=== PATIENT | male | born 1950 | race Caucasian/White ===

== ENCOUNTER 2017-11-25 10:25 | Outpatient (RCR) | payer MEDICARE, SELFPAY ==
[2017-11-17 11:14] LABS: International Normalized Ratio 1.5; Prothrombin Time (Protime)PT. 17.8 SECONDS (11.7-14.9)
[2017-11-25 11:25] LABS: International Normalized Ratio 2.2; Prothrombin Time (Protime)PT. 23.2 SECONDS (11.7-14.9)
== END 2017-12-16 23:59 ==
LOC: INT LAB 10:25
PROVIDERS: Family Provider Internal Medicine; PCP Internal Medicine; Visit Provider Internal Medicine Cardiovascular Disease
DX: I48.0 Paroxysmal atrial fibrillation (principal); Z79.01 Long term (current) use of anticoagulants
CPT/HCPCS: 36415; 85610

== ENCOUNTER 2018-02-01 07:57 | Outpatient (RCR) | payer MEDICARE, SELFPAY ==
[2017-10-21 09:03] VITALS: BP 127/87; BMI 26.9
[2018-01-14 12:54] LABS: International Normalized Ratio 3.1; Prothrombin Time (Protime)PT. 31.9 SECONDS (11.7-14.9)
[2018-02-01 09:21] LABS: International Normalized Ratio 2.8; Prothrombin Time (Protime)PT. 29.6 SECONDS (11.7-14.9)
== END 2018-02-13 23:59 ==
LOC: INT LAB 07:57
PROVIDERS: Family Provider Internal Medicine; PCP Internal Medicine; Visit Provider Internal Medicine Cardiovascular Disease
DX: I48.0 Paroxysmal atrial fibrillation (principal); Z79.01 Long term (current) use of anticoagulants
CPT/HCPCS: 36415; 85610

== ENCOUNTER 2018-03-11 09:26 | Outpatient (RCR) | payer MEDICARE, SELFPAY ==
[2018-03-11 10:05] LABS: International Normalized Ratio 2.7; Prothrombin Time (Protime)PT. 28.7 SECONDS (11.7-14.9)
== END 2018-03-15 23:59 ==
LOC: INT LAB 09:26
PROVIDERS: Family Provider Internal Medicine; PCP Internal Medicine; Visit Provider Internal Medicine Cardiovascular Disease
DX: I48.0 Paroxysmal atrial fibrillation (principal); Z79.01 Long term (current) use of anticoagulants
CPT/HCPCS: 36415; 85610

== ENCOUNTER 2018-04-13 07:17 | Outpatient (RCR) | payer MEDICARE, SELFPAY ==
[2018-04-13 08:50] LABS: International Normalized Ratio 2.9; Prothrombin Time (Protime)PT. 30.1 SECONDS (11.7-14.9)
== END 2018-04-15 23:59 ==
LOC: INT LAB 07:17
PROVIDERS: Family Provider Internal Medicine; PCP Internal Medicine; Visit Provider Internal Medicine Cardiovascular Disease
DX: I48.0 Paroxysmal atrial fibrillation (principal); Z79.01 Long term (current) use of anticoagulants
CPT/HCPCS: 36415; 85610

== ENCOUNTER 2018-06-22 06:54 | Outpatient (RCR) | payer MEDICARE, SELFPAY ==
[2018-06-22 07:50] LABS: International Normalized Ratio 3.4; Prothrombin Time (Protime)PT. 34.4 SECONDS (11.7-14.9)
== END 2018-07-16 23:59 ==
LOC: INT LAB 06:54
PROVIDERS: Family Provider Internal Medicine; PCP Internal Medicine; Visit Provider Internal Medicine Cardiovascular Disease
DX: I48.0 Paroxysmal atrial fibrillation (principal); Z79.01 Long term (current) use of anticoagulants; I48.91 Unspecified atrial fibrillation; I48.92 Unspecified atrial flutter
CPT/HCPCS: 36415; 85610

== ENCOUNTER → 2018-06-30 08:46 | Outpatient (CLI) | payer MEDICARE, SELFPAY ==
[2018-06-30 09:35] LABS: International Normalized Ratio 3.4; Prothrombin Time (Protime)PT. 34.5 SECONDS (11.7-14.9)
== END ==
PROVIDERS: Family Provider Internal Medicine; PCP Internal Medicine; Visit Provider Internal Medicine Cardiovascular Disease
DX: I48.92 Unspecified atrial flutter (principal); Z79.01 Long term (current) use of anticoagulants
CPT/HCPCS: 36415; 85610

== ENCOUNTER 2018-08-31 12:47 | Outpatient (RCR) | payer MEDICARE, SELFPAY ==
[2018-08-31 13:20] LABS: Prothrombin Time (Protime)PT. 22.8 SECONDS (11.7-14.9)
== END 2018-08-31 14:00 | disposition home or self-care (01) ==
LOC: LAB 12:47
PROVIDERS: Family Provider Internal Medicine; PCP Internal Medicine; Visit Provider Internal Medicine Cardiovascular Disease
DX: I48.92 Unspecified atrial flutter (principal); Z79.01 Long term (current) use of anticoagulants
CPT/HCPCS: 36415; 85610

== ENCOUNTER → 2018-10-18 08:58 | Outpatient (CLI) | payer MEDICARE, SELFPAY ==
[2018-10-18 09:05] VITALS: PULSE 101; PULSE 103; PULSE 109; PULSE 62; PULSE 84; PULSE 86; PULSE 94; PULSE 98; O2SAT 96; O2SAT 97
--- NOTE | 2018-10-18 13:41 | WT_ITS ---
PSN 6 Minute Walk Test - 6 Minute Walk Test 6 Minute Walk Test: 6 Minute Walk Test PSN:6-Minute Walk Test Start: 10/18/18 09:29 Freq: Status: Active Protocol: [id number] Document 10/18/18 09:05 [facility] (Rec: 10/18/18 09:32 [facility] [id number]) 6 Minute Walk Test Date Performed 10/18/18 Time Performed 09:05 Height 6 ft Weight: 205 lb Weight in Pounds 205.[address]: Janelle Sellers Assistive device used: None Pre-test Oxygen Delivery Method Room Air Pulse Ox (%) 97 Pulse Rate (60-100 beats/min) 84 Dyspnea Alejandro Scale (0-10) 0 Exertion Alejandro Scale (6-20) 6 1st minute Oxygen Delivery Method Room Air Pulse Ox (%) 97 Pulse Rate (60-100 beats/min) 98 Number of Rests Taken 0 2nd minute Oxygen Delivery Method Room Air Pulse Ox (%) 96 Pulse Rate (60-100 beats/min) 86 Number of Rests Taken 0 3rd minute Oxygen Delivery Method Room Air Pulse Ox (%) 96 Pulse Rate (60-100 beats/min) 109 H Number of Rests Taken 0 4th minute Oxygen Delivery Method Room Air Pulse Ox (%) 96 Pulse Rate (60-100 beats/min) 101 H Number of Rests Taken 0 5th minute Oxygen Delivery Method Room Air Pulse Ox (%) 96 Pulse Rate (60-100 beats/min) 103 H Number of Rests Taken 0 6th minute Oxygen Delivery Method Room Air Pulse Ox (%) 97 Pulse Rate (60-100 beats/min) 94 Number of Rests Taken 0 Post-test Oxygen Delivery Method Room Air Pulse Ox (%) 97 Pulse Rate (60-100 beats/min) 62 Dyspnea Alejandro Scale (0-10) 2 Exertion Alejandro Scale (6-20) 12 Number of Rests Taken 0 Full Laps Walked 18 Partial Lap, Number of Tiles Walked 37 Total Distance Walked (ft) 1099 - Interpretation Interpretation: The patient ambulated 1099 feet over the course of 6 minutes beginning on room air without assistive devices or breaks. Pretesting oxygen saturation was noted to be 97% on room air. With ambulation, the tianna oxygen saturation was 96%. There was no significant exertional oxygen desaturation. - Recommendations Recommendations: There is no indication for the use of supplemental oxygen at this time.
--- OUTSIDE RECORDS SUMMARY | 2018-12-11 11:13 | XMS RPT_ITS ---
:1950 Author Organization OHIP Support Name Relationship Address Phone LEANNA CARDONA Unavailable [address] + [address] [place] [address] R Unavailable Unavailable Unavailable BRENDAN LEANNA Unavailable Unavailable Unavailable BRENDAN LEANNA Unavailable [address] + [address] [place] [address] R Unavailable Unavailable Unavailable BRENDAN LEANNA Unavailable [address] + [address] [place] [address] R Unavailable Unavailable Unavailable BRENDAN LEANNA Unavailable [address] + [address] [place] [address] R Unavailable Unavailable Unavailable BRENDAN LEANNA Unavailable [address] + [address] [place] [address] R Unavailable Unavailable Unavailable BRENDANJANICEIE Unavailable [address] + [address] [place] [address] R Unavailable Unavailable Unavailable JANICE CARDONAIE Unavailable [address] + [address] [place] [address] R Unavailable Unavailable Unavailable BRENDAN LEANNA Unavailable [address] + [address] [place] [address] R Unavailable Unavailable Unavailable BRENDAN LEANNA Unavailable [address] + [address] [place] [address] R Unavailable Unavailable Unavailable BRENDAN LEANNA Unavailable Unavailable Unavailable BRENDAN LEANNA Unavailable [address] + [address] [place] [address] R Unavailable Unavailable Unavailable BRENDAN LEANNA Unavailable [address] + [address] [place] [address] R Unavailable Unavailable Unavailable BRENDAN LEANNA Unavailable [address] + [address] [place] [address] R Unavailable Unavailable Unavailable BRENDAN, LEANNA Unavailable Unavailable Unavailable BRENDAN, LEANNA Unavailable [address] + [address] [place] [address] R Unavailable Unavailable Unavailable BRENDAN, LEANNA Unavailable . + [place] [address] R Unavailable Unavailable Unavailable BRENDAN, LEANNA Unavailable . + [place] [address] R Unavailable Unavailable Unavailable BRENDAN, LEANNA Unavailable . + [place] [address] R Unavailable Unavailable Unavailable BRENDAN, LEANNA Unavailable . + [place] [address] R Unavailable Unavailable Unavailable BRENDAN, LEANNA Unavailable Unavailable Unavailable BRENDAN, LEANNA Unavailable . + [place] [address] R Unavailable Unavailable Unavailable BRENDAN, LEANNA Unavailable Unavailable + [place] [address] R Unavailable Unavailable Unavailable BRENDAN, LEANNA Unavailable Unavailable + [place] [address] R Unavailable Unavailable Unavailable BRENDAN, LEANNA Unavailable Unavailable + [place] [address] R Unavailable Unavailable Unavailable Care Team Providers Name Role Phone DEMETRIA BERGMAN ([facility]) Attending Unavailable SR BETTY Attending Unavailable SR, BETTY Referring Unavailable SR, BETTY Referring Unavailable SR, BETTY Referring Unavailable PAT PASCAL ([facility]) Attending Unavailable SR, BETTY Referring Unavailable CARLTON CAREDNAS ([facility]) Attending Unavailable OLDER, DEMETRIA ([facility]) Attending Unavailable OLDER, DEMETRIA ([facility]) Referring Unavailable TESTRAKE, ANNMARIE Attending Unavailable OLDER, DEMETRIA ([facility]) Referring Unavailable TESTRAKE, ANNMARIE Referring Unavailable TESTRAKE, ANNMARIE Referring Unavailable TESTRAKE, ANNMARIE Attending Unavailable TESTRAKE, ANNMARIE Referring Unavailable SR, BETTY Attending Unavailable SR, BETTY Referring Unavailable PROVIDER, UNKNOWN Admitting Unavailable PROVIDER, UNKNOWN Attending Unavailable PATIENT, SELF Referring Unavailable PROVIDER, UNKNOWN Admitting Unavailable PROVIDER, UNKNOWN Attending Unavailable PATIENT, SELF Referring Unavailable PROVIDER, UNKNOWN Admitting Unavailable PROVIDER, UNKNOWN Attending Unavailable PATIENT, SELF Referring Unavailable PROVIDER, UNKNOWN Admitting Unavailable PROVIDER, UNKNOWN Attending Unavailable PATIENT, SELF Referring Unavailable Janelle Sellers Attending Unavailable Sellers, Janelle Referring Unavailable Sr, Juan Primary Care Unavailable Javan Fraga D.O. Attending Unavailable Sellers, Janelle Referring Unavailable Jayesh, Moris Attending Unavailable Sr, Juan Primary Care Unavailable Armando, Vahid Attending Unavailable Sr, Juan Primary Care Unavailable Armando, Vahid Attending Unavailable Sr, Juan Primary Care Unavailable Javan Fraga D.O. Attending Unavailable Sellers, Janelle Referring Unavailable Javan Fraga D.O. Attending Unavailable Jayesh, Moris Referring Unavailable Jayesh, Moris Attending Unavailable Sr, Juan Referring Unavailable Armando, [place]in[place] Attending Unavailable Sr, Juan Primary Care Unavailable Armando, [place] Referring Unavailable DeFinis, Oral Attending Unavailable Armando, Vahid Attending Unavailable Sr, Juan Referring Unavailable Sr, Juan Primary Care Unavailable Armando, [place] Attending Unavailable Armando, [place] Referring Unavailable Sr, Juan Primary Care Unavailable Armando, Vahid Attending Unavailable Armando, [place] Referring Unavailable Sr, Juan Primary Care Unavailable Armando, Vahid Attending Unavailable Armando, Vahid Referring Unavailable Sr, Juan Primary Care Unavailable Armando, Vahid Attending Unavailable Armando, [place] Referring Unavailable Sr, Juan Primary Care Unavailable Sellers, Janelle Attending Unavailable Sr, Juan Referring Unavailable Sr, Juan Primary Care Unavailable Wei Chung Attending Unavailable Sr, Juan Referring Unavailable Armando, Vahid Attending Unavailable Armando, Vahid Referring Unavailable Sr, Juan Primary Care Unavailable Sellers, Janelle Attending Unavailable Sellers, Janelle Referring Unavailable Sr, Juan Primary Care Unavailable Sellers, Janelle Attending Unavailable Sellers, Janelle Referring Unavailable Sr, Juan Primary Care Unavailable Sellers, Janelle Attending Unavailable Sr, Juan Referring Unavailable PROBLEMS PROBLEMS DATE TYPE CONDITION / CODE ATTENDING STATUS SOURCE 10/25/2018 Unknown J44.9 - Chronic Sellers, Active Patricia obstructive [facility] pulmonary disease, Hospital unspecified / Repository J44.9(ICD-10) 10/25/2018 Unknown F17.200 - Nicotine Sellers, Active [place] dependence, [facility] unspecified, Hospital uncomplicated / Repository F17.200(ICD-10) 10/25/2018 Unknown G47.33 - Obstructive Sellers, Active [place] sleep apnea (adult) [facility] (pediatric) / Hospital G47.33(ICD-10) Repository 09/16/2018 Unknown I48.92 - Unspecified ArmandoEleazar mayril Active [place] atrial flutter / Community I48.92(ICD-10) Hospital Repository 09/16/2018 Unknown Z79.01 - snf ArmandoEleazarSeminole Active [place] (current) use of Community anticoagulants / Hospital Z79.01(ICD-10) Repository 07/07/2018 Active Localized swelling, NA Active [place] mass and lump, right Clinic Main lower limb / [place] R22.41(ICD-10) Repository 07/07/2018 Active Ganglion, right NA Active [facility] ankle and foot / Clinic Main M67.471(ICD-10) [place] Repository 06/30/2018 Active Pain in right foot / NA Active [facility] [place] M79.671(ICD-10) Clinic Main [place] Repository 07/17/2018 Unknown I48.0 - Paroxysmal ArmandoEleazar mayril Active [place] atrial fibrillation Community / I48.0(ICD-10) Hospital Repository 03/11/2018 Unknown I48.91 - Unspecified Armando, [place] Active [facility] atrial fibrillation Community / I48.91(ICD-10) Hospital Repository 03/11/2018 Unknown I10 - Essential ArmandoEleazarVahid Active [place] (primary) Community hypertension / Hospital I10(ICD-10) Repository 03/11/2018 Unknown I43 - Cardiomyopathy ArmandoEleazar mayril Active [place] in diseases Community classified elsewhere Hospital / I43(ICD-10) Repository 01/26/2018 Active Chronic viral NA Active [facility] [place] hepatitis C / Clinic Main B18.2(ICD-10) [place] Repository 07/30/2010 Active Impaired fasting NA Active [place] glucose / Clinic Main R73.01(ICD-10) [place] Repository 09/05/2009 Active Other specified NA Active [facility] abnormal [facility] Main immunological [place] findings in serum / Repository R76.8(ICD-10) 02/01/2018 Active Other parts counterman NA Active [place] (current) drug [facility] Main therapy / [place] Z79.899(ICD-10) Repository 02/01/2018 Active Unspecified atrial NA Active [place] fibrillation / Clinic Main I48.91(ICD-10) [place] Repository 11/17/2017 Unknown Z72.0 - Tobacco use Moris Mcconnell Active [place] / Z72.0(ICD-10) [facility] PROCEDURES PROCEDURES DATE CODE DESCRIPTION STATUS SOURCE 11/01/2018 38908(C4) LARYNGOSCOPY, Completed [facility] FLEXIBLE FIBEROPTIC; System Repository DX 08/02/2018 30911(C4) LARYNGOSCOPY, Completed [facility] FLEXIBLE [facility]; System Repository DX 05/03/2018 80720(C4) LARYNGOSCOPY, Completed [facility] FLEXIBLE FIBEROPTIC; System Repository DX 01/25/2018 95647(C4) LARYNGOSCOPY, Completed [facility] FLEXIBLE FIBEROPTIC; System Repository DX RESULTS RESULTS LOW DOSE CT LUNG Observed: 11/02/2018 Status: F Source: ISOM SCREENING 7:55 AM [facility] Imaging Services [address] [place] [address] Lung Screening MR#: [id number] Acct: [id number] Name: LUCI CARDONA Rep #: [id number] : 1950 M 68 From: Sami Perez DO PCP: Juan Sr MD Status: REG CLI Study: Low Dose CT Lung Screening Date of Exam: 11/02/18 Exam# [id number] Ordering Dr: Janelle Sellers SHOP HELPER-Julio STUDY: LOW DOSE CT LUNG CANCER SCREENING REASON FOR EXAM: Male, 68 years old. 50 pack-year history. History of throat cancer and COPD. RADIATION DOSAGE (If Supplied By Facility): CTDIvol = ( 3.02 ) mGy, DLP = ( 105.71 ) mGycm TECHNIQUE: No contrast was administered. Low dose technique was utilized (average mAS-38 and kVp 120). 1.25 mm axial source images with a slice interval of 1.25- mm were reconstructed in lung windows. 2.5 mm axial source images with a slice interval of 2.5-mm were reconstructed in lung windows. 5.0 mm axial source images with a slice interval of 5.0-mm were reconstructed in soft tissue windows. Nodule measured using lung windows on PACS and/or independent workstation with automated measurement of minimum and maximum diameter. Nodule measurement reported as average diameter rounded to the nearest whole number. Growth is defined as an increase ins size of greater than 1.5 mm. COMPARISON: Chest, October 16, 2014. NODULES: Nodule #: 1 Density: Solid Lung location: Right upper lobe: 2.5 cm from pleura Location in series: Series Number: 2 Image: 135 Size - D1 x D2 mm: 6 x 6 mm: 6 mm average diameter Margin: Smooth Shape: Triangular Calcification: No Fat: No Temporal comparison: None Nodule #: 2 Density: Solid Lung location: Right middle lobe: 2.2 cm from pleura Location in series: Series Number: 2 Image: 151 Size - D1 x D2 mm: 3 x 3 mm: 3 mm average diameter Margin: Smooth Shape: Round Calcification: Yes Fat: No Temporal comparison: None Total lung nodules (excluding granulomas): 1 Emphysema: There are minimal emphysematous changes with biapical pleural scarring and linear scarring in the left lower lobe. Endobronchial lesion: None Aorta: There is atherosclerotic tortuosity without aneurysm. Coronary arteries: There are coronary artery calcifications. Heart: The heart is normal in size. Pulmonary artery: Normal Mediastinal nodes: There is nonspecific subcentimeter mediastinal lymphadenopathy. Other chest and abdominal findings: There are degenerative changes of the thoracic spine. CT/Low Dose CT Lung Screening IMPRESSION: 1. Triangular soft tissue nodule in the right upper lobe. 2. Minimal emphysematous changes. Lung-RADS category 2 - Continue annual screening with LDCT in 12 months. IMPORTANT NOTES FOR USE: ACR Lung-RADS Version 1.0 Assessment Categories Release Date: March 13, 2014 Category: Coded 0-4 bases on nodule(s) with highest degree of suspicion. Negative screen is defined as categories 1 and 2; a positive screen is defined as categories 3 and 4. Category 3 and 4A nodules that are unchanged on interval CT should be coded as category 2, and individuals returned to screening in 12 months. Category 4X: Category 3 or 4 nodules with additional imaging findings that increase the suspicion of lung cancer, such as spiculation, GGN that doubles in size in 1 year, enlarged lymph notes, etc. Category Modifiers: S (significant finding unrelated to lung cancer) and C (prior history of treated lung cancer) may be added to the 0-4 Lung-RADS Electronically Signed: Sami Perez DO at 17:05 EST Tel [phone], Service support , CC: Janelle Sellers; Juan Sr MD Mercerizing Range Feeder: Signed PULMONARY VISIT REPORT Observed: 10/25/2018 Status: F Source: ISOM 9:52 AM [facility] REPOSIT[facility] [place] [address] [place] [address] OFFICE VISIT Date of Service: 10/25/18 MR#: [id number] Acct: [id number] Name: LUCI CARDONA Rep #: [id number] : 1950 Provider: Janelle Sellers Age/Sex: 68/M Location: [facility] [place] Status: Signed Assessment AND Plan 1. 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 No need for prednisone or antibiotic. Not currently on maintenance medications, no indication to step up therapy at this point. No additional testing at this time. Contact the office for any new or worsening symptoms. An acute visit and typically be arranged within 1-2 days. Follow- up in 3 months. Declined annual influenza vaccination, is current on Pneumovax 23. 2. Tobacco dependency F17.200 Plan Encouraged smoking cessation. Given the patient's smoking history he has appropriate for low-dose lung CT screening, and agreeable to testing and additional studies as indicated. Follow-up with Dr. Mcconnell in 3 months, if test results warrant additional testing the patient will be contacted for an add on visit, he conveys understanding and is agreeable to this plan. Orders Orders: 3. Obstructive sleep apnea syndrome G47.33 Plan Patient is using and benefiting from Pap therapy. No indication for titration study at this time. Continue to encourage weight loss. Contact the office for any new or worsening symptoms in the meantime. Follow-up in3 mos. Plan Detail Follow Up 3 Months (BWA) HPI 3 M FU: Chief Complaint: None HPI Comments Details: This is a 68 year old M, currently under the care of Juan Sr, here today to review test results. He denies any shortness of breath at rest, during conversation or even on exertion. He does not have any cough, sputum production or hemoptysis. He denies any wheezing, chest tightness, chest pain or palpitations he also denies any fever, chills or body aches. He has not been seen in the ED or urgent care for respiratory illnesses since his last office visit. He has not required any antibiotics or prednisone for any breathing problems. He continues to smoke 1 pack of cigarettes daily. I personally reviewed the tests/images/tracings which showed: Complete Pulmonary Function test were preformed on October 19, 2018, and showed FVC of 71 % of predicted, FEV1 of 63 % of predicted, FEV1/FVC ratio of 66 %, TLC of 78 % of predicted, RV of 7262% of predicted % of predicted, DLCO . The test was interpreted to be consistent with an irreversible moderate mixed ventilatory defect, with no symmetric reduction in significant response to bronchodilators and a diffusing capacity. Pulmonary stress test was completed on October 18, 2018, and did not show a drop in saturation below 89%, which does not suggest a requirement of supplemental oxygen on ambulation at this time. He was able to ambulate 1099 feet over the course of 6 minutes, he did show some tachycardia with a high heart rate of 109 bpm at minute 3. Complete polysomnography was completed on [] and was significant for an Apnea-hypopnea index of [] with a perodic limb movement index of []. Therapy periodic was suggested at []/[] cmH2O. I personally reviewed a chest X-Ray, that was completed on [], that showed []. Intake Vital Signs10/25/18 Height 6 ft 10/25/18 Weight: 202 lb Intake Visit Reasons: 3 M FU Accompanied by: Self Allergies Penicillins Allergy (Verified 10/25/18 08:57) Hives sulindac [From Clinoril] Allergy (Verified 10/25/18 08:57) Unknown Medications Aspirin [Aspirin, Baby] 81 mg PO DAILY@0800 #30 tab.chew 10/04/14 [Rx Confirmed 10/25/18] Warfarin Sodium [Coumadin] 10 mg PO DAILY #10 tab 10/16/14 [Rx Confirmed 10/25/18] hydrochlorothiazide 25 mg tablet 25 mg PO QAM #90 tab 01/21/18 [Rx Confirmed 10/25/18] lisinopril 20 mg tablet 20 mg PO BID #180 tab 01/26/18 [Rx Confirmed 10/25/18] carvedilol 25 mg tablet 25 mg PO BID #180 tab 03/11/18 [Rx Confirmed 10/25/18] warfarin 5 mg tablet 5 mg PO .COMPLEX #135 tab 03/11/18 [Rx Confirmed 10/25/18] [facility] History Cardiomyopathy in other diseases classified elsewhere (Chronic) Tobacco dependency (Chronic) Stage 2 moderate COPD by GOLD classification (Chronic) Dyspnea on effort (Chronic) snf (current) use of anticoagulants (Chronic) H/O ETOH abuse (Resolved) Afib (Chronic) Syncope and collapse (Acute) Alcohol abuse (Acute) Atrial flutter (Chronic) Nonrheumatic mitral (valve) prolapse (Chronic) Paroxysmal atrial fibrillation (Chronic) Sleep apnea (Chronic) Surgical History History of cholecystectomy (Resolved) History of herniorrhaphy (Resolved) Family History Mother Breast cancer Father Cancer Social History household members: spouse housing: house current occupational status: previously employed, retired pets and animals: Yes pets and animals: cat(s) Smoking Status: Current every day smoker tobacco type: cigarettes second hand exposure: Yes alcohol intake: current alcohol intake frequency: a few times a week Alcohol type: beer substance use type: does not use caffeine: No what type of physical activity do you participate in: none Review of Systems Const CONSTITUTIONAL: Negative anorexia, body ache, chills, daytime sleepiness, fever(s), night sweats, oral thrush, stops breathing during sleep, weight loss, sleeping in chair, fatigue, weight loss, weight gain, frequent colds, seasonal allergies, other, headache(s) or orthopnea EETM Ear Nose Throat Mouth: Positive hearing normal and post nasal drip; negative hard of hearing, hoarseness, dry mouth in morning, change in vision, itchy eyes, eye pain, swallowing Difficulty, ear pain, nose bleed, headache(s), mouth pain, nasal congestion, nasal discharge, sinus pain, sinus pressure, sore throat or other Cardio Cardiovascular: Negative chest pain, chest pain at rest, chest pain with activity, irregular heart rhythm, edema, shortness of breath when lying down, palpitations, murmur or other Resp Respiratory: Positive as per HPI; negative shortness of breath, pain with cough, wheezing, chest congestion, cough, chest tightness, pain on inspiration, inhalers, increase use of rescue inhalers, snoring, apnea or other Gastro Gastrointestional: Negative bloody stools, change in appetite, difficulty swallowing, reflux, hematemesis, melena stool, loose stool, constipation or other Genitourinary: Negative blood in urine, nocturia, pain with urination or other Musc Musculoskeletal: Negative body pain, back pain, neck pain or other Skin/Breast Skin/Breast: Negative dry skin, itching, rash, unusual bruising, breast lump or other Neuro Neurological: Negative restless legs, confusion, weakness or other (dizzy spell) Psych Psychocological: Negative abnormal sleep pattern, anxiety, thoughts of hurting self/others, hopelessness or other Lymph Lymphatic: Negative easy bleeding, easy bruising, swollen lymph nodes or other Exam Const Constitutional: Positive conversant, cooperative, in no acute respiratory distress, healthy appearing, well developed, well nourished and good hygiene Head Head: Positive normocephalic and atraumatic; negative cyanosis of lips/distal nose Eyes Eye: Positive clear conjunctiva; negative nystagmus or scleral abnormality Ears Ear: Positive hearing normal and external ears normal; negative hard of hearing Nose Nose: Positive no nasal discharge; negative epistaxis or external nose normal (strawberry nose) Mouth Mouth: Positive post nasal drip, oral mucosae normal, no lesions, dentures and posterior oropharynx is adequate; negative malodorous breath or oral thrush present Mallampati Score: II: Mallampati Score Neck Neck: Positive normal visual inspection, full ROM and trachea midline; negative lymphadenopathy, JVD or tender Chest Wall Chest: Positive normal inspection of the chest and symmetric chest movement; negative increased A/P diameter Resp lung sounds: Positive clear to auscultation, good air exchange, normal expiratory time and normal respiratory effort; negative diminished, wheezes, rhonchi, rales, dullness to percussion or wheeze present on forced exhalation Cardio Cardiac: Positive regular rate, regular rhythm, S1 normal and S2 normal; negative murmur GI GI: Positive normal to inspection; negative distended Genitourinary: Positive deferred Musc Musculoskeletal: Positive steady gait and ROM normal; negative kyphosis or scoliosis Skin Pulmonary Skin Exam: Positive intact; negative rash Pulses Pulse: Yes pulses normal x4 extremities Extremities Extremities: Yes capillary refill normal, No clubbing, No cyanosis, No edema Neuro Neurologic: Yes conversant, Yes no focal neuro deficits, Yes normal concentration, Yes understands questions, Yes cooperative, Yes normal cognition, Yes normal coordination, No tremor Lymph Lymphatic: No lymphadenopathy, No tenderness, No cervical adenopathy Psych Appearance: Positive grossly normal, eye contact and well kempt Mental Status: Positive mental status grossly normal Mood: Positive congruent mood Affect: Positive normal affect Coding Level of Care Code Off vis,est,level 4 Diagnoses Stage 2 moderate COPD by GOLD classification J44.9 Tobacco dependency F17.200 Obstructive sleep apnea syndrome G47.33 Sleep apnea type: obstructive 10/25/18 0952 <Electronically signed by Janelle ARCHER> Date Janelle ARCHER Cosigner Signature: Date (if applicable) CC: Juan Sr MD PULMONARY FUNCTION Observed: 10/19/2018 Status: F Source: ISOM TEST 1:01 PM [facility] REPOSITORY [facility] Pulmonary Services/Neurology [address] [place] [id number] MR#: [id number] Acct: [id number] Name: LUCI CARDONA Rep #: [id number] : 1950 68 From: Javan Fraga DO Referring Dr: Janelle Sellers NP Status: REG CLI Ordering Dr: Date: Location: [facility] Sex: M C INTRODUCTION: The patient is a 68-year-old male that presents for pulmonary function testing secondary to a diagnosis of COPD. Respiratory therapy reports good patient effort. Bronchodilators were used during testing. INTERPRETATION: Forced expiration spirometry demonstrates the presence of a moderate large airways obstructive ventilatory defect. There was no significant response to aerosolized bronchodilators. Spirograms are of good quality and do not plateau indicating slow emptying of the lungs. Body plethysmography was performed and reveals a decreased TLC to 5.48 L, 78% of predicted, indicative of a mild restrictive ventilatory impairment. Diffusing capacity by single breath CO is mildly reduced at 62% of predicted. IMPRESSION: These pulmonary function studies demonstrate the presence of an irreversible moderate mixed ventilatory defect with symmetric reduction in diffusing capacity. 10/19/18 1301 <Electronically signed by Javan Fraga DO> Date Javan Fraga DO CC: Janelle Sellers; Juan Sr MD Date Dictated: 10/19/181257 Date Transcribed: 10/19/181257 Mercerizing Range Feeder: ANIKET Signed 6 MINUTE WALK TEST Observed: 10/18/2018 Status: F Source: ISOM 1:41 PM [facility] Pulmonary Services/Neurology [facility] [place] [address] MR#: [id number] Acct: [id number] Name: LUCI CARDONA Rep #: [id number] : 1950 68 From: Javan Fraga DO Referring Dr: Janelle Sellers NP Date: Ordering Dr: Hang: Fiona Kim Location: PSN PSN 6 Minute Walk Test - 6 Minute Walk Test 6 Minute Walk Test: 6 Minute Walk Test PSN:6-Minute Walk Test Start: 10/18/18 09:29 Freq: Status: Active Protocol: [id number].6MINW Document 10/18/18 09:05 [facility] (Rec: 10/18/18 09:32 [facility] [id number]) 6 Minute Walk Test Date Performed 10/18/18 Time Performed 09:05 Height 6 ft Weight: 205 lb Weight in Pounds 205.[address]: Janelle Sellers Assistive device used: None Pre-test Oxygen Delivery Method Room Air Pulse Ox (%) 97 Pulse Rate (60-100 beats/min) 84 Dyspnea Alejandro Scale (0-10) 0 Exertion Alejandro Scale (6-20) 6 1st minute Oxygen Delivery Method Room Air Pulse Ox (%) 97 Pulse Rate (60-100 beats/min) 98 Number of Rests Taken 0 2nd minute Oxygen Delivery Method Room Air Pulse Ox (%) 96 Pulse Rate (60-100 beats/min) 86 Number of Rests Taken 0 3rd minute Oxygen Delivery Method Room Air Pulse Ox (%) 96 Pulse Rate (60-100 beats/min) 109 H Number of Rests Taken 0 4th minute Oxygen Delivery Method Room Air Pulse Ox (%) 96 Pulse Rate (60-100 beats/min) 101 H Number of Rests Taken 0 5th minute Oxygen Delivery Method Room Air Pulse Ox (%) 96 Pulse Rate (60-100 beats/min) 103 H Number of Rests Taken 0 6th minute Oxygen Delivery Method Room Air Pulse Ox (%) 97 Pulse Rate (60-100 beats/min) 94 Number of Rests Taken 0 Post-test Oxygen Delivery Method Room Air Pulse Ox (%) 97 Pulse Rate (60-100 beats/min) 62 Dyspnea Alejandro Scale (0-10) 2 Exertion Alejandro Scale (6-20) 12 Number of Rests Taken 0 Full Laps Walked 18 Partial Lap, Number of Tiles Walked 37 Total Distance Walked (ft) 1099 - Interpretation Interpretation: The patient ambulated 1099 feet over the course of 6 minutes beginning on room air without assistive devices or breaks. Pretesting oxygen saturation was noted to be 97% on room air. With ambulation, the tianna oxygen saturation was 96%. There was no significant exertional oxygen desaturation. - Recommendations Recommendations: There is no indication for the use of supplemental oxygen at this time. 10/18/181340 <Electronically signed by Javan Fraga DO> Date Javan Fraga DO CC: Date Dictated: 10/18/181339 Date Transcribed: 10/18/181339 Mercerizing Range Feeder: Javan Fraga DO Signed PROTHROMBIN TIME W/INR Collected: 10/18/2018 Status: F Source: [place] 9:27 AM [facility] REPOSITORY TYPE CODE TESTS RESULT OUT OF RANGE REFERENCE UNITS LAB L300.4150 11.7-14.9 SECONDS High PROTIME 24.3 LAB L300.4200 Normal INR 2.2 Performed By: #### L300.3900 #### [facility] [address] [place], [address] PROTHROMBIN TIME W/INR Collected: 08/31/2018 Status: F Source: [place] 12:54 PM [facility] REPOSITORY Order Comment: Comments: STANDING ORDER Comments: STANDING ORDER TYPE CODE TESTS RESULT OUT OF RANGE REFERENCE UNITS LAB L300.4150 11.7-14.9 SECONDS High PROTIME 22.8 LAB L300.4200 Normal INR 2.0 Performed By: #### L300.3900 #### [facility] [address] [place], [address] PROGRESS Observed: 07/29/2018 Status: COMPLETED Source: [place] 10:12 AM [facility] REPOSITORY HNO ID: [id number] Author: Juan Sr Service: (none) Author Type: Physician Type: Progress Notes Filed: 07/29/2018 10:19 AM Note Text: This note was created using [employer]. Subjective Luci Cardona is a 68 year old male here for follow up. His hypertension, atrial fibrillation, anticoagulation were stable. He saw podiatry for a cyst that resolved on its own. He had no recent hepatitis C follow up since he refused liver biopsy. 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 ACTIVE PROBLEM LIST Family History of Malignant Neoplasm of Gastrointestinal Tract Benign Neoplasm of Colon Hepatitis C Antibody Test Positive Htn (Hypertension), Benign Tobacco Use Disorder Impaired Fasting Glucose Benign Non-Nodular Prostatic Hyperplasia Without Lower Urinary Tract Symptoms Alcoholism, Chronic (Hcc) Erectile Dysfunction A-Fib (Hcc) Aishwarya On Cpap Chronic Midline Low Back Pain Without Sciatica History of Glottic Cancer Chronic Hepatitis C Without Hepatic Coma (Hcc) Current Outpatient Prescriptions: fexofenadine (SYLVIA) 60 mg tablet Take 1 tablet by mouth once daily. carvedilol (COREG) 25 mg tablet Take 1 tablet by mouth twice daily with meals. hydrochlorothiazide (HYDRODIURIL, ESIDRIX) 25 mg tablet Take 1 tablet by mouth once daily. thiamine (VITAMIN B1) 100 mg tablet Take 1 tablet by mouth once daily. lisinopril (ZESTRIL, PRINIVIL) 20 mg tablet Take 20 mg by mouth twice daily. warfarin (COUMADIN) 5 mg tablet Take 7.5 mg by mouth daily as directed. No current facility-administered medications for this visit. Review of Systems Constitutional: Negative. HENT: Negative. Respiratory: Negative. Cardiovascular: Negative. Gastrointestinal: Negative. Objective BP 98/62 (BP Site: Left Arm, BP Position: Sitting, BP Cuff Size: Regular Adult) Pulse 60 Temp (!) 35.7 ?C (96.2 ?F) (Left Tympanic) Resp 12 Wt 88.9 kg (196 lb) BMI 26.58 kg/m? Physical Exam Constitutional: No distress. Eyes: Conjunctivae are normal. No scleral icterus. Neck: No JVD present. Cardiovascular: Regular rhythm and normal heart sounds. Exam reveals no gallop. No murmur heard. Pulmonary/Chest: Breath sounds normal. Abdominal: Soft. He exhibits no mass. There is no tenderness. Musculoskeletal: He exhibits no edema. Component Latest Ref Rng AND Units 07/07/2018 Creatinine, [place] 0.7 - 1.4 mg/dL 0.8 Assessment and Plan 1. HTN (hypertension), benign - ICD9: 401.1, ICD10: I10 (primary diagnosis) - good control - Continue current medication(s) 2. Atrial fibrillation, unspecified type (HCC) - ICD9: 427.31, ICD10: I48.91 Anticoagulated by his band booker. 3. AISHWARYA on CPAP - ICD9: 327.23, V46.8, ICD10: G47.33, Z99.89 Stable. 4. Chronic hepatitis C without hepatic coma (HCC) - ICD9: 070.54, ICD10: B18.2 Options discussed. He agreed to referral, as he may benefit from treatment before symptoms or liver failure. He may benefit from other testing aside from liver biopsy. - CONSULT TO HEPATOLOGY Juan Sr MD CNOV Observed: 07/29/2018 Status: COMPLETED Source: [place] 8:20 AM [facility] REPOSITORY Office Visit (INTMWS) LUCI CARDONA ([id number]) 1950 M Date Time Provider Department 07/29/18 8:20 AM JUAN SR INTMWS During your visit today, we recorded the following information about you: Temperature Pulse Respiration Blood pressure 96.2 degrees 60/minute 12/minute 98/62 Weight 88.9 kg Juan Sr MD 07/29/2018 9:00 AM Signed Please check if the Shingrix vaccine is covered by your insurance provider. It is important to ask if the vaccine is covered under the major medical or under the prescription benefit plan. The billing code [place] [address]. The Shingrix medication is either administered at your Providers' office and they provide the vaccine, or your insurance covers it at the pharmacy and the pharmacist will administer. These questions should be clarified in order to utilize your maximum insurance benefits. To schedule an appointment for the injection, please call our main number, [facility] [phone] and ask to speak with a nurse. Juan Sr MD 07/29/2018 10:19 AM Signed This note was created using [employer]. Subjective Luci Cardona is a 68 year old male here for follow up. His hypertension, atrial fibrillation, anticoagulation were stable. He saw podiatry for a cyst that resolved on its own. He had no recent hepatitis C follow up since he refused liver biopsy. 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 ACTIVE PROBLEM LIST Family History of Malignant Neoplasm of Gastrointestinal Tract Benign Neoplasm of Colon Hepatitis C Antibody Test Positive Htn (Hypertension), Benign Tobacco Use Disorder Impaired Fasting Glucose Benign Non-Nodular Prostatic Hyperplasia Without Lower Urinary Tract Symptoms Alcoholism, Chronic (Hcc) Erectile Dysfunction A-Fib (Hcc) Aishwarya On Cpap Chronic Midline Low Back Pain Without Sciatica History of Glottic Cancer Chronic Hepatitis C Without Hepatic Coma (Hcc) Current Outpatient Prescriptions: fexofenadine (SYLVIA) 60 mg tablet Take 1 tablet by mouth once daily. carvedilol (COREG) 25 mg tablet Take 1 tablet by mouth twice daily with meals. hydrochlorothiazide (HYDRODIURIL, ESIDRIX) 25 mg tablet Take 1 tablet by mouth once daily. thiamine (VITAMIN B1) 100 mg tablet Take 1 tablet by mouth once daily. lisinopril (ZESTRIL, PRINIVIL) 20 mg tablet Take 20 mg by mouth twice daily. warfarin (COUMADIN) 5 mg tablet Take 7.5 mg by mouth daily as directed. No current facility-administered medications for this visit. Review of Systems Constitutional: Negative. HENT: Negative. Respiratory: Negative. Cardiovascular: Negative. Gastrointestinal: Negative. Objective BP 98/62 (BP Site: Left Arm, BP Position: Sitting, BP Cuff Size: Regular Adult) Pulse 60 Temp (!) 35.7 ?C (96.2 ?F) (Left Tympanic) Resp 12 Wt 88.9 kg (196 lb) BMI 26.58 kg/m? Physical Exam Constitutional: No distress. Eyes: Conjunctivae are normal. No scleral icterus. Neck: No JVD present. Cardiovascular: Regular rhythm and normal heart sounds. Exam reveals no gallop. No murmur heard. Pulmonary/Chest: Breath sounds normal. Abdominal: Soft. He exhibits no mass. There is no tenderness. Musculoskeletal: He exhibits no edema. Component Latest Ref Rng AND Units 07/07/2018 Creatinine, [place] 0.7 - 1.4 mg/dL 0.8 Assessment and Plan 1. HTN (hypertension), benign - ICD9: 401.1, ICD10: I10 (primary diagnosis) - good control - Continue current medication(s) 2. Atrial fibrillation, unspecified type (HCC) - ICD9: 427.31, ICD10: I48.91 Anticoagulated by his band booker. 3. AISHWARYA on CPAP - ICD9: 327.23, V46.8, ICD10: G47.33, Z99.89 Stable. 4. Chronic hepatitis C without hepatic coma (HCC) - ICD9: 070.54, ICD10: B18.2 Options discussed. He agreed to referral, as he may benefit from treatment before symptoms or liver failure. He may benefit from other testing aside from liver biopsy. - CONSULT TO HEPATOLOGY Juan Sr MD Referring Provider: JUAN SR [[id number]] Allergies As of Date: 07/29/2018 Noted Allergy Reaction CLINORIL (SULINDAC) 08/28/2005 PENICILLINS 08/28/2005 Date Reviewed: 07/29/2018 Reviewed by: Kristin Hobson LPN - Fully Assessed Reason for Visit: F/U 6 Month [444] Primary Visit Diagnosis:HTN (hypertension), benign [I10] Other Visit Diagnoses:Atrial fibrillation, unspecified type (HCC) [I48.91] AISHWARYA on CPAP [G47.33, Z99.89] Chronic hepatitis C without hepatic coma (HCC) [B18.2] Order(s):CONSULT TO HEPATOLOGY [[id number]] Order #: [id number]: 1 Prescriptions as of 07/29/2018 Sig: FEXOFENADINE 60 MG TABLET Take 1 tablet by mouth once d* CARVEDILOL 25 MG TABLET Take 1 tablet by mouth twice * HYDROCHLOROTHIAZIDE 25 MG TAB* Take 1 tablet by mouth once d* THIAMINE HCL (VITAMIN B1) 100* Take 1 tablet by mouth once d* LISINOPRIL 20 MG TABLET Take 20 mg by mouth twice jay* WARFARIN 5 MG TABLET Take 7.5 mg by mouth daily as* Problem List As Of Date 07/29/2018 Noted Resolved Diverticulosis of colon (without mention of hem* 01/15/2015 FAMILY HX GI MALIGNANCY [Z80.0] More... Benign neoplasm of colon [D12.6] INVALID FOR* More... Hepatitis B [B19.10] INVALID FOR*06/18/2011 More... Hepatitis C Antibody Test Positive [R76.8] INVALID FOR* HTN (Hypertension), Benign [I10] INVALID FOR* Tobacco use disorder [F17.200] INVALID FOR* More... Impaired Fasting Glucose [R73.01] INVALID FOR* Benign non-nodular prostatic hyperplasia withou*INVALID FOR* Personal history of colonic polyps [Z86.010] INVALID FOR*11/18/2011 Benign neoplasm of rectum and anal canal [D12.8*INVALID FOR*11/18/2011 Alcoholism, chronic (HCC) [F10.20] INVALID FOR* More... Erectile dysfunction [N52.9] INVALID FOR* More... A-fib (HCC) [I48.91] INVALID FOR* More... Lumbar disc herniation [M51.26] INVALID FOR*01/15/2015 More... 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 Chronic hepatitis C without hepatic coma (HCC) *INVALID FOR* Other instructions from your clinician: Please check if the Shingrix vaccine is covered by your insurance provider. It is important to ask if the vaccine is covered under the major medical or under the prescription benefit plan. The billing [place] [phone]. The Shingrix medication is either administered at your Providers' office and they provide the vaccine, or your insurance covers it at the pharmacy and the pharmacist will administer. These questions should be clarified in order to utilize your maximum insurance benefits. To schedule an appointment for the injection, please call our main number, [facility] [phone] and ask to speak with a nurse. Medications Discontinued During This Encounter doxycycline monohydrate (MONODOX) 10* 20 c* 0 06/02/2018 07/29/2018 Route: ORAL Sig: Take 1 capsule by mouth twice daily. Patient not taking: Reported on 07/29/2018 Disc: Reason for discontinue is not on file. methylPREDNISolone (MEDROL DOSE-PACK* 1 Pa* 0 06/22/2018 07/29/2018 Sig: Take medications as directed on packaging. Take with food. Patient not taking: Reported on 07/29/2018 Disc: Reason for discontinue is not on file. Disposition: Return in about 6 months (around 01/26/2019). Follow-up and Disposition History Recorded Encounter Status:Closed by JUAN SR MD on 07/29/18 PULMONARY VISIT REPORT Observed: 07/20/2018 Status: F Source: [place] 10:45 AM [facility] REPOSITORY Pulmonary Medicine of [address] [place] [address] OFFICE VISIT Date of Service: 07/20/18 MR#: [id number] Acct: [id number] Name: LUCI CARDONA Cassandra Rep #: [id number] : 1950 Provider: Janelle Sellers Age/Sex: 68/M Location: [facility] [place] Status: Signed Assessment AND Plan 1. 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 No need for prednisone or antibiotic. Not currently on maintenance medications, no indication to step up therapy at this time. Repeat PFT and walking oximetry due in 3 months.. Contact the office for any new or worsening symptoms. An acute visit and typically be arranged within 1-2 days. Annual influenza vaccination encourage, patient declined follow-up in [address] Mcconnell. Orders Orders: 2. Obstructive sleep apnea syndrome G47.33 Plan Patient is using and benefiting from Pap therapy. No indication for titration study at this time. Continue to encourage weight loss. Contact the office for any new or worsening symptoms in the meantime. Follow-up in 3 months. 3. Tobacco dependence F17.200 Plan A 3 minute, face to face discussion occurred with the patient regarding smoking cessation. Risks of continued tobacco abuse was covered. Discussed that as long as he continues to smoke his COPD will progress, and at some point he may require supplemental oxygen. He will require pulmonary function test every 6 months while he continues to smoke. Currently the patient is smoking less than one half ppd. At this time, LUCI is not interested in smoking cessation. We will continue to monitor the tobacco abuse and encourage cessation. You may call the [employer] hotline 4-738-FIMO-NOW. People who use this line are THREE times more likely to remain smoke free. HPI 6 M FU: Chief Complaint: None HPI Comments Details: This is a 68 year old M, here to follow up for sleep apnea and moderate COPD. Current use of pressure support therapy is on average of 5- 1/2 hours per night with current settings of 9/5 cmH2O. LUCI denies any daytime somnolence, dry mouth in the morning, snoring through the mask, morning headaches or difficulty with mask leaks, but is experiencing daytime 2-4 episodes of nocturia nightly. LUCI reports feeling rested in the morning and is benefitting from current therapy. Compliance report was reviewed and shows 97% compliance, AHI remains slightly elevated at 6.6 average events per hour. Leaks do not appear to be a problem. He complains of a postnasal drip. He denies any shortness of breath during conversation, at rest or even on exertion. He denies any wheezing, chest tightness, chest pain or palpitations. He denies any lower extremity edema. He has not experienced any fever, chills or body aches. He denies any cough, sputum production or hemoptysis. See complete review of systems. He continues to smoke less than one half pack of cigarettes daily. 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 DME Vendor: [employer] Accompanied by: Self Is patient in pain?: No Allergies Penicillins Allergy (Verified 07/20/18 07:09) Hives sulindac [From Clinoril] Allergy (Verified 07/20/18 07:09) Unknown Medications Aspirin [Aspirin, Baby] 81 mg PO DAILY@0800 #30 tab.chew 10/04/14 [Rx Confirmed 07/20/18] Warfarin Sodium [Coumadin] 10 mg PO DAILY #10 tab 10/16/14 [Rx Confirmed 07/20/18] tiotropium 2.5 mcg-olodaterol 2.5 mcg/actuation mist for inhalation 2 puff INHALATION Q24H #4 g 01/14/18 [Rx Confirmed 07/20/18] umeclidinium 62.5 mcg-vilanterol 25 mcg/actuation powdr for inhalation 1 inh INHALATION QDAY #60 ea 01/15/18 [Rx Confirmed 07/20/18] hydrochlorothiazide 25 mg tablet 25 mg PO QAM #90 tab 01/21/18 [Rx Confirmed 07/20/18] lisinopril 20 mg tablet 20 mg PO BID #180 tab 01/26/18 [Rx Confirmed 07/20/18] carvedilol 25 mg tablet 25 mg PO BID #180 tab 03/11/18 [Rx Confirmed 07/20/18] warfarin 5 mg tablet 5 mg PO .COMPLEX #135 tab 03/11/18 [Rx Confirmed 07/20/18] PFSH Medical History Cardiomyopathy in other diseases classified elsewhere (Chronic) H/O ETOH abuse (Resolved) Afib (Chronic) Syncope and collapse (Acute) Alcohol abuse (Acute) Atrial flutter (Chronic) Nonrheumatic mitral (valve) prolapse (Chronic) Paroxysmal atrial fibrillation (Chronic) Sleep apnea (Chronic) Hypertension (Chronic) Surgical History History of cholecystectomy (Resolved) History of herniorrhaphy (Resolved) Family History Mother Breast cancer Father Cancer Social History household members: spouse housing: house current occupational status: previously employed, retired pets and animals: Yes pets and animals: cat(s) Smoking Status: Current every day smoker tobacco type: cigarettes second hand exposure: Yes alcohol intake: current alcohol intake frequency: a few times a week Alcohol type: beer substance use type: does not use caffeine: No what type of physical activity do you participate in: none Review of Systems Const CONSTITUTIONAL: Negative anorexia, body ache, chills, daytime sleepiness, fever(s), night sweats, oral thrush, stops breathing during sleep, weight loss, sleeping in chair, fatigue, weight loss, weight gain, frequent colds, seasonal allergies, other, headache(s) or orthopnea EETM Ear Nose Throat Mouth: Positive hearing normal and post nasal drip; negative hard of hearing, hoarseness, dry mouth in morning, change in vision, itchy eyes, eye pain, swallowing Difficulty, ear pain, nose bleed, headache(s), mouth pain, nasal congestion, nasal discharge, sinus pain, sinus pressure, sore throat or other Cardio Cardiovascular: Negative chest pain, chest pain at rest, chest pain with activity, irregular heart rhythm, edema, shortness of breath when lying down, palpitations, murmur or other Resp Respiratory: Positive as per HPI; negative shortness of breath, pain with cough, wheezing, chest congestion, cough, chest tightness, pain on inspiration, inhalers, increase use of rescue inhalers, snoring, apnea or other Gastro Gastrointestional: Negative bloody stools, change in appetite, difficulty swallowing, reflux, hematemesis, melena stool, loose stool, constipation or other Genitourinary: Positive nocturia; negative blood in urine, pain with urination or other Musc Musculoskeletal: Negative body pain, back pain, neck pain or other Skin/Breast Skin/Breast: Negative dry skin, itching, rash, unusual bruising, breast lump or other Neuro Neurological: Negative restless legs, confusion, weakness or other Psych Psychocological: Negative abnormal sleep pattern, anxiety, thoughts of hurting self/others, hopelessness or other Lymph Lymphatic: Negative easy bleeding, easy bruising, swollen lymph nodes or other Exam Const Constitutional: Positive conversant, cooperative, in no acute respiratory distress, healthy appearing, well developed, well nourished, good hygiene and smells of smoke Head Head: Positive normocephalic and atraumatic; negative cyanosis of lips/distal nose Eyes Eye: Positive clear conjunctiva; negative nystagmus or scleral abnormality Ears Ear: Positive hearing normal and external ears normal; negative hard of hearing Nose Nose: Positive external nose normal and no nasal discharge; negative epistaxis Mouth Mouth: Positive post nasal drip, oral mucosae normal, no lesions, dentures and posterior oropharynx is adequate; negative malodorous breath or oral thrush present Mallampati Score: I: Mallampati Score Neck Neck: Positive normal visual inspection, full ROM and trachea midline; negative lymphadenopathy, JVD or tender Chest Wall Chest: Positive symmetric chest movement and increased A/P diameter Resp lung sounds: Positive clear to auscultation, good air exchange, normal expiratory time and normal respiratory effort; negative diminished, wheezes, rhonchi, rales, dullness to percussion or wheeze present on forced exhalation Cardio Cardiac: Positive regular rate, regular rhythm, S1 normal and S2 normal; negative murmur GI GI: Positive normal to inspection; negative distended Genitourinary: Positive deferred Musc Musculoskeletal: Positive steady gait and ROM normal; negative kyphosis or scoliosis Skin Pulmonary Skin Exam: Positive intact; negative rash or lesion Pulses Pulse: Yes pulses normal x4 extremities Extremities Extremities: Yes capillary refill normal, No clubbing, No cyanosis, No edema Neuro Neurologic: Yes conversant, Yes no focal neuro deficits, Yes understands questions, Yes normal concentration, Yes cooperative, Yes normal cognition, Yes normal coordination Lymph Lymphatic: No lymphadenopathy, Yes tenderness, No cervical adenopathy Psych Appearance: Positive grossly normal, eye contact and well kempt Mental Status: Positive mental status grossly normal Mood: Positive congruent mood Affect: Positive flat Office Procedures Smoking Cessation Time Spent 3-10 minutes: Yes Coding Level of Care Code Off vis,est,level 3 Diagnoses Stage 2 moderate COPD by GOLD classification J44.9 Obstructive sleep apnea syndrome G47.33 Sleep apnea type: obstructive Tobacco dependence F17.200 Additional Codes Time Spent - 3-10 minutes: Yes ([id number]) 07/20/18 1045 <Electronically signed by Janelle FLETCHERC> Date Janelle Sellers [employer]PER-[employer] Cosigner Signature: Date (if applicable) CC: Juan Sr MD PROGRESS Observed: 07/14/2018 Status: COMPLETED Source: [place] 8:46 AM [facility] REPOSITORY HNO ID: [id number] Author: Annmarie Gonzalez Service: (none) Author Type: Physician Type: Progress Notes Filed: 07/14/2018 8:50 AM Note Text: Follow up podiatric office visit for: Chief Complaint: This 68 year old who presents for follow up:ganglion. He has mri to review. He states that since last office visit and prior to mri, he states he had significant reduction in size of ganglion. He has no pain. He is wearing regular shoes without issues. He has mri to review. He continues to smoke 1/2 pack/day. PAIN EVALUATION 07/14/2018 Pain Score: 0 Hemoglobin A1C Date Value Ref Range Status 02/01/2018 5.7 (H) 4.3 - 5.6 % Final PCP: Juan Sr MD PAST MEDICAL HISTORY Diagnosis Date - A-fib (HCC) 10/07/2014 Dr. Nas Roberts. - Alcoholism, chronic (HCC) 12/06/2012 - Benign neoplasm of colon - BPH w/o urinary obs/LUTS 06/18/2011 - Calculus of kidney 2000 Calcium oxalate - CHOLECYSTITIS NOS,resolved 08/29/2005 - Closed fracture of rib(s), unspecified 09/16/2005 - Degeneration of cervical intervertebral disc - Diverticulosis of colon (without mention of hemorrhage) - Hepatitis B 09/05/2009 Convalescent. 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 Liu Ford, [facility]. 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 Take with food. fexofenadine (SYLVIA) 60 mg tablet Take 1 tablet by mouth once daily. doxycycline monohydrate (MONODOX) 100 mg capsule Take 1 capsule by mouth twice daily. carvedilol (COREG) 25 mg tablet Take 1 tablet by mouth twice daily with meals. hydrochlorothiazide (HYDRODIURIL, ESIDRIX) 25 mg tablet Take 1 tablet by mouth once daily. thiamine (VITAMIN B1) 100 mg tablet Take 1 tablet by mouth once daily. lisinopril (ZESTRIL, PRINIVIL) 20 mg tablet Take 20 mg by mouth twice daily. warfarin (COUMADIN) 5 mg tablet Take 7.5 mg by mouth daily as directed. No current facility-administered medications for this visit. ALLERGIES Allergen Reactions - Clinoril [Sulindac] - Penicillins PAST SURGICAL HISTORY Procedure Laterality Date - COLONOS W/REM POLYP SNARE 03/03/07 - COLONOSCOP W/ OR W/O [facility] SPEC 06/01/2008 Colonoscopy - COLONOSCOP W/ OR W/O B[facility] SPEC 10/15/2011 Colonoscopy - COLONOSCOP W/ OR W/O [facility] 10/18/15 Colonoscopy - DIRECT LARYNGOSCOPY WITH BIOPSY 04/2017 - DIRECT LARYNGOSCOPY WITH BIOPSY 10/2017 - LAPAROSCOPIC CHOLEYCYSTECTOMY 08/19/05 Cholecystectomy, lap - PAST SURGICAL HISTORY OF 2004 Left parotid pleomorphic adenoma - PAST SURGICAL HISTORY OF 10/2009 Cyst removed from back. - REPAIR ING HERNIA,5+Y/O,REDUCIBL 1970 Hernia repair, inguinal - SIGMOIDOSCOPY FLEX DIAG 05/17/2007 Sigmoidoscopy Physical Exam: Constitutional: Pt is a well developed 68 year old male who is alert, oriented, cooperative and in no apparent distress. OBJECTIVE: NVSI unchanged from previous visit. Dermatological: Nails 1-5 right are normal. Webspaces clean and dry 1-4 right. Skin appears well hydrated and supple. good color, texture, turgor. No open lesions present. No callosities present. Musculoskeletal/Orthopaedic: Patient has no pain to palpation of right foot Mri reviewed and there is ganglion to midfoot, about 0.9 cm x 0.4 cm. ASSESSMENT: (M67.471) Ganglion cyst of right foot (primary encounter diagnosis) (R22.41) Localized swelling, mass, or lump of right lower extremity PLAN: 1. History and physical examination completed today. 2. Reviewed mri and discussed ganglion. At last office visit, he had ganglion that measures about 2.0cm x 2.2 cm but since last office visit, the lesion he states burst and is no longer painful. I reviewed MRI and he has very small cyst, 0.9 cm x 0.4 cm. I discussed surgical removal but in absence of pain and in combination of his smoking, I would propose monitoring and that is what he wishes to do 3. I did inform him the high probable chance of recurrence and if this occurs, he can schedule follow-up for discussion. 4. Patient to f/u prn. Annmarie Gonzalez DPM PROGRESS Observed: 07/14/2018 Status: COMPLETED Source: [place] 8:35 AM [facility] REPOSITORY HNO ID: [id number] Author: Rico (Rn) AQUILES Dickerson Service: (none) Author Type: Registered Nurse Type: Progress Notes Filed: 07/14/2018 8:50 AM Note Text: AMB ROOMING INTAKE FLOWSHEET DATA Risk Screening Do you have concerns about personal safety or safety in the home?: No Pain Pain Score: 0/10 Patient presents with: Established Patient: discuss options, POC, receive MRI results-07/07/18 patient denies pain, he is here to discuss MRI of right foot completed on 07/07/18. Rico Dickerson RN CNOV Observed: 07/14/2018 Status: COMPLETED Source: [place] 8:25 AM [facility] REPOSITORY Office Visit (PODIWS) LUCI CARDONA ([id number]) 1950 M Date Time Provider Department 07/14/18 8:25 AM ANNMARIE GONZALEZ During your visit today, we recorded the following information about you: Rico Dickerson, RN, RN 07/14/2018 8:50 AM Signed AMB ROOMING INTAKE FLOWSHEET DATA Risk Screening Do you have concerns about personal safety or safety in the home?: No Pain Pain Score: 0/10 Patient presents with: Established Patient: discuss options, POC, receive MRI results-07/07/18 patient denies pain, he is here to discuss MRI of right foot completed on 07/07/18. AQUILES Espinosa DPM 07/14/2018 8:50 AM Signed Follow up podiatric office visit for: Chief Complaint: This 68 year old who presents for follow up:ganglion. He has mri to review. He states that since last office visit and prior to mri, he states he had significant reduction in size of ganglion. He has no pain. He is wearing regular shoes without issues. He has mri to review. He continues to smoke 1/2 pack/day. PAIN EVALUATION 07/14/2018 Pain Score: 0 Hemoglobin A1C Date Value Ref Range Status 02/01/2018 5.7 (H) 4.3 - 5.6 % Final PCP: Juan Sr MD PAST MEDICAL HISTORY Diagnosis Date - A-fib (HCC) 10/07/2014 Dr. Nas Roberts. - Alcoholism, chronic (HCC) 12/06/2012 - Benign neoplasm of colon - BPH w/o urinary obs/LUTS 06/18/2011 - Calculus of kidney 2000 Calcium oxalate - CHOLECYSTITIS NOS,resolved 08/29/2005 - Closed fracture of rib(s), unspecified 09/16/2005 - Degeneration of cervical intervertebral disc - Diverticulosis of colon (without mention of hemorrhage) - Hepatitis B 09/05/2009 Convalescent. 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 Liu Ford, [facility]. 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 Take with food. fexofenadine (SYLVIA) 60 mg tablet Take 1 tablet by mouth once daily. doxycycline monohydrate (MONODOX) 100 mg capsule Take 1 capsule by mouth twice daily. carvedilol (COREG) 25 mg tablet Take 1 tablet by mouth twice daily with meals. hydrochlorothiazide (HYDRODIURIL, ESIDRIX) 25 mg tablet Take 1 tablet by mouth once daily. thiamine (VITAMIN B1) 100 mg tablet Take 1 tablet by mouth once daily. lisinopril (ZESTRIL, PRINIVIL) 20 mg tablet Take 20 mg by mouth twice daily. warfarin (COUMADIN) 5 mg tablet Take 7.5 mg by mouth daily as directed. No current facility-administered medications for this visit. ALLERGIES Allergen Reactions - Clinoril [Sulindac] - Penicillins PAST SURGICAL HISTORY Procedure Laterality Date - COLONOS W/REM POLYP SNARE 03/03/07 - COLONOSCOP W/ OR W/O [facility] 06/01/2008 Colonoscopy - COLONOSCOP W/ OR W/O [facility] 10/15/2011 Colonoscopy - COLONOSCOP W/ OR W/O [facility] 10/18/15 Colonoscopy - DIRECT LARYNGOSCOPY WITH BIOPSY 04/2017 - DIRECT LARYNGOSCOPY WITH BIOPSY 10/2017 - LAPAROSCOPIC CHOLEYCYSTECTOMY 08/19/05 Cholecystectomy, lap - PAST SURGICAL HISTORY OF 2004 Left parotid pleomorphic adenoma - PAST SURGICAL HISTORY OF 10/2009 Cyst removed from back. - REPAIR ING HERNIA,5+Y/O,REDUCIBL 1970 Hernia repair, inguinal - SIGMOIDOSCOPY FLEX DIAG 05/17/2007 Sigmoidoscopy Physical Exam: Constitutional: Pt is a well developed 68 year old male who is alert, oriented, cooperative and in no apparent distress. OBJECTIVE: NVSI unchanged from previous visit. Dermatological: Nails 1-5 right are normal. Webspaces clean and dry 1-4 right. Skin appears well hydrated and supple. good color, texture, turgor. No open lesions present. No callosities present. Musculoskeletal/Orthopaedic: Patient has no pain to palpation of right foot Mri reviewed and there is ganglion to midfoot, about 0.9 cm x 0.4 cm. ASSESSMENT: (M67.471) Ganglion cyst of right foot (primary encounter diagnosis) (R22.41) Localized swelling, mass, or lump of right lower extremity PLAN: 1. History and physical examination completed today. 2. Reviewed mri and discussed ganglion. At last office visit, he had ganglion that measures about 2.0cm x 2.2 cm but since last office visit, the lesion he states burst and is no longer painful. I reviewed MRI and he has very small cyst, 0.9 cm x 0.4 cm. I discussed surgical removal but in absence of pain and in combination of his smoking, I would propose monitoring and that is what he wishes to do 3. I did inform him the high probable chance of recurrence and if this occurs, he can schedule follow-up for discussion. 4. Patient to f/u prn. Annmarie Gonzalez DPM Referring Provider: ANNMARIE GONZALEZ [[id number]] Allergies As of Date: 07/14/2018 Noted Allergy Reaction CLINORIL (SULINDAC) 08/28/2005 PENICILLINS 08/28/2005 Date Reviewed: 07/14/2018 Reviewed by: Rico (Aquiles) AQUILES Dickerson - Fully Assessed Reason for Visit: Established Patient [175] Cmt: discuss options, POC, receive MRI results-07/07/18 Primary Visit Diagnosis:Ganglion cyst of right foot [M67.471] Other Visit Diagnosis:Localized swelling, mass, or lump of right lower extremity [R22.41] Prescriptions as of 07/14/2018 Sig: METHYLPREDNISOLONE 4 MG TABLE* Take medications as directed * FEXOFENADINE 60 MG TABLET Take 1 tablet by mouth once d* DOXYCYCLINE MONOHYDRATE 100 M* Take 1 capsule by mouth twice* CARVEDILOL 25 MG TABLET Take 1 tablet by mouth twice * HYDROCHLOROTHIAZIDE 25 MG TAB* Take 1 tablet by mouth once d* THIAMINE HCL (VITAMIN B1) 100* Take 1 tablet by mouth once d* LISINOPRIL 20 MG TABLET Take 20 mg by mouth twice jay* WARFARIN 5 MG TABLET Take 7.5 mg by mouth daily as* Medication notes this encounter METHYLPREDNISOLONE 4 MG TABLETS IN A DOSE PACK >> Rico Dickerson RN, RN 07/14/2018 8:35 AM >> RICO DICKERSON ThuJul 14, 2018 8:35 AM Not taking Problem List As Of Date 07/14/2018 Noted Resolved Diverticulosis of colon (without mention of hem* 01/15/2015 FAMILY HX GI MALIGNANCY [Z80.0] More... Benign neoplasm of colon [D12.6] INVALID FOR* More... Hepatitis B [B19.10] INVALID FOR*06/18/2011 More... Hepatitis C Antibody Test Positive [R76.8] INVALID FOR* HTN (Hypertension), Benign [I10] INVALID FOR* Tobacco use disorder [F17.200] INVALID FOR* More... Impaired Fasting Glucose [R73.01] INVALID FOR* Benign non-nodular prostatic hyperplasia withou*INVALID FOR* Personal history of colonic polyps [Z86.010] INVALID FOR*11/18/2011 Benign neoplasm of rectum and anal canal [D12.8*INVALID FOR*11/18/2011 Alcoholism, chronic (HCC) [F10.20] INVALID FOR* More... Erectile dysfunction [N52.9] INVALID FOR* More... A-fib (HCC) [I48.91] INVALID FOR* More... Lumbar disc herniation [M51.26] INVALID FOR*01/15/2015 More... 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 Chronic hepatitis C without hepatic coma (HCC) *INVALID FOR* Disposition: Return if symptoms worsen or fail to improve. Follow-up and Disposition History Recorded Encounter Status:Closed by ANNMARIE GONZALEZ DPM on 07/14/18 MRI FOOT/TOES WO IVCON Observed: 07/07/2018 Status: F Source: [place] RT 3:14 PM [facility] REPOSITORY * * *Final Report* * * DATE OF EXAM: Jul 07 2018 3:14PM TJ [id number] - MRI FOOT/TOES WO IVCON RT / PROCEDURE REASON: Localized swelling, mass and lump, right lower limb * * * * Physician Interpretation * * * * HISTORY: Localized swelling, mass and lump, right lower limb . Ganglion cyst of the midfoot. TECHNIQUE: Routine MRI of the right forefoot without contrast COMPARISON: Radiograph 06/30/2018 RESULT: There is a small cyst in the subcutaneous tissue of the dorsal forefoot overlying the proximal second intermetatarsal space superficial to the extensor tendon. It measures 0.9 x 0.4 x 0.7 cm. It shows STIR hyperintensity and mixed T1 isointensity and T1 hyperintensity. No definite communication with a joint space. Bone Marrow: Bone marrow signal intensity is within normal limits without evidence of fracture, osteomyelitis or marrow-replacing lesion. Small osteochondroma dorsal first metatarsal head. Joints: No significant cartilage abnormalities. No significant joint effusion. Tendons: Flexor and extensor tendons are within normal limits. Plantar Plates: Plantar plates are intact-appearing. Intermetatarsal Spaces: No evidence of Macias's neuroma. Lisfranc Ligament: Intact. Plantar Aponeurosis: Visualized portions of the plantar aponeurosis in within normal limits. Muscles: Muscle bulk and signal intensity are within normal limits. IMPRESSION: 0.9 cm cyst dorsal forefoot overlying the second intermetatarsal space, probably a ganglion cyst. Mercerizing Range Feeder: ELVIA Transcribe Date/Time: Jul 07 2018 3:45P Dictated by : MIKE MENDEZ MD This examination was interpreted and the report reviewed and electronically signed by: BUSHRA BARROW MD on Jul 07 2018 11:10PM EST [id number] PROGRESS Observed: 07/07/2018 Status: COMPLETED Source: [place] 3:06 PM [facility] REPOSITORY HNO ID: [id number] Author: Doreen Cruz (Rt) Service: (none) Author Type: Ux Architect Type: Progress Notes Filed: 07/07/2018 3:06 PM Note Text: Radiology Service Progress Note PATIENT NAME: Luci Cardona DATE OF SERVICE: July 07, 2018 TIME: 3:06 PM PATIENT IDENTITY VERIFICATION COMPLETED USING TWO (2) METHODS: Patient confirmed name verbally and Date of . PATIENT GENDER DATA: Male PATIENT RELEVANT IMPLANT DATA REVIEWED: Yes RADIOLOGY DEPARTMENT: MR; Exam(s) Completed: Lower MSK: Forefoot/Midfoot, right PERIPHERAL IV DATA: Not applicable SIGNED BY: RT Anthony July 07, 2018 3:06 PM PATRICIA CREATININE Collected: 07/07/2018 Status: F Source: [place] 2:10 PM [facility] REPOSITORY TYPE CODE TESTS RESULT OUT OF REFERENCE UNITS RANGE LAB WCRET 0.7-1.4 mg/dL [place] Creatinine 0.8 PROGRESS Observed: 06/30/2018 Status: COMPLETED Source: [place] 2:06 PM [facility] REPOSITORY HNO ID: [id number] Author: Annmarie Gonzalez Service: (none) Author Type: Physician Type: Progress Notes Filed: 06/30/2018 2:35 PM Note Text: ? Annmarie Gonzalez DPM Department of Podiatry [address] [place] [address] Dept: [phone] Dept 06/30/[address] Bergman for an opinion regarding lump to right foot. My final recommendations will be communicated back to the requesting physician by way of shared Medical record or letter to requesting physician via US mail. Initial Podiatric Office Visit: HPI: Luci Cardona is a 68 year old male. Patient presents with:Right foot pain for the past 5 days. He c/o palpable lump. Pain is rated at 6-9/10, and described as aching and sharp. It is worse when he is walking. He denies any injury. Lump appeared Thursday but has been more painful in the past 2 days. PCP: Juan Sr MD PAST MEDICAL HISTORY Diagnosis Date - A-fib (HCC) 10/07/2014 Dr. Nas Roberts. - Alcoholism, chronic (HCC) 12/06/2012 - Benign neoplasm of colon - BPH w/o urinary obs/LUTS 06/18/2011 - Calculus of kidney 2000 Calcium oxalate - CHOLECYSTITIS NOS,resolved 08/29/2005 - Closed fracture of rib(s), unspecified 09/16/2005 - Degeneration of cervical intervertebral disc - Diverticulosis of colon (without mention of hemorrhage) - Hepatitis B 09/05/2009 Convalescent. 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 Liu Ford, [facility]. 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 Take with food. fexofenadine (SYLVIA) 60 mg tablet Take 1 tablet by mouth once daily. doxycycline monohydrate (MONODOX) 100 mg capsule Take 1 capsule by mouth twice daily. carvedilol (COREG) 25 mg tablet Take 1 tablet by mouth twice daily with meals. hydrochlorothiazide (HYDRODIURIL, ESIDRIX) 25 mg tablet Take 1 tablet by mouth once daily. thiamine (VITAMIN B1) 100 mg tablet Take 1 tablet by mouth once daily. lisinopril (ZESTRIL, PRINIVIL) 20 mg tablet Take 20 mg by mouth twice daily. warfarin (COUMADIN) 5 mg tablet Take 7.5 mg by mouth daily as directed. No current facility-administered medications for this visit. ALLERGIES Allergen Reactions - Clinoril [Sulindac] - Penicillins PAST SURGICAL HISTORY Procedure Laterality Date - COLONOS W/REM POLYP SNARE 03/03/07 - COLONOSCOP W/ OR W/O [facility] SPE[facility] 06/01/2008 Colonoscopy - COLONOSCOP W/ OR W/O [facility] 10/15/2011 Colonoscopy - COLONOSCOP W/ OR W/O [facility] 10/18/15 Colonoscopy - DIRECT LARYNGOSCOPY WITH BIOPSY 04/2017 - DIRECT LARYNGOSCOPY WITH BIOPSY 10/2017 - LAPAROSCOPIC CHOLEYCYSTECTOMY 08/19/05 Cholecystectomy, lap - PAST SURGICAL HISTORY OF 2004 Left parotid pleomorphic adenoma - PAST SURGICAL HISTORY OF 10/2009 Cyst removed from back. - REPAIR ING HERNIA,5+Y/O,REDUCIBL 1970 Hernia repair, inguinal - SIGMOIDOSCOPY FLEX DIAG 05/17/2007 Sigmoidoscopy FAMILY HISTORY Problem Relation Age of Onset - Colon Cancer Father age 70s - Breast Cancer Mother age 45 - None Sister Social History Marital status: Spouse name: Leanna Years of education: Number of children: 3 Occupational History Occupation Employer Comment retired Social History Main Topics Smoking status: Current Every Day Smoker Packs/day: 1.00 Years: 50.00 Types: Cigarettes Last attempt to quit: 10/11/2014 Smokeless tobacco: Never Used Alcohol use: Yes 27.0 oz/week Cans of Beer (12oz): 18 per week Drug use: No Sexual activity: Yes Social History Narrative Lives with . Children grown. Not driving (suspended license) since 2002. REVIEW OF SYSTEMS: CONSTITUTIONAL: No fevers, chills, nightsweats, unintended weight loss HEENT: Denies frequent or severe heaches, nasal congestion/sinus symptoms, problematic allergy problems. EYES: No diplopia or blurry vision. CARDIOVASCULAR: No chest pain, dyspnea, palpitations, orthopnea, PND, ankle edema. PULM: No dyspnea, unexplained cough. GI: No dysphagia/odynophagia, problematic reflux, constipation, diarrhea, changes in stool habits, hematochezia, melena. : No new urinary complaints, including dysuria, gross hematuria or pyuria. NEURO: No new balance problems, peripheral weakness/paresthesias or numbness of concern. MUSC-SKEL: No new joint pain, swelling, or erythema. PSY: No concerns regarding depression, anxiety or panic. INTEGUMENTARY: Lump, R foot Physical Exam: Constitutional: Pt is a well developed 68 year old male who is alert, oriented and cooperative Eyes: Following during examination. No redness or drainage. Respiratory: RR normal and nonlabored. Even breathing. No evidence of distress or shortness of breath. Psychology: Patient is engaged during conversation. Normal affect and mood. Does not appear depressed or anxious during encounter. Vascular: Dorsalis pedis and posterior tibial pulses palpable as b/l Capillary Fill time < 5 seconds to digits 1-5 b/l Skin temperature warm to warm proximal to distal b/l Hair growth present to digits Neurological: intact light touch/epicritic sensation Dermatological: Nails 1-5 b/l appear Normal. Webspaces clean and dry 1-4 b/l. Skin appears well hydrated and supple. good color, texture, turgor. Callosities absent..Open lesions absent. Wound: Not present. Musculoskeletal/Orthopaedic: Patient has pain to palpation of right midfoot Palpable cyst is noted along dorsalis pedis, right foot. Cyst measures 2.2 x 2.0 cm Foot type is neutral structurally AJ ROM is full with knee extended and flexed 1st MPJ is full when loaded and no pain or crepitus are noted with ROM. MTJ, STJ are full and free of pain and crepitus. +5/5 muscle strength dorsiflexion, plantarflexion, inversion, eversion b/l Radiographs: 3 views of right foot reviewed. No acute fracture ASSESSMENT: (M67.471) Ganglion cyst of right foot (primary encounter diagnosis) (R22.41) Localized swelling, mass, or lump of right lower extremity PLAN: 1. History and physical examination performed. 2. Discussed lump of right foot. Suspect ganglion. This likely ganglion is complex in that it is most likely along dorsalis pedis artery. It is further complex due to patient medical history being on coumadin. 3. Discussed options for ganglion cyst not limited to aspiration vs excision. Discussed higher rates of recurrents with aspiration. I did discuss aspiration today but he may be more interested in surgical excision. 4. Due to location of cyst and concern being along dorsalis pedis, I recommend getting mri to further access. 5. He is recommended to cease smoking should he be interested in surgery. Annmarie Gonzalez DPM CNOV Observed: 06/30/2018 Status: COMPLETED Source: [place] 1:40 PM [facility] REPOSITORY Office Visit (PODIWS) LUCI CARDONA ([id number]) 1950 M Date Time Provider Department 06/30/18 1:40 PM ANNMARIE GONZALEZ PODNIGHATS During your visit today, we recorded the following information about you: Annmarie Gonzalez DPM 06/30/2018 2:35 PM Signed ? Annmarie Gonzalez DPM Department of Podiatry [address] [facility] [address] Dept: [phone] Dept 06/30/[address] Bergman for an opinion regarding lump to right foot. My final recommendations will be communicated back to the requesting physician by way of shared Medical record or letter to requesting physician via US mail. Initial Podiatric Office Visit: HPI: Luci Cardona is a 68 year old male. Patient presents with:Right foot pain for the past 5 days. He c/o palpable lump. Pain is rated at 6- 9/10, and described as aching and sharp. It is worse when he is walking. He denies any injury. Lump appeared Thursday but has been more painful in the past 2 days. PCP: Juan Sr MD PAST MEDICAL HISTORY Diagnosis Date - A-fib (HCC) 10/07/2014 Dr. Nas Roberts. - Alcoholism, chronic (HCC) 12/06/2012 - Benign neoplasm of colon - BPH w/o urinary obs/LUTS 06/18/2011 - Calculus of kidney 2000 Calcium oxalate - CHOLECYSTITIS NOS,resolved 08/29/2005 - Closed fracture of rib(s), unspecified 09/16/2005 - Degeneration of cervical intervertebral disc - Diverticulosis of colon (without mention of hemorrhage) - Hepatitis B 09/05/2009 Convalescent. 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 Liu Ford, [facility] 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 Take with food. fexofenadine (SYLVIA) 60 mg tablet Take 1 tablet by mouth once daily. doxycycline monohydrate (MONODOX) 100 mg capsule Take 1 capsule by mouth twice daily. carvedilol (COREG) 25 mg tablet Take 1 tablet by mouth twice daily with meals. hydrochlorothiazide (HYDRODIURIL, ESIDRIX) 25 mg tablet Take 1 tablet by mouth once daily. thiamine (VITAMIN B1) 100 mg tablet Take 1 tablet by mouth once daily. lisinopril (ZESTRIL, PRINIVIL) 20 mg tablet Take 20 mg by mouth twice daily. warfarin (COUMADIN) 5 mg tablet Take 7.5 mg by mouth daily as directed. No current facility-administered medications for this visit. ALLERGIES Allergen Reactions - Clinoril [Sulindac] - Penicillins PAST SURGICAL HISTORY Procedure Laterality Date - COLONOS W/REM POLYP SNARE 03/03/07 - COLONOSCOP W/ OR W/O BRSH SPEC 06/01/2008 Colonoscopy - COLONOSCOP W/ OR W/O BRSH SPEC 10/15/2011 Colonoscopy - COLONOSCOP W/ OR W/O BRSH SPEC 10/18/15 Colonoscopy - DIRECT LARYNGOSCOPY WITH BIOPSY 04/2017 - DIRECT LARYNGOSCOPY WITH BIOPSY 10/2017 - LAPAROSCOPIC CHOLEYCYSTECTOMY 08/19/05 Cholecystectomy, lap - PAST SURGICAL HISTORY OF 2004 Left parotid pleomorphic adenoma - PAST SURGICAL HISTORY OF 10/2009 Cyst removed from back. - REPAIR ING HERNIA,5+Y/O,REDUCIBL 1970 Hernia repair, inguinal - SIGMOIDOSCOPY FLEX DIAG 05/17/2007 Sigmoidoscopy FAMILY HISTORY Problem Relation Age of Onset - Colon Cancer Father age 70s - Breast Cancer Mother age 45 - None Sister Social History Marital status: Spouse name: Leanna Years of education: Number of children: 3 Occupational History Occupation Employer Comment retired Social History Main Topics Smoking status: Current Every Day Smoker Packs/day: 1.00 Years: 50.00 Types: Cigarettes Last attempt to quit: 10/11/2014 Smokeless tobacco: Never Used Alcohol use: Yes 27.0 oz/week Cans of Beer (12oz): 18 per week Drug use: No Sexual activity: Yes Social History Narrative Lives with . Children grown. Not driving (suspended license) since 2002. REVIEW OF SYSTEMS: CONSTITUTIONAL: No fevers, chills, nightsweats, unintended weight loss HEENT: Denies frequent or severe heaches, nasal congestion/sinus symptoms, problematic allergy problems. EYES: No diplopia or blurry vision. CARDIOVASCULAR: No chest pain, dyspnea, palpitations, orthopnea, PND, ankle edema. PULM: No dyspnea, unexplained cough. GI: No dysphagia/odynophagia, problematic reflux, constipation, diarrhea, changes in stool habits, hematochezia, melena. : No new urinary complaints, including dysuria, gross hematuria or pyuria. NEURO: No new balance problems, peripheral weakness/paresthesias or numbness of concern. MUSC-SKEL: No new joint pain, swelling, or erythema. PSY: No concerns regarding depression, anxiety or panic. INTEGUMENTARY: Lump, R foot Physical Exam: Constitutional: Pt is a well developed 68 year old male who is alert, oriented and cooperative Eyes: Following during examination. No redness or drainage. Respiratory: RR normal and nonlabored. Even breathing. No evidence of distress or shortness of breath. Psychology: Patient is engaged during conversation. Normal affect and mood. Does not appear depressed or anxious during encounter. Vascular: Dorsalis pedis and posterior tibial pulses palpable as b/l Capillary Fill time < 5 seconds to digits 1-5 b/l Skin temperature warm to warm proximal to distal b/l Hair growth present to digits Neurological: intact light touch/epicritic sensation Dermatological: Nails 1-5 b/l appear Normal. Webspaces clean and dry 1-4 b/l. Skin appears well hydrated and supple. good color, texture, turgor. Callosities absent..Open lesions absent. Wound: Not present. Musculoskeletal/Orthopaedic: Patient has pain to palpation of right midfoot Palpable cyst is noted along dorsalis pedis, right foot. Cyst measures 2.2 x 2.0 cm Foot type is neutral structurally AJ ROM is full with knee extended and flexed 1st MPJ is full when loaded and no pain or crepitus are noted with ROM. MTJ, STJ are full and free of pain and crepitus. +5/5 muscle strength dorsiflexion, plantarflexion, inversion, eversion b/l Radiographs: 3 views of right foot reviewed. No acute fracture ASSESSMENT: (M67.471) Ganglion cyst of right foot (primary encounter diagnosis) (R22.41) Localized swelling, mass, or lump of right lower extremity PLAN: 1. History and physical examination performed. 2. Discussed lump of right foot. Suspect ganglion. This likely ganglion is complex in that it is most likely along dorsalis pedis artery. It is further complex due to patient medical history being on coumadin. 3. Discussed options for ganglion cyst not limited to aspiration vs excision. Discussed higher rates of recurrents with aspiration. I did discuss aspiration today but he may be more interested in surgical excision. 4. Due to location of cyst and concern being along dorsalis pedis, I recommend getting mri to further access. 5. He is recommended to cease smoking should he be interested in surgery. Annmarie Gonzalez DPM Referring Provider: DEMETRIA BERGMAN ([facility]) [[id number]] Allergies As of Date: 06/30/2018 Noted Allergy Reaction CLINORIL (SULINDAC) 08/28/2005 PENICILLINS 08/28/2005 Date Reviewed: 06/30/2018 Reviewed by: Rosa Koenig RN - Fully Assessed Reason for Visit: New Patient [172] Primary Visit Diagnosis:Ganglion cyst of right foot [M67.471] Other Visit Diagnosis:Localized swelling, mass, or lump of right lower extremity [R22.41] Order(s):CREATININE BLD [SQCRET] Order #: [id number] FUTURE MRI FOOT/TOES WO/W IVCON RT [[id number]] Order #: [id number] FUTURE iv contrast (will be provided with radiology test)MRI foot/toes RT Inject, intravenously, once for 1 dose. No IV access, insert saline lock prior to the beginning of sedation, infusion, injection of imaging exam. Discontinue saline lock post exam. If Pt. has a central line or IVAD, may access for administration according to line specific nursing protocol. Once exam is complete flush line and de-access according to line specific nursing protocol in the MR contrast administration guidelines link.Disp: 1 EachRfl: 0 Prescriptions as of 06/30/2018 Sig: METHYLPREDNISOLONE 4 MG TABLE* Take medications as directed * FEXOFENADINE 60 MG TABLET Take 1 tablet by mouth once d* DOXYCYCLINE MONOHYDRATE 100 M* Take 1 capsule by mouth twice* CARVEDILOL 25 MG TABLET Take 1 tablet by mouth twice * HYDROCHLOROTHIAZIDE 25 MG TAB* Take 1 tablet by mouth once d* THIAMINE HCL (VITAMIN B1) 100* Take 1 tablet by mouth once d* LISINOPRIL 20 MG TABLET Take 20 mg by mouth twice jay* WARFARIN 5 MG TABLET Take 7.5 mg by mouth daily as* IV CONTRAST (RADIOLOGY PROCED* MRI foot/toes RT Inject, intr* Problem List As Of Date 06/30/2018 Noted Resolved Diverticulosis of colon (without mention of hem* 01/15/2015 FAMILY HX GI MALIGNANCY [Z80.0] More... Benign neoplasm of colon [D12.6] INVALID FOR* More... Hepatitis B [B19.10] INVALID FOR*06/18/2011 More... Hepatitis C Antibody Test Positive [R76.8] INVALID FOR* HTN (Hypertension), Benign [I10] INVALID FOR* Tobacco use disorder [F17.200] INVALID FOR* More... Impaired Fasting Glucose [R73.01] INVALID FOR* Benign non-nodular prostatic hyperplasia withou*INVALID FOR* Personal history of colonic polyps [Z86.010] INVALID FOR*11/18/2011 Benign neoplasm of rectum and anal canal [D12.8*INVALID FOR*11/18/2011 Alcoholism, chronic (HCC) [F10.20] INVALID FOR* More... Erectile dysfunction [N52.9] INVALID FOR* More... A-fib (HCC) [I48.91] INVALID FOR* More... Lumbar disc herniation [M51.26] INVALID FOR*01/15/2015 More... 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 Chronic hepatitis C without hepatic coma (HCC) *INVALID FOR* Prescriptions ordered this encounter Disp Refills Start End IV CONTRAST (RADIOLOGY PROCEDURE) 1 Ea* 0 06/30/2018 07/01/2018 Class: In Office Sig: MRI foot/toes RT Inject, intravenously, once for 1 dose. No IV access, insert saline lock prior to the beginning of sedation, infusion, injection of imaging exam. Discontinue saline lock post exam. If Pt. has a central line or IVAD, may access for administration according to line specific nursing protocol. Once exam is complete flush line and de-access according to line specific nursing protocol in the MR contrast administration guidelines link. Follow-up and Disposition History Recorded Encounter Status:Closed by ANNMARIE GONZALEZ DPM on 06/30/18 PROGRESS Observed: 06/30/2018 Status: COMPLETED Source: [place] 11:03 AM [facility] REPOSITORY HNO ID: [id number] Author: Demetria (Cody) Older Service: (none) Author Type: Nurse Practitioner Type: Progress Notes Filed: 06/30/2018 11:07 AM Note Text: CC: Patient presents with: lump on right foot: after starting Medrol dose pack HPI Luci Cardona is a 68 year old male who presents today for lump on right foot. Patient states he went to bed Thursday night and woke up Thursday with large lump on top of his right foot. Had not noticed anything before this. Lump is tender. Reports pain with ambulation/weight bearing that is actually on the bottom of his foot directly below the lump. No injury. No numbness, tingling. No swelling, skin discoloration or bruising. Denies any history of foot problems or pain. REVIEW OF SYSTEMS See HPI PAST MEDICAL HISTORY Diagnosis Date - A-fib (HCC) 10/07/2014 Dr. Nas Roberts. - Alcoholism, chronic (HCC) 12/06/2012 - Benign neoplasm of colon - BPH w/o urinary obs/LUTS 06/18/2011 - Calculus of kidney 2000 Calcium oxalate - CHOLECYSTITIS NOS,resolved 08/29/2005 - Closed fracture of rib(s), unspecified 09/16/2005 - Degeneration of cervical intervertebral disc - Diverticulosis of colon (without mention of hemorrhage) - Hepatitis B 09/05/2009 Convalescent. 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 Liu Ford, [facility]. 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 - REPAIR ING HERNIA,5+Y/O,REDUCIBL 1970 Hernia repair, inguinal - SIGMOIDOSCOPY FLEX DIAG 05/17/2007 Sigmoidoscopy ALLERGIES Clinoril [Sulindac]; Penicillins MEDICATIONS fexofenadine (SYLVIA) 60 mg tablet Take 1 tablet by mouth once daily. doxycycline monohydrate (MONODOX) 100 mg capsule Take 1 capsule by mouth twice daily. carvedilol (COREG) 25 mg tablet Take 1 tablet by mouth twice daily with meals. hydrochlorothiazide (HYDRODIURIL, ESIDRIX) 25 mg tablet Take 1 tablet by mouth once daily. lisinopril (ZESTRIL, PRINIVIL) 20 mg tablet Take 20 mg by mouth twice daily. warfarin (COUMADIN) 5 mg tablet Take 7.5 mg by mouth daily as directed. methylPREDNISolone (MEDROL DOSE-PACK) 4 mg Dose-Pack Take medications as directed on packaging. Take with food. thiamine (VITAMIN B1) 100 mg tablet Take 1 tablet by mouth once daily. FAMILY HISTORY Problem Relation Age of Onset - Colon Cancer Father age 70s - Breast Cancer Mother age 45 - None Sister Social History Substance Use Topics - Smoking status: Current Every Day Smoker Packs/day: 1.00 Years: 50.00 Types: Cigarettes Last attempt to quit: 10/11/2014 - Smokeless tobacco: Never Used - Alcohol use 27.0 oz/week 18 Cans of Beer (12oz) per week PHYSICAL EXAM BP 90/60 Pulse (!) 50 Temp 36.4 ?C (97.5 ?F) (Temporal Artery) Resp 14 Wt 87.5 kg (193 lb) SpO2 98% BMI 26.18 kg/m? General Appearance: well appearing, in no acute distress, alert Right foot: Large grape sized nodule that is firm located top midfoot. Slight tenderness with palpation. No redness or bruising. Pinpoint tenderness bottom of midfoot with palpation. Good capillary refill. Pulses: 2+ ASSESSMENT/PLAN: 1. Right foot pain - ICD9: 729.5, ICD10: M79.671 Etiology unclear - XR FOOT GENERAL 3V AP/LAT/OBL RT - CONSULT TO PODIATRY for further evaluation and recommendations. Appointment arranged for today at 1:40 Follow-up in office as needed Prescription instructions reviewed with patient as applicable. Potential red flag symptoms discussed with the patient. Reviewed appropriate action plan to take if red flag symptoms occur. Patient agreeable to treatment plan. Demetria Bergman APRN.ACTUARIAL MATHEMATICIAN XR FOOT 3V AP/LAT/OBL Observed: 06/30/2018 Status: F Source: [facility] 10:58 AM [facility] REPOSITORY * * *Final Report* * * DATE OF EXAM: Jun 30 2018 10:58AM WOX [id number] - XR FOOT 3V AP/LAT/OBL RT / PROCEDURE REASON: Pain in right foot * * * * Physician Interpretation * * * * HISTORY: Right foot pain. COMPARISON: There are no prior relevant studies for comparison. RESULT: 3 views of the right foot show no acute osseous, articular or soft tissue abnormality. Spaces are maintained. IMPRESSION: No acute process. Mercerizing Range Feeder: ELVIA Transcribe Date/Time: Jun 30 2018 1:14P Dictated by : MARTA ALLEN MD This examination was interpreted and the report reviewed and electronically signed by: MARTA ALLEN MD on Jun 30 2018 1:17PM EST [id number] PROGRESS Observed: 06/30/2018 Status: COMPLETED Source: [facility] 10:32 AM [facility] REPOSITORY HNO ID: [id number] Author: Cherelle Davis (Rt) Doreen Robin Service: (none) Author Type: Ux Architect Type: Progress Notes Filed: 06/30/2018 10:55 AM Note Text: Radiology Service Progress Note PATIENT NAME: Luci Cardona DATE OF SERVICE: June 30, 2018 TIME: 10:32 AM PATIENT IDENTITY VERIFICATION COMPLETED USING TWO (2) METHODS: Patient confirmed name verbally and Date of . PATIENT GENDER DATA: Male PATIENT RELEVANT IMPLANT DATA REVIEWED: Not Applicable RADIOLOGY DEPARTMENT: General X-ray: Exam(s) Completed: Lower Extremity X-Ray(s): Foot, Right: PERIPHERAL IV DATA: Not applicable SIGNED BY: RT Ileana June 30, 2018 10:32 AM CNOV Observed: 06/30/2018 Status: COMPLETED Source: [facility] 10:00 AM [facility] REPOSITORY Office Visit (INTMWS) LUCI CARDONA ([id number]) 1950 M Date Time Provider Department 06/30/18 10:00 AM DEMETRIA BERGMAN ([facility]) INTMWS During your visit today, we recorded the following information about you: Temperature Pulse Respiration Blood pressure 97.5 degrees 50/minute 14/minute 90/60 Weight 87.5 kg Demetria Bergman TRAFFIC RATE ANALYSTROB 06/30/2018 11:07 AM Signed CC: Patient presents with: lump on right foot: after starting Medrol dose pack HPI Luci Cardona is a 68 year old male who presents today for lump on right foot. Patient states he went to bed Thursday night and woke up Thursday with large lump on top of his right foot. Had not noticed anything before this. Lump is tender. Reports pain with ambulation/weight bearing that is actually on the bottom of his foot directly below the lump. No injury. No numbness, tingling. No swelling, skin discoloration or bruising. Denies any history of foot problems or pain. REVIEW OF SYSTEMS See HPI PAST MEDICAL HISTORY Diagnosis Date - A-fib (HCC) 10/07/2014 Dr. Nas Roberts. - Alcoholism, chronic (HCC) 12/06/2012 - Benign neoplasm of colon - BPH w/o urinary obs/LUTS 06/18/2011 - Calculus of kidney 2000 Calcium oxalate - CHOLECYSTITIS NOS,resolved 08/29/2005 - Closed fracture of rib(s), unspecified 09/16/2005 - Degeneration of cervical intervertebral disc - Diverticulosis of colon (without mention of hemorrhage) - Hepatitis B 09/05/2009 Convalescent. 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 Liu Ford, [facility]. 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 - REPAIR ING HERNIA,5+Y/O,REDUCIBL 1970 Hernia repair, inguinal - SIGMOIDOSCOPY FLEX DIAG 05/17/2007 Sigmoidoscopy ALLERGIES Clinoril [Sulindac]; Penicillins MEDICATIONS fexofenadine (SYLVIA) 60 mg tablet Take 1 tablet by mouth once daily. doxycycline monohydrate (MONODOX) 100 mg capsule Take 1 capsule by mouth twice daily. carvedilol (COREG) 25 mg tablet Take 1 tablet by mouth twice daily with meals. hydrochlorothiazide (HYDRODIURIL, ESIDRIX) 25 mg tablet Take 1 tablet by mouth once daily. lisinopril (ZESTRIL, PRINIVIL) 20 mg tablet Take 20 mg by mouth twice daily. warfarin (COUMADIN) 5 mg tablet Take 7.5 mg by mouth daily as directed. methylPREDNISolone (MEDROL DOSE-PACK) 4 mg Dose-Pack Take medications as directed on packaging. Take with food. thiamine (VITAMIN B1) 100 mg tablet Take 1 tablet by mouth once daily. FAMILY HISTORY Problem Relation Age of Onset - Colon Cancer Father age 70s - Breast Cancer Mother age 45 - None Sister Social History Substance Use Topics - Smoking status: Current Every Day Smoker Packs/day: 1.00 Years: 50.00 Types: Cigarettes Last attempt to quit: 10/11/2014 - Smokeless tobacco: Never Used - Alcohol use 27.0 oz/week 18 Cans of Beer (12oz) per week PHYSICAL EXAM BP 90/60 Pulse (!) 50 Temp 36.4 ?C (97.5 ?F) (Temporal Artery) Resp 14 Wt 87.5 kg (193 lb) SpO2 98% BMI 26.18 kg/m? General Appearance: well appearing, in no acute distress, alert Right foot: Large grape sized nodule that is firm located top midfoot. Slight tenderness with palpation. No redness or bruising. Pinpoint tenderness bottom of midfoot with palpation. Good capillary refill. Pulses: 2+ ASSESSMENT/PLAN: 1. Right foot pain - ICD9: 729.5, ICD10: M79.671 Etiology unclear - XR FOOT GENERAL 3V AP/LAT/OBL RT - CONSULT TO PODIATRY for further evaluation and recommendations. Appointment arranged for today at 1:40 Follow-up in office as needed Prescription instructions reviewed with patient as applicable. Potential red flag symptoms discussed with the patient. Reviewed appropriate action plan to take if red flag symptoms occur. Patient agreeable to treatment plan. Demetria Bergman APRN.ACTUARIAL MATHEMATICIAN Referring Provider: SELF [[id number]] Allergies As of Date: 06/30/2018 Noted Allergy Reaction CLINORIL (SULINDAC) 08/28/2005 PENICILLINS 08/28/2005 Date Reviewed: 06/30/2018 Reviewed by: Emily Callahan 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 - Fully Assessed Reason for Visit: lump on right foot [Other] Cmt: after starting Medrol dose pack Reason For Visit History Recorded Primary Visit Diagnosis:Right foot pain [M79.671] Order(s):XR FOOT GENERAL 3V AP/LAT/OBL RT [[id number]] Order #: [id number] FUTURE CONSULT TO PODIATRY [9034] Order #: [id number]: 1 Prescriptions as of 06/30/2018 Sig: FEXOFENADINE 60 MG TABLET Take 1 tablet by mouth once d* DOXYCYCLINE MONOHYDRATE 100 M* Take 1 capsule by mouth twice* CARVEDILOL 25 MG TABLET Take 1 tablet by mouth twice * HYDROCHLOROTHIAZIDE 25 MG TAB* Take 1 tablet by mouth once d* LISINOPRIL 20 MG TABLET Take 20 mg by mouth twice jay* WARFARIN 5 MG TABLET Take 7.5 mg by mouth daily as* METHYLPREDNISOLONE 4 MG TABLE* Take medications as directed * THIAMINE HCL (VITAMIN B1) 100* Take 1 tablet by mouth once d* Problem List As Of Date 06/30/2018 Noted Resolved Diverticulosis of colon (without mention of hem* 01/15/2015 FAMILY HX GI MALIGNANCY [Z80.0] More... Benign neoplasm of colon [D12.6] INVALID FOR* More... Hepatitis B [B19.10] INVALID FOR*06/18/2011 More... Hepatitis C Antibody Test Positive [R76.8] INVALID FOR* HTN (Hypertension), Benign [I10] INVALID FOR* Tobacco use disorder [F17.200] INVALID FOR* More... Impaired Fasting Glucose [R73.01] INVALID FOR* Benign non-nodular prostatic hyperplasia withou*INVALID FOR* Personal history of colonic polyps [Z86.010] INVALID FOR*11/18/2011 Benign neoplasm of rectum and anal canal [D12.8*INVALID FOR*11/18/2011 Alcoholism, chronic (HCC) [F10.20] INVALID FOR* More... Erectile dysfunction [N52.9] INVALID FOR* More... A-fib (HCC) [I48.91] INVALID FOR* More... Lumbar disc herniation [M51.26] INVALID FOR*01/15/2015 More... 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 Chronic hepatitis C without hepatic coma (HCC) *INVALID FOR* Encounter Status:Closed by DEMETRIA BERGMAN CNP on 06/30/18 PROTHROMBIN TIME W/INR Collected: 06/30/2018 Status: F Source: [place] 8:49 AM [facility] REPOSITORY Order Comment: Comments: Standing order Comments: Standing order TYPE CODE TESTS RESULT OUT OF RANGE REFERENCE UNITS LAB L300.4150 11.7-14.9 SECONDS High PROTIME 34.5 LAB L300.4200 Normal INR 3.4 Performed By: #### L300.3900 #### [facility] [address] [place], [address] PROGRESS Observed: 06/22/2018 Status: COMPLETED Source: [place] 8:11 AM [facility] REPOSITORY HNO ID: [id number] Author: Carlton (oCdyTom Cardenas Service: (none) Author Type: Nurse Practitioner Type: Progress Notes Filed: 06/22/2018 8:42 AM Note Text: CC: Patient presents with: Sinus Problem: Ongoing sinus pressure/pain. Seen by ENT and SHOP HELPER, was on AIB with no relief HPI Luci Cardona is a 68 year old male who presents today for follow up ongoing ear pressure and sinus pain/headaches. Patient reports ongoing sinus headache and ear pressure or fullness for the past ~1 month. Previously evaluated by ENT on 05/25/18 where fluid was noted behind the left TM. He was prescribed Flonase. Patient reports using as instructed with minimal to no relief. He was then evaluated in the office on 06/02/18 and prescribed antibiotics for a sinus infection. He reports some improvement but continues to have the ear fullness/pressure and some muffled hearing. He also notes intermittent frontal and maxillary sinus pain/pressure described as a headache. He denies a thunderclap like headache. Denies fever, chills, rhinorrhea, sore throat, hoarse voice, ear pain, chest pain, SOB, abdominal pain, or N/V/D. He has tried OTC Tylenol and Tylenol cold and sinus with temporary relief. He denies a headache at present time. REVIEW OF SYSTEMS General: no fevers, no chills, no night sweats, no change in appetite, no change in energy and no significant changes in weight HEENT: no visual changes, no nose bleeds, See HPI Neck: no lumps, no pain and no swelling Respiratory: no cough, no wheezing, no shortness of breath, no hemoptysis Cardiovascular: no chest pain, no chest pressure, no palpitations and no swelling GI: No nausea, vomiting, or diarrhea Neurologic: No headache, weakness, numbness, tingling, neck stiffness, tremor, vertigo, dizziness, memory loss, syncope. PAST MEDICAL HISTORY Diagnosis Date - A-fib ([facility]) 10/07/2014 Dr. Nas Roberts. - Alcoholism, chronic ([facility]) 12/06/2012 - Benign neoplasm of colon - BPH w/o urinary obs/LUTS 06/18/2011 - Calculus of kidney 2000 Calcium oxalate - CHOLECYSTITIS NOS,resolved 08/29/2005 - Closed fracture of rib(s), unspecified 09/16/2005 - Degeneration of cervical intervertebral disc - Diverticulosis of colon (without mention of hemorrhage) - Hepatitis B 09/05/2009 Convalescent. 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 Liu Ford, [facility]. 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 - REPAIR ING HERNIA,5+Y/O,REDUCIBL 1970 Hernia repair, inguinal - SIGMOIDOSCOPY FLEX DIAG 05/17/2007 Sigmoidoscopy ALLERGIES Clinoril [Sulindac]; Penicillins MEDICATIONS doxycycline monohydrate (MONODOX) 100 mg capsule Take 1 capsule by mouth twice daily. carvedilol (COREG) 25 mg tablet Take 1 tablet by mouth twice daily with meals. hydrochlorothiazide (HYDRODIURIL, ESIDRIX) 25 mg tablet Take 1 tablet by mouth once daily. thiamine (VITAMIN B1) 100 mg tablet Take 1 tablet by mouth once daily. lisinopril (ZESTRIL, PRINIVIL) 20 mg tablet Take 20 mg by mouth twice daily. warfarin (COUMADIN) 5 mg tablet Take 7.5 mg by mouth daily as directed. FAMILY HISTORY Problem Relation Age of Onset - Colon Cancer Father age 70s - Breast Cancer Mother age 45 - None Sister Social History Substance Use Topics - Smoking status: Current Every Day Smoker Packs/day: 1.00 Years: 50.00 Types: Cigarettes Last attempt to quit: 10/11/2014 - Smokeless tobacco: Never Used - Alcohol use 27.0 oz/week 18 Cans of Beer (12oz) per week PHYSICAL EXAM BP 116/68 Pulse 64 Temp 36.3 ?C (97.3 ?F) (Temporal Artery) Resp 16 Wt 89.8 kg (198 lb) SpO2 98% BMI 26.85 kg/m? General Appearance: well appearing, in no acute distress, alert Skin: Skin color, texture, turgor normal for age; Head: normocephalic, atraumatic Eyes: PERRLA, EOM's intact, sclera white, non-injected, conjunctival erythema Ears: external ears normal to inspection and palpation, canals clear, Right tympanic membrane normal, L TM: serous fluid noted behind TM and dull Nose/sinus: negative except for mild maxillary and frontal sinus tenderness Neck: Thyroid normal size and symmetric without palpable nodules, No adenopathy Oropharynx: lips normal without lesions, tongue midline and normal, soft palate, uvula, and tonsils normal Lungs: Lungs clear to auscultation. No wheezing, rhonchi, rales Heart: Irregular rate/rhythm without murmur, gallop, or rubs. No ectopy Neuro: Awake, alert and oriented x 3, Cranial nerves II-XII grossly intact, Reflexes symmetrical, Normal gait, No involuntary motions. and negative findings: R handed., speech normal, mental status intact, cranial nerves 2-12 intact, muscle tone normal, muscle strength normal, rapid alternating movements normal, finger to nose normal, sensation to light touch and pinprick normal INFLUENZA(1) due on 07/17/2018 ANNUAL PCP TEAM CHRONIC DISEASE VISIT due on 01/26/2019 BLOOD PRESSURE CONTROLLED due on 06/02/2019 COLORECTAL CANCER SCREENING,SEE MODIFIER due on 10/18/2020 DIABETES SCREEN due on 02/01/2021 LIPID SCREEN due on 07/21/2022 DTAP,TDAP,TD(2 - Td) due on 12/06/2022 PROSTATE CANCER SCREENING DISCUSSION Completed ABDOMINAL AORTIC ANEURYSM SCREENING TOPIC Completed ADULT PREVNAR-13 Completed HEPATITIS C SCREENING Completed PNEUMOVAX AGE 65 AND OVER WITH 5YR LOOKBACK Completed ASSESSMENT/PLAN: 1. Acute serous otitis media of left ear, recurrence not specified - ICD9: 381.01, ICD10: H65.02 (primary diagnosis) - Minimal relief with Flonase, given complaint of sinus headaches will prescribe short course PO steroids- see orders - Supportive care with plenty of fluids, rest, and analgesia prn. -Tylenol as needed for pain - Follow up with ENT as previously scheduled, sooner for new or worsening symptoms 2. Sinus headache - ICD9: 784.0, ICD10: R51 - No acute or concerning exam findings. Neuro assessment WNL - Plan as above, see #1 Carlton Cardenas APRN.ACTUARIAL MATHEMATICIAN Prescription instructions reviewed with patient as applicable. Potential red flag symptoms discussed with the patient. Reviewed appropriate action plan to take if red flag symptoms occur. Patient agreeable to treatment plan. CNOV Observed: 06/22/2018 Status: COMPLETED Source: [place] 8:00 AM [facility] REPOSITORY Office Visit ([facility]) LUCI CARDONA ([id number]) 1950 M Date Time Provider Department 06/22/18 8:00 AM CARLTON CARDENAS ([facility]) [facility] During your visit today, we recorded the following information about you: Temperature Pulse Respiration Blood pressure 97.3 degrees 64/minute 16/minute 116/68 Weight 89.8 kg Carlton Cardenas APRN.CNP 06/22/2018 8:42 AM Signed CC: Patient presents with: Sinus Problem: Ongoing sinus pressure/pain. Seen by ENT and [facility], was on AIB with no relief HPI Luci Cardona is a 68 year old male who presents today for follow up ongoing ear pressure and sinus pain/headaches. Patient reports ongoing sinus headache and ear pressure or fullness for the past ~1 month. Previously evaluated by ENT on 05/25/18 where fluid was noted behind the left TM. He was prescribed Flonase. Patient reports using as instructed with minimal to no relief. He was then evaluated in the office on 06/02/18 and prescribed antibiotics for a sinus infection. He reports some improvement but continues to have the ear fullness/pressure and some muffled hearing. He also notes intermittent frontal and maxillary sinus pain/pressure described as a headache. He denies a thunderclap like headache. Denies fever, chills, rhinorrhea, sore throat, hoarse voice, ear pain, chest pain, SOB, abdominal pain, or N/V/D. He has tried OTC Tylenol and Tylenol cold and sinus with temporary relief. He denies a headache at present time. REVIEW OF SYSTEMS General: no fevers, no chills, no night sweats, no change in appetite, no change in energy and no significant changes in weight HEENT: no visual changes, no nose bleeds, See HPI Neck: no lumps, no pain and no swelling Respiratory: no cough, no wheezing, no shortness of breath, no hemoptysis Cardiovascular: no chest pain, no chest pressure, no palpitations and no swelling GI: No nausea, vomiting, or diarrhea Neurologic: No headache, weakness, numbness, tingling, neck stiffness, tremor, vertigo, dizziness, memory loss, syncope. PAST MEDICAL HISTORY Diagnosis Date - A-fib (HCC) 10/07/2014 Dr. Nas Roberts. - Alcoholism, chronic (HCC) 12/06/2012 - Benign neoplasm of colon - BPH w/o urinary obs/LUTS 06/18/2011 - Calculus of kidney 2000 Calcium oxalate - CHOLECYSTITIS NOS,resolved 08/29/2005 - Closed fracture of rib(s), unspecified 09/16/2005 - Degeneration of cervical intervertebral disc - Diverticulosis of colon (without mention of hemorrhage) - Hepatitis B 09/05/2009 Convalescent. 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 Liu Ford, [facility] 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, [facility] PAST SURGICAL HISTORY Procedure Laterality Date - COLONOS W/REM POLYP SNARE 03/03/07 - COLONOSCOP W/ OR W/O BRSH SPEC 06/01/2008 Colonoscopy - COLONOSCOP W/ OR W/O [facility] SPEC 10/15/2011 Colonoscopy - COLONOSCOP W/ OR W/O [facility] SPEC 10/18/15 Colonoscopy - DIRECT LARYNGOSCOPY WITH BIOPSY 04/2017 - DIRECT LARYNGOSCOPY WITH BIOPSY 10/2017 - LAPAROSCOPIC CHOLEYCYSTECTOMY 08/19/05 Cholecystectomy, lap - PAST SURGICAL HISTORY OF 2004 Left parotid pleomorphic adenoma - PAST SURGICAL HISTORY OF 10/2009 Cyst removed from back. - REPAIR ING HERNIA,5+Y/O,REDUCIBL 1970 Hernia repair, inguinal - SIGMOIDOSCOPY FLEX DIAG 05/17/2007 Sigmoidoscopy ALLERGIES Clinoril [Sulindac]; Penicillins MEDICATIONS doxycycline monohydrate (MONODOX) 100 mg capsule Take 1 capsule by mouth twice daily. carvedilol (COREG) 25 mg tablet Take 1 tablet by mouth twice daily with meals. hydrochlorothiazide (HYDRODIURIL, ESIDRIX) 25 mg tablet Take 1 tablet by mouth once daily. thiamine (VITAMIN B1) 100 mg tablet Take 1 tablet by mouth once daily. lisinopril (ZESTRIL, PRINIVIL) 20 mg tablet Take 20 mg by mouth twice daily. warfarin (COUMADIN) 5 mg tablet Take 7.5 mg by mouth daily as directed. FAMILY HISTORY Problem Relation Age of Onset - Colon Cancer Father age 70s - Breast Cancer Mother age 45 - None Sister Social History Substance Use Topics - Smoking status: Current Every Day Smoker Packs/day: 1.00 Years: 50.00 Types: Cigarettes Last attempt to quit: 10/11/2014 - Smokeless tobacco: Never Used - Alcohol use 27.0 oz/week 18 Cans of Beer (12oz) per week PHYSICAL EXAM BP 116/68 Pulse 64 Temp 36.3 ?C (97.3 ?F) (Temporal Artery) Resp 16 Wt 89.8 kg (198 lb) SpO2 98% BMI 26.85 kg/m? General Appearance: well appearing, in no acute distress, alert Skin: Skin color, texture, turgor normal for age; Head: normocephalic, atraumatic Eyes: PERRLA, EOM's intact, sclera white, non-injected, conjunctival erythema Ears: external ears normal to inspection and palpation, canals clear, Right tympanic membrane normal, L TM: serous fluid noted behind TM and dull Nose/sinus: negative except for mild maxillary and frontal sinus tenderness Neck: Thyroid normal size and symmetric without palpable nodules, No adenopathy Oropharynx: lips normal without lesions, tongue midline and normal, soft palate, uvula, and tonsils normal Lungs: Lungs clear to auscultation. No wheezing, rhonchi, rales Heart: Irregular rate/rhythm without murmur, gallop, or rubs. No ectopy Neuro: Awake, alert and oriented x 3, Cranial nerves II-XII grossly intact, Reflexes symmetrical, Normal gait, No involuntary motions. and negative findings: R handed., speech normal, mental status intact, cranial nerves 2-12 intact, muscle tone normal, muscle strength normal, rapid alternating movements normal, finger to nose normal, sensation to light touch and pinprick normal INFLUENZA(1) due on 07/17/2018 ANNUAL PCP TEAM CHRONIC DISEASE VISIT due on 01/26/2019 BLOOD PRESSURE CONTROLLED due on 06/02/2019 COLORECTAL CANCER SCREENING,SEE MODIFIER due on 10/18/2020 DIABETES SCREEN due on 02/01/2021 LIPID SCREEN due on 07/21/2022 DTAP,TDAP,TD(2 - Td) due on 12/06/2022 PROSTATE CANCER SCREENING DISCUSSION Completed ABDOMINAL AORTIC ANEURYSM SCREENING TOPIC Completed ADULT PREVNAR-13 Completed HEPATITIS C SCREENING Completed PNEUMOVAX AGE 65 AND OVER WITH 5YR LOOKBACK Completed ASSESSMENT/PLAN: 1. Acute serous otitis media of left ear, recurrence not specified - ICD9: 381.01, ICD10: H65.02 (primary diagnosis) - Minimal relief with Flonase, given complaint of sinus headaches will prescribe short course PO steroids- see orders - Supportive care with plenty of fluids, rest, and analgesia prn. -Tylenol as needed for pain - Follow up with ENT as previously scheduled, sooner for new or worsening symptoms 2. Sinus headache - ICD9: 784.0, ICD10: R51 - No acute or concerning exam findings. Neuro assessment WNL - Plan as above, see #1 Carlton Cardenas APRN.ACTUARIAL MATHEMATICIAN Prescription instructions reviewed with patient as applicable. Potential red flag symptoms discussed with the patient. Reviewed appropriate action plan to take if red flag symptoms occur. Patient agreeable to treatment plan. Carlton Cardenas APRN.CNP 06/22/2018 8:28 AM Signed Please start medrol dose pack and continue Flonase. After you have finished the medrol dose pack please start the Sylvia. Referring Provider: SELF [[id number]] Allergies As of Date: 06/22/2018 Noted Allergy Reaction CLINORIL (SULINDAC) 08/28/2005 PENICILLINS 08/28/2005 Date Reviewed: 06/22/2018 Reviewed by: Suha Haji Ma - Fully Assessed Reason for Visit: Sinus Problem [99] Cmt: Ongoing sinus pressure/pain. Seen by ENT and [facility], was on AIB with no relief Primary Visit Diagnosis:Acute serous otitis media of left ear, recurrence not specified [H65.02] Other Visit Diagnosis:Sinus headache [R51] Order(s):methylPREDNISolone (MEDROL DOSE-PACK) 4 mg Dose-PackTake medications as directed on packaging. Take with food.Disp: 1 PackageRfl: 0 fexofenadine (SYLVIA) 60 mg tabletTake 1 tablet by mouth once daily.Disp: 30 tabletRfl: 2 Prescriptions as of 06/22/2018 Sig: METHYLPREDNISOLONE 4 MG TABLE* Take medications as directed * FEXOFENADINE 60 MG TABLET Take 1 tablet by mouth once d* DOXYCYCLINE MONOHYDRATE 100 M* Take 1 capsule by mouth twice* CARVEDILOL 25 MG TABLET Take 1 tablet by mouth twice * HYDROCHLOROTHIAZIDE 25 MG TAB* Take 1 tablet by mouth once d* THIAMINE HCL (VITAMIN B1) 100* Take 1 tablet by mouth once d* LISINOPRIL 20 MG TABLET Take 20 mg by mouth twice jay* WARFARIN 5 MG TABLET Take 7.5 mg by mouth daily as* Problem List As Of Date 06/22/2018 Noted Resolved Diverticulosis of colon (without mention of hem* 01/15/2015 FAMILY HX GI MALIGNANCY [Z80.0] More... Benign neoplasm of colon [D12.6] INVALID FOR* More... Hepatitis B [B19.10] INVALID FOR*06/18/2011 More... Hepatitis C Antibody Test Positive [R76.8] INVALID FOR* HTN (Hypertension), Benign [I10] INVALID FOR* Tobacco use disorder [F17.200] INVALID FOR* More... Impaired Fasting Glucose [R73.01] INVALID FOR* Benign non-nodular prostatic hyperplasia withou*INVALID FOR* Personal history of colonic polyps [Z86.010] INVALID FOR*11/18/2011 Benign neoplasm of rectum and anal canal [D12.8*INVALID FOR*11/18/2011 Alcoholism, chronic (HCC) [F10.20] INVALID FOR* More... Erectile dysfunction [N52.9] INVALID FOR* More... A-fib (HCC) [I48.91] INVALID FOR* More... Lumbar disc herniation [M51.26] INVALID FOR*01/15/2015 More... 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 Chronic hepatitis C without hepatic coma (HCC) *INVALID FOR* Other instructions from your clinician: Please start medrol dose pack and continue Flonase. After you have finished the medrol dose pack please start the Sylvia. Prescriptions ordered this encounter Disp Refills Start End METHYLPREDNISOLONE 4 MG TABLETS IN A* 1 Pa* 0 06/22/2018 Sig: Take medications as directed on packaging. Take with food. FEXOFENADINE 60 MG TABLET 30 t* 2 06/22/2018 Route: ORAL Sig: Take 1 tablet by mouth once daily. Encounter Status:Closed by CARLTON CARDENAS CNP on 06/22/18 PROTHROMBIN TIME W/INR Collected: 06/22/2018 Status: F Source: [facility] 7:00 AM [facility] REPOSITORY TYPE CODE TESTS RESULT OUT OF RANGE REFERENCE UNITS LAB L300.4150 11.7-14.9 SECONDS High PROTIME 34.4 LAB L300.4200 Normal INR 3.4 Performed By: #### L300.3900 #### [facility] [address] [place], [address] PROGRESS Observed: 06/02/2018 Status: COMPLETED Source: [place] 1:55 PM [facility] RE[facility] HNO ID: [id number] Author: Pat Corbin) Gwyn Service: (none) Author Type: Nurse Practitioner Type: Progress Notes Filed: 06/02/2018 3:09 PM Note Text: This is a 68 year old male who presents today with: Patient presents with: Recheck: fluid in left ear- saw ENT on 05/25/18 HISTORY OF PRESENT ILLNESS: Luci Cardona is a 68 year old male. Patient presents with: Recheck: fluid in left ear- saw ENT on 05/25/18 Pt presents today with complaint of fluid in the left ear. Started on 05/23. He went to ENT on 05/25 for symptoms. Refers that he has started steroid nasal spray -- 2 sprays twice daily. Not taking any medications, as far as decongestants or antihistamines. No ear pain, but hearing decreased. + headache -- frontal. Refers eyes feel tender. Pain in the frontal area. No PND. No sore throat. No cough. No recent sickness. No fever/chills. No problems with allergies in the past -- refers that he had been playing golf a couple of weeks ago and allergies did bother him. PAST MEDICAL HISTORY: PAST MEDICAL HISTORY Diagnosis Date - A-fib (HCC) 10/07/2014 Dr. Nas Roberts. - Alcoholism, chronic (HCC) 12/06/2012 - Benign neoplasm of colon - BPH w/o urinary obs/LUTS 06/18/2011 - Calculus of kidney 2000 Calcium oxalate - CHOLECYSTITIS NOS,resolved 08/29/2005 - Closed fracture of rib(s), unspecified 09/16/2005 - Degeneration of cervical intervertebral disc - Diverticulosis of colon (without mention of hemorrhage) - Hepatitis B 09/05/2009 Convalescent. 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 Liu Ford, [facility]. 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 - REPAIR ING HERNIA,5+Y/O,REDUCIBL 1970 Hernia repair, inguinal - SIGMOIDOSCOPY FLEX DIAG 05/17/2007 Sigmoidoscopy ALLERGIES Clinoril [Sulindac]; Penicillins MEDICATIONS Current Outpatient Prescriptions: carvedilol (COREG) 25 mg tablet Take 1 tablet by mouth twice daily with meals. hydrochlorothiazide (HYDRODIURIL, ESIDRIX) 25 mg tablet Take 1 tablet by mouth once daily. thiamine (VITAMIN B1) 100 mg tablet Take 1 tablet by mouth once daily. lisinopril (ZESTRIL, PRINIVIL) 20 mg tablet Take 20 mg by mouth twice daily. warfarin (COUMADIN) 5 mg tablet Take 7.5 mg by mouth daily as directed. No current facility-administered medications for this visit. FAMILY HISTORY Problem Relation Age of Onset - Colon Cancer Father age 70s - Breast Cancer Mother age 45 - None Sister Social History Marital status: Spouse name: Leanna Years of education: Number of children: 3 Occupational History Occupation Employer Comment retired Social History Main Topics Smoking status: Current Every Day Smoker Packs/day: 1.00 Years: 50.00 Types: Cigarettes Last attempt to quit: 10/11/2014 Smokeless tobacco: Never Used Alcohol use: Yes 27.0 oz/week Cans of Beer (12oz): 18 per week Drug use: No Sexual activity: Yes Social History Narrative Lives with . Children grown. Not driving (suspended license) since 2002. EXAM: BP 128/66 (BP Site: Right Arm, BP Position: Sitting, BP Cuff Size: Regular Adult) Pulse 64 Resp 12 Wt 88.5 kg (195 lb) BMI 26.45 kg/m? PHYSICAL EXAM: General Appearance: Well appearing, alert, in no acute distress, well-hydrated, well nourished.. Skin: Skin color, texture, turgor normal, no suspicious rashes or lesions. Head: Normocephalic, no masses, lesions, tenderness or abnormalities. Eyes: Anicteric sclera. Extraocular movements are intact. . Ears: External ears normal, canals clear, Positive findings: R TM: normal, L TM: lurdes fluid noted behind TM and dull. Nose/Sinuses: Nares normal, septum midline, mucosa normal, no drainage or sinus tenderness. Oropharynx: Lips, mucosa, and tongue normal, teeth and gums normal, oropharynx normal. Neck: Supple, no adenopathy Lungs: Lungs clear to auscultation. No wheezing, rhonchi, rales. Heart: No murmur, gallop, or rubs. Positive findings: irregularly irregular rhythm. Neurologic: Gait normal. ASSESSMENT/PLAN: 1. Acute non-recurrent frontal sinusitis - ICD9: 461.1, ICD10: J01.10 (primary diagnosis) Check INR after a couple days of treatment. - DOXYCYCLINE MONOHYDRATE 100 MG CAPSULE Continue steroid nasal spray. OTC cold/allergy medication. 2. Acute serous otitis media of left ear, recurrence not specified - ICD9: 381.01, ICD10: H65.02 Reassured that this can take a month or longer to resolve. Follow-up with ENT as scheduled. To open eustachian tube, discussed: Try popping your ears by pinching your nose, holding you lips closed and swallowing. If this doesn't work pinch the opposite side of your nose close, gently blow against pressure as you then close the affected nostril and try to dede open the tube. Do not blow forcefully as this can damage your ear drum. Yawning, chewing gum, or blowing up balloons might also help them pop open. Discussed treatment plan and patient voices understanding. Patient's questions answered appropriately. Medications and potential side effects were discussed and patient voices understanding. Return to the office as scheduled or as needed for worsening/no improvement. Pat Pascal APRN.CODY RAMANOV Observed: 06/02/2018 Status: COMPLETED Source: [place] 1:40 PM [facility] REPOSITORY [facility] LUCI CARDONA ([id number]) 1950 M Date Time Provider Department 06/02/18 1:40 PM PAT PASCAL (ACTUARIAL MATHEMATICIAN) GEOVANI During your visit today, we recorded the following information about you: Pulse Respiration Blood pressure Weight 64/minute 12/minute 128/66 88.5 kg Pat Pascal APRN.CNP 06/02/2018 3:09 PM Signed This is a 68 year old male who presents today with: Patient presents with: Recheck: fluid in left ear- saw ENT on 05/25/18 HISTORY OF PRESENT ILLNESS: Luci Cardona is a 68 year old male. Patient presents with: Recheck: fluid in left ear- saw ENT on 05/25/18 Pt presents today with complaint of fluid in the left ear. Started on 05/23. He went to ENT on 05/25 for symptoms. Refers that he has started steroid nasal spray -- 2 sprays twice daily. Not taking any medications, as far as decongestants or antihistamines. No ear pain, but hearing decreased. + headache -- frontal. Refers eyes feel tender. Pain in the frontal area. No PND. No sore throat. No cough. No recent sickness. No fever/chills. No problems with allergies in the past -- refers that he had been playing golf a couple of weeks ago and allergies did bother him. PAST MEDICAL HISTORY: PAST MEDICAL HISTORY Diagnosis Date - A-fib (HCC) 10/07/2014 Dr. Nas Roberts. - Alcoholism, chronic (HCC) 12/06/2012 - Benign neoplasm of colon - BPH w/o urinary obs/LUTS 06/18/2011 - Calculus of kidney 2000 Calcium oxalate - CHOLECYSTITIS NOS,resolved 08/29/2005 - Closed fracture of rib(s), unspecified 09/16/2005 - Degeneration of cervical intervertebral disc - Diverticulosis of colon (without mention of hemorrhage) - Hepatitis B 09/05/2009 Convalescent. 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 Liu Ford, [facility]. 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 - REPAIR ING HERNIA,5+Y/O,REDUCIBL 1970 Hernia repair, inguinal - SIGMOIDOSCOPY FLEX DIAG 05/17/2007 Sigmoidoscopy ALLERGIES Clinoril [Sulindac]; Penicillins MEDICATIONS Current Outpatient Prescriptions: carvedilol (COREG) 25 mg tablet Take 1 tablet by mouth twice daily with meals. hydrochlorothiazide (HYDRODIURIL, ESIDRIX) 25 mg tablet Take 1 tablet by mouth once daily. thiamine (VITAMIN B1) 100 mg tablet Take 1 tablet by mouth once daily. lisinopril (ZESTRIL, PRINIVIL) 20 mg tablet Take 20 mg by mouth twice daily. warfarin (COUMADIN) 5 mg tablet Take 7.5 mg by mouth daily as directed. No current facility-administered medications for this visit. FAMILY HISTORY Problem Relation Age of Onset - Colon Cancer Father age 70s - Breast Cancer Mother age 45 - None Sister Social History Marital status: Spouse name: Leanna Years of education: Number of children: 3 Occupational History Occupation Employer Comment retired Social History Main Topics Smoking status: Current Every Day Smoker Packs/day: 1.00 Years: 50.00 Types: Cigarettes Last attempt to quit: 10/11/2014 Smokeless tobacco: Never Used Alcohol use: Yes 27.0 oz/week Cans of Beer (12oz): 18 per week Drug use: No Sexual activity: Yes Social History Narrative Lives with . Children grown. Not driving (suspended license) since 2002. EXAM: BP 128/66 (BP Site: Right Arm, BP Position: Sitting, BP Cuff Size: Regular Adult) Pulse 64 Resp 12 Wt 88.5 kg (195 lb) BMI 26.45 kg/m? PHYSICAL EXAM: General Appearance: Well appearing, alert, in no acute distress, well-hydrated, well nourished.. Skin: Skin color, texture, turgor normal, no suspicious rashes or lesions. Head: Normocephalic, no masses, lesions, tenderness or abnormalities. Eyes: Anicteric sclera. Extraocular movements are intact. . Ears: External ears normal, canals clear, Positive findings: R TM: normal, L TM: lurdes fluid noted behind TM and dull. Nose/Sinuses: Nares normal, septum midline, mucosa normal, no drainage or sinus tenderness. Oropharynx: Lips, mucosa, and tongue normal, teeth and gums normal, oropharynx normal. Neck: Supple, no adenopathy Lungs: Lungs clear to auscultation. No wheezing, rhonchi, rales. Heart: No murmur, gallop, or rubs. Positive findings: irregularly irregular rhythm. Neurologic: Gait normal. ASSESSMENT/PLAN: 1. Acute non-recurrent frontal sinusitis - ICD9: 461.1, ICD10: J01.10 (primary diagnosis) Check INR after a couple days of treatment. - DOXYCYCLINE MONOHYDRATE 100 MG CAPSULE Continue steroid nasal spray. OTC cold/allergy medication. 2. Acute serous otitis media of left ear, recurrence not specified - ICD9: 381.01, ICD10: H65.02 Reassured that this can take a month or longer to resolve. Follow-up with ENT as scheduled. To open eustachian tube, discussed: Try popping your ears by pinching your nose, holding you lips closed and swallowing. If this doesn't work pinch the opposite side of your nose close, gently blow against pressure as you then close the affected nostril and try to dede open the tube. Do not blow forcefully as this can damage your ear drum. Yawning, chewing gum, or blowing up balloons might also help them pop open. Discussed treatment plan and patient voices understanding. Patient's questions answered appropriately. Medications and potential side effects were discussed and patient voices understanding. Return to the office as scheduled or as needed for worsening/no improvement. PatFABI Ocampo APRN.CNP 06/02/2018 2:25 PM Addendum Get INR checked in 3-5 days after starting the antibiotic. To open eustachian tube: Continue the steroid nasal spray. Try popping your ears by pinching your nose, holding you lips closed and swallowing. If this doesn't work pinch the opposite side of your nose close, gently blow against pressure as you then close the affected nostril and try to dede open the tube. Do not blow forcefully as this can damage your ear drum. Yawning, chewing gum, or blowing up balloons might also help them pop open. If that doesn't help, you may try allergy medication. If the ear fails to open over 4-6 weeks, we can refer to ENT a possible ear tube. Patient education: Eustachian tube problems (The Basics) View in Bangladeshi Written by the doctors and editors at [facility] What is the eustachian tube?The eustachian tube is a tube that connects the middle ear (the part of the ear behind the eardrum) to the back of the nose and throat (figure 1). Normally, the eustachian tube helps keep the air pressure inside the middle ear the same as the air pressure outside the middle ear. If there is a problem with the eustachian tube, the air pressure inside the middle ear won't be the same as the air pressure outside of it. This can damage the middle ear and cause ear pain, hearing loss, and other symptoms. Ear barotrauma is the medical term for when people have symptoms or damage in the middle ear because of air pressure differences. Most eustachian tube problems are not serious. They usually last only a short time and get better on their own. But eustachian tube problems sometimes lead to serious problems, such as: ?A middle ear infection ?A torn eardrum ?Hearing loss Long-term hearing loss from eustachian tube problems can also lead to language or speech problems in children. What causes eustachian tube problems?Common causes of eustachian tube problems are: ?Illnesses or conditions that make the eustachian tubes swollen or inflamed ? These include colds, allergies, ear infections, or sinus infections. The sinuses are hollow areas in the bones of the face. ?Sudden air pressure changes ? Sudden air pressure changes can happen when people fly in an airplane, scuba dive, or drive in the mountains. ?Growths that block the eustachian tube ?Being born with an abnormal eustachian tube What are the symptoms of a eustachian tube problem?Common symptoms of a eustachian tube problem include: ?Ear pain ?Feeling pressure or fullness in the ear ?Trouble hearing ?Ringing in the ear ?Feeling dizzy Should I see a doctor or nurse?See your doctor or nurse if your symptoms are severe, get worse, or if they don't go away after a few days. Will I need tests?Probably not. Your doctor or nurse should be able to tell if you have a eustachian tube problem by learning about your symptoms and doing an exam. If your symptoms are severe or last for a long time, your doctor or nurse might: ?Have you see a special kind of doctor called an ear, nose, and throat doctor ?Do tests to check your hearing ?Do an imaging test ? Imaging tests can create pictures of the inside of the body. How are eustachian tube problems treated?Treatment depends on what's causing the eustachian tube problem. Depending on your individual situation, your doctor might treat you with 1 or more of the following: ?Nose sprays ?Antihistamines ? These medicines are usually used to treat allergies. They help stop itching, sneezing, and runny nose symptoms. ?Decongestants ? These medicines can help with stuffy nose symptoms. ?Surgery ? Most people do not need surgery for eustachian tube problems. But people might need surgery if their symptoms don't get better with medicines or they have severe or long-term symptoms. Antibiotics are not needed to treat eustachian tube problems. Referring Provider: JUAN SR [[id number]] Allergies As of Date: 06/02/2018 Noted Allergy Reaction CLINORIL (SULINDAC) 08/28/2005 PENICILLINS 08/28/2005 Date Reviewed: 06/02/2018 Reviewed by: Rico Valerio 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 - Fully Assessed Reason for Visit: Recheck [92] Cmt: fluid in left ear- saw ENT on 05/25/18 Primary Visit Diagnosis:Acute non-recurrent frontal sinusitis [J01.10] Other Visit Diagnosis:Acute serous otitis media of left ear, recurrence not specified [H65.02] Order(s):doxycycline monohydrate (MONODOX) 100 mg capsuleTake 1 capsule by mouth twice daily.Disp: 20 capsuleRfl: 0 Prescriptions as of 06/02/2018 Sig: CARVEDILOL 25 MG TABLET Take 1 tablet by mouth twice * HYDROCHLOROTHIAZIDE 25 MG TAB* Take 1 tablet by mouth once d* THIAMINE HCL (VITAMIN B1) 100* Take 1 tablet by mouth once d* LISINOPRIL 20 MG TABLET Take 20 mg by mouth twice jay* WARFARIN 5 MG TABLET Take 7.5 mg by mouth daily as* DOXYCYCLINE MONOHYDRATE 100 M* Take 1 capsule by mouth twice* Problem List As Of Date 06/02/2018 Noted Resolved Diverticulosis of colon (without mention of hem* 01/15/2015 FAMILY HX GI MALIGNANCY [Z80.0] More... Benign neoplasm of colon [D12.6] INVALID FOR* More... Hepatitis B [B19.10] INVALID FOR*06/18/2011 More... Hepatitis C Antibody Test Positive [R76.8] INVALID FOR* HTN (Hypertension), Benign [I10] INVALID FOR* Tobacco use disorder [F17.200] INVALID FOR* More... Impaired Fasting Glucose [R73.01] INVALID FOR* Benign non-nodular prostatic hyperplasia withou*INVALID FOR* Personal history of colonic polyps [Z86.010] INVALID FOR*11/18/2011 Benign neoplasm of rectum and anal canal [D12.8*INVALID FOR*11/18/2011 Alcoholism, chronic (HCC) [F10.20] INVALID FOR* More... Erectile dysfunction [N52.9] INVALID FOR* More... A-fib (HCC) [I48.91] INVALID FOR* More... Lumbar disc herniation [M51.26] INVALID FOR*01/15/2015 More... 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 Chronic hepatitis C without hepatic coma (HCC) *INVALID FOR* Other instructions from your clinician: Get INR checked in 3-5 days after starting the antibiotic. To open eustachian tube: Continue the steroid nasal spray. Try popping your ears by pinching your nose, holding you lips closed and swallowing. If this doesn't work pinch the opposite side of your nose close, gently blow against pressure as you then close the affected nostril and try to dede open the tube. Do not blow forcefully as this can damage your ear drum. Yawning, chewing gum, or blowing up balloons might also help them pop open. If that doesn't help, you may try allergy medication. If the ear fails to open over 4-6 weeks, we can refer to ENT a possible ear tube. Patient education: Eustachian tube problems (The Basics) View in Bangl[place] Written by the doctors and editors at [facility] What is the eustachian tube?The eustachian tube is a tube that connects the middle ear (the part of the ear behind the eardrum) to the back of the nose and throat (figure 1). Normally, the eustachian tube helps keep the air pressure inside the middle ear the same as the air pressure outside the middle ear. If there is a problem with the eustachian tube, the air pressure inside the middle ear won't be the same as the air pressure outside of it. This can damage the middle ear and cause ear pain, hearing loss, and other symptoms. Ear barotrauma is the medical term for when people have symptoms or damage in the middle ear because of air pressure differences. Most eustachian tube problems are not serious. They usually last only a short time and get better on their own. But eustachian tube problems sometimes lead to serious problems, such as: ?A middle ear infection ?A torn eardrum ?Hearing loss Long-term hearing loss from eustachian tube problems can also lead to language or speech problems in children. What causes eustachian tube problems?Common causes of eustachian tube problems are: ?Illnesses or conditions that make the eustachian tubes swollen or inflamed ? These include colds, allergies, ear infections, or sinus infections. The sinuses are hollow areas in the bones of the face. ?Sudden air pressure changes ? Sudden air pressure changes can happen when people fly in an airplane, scuba dive, or drive in the mountains. ?Growths that block the eustachian tube ?Being born with an abnormal eustachian tube What are the symptoms of a eustachian tube problem?Common symptoms of a eustachian tube problem include: ?Ear pain ?Feeling pressure or fullness in the ear ?Trouble hearing ?Ringing in the ear ?Feeling dizzy Should I see a doctor or nurse?See your doctor or nurse if your symptoms are severe, get worse, or if they don't go away after a few days. Will I need tests?Probably not. Your doctor or nurse should be able to tell if you have a eustachian tube problem by learning about your symptoms and doing an exam. If your symptoms are severe or last for a long time, your doctor or nurse might: ?Have you see a special kind of doctor called an ear, nose, and throat doctor ?Do tests to check your hearing ?Do an imaging test ? Imaging tests can create pictures of the inside of the body. How are eustachian tube problems treated?Treatment depends on what's causing the eustachian tube problem. Depending on your individual situation, your doctor might treat you with 1 or more of the following: ?Nose sprays ?Antihistamines ? These medicines are usually used to treat allergies. They help stop itching, sneezing, and runny nose symptoms. ?Decongestants ? These medicines can help with stuffy nose symptoms. ?Surgery ? Most people do not need surgery for eustachian tube problems. But people might need surgery if their symptoms don't get better with medicines or they have severe or long-term symptoms. Antibiotics are not needed to treat eustachian tube problems. Prescriptions ordered this encounter Disp Refills Start End DOXYCYCLINE MONOHYDRATE 100 MG CAPSU* 20 c* 0 06/02/2018 Route: ORAL Sig: Take 1 capsule by mouth twice daily. Follow-up and Disposition History Recorded Encounter Status:Closed by PAT PASCAL CNP on 06/02/18 PROTHROMBIN TIME W/INR Collected: 04/13/2018 Status: F Source: PATRICIA 7:20 AM [facility] REPOSITORY TYPE CODE TESTS RESULT OUT OF RANGE REFERENCE UNITS LAB L300.4150 11.7-14.9 SECONDS High PROTIME 30.1 LAB L300.4200 Normal INR 2.9 Performed By: #### L300.3900 #### [facility] [address] [place], [address] CARDIOLOGY VISIT Observed: 03/11/2018 Status: F Source: ISOM REPORT 10:30 AM [facility] REPOSITORY [facility] [address] [place] [address] OFFICE VISIT Date of Service: 03/11/18 MR#: [id number] Acct: [id number] Name: LUCI CARDONA Rep #: [id number] : 1950 Provider: Vahid Roberts MD Age/Sex: 67/M Location: [facility] [place] Status: Signed HPI HPI Chief Complaint: Follow up Details: LUCI CARDONA, is a 67 M who presents to the office today for a follow-up visit. Is a gentleman with a history of atrial fibrillation with a previous history of rapid ventricular response rate and tachycardia induced cardiomyopathy as well as hypertension and tobacco abuse. He has been doing well since his cardioversion has been maintaining sinus rhythm he denies any chest pain or shortness breath or paroxysmal nocturnal dyspnea pedal edema he has been using his CPAP machine at night and he has been checking his blood pressures at home. He has had no neck arm or jaw discomfort suggest angina no dizziness no diaphoresis no near syncope or syncope. His physical exam today demonstrates clear lung galloway regular rate and rhythm and no pedal edema his electrocardiogram confirms normal sinus rhythm with a rate of 65 bpm and occasional premature atrial complex. 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: No Accompanied by: None Is patient in pain?: No Allergies Penicillins Allergy (Verified 03/11/18 10:02) Hives sulindac [From Clinoril] Allergy (Verified 03/11/18 10:02) Unknown Medications Aspirin [Aspirin, Baby] 81 mg PO DAILY@0800 #30 tab.chew 11/19/14 [Rx Confirmed 03/11/18] Warfarin Sodium [Coumadin] 10 mg PO DAILY #10 tab 10/16/14 [Rx Confirmed 03/11/18] tiotropium 2.5 mcg-olodaterol 2.5 mcg/actuation mist for inhalation 2 puff INHALATION Q24H #4 g 01/14/18 [Rx Confirmed 03/11/18] umeclidinium 62.5 mcg-vilanterol 25 mcg/actuation powdr for inhalation 1 inh INHALATION QDAY #60 ea 01/15/18 [Rx Confirmed 03/11/18] carvedilol 25 mg tablet 25 mg PO BID #180 tab 01/21/18 [Rx Confirmed 03/11/18] hydrochlorothiazide 25 mg tablet 25 mg PO QAM #90 tab 01/21/18 [Rx Confirmed 03/11/18] warfarin 5 mg tablet 5 mg PO QDAY #135 tab 01/21/18 [Rx Confirmed 03/11/18] lisinopril 20 mg tablet 20 mg PO BID #180 tab 01/26/18 [Rx Confirmed 03/11/18] Ejection fraction %: 55 to 59 (55% per echo 02/19/15 at [facility]) [facility] Medical History Cardiomyopathy in other diseases classified elsewhere (Chronic) H/O ETOH abuse (Resolved) Afib (Chronic) Syncope and collapse (Acute) Alcohol abuse (Acute) Atrial flutter (Chronic) Nonrheumatic mitral (valve) prolapse (Chronic) Paroxysmal atrial fibrillation (Chronic) Sleep apnea (Chronic) Hypertension (Chronic) Surgical History History of cholecystectomy (Resolved) History of herniorrhaphy (Resolved) Family History Mother Breast cancer Father Cancer Social History household members: spouse housing: house current occupational status: previously employed, retired pets and animals: Yes pets and animals: cat(s) Smoking Status: Current every day smoker tobacco type: cigarettes second hand exposure: Yes alcohol intake: current alcohol intake frequency: a few times a week Alcohol type: beer substance use type: does not use caffeine: No what type of physical activity do you participate in: none ROS Const Const: Negative for body ache, fever(s), chills, night sweats, daytime sleepiness, difficulty sleeping, weight gain, weight loss, increased appetite, poor appetite, anorexia, other, frequent falls, headache(s), weakness, fatigue or excessive sweating Eyes Eyes: Negative for blind spots, loss of peripheral vision, transient loss of vision, change in vision, floaters, tunnel vision, other, blurry vision or double vision ENT ENT: Negative for hearing loss, tinnitus, Nosebleed/epistaxis, post nasal drip, bleeding gums, hoarseness, neck pain, dry mouth, other, balance problems, dizziness, headache(s), tongue swelling or lip swelling Cardio Chest Pain: No Palpitations: No Edema: None Muscle aches with walking: None Resp Respiratory: Negative for SOB with activity, SOB at rest, SOB orthopnea\SOB lying down, Cough, Coughing up blood/hemoptysis, chest congestion, pain on inspiration, snoring, stridor, wheezing, crackles, paroxysmal nocturnal dyspnea or other GI GI: Negative nausea, vomiting, heartburn, constipation, belching, bloating, cramping, vomiting blood/hematemesis, bright, red blood in stools, black,tarry stools, loose stools, Difficulty Swallowing or other : Negative for hematuria, frequent nighttime urination/ nocturia, erectile dysfunction or abnormal vaginal bleeding Musc Musc: Negative for muscle aches/ myalgia, muscle weakness, joint pain or balance problems Skin Skin: Negative redness, non-healing lesions, unusual bruising, skin ulcer, wounds, jaundice, other or rash Neuro Neuro: Negative for dizziness, lightheadedness, near syncope, syncope, orthostatic symptoms, frequent falls, headache(s), weakness, confusion, memory loss, restless legs, blurry vision, double vision, vertigo, seizures, lack of coordination or other Willie Hematologic/Lymphatic: Negative for easy bleeding, easy bruising, enlarged lymph nodes or other Endo Endo: Negative for fatigue, cold intolerance, heat intolerance, excessive sweating, flushing, increased thirst/drinking, increased hunger, hair loss, hair growth or other Psych Psych: Negative for anxiety, depression, thoughts of harming anyone, thoughts of harming yourself, visual hallucinations, panic attacks or audible hallucinations Allergy Allergy/Immunology: Negative for throat swelling, Negative for tongue swelling, Negative for hives, Negative for rash, Negative for lip swelling Cardiology Exam Const Appearance: cooperative, healthy appearing, well developed, well groomed and no acute distress Nutritional Appearance: well nourished and average body habitus Orientation: alert, awake and oriented x3 Head Head: normal to inspection, normocephalic and atraumatic Ears: hearing grossly normal bilaterally and external ears normal Nose: external nose normal, nasal mucous membranes and turbinates normal, nares normal, septum normal, no nasal discharge Face and Sinus: face symmetric Mouth: oral mucosae normal, tongue normal, oropharynx normal and moist mucous membranes Teeth and gingiva: dentition normal Throat: posterior oropharynx normal, tonsils normal and uvula midline Eyes General: appearance normal, both eyes and all related structures Eyelids: eyelids normal Conjunctivae: conjunctivae normal Pupils: PERRL, normal by confrontation and accommodation normal EOM: EOM intact bilaterally Neck Neck: normal visual inspection, trachea midline and no JVD JVD: +5 Carotids: normal carotid upstroke and bounding pulses Chest Chest inspection: normal inspection of the chest, symmetric chest movement and normal respiratory effort Auscultation: Bilateral: Clear to Auscultation Cardio Palpation: normal PMI Rate: regular rate Rhythm: regular rhythm Heart sounds: S1 normal, S2 normal and normal, physiologic split S2; negative rub, gallop or murmur GI GI: normal to inspection, soft, no hepatosplenomegaly and bowel sounds present Neuro General: alert, awake, oriented x3, no focal sensory deficit, gait normal and moves all extremities Skin Skin: no rashes or lesions noted Extremities Pulses: Normal: Right Femoral Pulse, Left Femoral Pulse, Right Dorsalis Pedis Pulse, Left Dorsalis Pedis Pulse, Right Posterior Tibial Pulse, Left Posterior Tibial Pulse, Right Radial Pulse, Left Radial Pulse Lower Extremity Edema: None: Bilateral Musculoskel Musculoskeletal: No joint tenderness Psych Psychological: normal affect Assessment AND Plan 1. Afib I48.91 Plan He does have a history of atrial fibrillation he is currently maintaining sinus rhythm. My recommendation is for him to continue the current medication with the beta-geo as well as the Coumadin attending an INR between 2 and 3. His electrocardiogram confirms that. No changes will be made at this time. 2. Hypertension I10 Plan His blood pressure appears to be under excellent control on the current medical therapy and we would not suggest that we make any medication changes. 3. Cardiomyopathy in other diseases classified elsewhere I43 Plan He does have a history of cardiomyopathy but his most recent ejection fraction was noted to be 55%. In the absence of any shortness of breath or dizziness I would not recommend that we make any changes. Overall he appears to be doing well and will continue to follow him twice a year. Plan Detail Other Orders Orders: Follow Up 6 Months (jhr) Coding Level of Care Code Off vis,est,level 3 Diagnoses Afib I48.91 Hypertension I10 Cardiomyopathy in other diseases classified elsewhere I43 Coding Level of Care Code Off vis,est,level 3 Diagnoses Afib I48.91 Hypertension I10 Cardiomyopathy in other diseases classified elsewhere I43 03/11/18 1030 <Electronically signed by Vahid Roberts MD> Date Vahid Roberts MD Cosigner Signature: Date (if applicable) CC: Juan Sr MD 12 LEAD EKG PERFORMED Observed: 03/11/2018 Status: F Source: [facility] BY [facility] [place] 9:44 AM [id number] [place] [address] 12 Lead EKG performed by [facility] [place] 03/11/18 0943 MR#: [id number] Acct: [id number] Name: LUCI CARDONA Rep #: [id number] : 1950 67 From: Vahid Roberts MD Attending Dr: Vahid Roberts MD Status: DEP AMB Ordering Dr: Vahid Roberts MD Date: 03/11/18 Location: [facility] [place] Sex: M C Admitted: [facility] [place]/12 Lead EKG performed by [facility] [place] ECG Report Interpretation Sinus Rhythm - occasional PAC # PACs = 1.-RSR(V1) -nondiagnostic. PROBABLY NORMALElectronically signed on 03/18/2018 at 17:06 by Vahid Roberts 03/18/18 1710 Date Vahid Roberts MD CC: Juan Sr MD Date Dictated: 03/11/18942 Date Transcribed: 03/11/18942 Mercerizing Range Feeder: [place] Signed PROTHROMBIN TIME W/INR Collected: 03/11/2018 Status: F Source: [place] 9:30 AM [facility] TYPE CODE TESTS RESULT OUT OF RANGE REFERENCE UNITS LAB L300.4150 11.7-14.9 SECONDS High PROTIME 28.7 LAB L300.4200 Normal INR 2.7 Performed By: #### [id number] #### [facility] [address] [place], [address] PROGRESS Observed: 02/02/2018 Status: COMPLETED Source: [place] 3:25 PM [facility] REPOSITORY HNO ID: [id number] Author: Faith Logan Service: (none) Author Type: (none) Type: Progress Notes Filed: 02/02/2018 3:25 PM Note Text: Radiology Service Progress Note PATIENT NAME: Luci Cardona DATE OF SERVICE: February 02, 2018 TIME: 3:25 PM PATIENT IDENTITY VERIFICATION COMPLETED USING TWO (2) METHODS: Patient confirmed name verbally and Date of . PATIENT GENDER DATA: Male PATIENT RELEVANT IMPLANT DATA REVIEWED: Yes RADIOLOGY DEPARTMENT: Ultrasound PERIPHERAL IV DATA: Not applicable SIGNED BY: Faith Logan February 02, 2018 3:25 PM US ABD RIGHT UPPER Observed: 02/02/2018 Status: F Source: [facility] 9:07 AM [facility] REPOSITORY * * *Final Report* * * DATE OF EXAM: Feb 02 2018 9:07AM [facility] [id number] - US ABD RIGHT UPPER QUADRANT / PROCEDURE REASON: multiple diagnoses * * * * Physician Interpretation * * * * US ABD RIGHT UPPER QUADRANT HISTORY: Hepatitis C. COMPARISON: Ultrasound abdomen on 12/27/2012 TECHNIQUE: Sonography of the right upper quadrant abdomen was performed. Images were obtained and stored in a permanent archive. RESULT: Pancreas: Not well seen, likely due to overlying bowel gas. Liver: Echotexture: Homogeneous Echogenicity: Normal Surface contour: Smooth Lesions: None Biliary: Intrahepatic bile ducts: Normal CBD: 5 mm Gallbladder: Surgically absent Right Kidney: Length: 11.7 cm. Lesions: none Hydronephrosis: none Ascites: None. Others: The spleen measures 11.6 x 9.1 x 11.9 cm. The left kidney is unremarkable. IMPRESSION: No acute sonographic abnormalities seen in the right upper quadrant abdomen. The pancreas is not clearly visualized likely due to overlying bowel gas. [facility] Transcribe Date/Time: Feb 02 2018 11:17A Dictated by : MANSOOR LORENZO MD This examination was interpreted and the report reviewed and electronically signed by: MANSOOR LORENZO MD on Feb 02 2018 11:43AM EST [id number] PROTHROMBIN TIME W/INR Collected: 02/01/2018 Status: F Source: [place] 7:58 AM [facility] REPOSITORY TYPE CODE TESTS RESULT OUT OF RANGE REFERENCE UNITS LAB L300.4150 11.7-14.9 SECONDS High PROTIME 29.6 LAB L300.4200 Normal INR 2.8 Performed By: #### [id number] #### [facility] [address] [place], [address] CBC AND DIFFERENTIAL Collected: 02/01/2018 Status: F Source: [place] 7:49 AM [facility] REPOSITORY TYPE CODE TESTS RESULT OUT OF REFERENCE UNITS RANGE LAB WBC 3.70-11.00 k/uL WBC 6.07 LAB RBC 4.20-6.00 m/uL RBC 5.04 LAB HGB 13.0-17.0 g/dL Hemoglobin 15.3 LAB HCT 39.0-51.0 % Hematocrit 47.1 LAB MCV 80.0-100.0 fL MCV 93.5 LAB MCH 26.0-34.0 pG MCH 30.4 LAB MCHC 30.5-36.0 g/dL MCHC 32.5 LAB RDWCV 11.5-15.0 % RDW-CV 13.5 LAB PLTCT 150-400 k/uL Platelet Count 153 LAB MPV 9.0-12.7 fL MPV 12.7 LAB ANEUT % Neut% 56.5 LAB AANEUT 1.45-7.50 k/uL Abs Neut 3.42 LAB ALYMP % Lymph% 32.3 LAB AALYMP 1.00-4.00 k/uL Abs Lymph 1.96 LAB AMONO % [place]% 7.6 LAB AAMONO <0.87 k/uL Abs [place] 0.46 LAB AEOS % Eosin% 2.6 LAB AAEOS <0.46 k/uL Abs Eosin 0.16 LAB ABASO % Baso% 1.0 LAB AABASO <0.11 k/uL Abs Baso 0.06 LAB AUNRBC 0 /100 WBC NRBCs 0.0 LAB ABNRBC <0.01 k/uL Absolute nRBC <0.01 LAB DTYP DTYPE Auto Diff Performed By: #### CBCDIF, CMP, HBA1C, AFP #### [facility] [address] [place], [place] [address] COMP METABOLIC PANEL Collected: 02/01/2018 Status: F Source: [place] 7:49 AM [facility] REPOSITORY TYPE CODE TESTS RESULT OUT OF REFERENCE UNITS RANGE LAB TP 6.3-8.0 g/dL Protein, Total 7.0 LAB ALB 3.9-4.9 g/dL Low Albumin 3.7 LAB CA 8.5-10.2 mg/dL Calcium, Total 8.8 LAB TBIL 0.2-1.3 mg/dL Bilirubin, Total 0.8 LAB ALKP 36-108 U/L Alkaline Phosphatase 64 LAB AST 14-40 U/L AST High 63 LAB GLU 74-99 mg/dL Glucose High 121 Result Comment: The [place] Diabetes Association (ADA) provides guidance for cutoff values for fasting glucose and random glucose. The ADA defines fasting as no caloric intake for at least 8 hours. Fas ting plasma glucose results between 100 to 125 mg/dL indicate increased risk for diabetes (prediabetes). Fasting plasma glucose results greater than or equal to 126 mg/dL meet the criteria for diagnosis of diabetes. In the absence of unequivocal hyperglycemia, results should be confirmed by repeat testing. In a patient with classic symptoms of hyperglycemia or hyperglycemic crisis, random plasma glucose results greater than or equal to 200 mg/dL meet the criteria for diagnosis of diabetes. Reference: Standards of Medical Care in Diabetes 2016, [place] Diabetes Association. Diabetes Care. 2016.39(Suppl 1). LAB BUN 9-24 mg/dL BUN 15 LAB CRET 0.73-1.22 mg/dL Creatinine 0.83 LAB NA 136-144 mmol/L Sodium 141 LAB K 3.7-5.1 mmol/L Low Potassium 3.6 LAB CL 97-105 mmol/L Chloride 102 LAB CO2 22-30 mmol/L CO2 27 LAB AGAP 9-18 mmol/L Anion Gap 12 LAB ALT 10-54 U/L ALT High 59 LAB GFRAA eGFR- Amer. >60 LAB GFRNAA . eGFR-All Other Races >60 Result Comment: eGFR (Estimated GFR) Units of measure: mL/min/1.73 meters squared eGFR is derived from the reexpressed MDRD Study equation using the following parameters: serum creatinine, age, gender and race. The creatinine assay has been calibrated to be traceable to IDMS. An eGFR <60 mL/min/1.73m2 for >3 months is consistent with chronic kidney disease. Refer to KDOQI guidelines for clinical interpretation. In patients with unstable renal function, e.g. those with acute kidney injury, the eGFR may not accurately reflect actual GFR. Performed By: #### CBCDIF, CMP, HBA1C, AFP #### [facility] [employer] [address] [place] [id number] HEMOGLOBIN A1C Collected: 02/01/2018 Status: F Source: [place] 7:49 [facility] REPOSITORY TYPE CODE TESTS RESULT OUT OF REFERENCE UNITS RANGE LAB HGBA1C 4.3-5.6 % High Hemoglobin A1c 5.7 LAB HBA0 mg/dL Est. Average Glucose 117 Result Comment: eAG: (Estimated average glucose) is a calculated value from HgbA1c and is sales representative raw fibers of the average blood glucose level in the last 2-3 month period. Performed By: #### CBCDIF, CMP, HBA1C, AFP #### [facility] [employer] [address] [place] [id number] AFP Collected: 02/01/2018 Status: F Source: [place] 7:49 AM [facility] REPOSITORY TYPE CODE TESTS RESULT OUT OF RANGE REFERENCE UNITS LAB AFP <11 ng/mL AFP 8.3 Performed By: #### CBCDIF, CMP, HBA1C, AFP #### [facility] [address] [place], [place] [address] PROGRESS Observed: 01/26/2018 Status: COMPLETED Source: [place] 9:38 AM [facility] REPOSITORY HNO ID: [id number] Author: Juan Sr Service: (none) Author Type: Physician Type: Progress Notes Filed: 01/26/2018 10:04 AM Note Text: This note was created using Ecolibriumriter. Subjective Luci Cardona is a 67 year old male here here for follow up. He was seeing an ENT specialist at [facility] in [place]. 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 He continued to smoke and had no desire to quit. His alcohol use was likewise unchanged. He was prescribed Anora by Dr. Mcconnell but he found this too expensive. He continued on medications for atrial fibrillation and anticoagulation, monitored by Dr. Roberts. He was using his CPAP regularly with good effect. He had chronic hepatitis C with no recent follow up since he declined recommendations for a liver biopsy. ACTIVE PROBLEM LIST Family History of Malignant Neoplasm of Gastrointestinal Tract Benign Neoplasm of Colon Hepatitis C Antibody Test Positive Htn (Hypertension), Benign Tobacco Use Disorder Impaired Fasting Glucose Benign Non-Nodular Prostatic Hyperplasia Without Lower Urinary Tract Symptoms Alcoholism, Chronic (Hcc) Erectile Dysfunction A-Fib (Hcc) Aishwarya On Cpap Chronic Midline Low Back Pain Without Sciatica History of Glottic Cancer Current Outpatient Prescriptions: carvedilol (COREG) 25 mg tablet Take 1 tablet by mouth twice daily with meals. hydrochlorothiazide (HYDRODIURIL, ESIDRIX) 25 mg tablet Take 1 tablet by mouth once daily. thiamine (VITAMIN B1) 100 mg tablet Take 1 tablet by mouth once daily. lisinopril (ZESTRIL, PRINIVIL) 20 mg tablet Take 20 mg by mouth twice daily. warfarin (COUMADIN) 5 mg tablet Take 7.5 mg by mouth daily as directed. clotrimazole-betamethasone (LOTRISONE) cream Apply 1 application to affected area twice daily for 10 days. Right foot. No current facility-administered medications for this visit. Review of Systems Constitutional: Negative. HENT: Positive for voice change. Eyes: Negative. Respiratory: Negative. Cardiovascular: Negative. Gastrointestinal: Negative. Genitourinary: Negative. Musculoskeletal: Positive for back pain. Neurological: Negative. Hematological: Negative. Objective BP 118/70 (BP Site: Right Arm, BP Position: Sitting, BP Cuff Size: Regular Adult) Pulse 64 Temp 36 ?C (96.8 ?F) (Left Tympanic) Resp 16 Wt 90.9 kg (200 lb 6.4 oz) BMI 27.18 kg/m2 Physical Exam Constitutional: No distress. HENT: Mouth/Throat: Oropharynx is clear and moist. Cardiovascular: S1 normal and S2 normal. An irregular rhythm present. Exam reveals no gallop. No murmur heard. Pulmonary/Chest: Effort normal and breath sounds normal. Abdominal: Soft. Bowel sounds are normal. There is no hepatosplenomegaly. There is no tenderness. No hernia. Musculoskeletal: He exhibits no edema. Lymphadenopathy: He has no cervical adenopathy. Skin: Rash noted. Mild tinea right 4th and 5th toes. Psychiatric: He has a normal mood and affect. ASSESSMENT/PLAN: 1. Medicare annual wellness visit, subsequent - ICD9: V70.0, ICD10: Z00.00 (primary diagnosis) See other note. 2. History of glottic cancer - ICD9: V10.21, ICD10: Z85.21 Follow up with his ENT. 3. Hepatitis C antibody test positive - ICD9: 795.79, ICD10: R76.8 - COMP METABOLIC PANEL - ALPHA FETOPROTEIN BL - US ABD RT UPPER QUADRANT - Alcohol consumption needs reduced. Patient indicated understanding but was not interested in change. 4. HTN (hypertension), benign - ICD9: 401.1, ICD10: I10 - good control 5. Tobacco use disorder - ICD9: 305.1, ICD10: F17.200 - Cessation encouraged. - Counseling was given focusing on the harmful effects of this addiction especially given the patient's medical condition(s) which will be worsened because of the chemicals in tobacco. - Patient declined. 6. Impaired fasting glucose - ICD9: 790.21, ICD10: R73.01 - HGB A1C 7. Alcoholism, chronic (HCC) - ICD9: 303.90, ICD10: F10.20 Discussed senior care risks and inconsistency of wanting treatment for hep C but not change in alcohol consumption. 8. Atrial fibrillation, unspecified type (HCC) - ICD9: 427.31, ICD10: I48.[address] Roberts. - CBC + DIFF 9. AISHWARYA on CPAP - ICD9: 327.23, V46.8, ICD10: G47.33, Z99.89 Using CPAP with good effect. 10. Tinea pedis of right foot - ICD9: 110.4, ICD10: B35.3 Rx sent. 11. Chronic hepatitis C without hepatic coma (HCC) - ICD9: 070.54, ICD10: B18.2 - COMP METABOLIC PANEL - ALPHA FETOPROTEIN BL - US ABD RT UPPER QUADRANT Juan Sr MD PROGRESS Observed: 01/26/2018 Status: COMPLETED Source: [place] 9:29 AM [facility] REPOSITORY HNO ID: [id number] Author: Juan Sr Service: (none) Author Type: Physician Type: Progress Notes Filed: 01/26/2018 10:04 AM Note Text: Medicare Yearly Visit Medical B eligibilty date 03/2016 Date of last exam 01/2017 PAST MEDICAL HISTORY Diagnosis Date - A-fib (HCC) 10/07/2014 Dr. Nas Roberts. - Alcoholism, chronic (HCC) 12/06/2012 - Benign neoplasm of colon - BPH w/o urinary obs/LUTS 06/18/2011 - Calculus of kidney 2000 Calcium oxalate - CHOLECYSTITIS NOS,resolved 08/29/2005 - Closed fracture of rib(s), unspecified 09/16/2005 - Degeneration of cervical intervertebral disc - Diverticulosis of colon (without mention of hemorrhage) - Hepatitis B 09/05/2009 Convalescent. 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 Liu oFrd, [facility]. 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, [facility] PAST SURGICAL HISTORY Procedure Laterality Date - COLONOS W/REM POLYP SNARE 03/03/07 - COLONOSCOP W/ OR W/O [facility]SH SPEC 06/01/2008 Colonoscopy - COLONOSCOP W/ OR W/O [facility] SPE[facility] 10/15/2011 Colonoscopy - COLONOSCOP W/ OR W/O [facility] SPEC 10/18/15 Colonoscopy - DIRECT LARYNGOSCOPY WITH BIOPSY 04/2017 - DIRECT LARYNGOSCOPY WITH BIOPSY 10/2017 - LAPAROSCOPIC CHOLEYCYSTECTOMY 08/19/05 Cholecystectomy, lap - PAST SURGICAL HISTORY OF 2004 Left parotid pleomorphic adenoma - PAST SURGICAL HISTORY OF 10/2009 Cyst removed from back. - REPAIR ING HERNIA,5+Y/O,REDUCIBL 1970 Hernia repair, inguinal - SIGMOIDOSCOPY FLEX DIAG 05/17/2007 Sigmoidoscopy Clinoril [Sulindac]; Penicillins Medications reviewed: Yes FAMILY HISTORY Problem Relation Age of Onset - Colon Cancer Father age 70s - Breast Cancer Mother age 45 - None Sister SOCIAL HISTORY: Social History Marital status: Spouse name: Leanna Years of education: Number of children: 3 Occupational History Occupation Employer Comment retired Social History Main Topics Smoking status: Current Every Day Smoker Packs/day: 1.00 Years: 50.00 Types: Cigarettes Last attempt to quit: 10/11/2014 Smokeless status: Never Used Alcohol use: Yes 27.0 oz/week 18 Cans of Beer (12oz) per week Drug use: No Sexual activity: Yes Social History Narrative Lives with . Children grown. Not driving (suspended license) since 2002. Luci is more or less sedentary occasionally exercising in the form of walking. He watches his diet for sodium, low fat and low cholesterol most of the time. List of current specialists seen: Dr. Ramos, ENT. Dr. Moris Mcconnell, pulmonary. Dr. Nsa Roberts, cardiology. End of Live Planning discussed including patients advanced directive wishes: No I am willing to follow Luci's advanced directives. Depression screen He in the past two weeks denies having felt down, depressed, hopeless or with little interest or pleasure in doing things. Functional Ability/Safety Screen 1. Was the patient's timed Up and Go test unsteady or longer than 30 seconds? No 2. Does the patient need help with the phone, transportation, shopping,preparing meals, housework, laundry, medications or managing money? No 3. Does your home have rugs in the hallway, lack of grab bars in the bathroom, lack of handrails on the stairs or have poor lighting? No Hearing Evaluation: normal PHYSICAL EXAM BP 118/70 (BP Site: Right Arm, BP Position: Sitting, BP Cuff Size: Regular Adult) Pulse 64 Temp 36 ?C (96.8 ?F) (Left Tympanic) Resp 16 Wt 90.9 kg (200 lb 6.4 oz) BMI 27.18 kg/m2 Alert and oriented X 3: YES Body mass index is 27.18 kg/(m2). Visual acuity: OD: 20/70 OS: 20/ 40 OU: 20/30 without glasses. ASSESSMENT/PLAN: 67 year old male The following prevention plan was discussed during the office visit and provided to the patient: - Smoking cessation - Weight Loss - Alcohol in moderation. Juan Sr MD CNOV Observed: 01/26/2018 Status: COMPLETED Source: [place] 8:40 AM [facility] REPOSITORY Office Visit (INTMWS) LUCI CARDONA ([id number]) 1950 M Date Time Provider Department 01/26/18 8:40 AM JUAN SR INTMWS During your visit today, we recorded the following information about you: Temperature Pulse Respiration Blood pressure 96.8 degrees 64/minute 16/minute 118/70 Weight 90.9 kg Juan Sr MD 01/26/2018 10:04 AM Signed Medicare Yearly Visit Medical B eligibilty date 03/2016 Date of last exam 01/2017 PAST MEDICAL HISTORY Diagnosis Date - A-fib (HCC) 10/07/2014 Dr. Nas Roberts. - Alcoholism, chronic (HCC) 12/06/2012 - Benign neoplasm of colon - BPH w/o urinary obs/LUTS 06/18/2011 - Calculus of kidney 2000 Calcium oxalate - CHOLECYSTITIS NOS,resolved 08/29/2005 - Closed fracture of rib(s), unspecified 09/16/2005 - Degeneration of cervical intervertebral disc - Diverticulosis of colon (without mention of hemorrhage) - Hepatitis B 09/05/2009 Con[facility]escent. 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 Liu Ford, [facility]. 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 - REPAIR ING HERNIA,5+Y/O,REDUCIBL 1970 Hernia repair, inguinal - SIGMOIDOSCOPY FLEX DIAG 05/17/2007 Sigmoidoscopy Clinoril [Sulindac]; Penicillins Medications reviewed: Yes FAMILY HISTORY Problem Relation Age of Onset - Colon Cancer Father age 70s - Breast Cancer Mother age 45 - None Sister SOCIAL HISTORY: Social History Marital status: Spouse name: Leanna Years of education: Number of children: 3 Occupational History Occupation Employer Comment retired Social History Main Topics Smoking status: Current Every Day Smoker Packs/day: 1.00 Years: 50.00 Types: Cigarettes Last attempt to quit: 10/11/2014 Smokeless status: Never Used Alcohol use: Yes 27.0 oz/week 18 Cans of Beer (12oz) per week Drug use: No Sexual activity: Yes Social History Narrative Lives with . Children grown. Not driving (suspended license) since 2002. Luci is more or less sedentary occasionally exercising in the form of walking. He watches his diet for sodium, low fat and low cholesterol most of the time. List of current specialists seen: Dr. Ramos, ENT. Dr. Moris Mcconnell, pulmonary. Dr. Nas Roberts, cardiology. End of Live Planning discussed including patients advanced directive wishes: No I am willing to follow Luci's advanced directives. Depression screen He in the past two weeks denies having felt down, depressed, hopeless or with little interest or pleasure in doing things. Functional Ability/Safety Screen 1. Was the patient's timed Up and Go test unsteady or longer than 30 seconds? No 2. Does the patient need help with the phone, transportation, shopping,preparing meals, housework, laundry, medications or managing money? No 3. Does your home have rugs in the hallway, lack of grab bars in the bathroom, lack of handrails on the stairs or have poor lighting? No Hearing Evaluation: normal PHYSICAL EXAM BP 118/70 (BP Site: Right Arm, BP Position: Sitting, BP Cuff Size: Regular Adult) Pulse 64 Temp 36 ?C (96.8 ?F) (Left Tympanic) Resp 16 Wt 90.9 kg (200 lb 6.4 oz) BMI 27.18 kg/m2 Alert and oriented X 3: YES Body mass index is 27.18 kg/(m2). Visual acuity: OD: 20/70 OS: 20/ 40 OU: 20/30 without glasses. ASSESSMENT/PLAN: 67 year old male The following prevention plan was discussed during the office visit and provided to the patient: - Smoking cessation - Weight Loss - Alcohol in moderation. MD Juan Gonzales MD 01/26/2018 10:04 AM Signed This note was created using [employer]rium[employer]. Subjective Luci Cardona is a 67 year old male here here for follow up. He was seeing an ENT specialist at [facility] in [place]. 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 He continued to smoke and had no desire to quit. His alcohol use was likewise unchanged. He was prescribed Anora by Dr. Mcconnell but he found this too expensive. He continued on medications for atrial fibrillation and anticoagulation, monitored by Dr. Roberts. He was using his CPAP regularly with good effect. He had chronic hepatitis C with no recent follow up since he declined recommendations for a liver biopsy. ACTIVE PROBLEM LIST Family History of Malignant Neoplasm of Gastrointestinal Tract Benign Neoplasm of Colon Hepatitis C Antibody Test Positive Htn (Hypertension), Benign Tobacco Use Disorder Impaired Fasting Glucose Benign Non-Nodular Prostatic Hyperplasia Without Lower Urinary Tract Symptoms Alcoholism, Chronic (Hcc) Erectile Dysfunction A-Fib (Hcc) Aishwarya On Cpap Chronic Midline Low Back Pain Without Sciatica History of Glottic Cancer Current Outpatient Prescriptions: carvedilol (COREG) 25 mg tablet Take 1 tablet by mouth twice daily with meals. hydrochlorothiazide (HYDRODIURIL, ESIDRIX) 25 mg tablet Take 1 tablet by mouth once daily. thiamine (VITAMIN B1) 100 mg tablet Take 1 tablet by mouth once daily. lisinopril (ZESTRIL, PRINIVIL) 20 mg tablet Take 20 mg by mouth twice daily. warfarin (COUMADIN) 5 mg tablet Take 7.5 mg by mouth daily as directed. clotrimazole-betamethasone (LOTRISONE) cream Apply 1 application to affected area twice daily for 10 days. Right foot. No current facility-administered medications for this visit. Review of Systems Constitutional: Negative. HENT: Positive for voice change. Eyes: Negative. Respiratory: Negative. Cardiovascular: Negative. Gastrointestinal: Negative. Genitourinary: Negative. Musculoskeletal: Positive for back pain. Neurological: Negative. Hematological: Negative. Objective BP 118/70 (BP Site: Right Arm, BP Position: Sitting, BP Cuff Size: Regular Adult) Pulse 64 Temp 36 ?C (96.8 ?F) (Left Tympanic) Resp 16 Wt 90.9 kg (200 lb 6.4 oz) BMI 27.18 kg/m2 Physical Exam Constitutional: No distress. HENT: Mouth/Throat: Oropharynx is clear and moist. Cardiovascular: S1 normal and S2 normal. An irregular rhythm present. Exam reveals no gallop. No murmur heard. Pulmonary/Chest: Effort normal and breath sounds normal. Abdominal: Soft. Bowel sounds are normal. There is no hepatosplenomegaly. There is no tenderness. No hernia. Musculoskeletal: He exhibits no edema. Lymphadenopathy: He has no cervical adenopathy. Skin: Rash noted. Mild tinea right 4th and 5th toes. Psychiatric: He has a normal mood and affect. ASSESSMENT/PLAN: 1. Medicare annual wellness visit, subsequent - ICD9: V70.0, ICD10: Z00.00 (primary diagnosis) See other note. 2. History of glottic cancer - ICD9: V10.21, ICD10: Z85.21 Follow up with his ENT. 3. Hepatitis C antibody test positive - ICD9: 795.79, ICD10: R76.8 - COMP METABOLIC PANEL - ALPHA FETOPROTEIN BL - US ABD RT UPPER QUADRANT - Alcohol consumption needs reduced. Patient indicated understanding but was not interested in change. 4. HTN (hypertension), benign - ICD9: 401.1, ICD10: I10 - good control 5. Tobacco use disorder - ICD9: 305.1, ICD10: F17.200 - Cessation encouraged. - Counseling was given focusing on the harmful effects of this addiction especially given the patient's medical condition(s) which will be worsened because of the chemicals in tobacco. - Patient declined. 6. Impaired fasting glucose - ICD9: 790.21, ICD10: R73.01 - HGB A1C 7. 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 8. Atrial fibrillation, unspecified type (HCC) - ICD9: 427.31, ICD10: I48.[address] Roberts. - CBC + DIFF 9. AISHWARYA on CPAP - ICD9: 327.23, V46.8, ICD10: G47.33, Z99.89 Using CPAP with good effect. 10. Tinea pedis of right foot - ICD9: 110.4, ICD10: B35.3 Rx sent. 11. Chronic hepatitis C without hepatic coma (HCC) - ICD9: 070.54, ICD10: B18.2 - COMP METABOLIC PANEL - ALPHA FETOPROTEIN BL - US ABD RT UPPER QUADRANT Juan Sr MD Referring Provider: JUAN SR [[id number]] Allergies As of Date: 01/26/2018 Noted Allergy Reaction CLINORIL (SULINDAC) 08/28/2005 PENICILLINS 08/28/2005 Date Reviewed: 01/26/2018 Reviewed by: Kristin Hobson LPN - Fully Assessed Reason for Visit: Yearly Exam [187] Primary Visit Diagnosis:Medicare annual wellness visit, subsequent [Z00.00] Other Visit Diagnoses:History of glottic cancer [Z85.21] Hepatitis C antibody test positive [R76.8] HTN (hypertension), benign [I10] Tobacco use disorder [F17.200] Impaired fasting glucose [R73.01] Alcoholism, chronic (HCC) [F10.20] Atrial fibrillation, unspecified type (HCC) [I48.91] AISHWARYA on CPAP [G47.33, Z99.89] Tinea pedis of right foot [B35.3] Chronic hepatitis C without hepatic coma (HCC) [B18.2] Order(s):clotrimazole-betamethasone (LOTRISONE) creamApply 1 application to affected area twice daily for 10 days. Right foot.Disp: 30 gRfl: 0 CBC + DIFF [SQCBCDIF] Order #: [id number] FUTURE COMP METABOLIC PANEL [SQCMP] Order #: [id number] FUTURE ALPHA FETOPROTEIN BL [SQAFP] Order #: [id number] FUTURE US ABD RT UPPER QUADRANT [[id number]] Order #: [id number] FUTURE HGB A1C [UCGUI0O] Order #: [id number] FUTURE Prescriptions as of 01/26/2018 Sig: CARVEDILOL 25 MG TABLET Take 1 tablet by mouth twice * HYDROCHLOROTHIAZIDE 25 MG TAB* Take 1 tablet by mouth once d* THIAMINE HCL (VITAMIN B1) 100* Take 1 tablet by mouth once d* LISINOPRIL 20 MG TABLET Take 20 mg by mouth twice jay* WARFARIN 5 MG TABLET Take 7.5 mg by mouth daily as* CLOTRIMAZOLE-BETAMETHASONE 1 * Apply 1 application to affect* Problem List As Of Date 01/26/2018 Noted Resolved Diverticulosis of colon (without mention of hem* 01/15/2015 FAMILY HX GI MALIGNANCY [Z80.0] More... Benign neoplasm of colon [D12.6] INVALID FOR* More... Hepatitis B [B19.10] INVALID FOR*06/18/2011 More... Hepatitis C Antibody Test Positive [R76.8] INVALID FOR* HTN (Hypertension), Benign [I10] INVALID FOR* Tobacco use disorder [F17.200] INVALID FOR* More... Impaired Fasting Glucose [R73.01] INVALID FOR* Benign non-nodular prostatic hyperplasia withou*INVALID FOR* Personal history of colonic polyps [Z86.010] INVALID FOR*11/18/2011 Benign neoplasm of rectum and anal canal [D12.8*INVALID FOR*11/18/2011 Alcoholism, chronic (HCC) [F10.20] INVALID FOR* More... Erectile dysfunction [N52.9] INVALID FOR* More... A-fib (HCC) [I48.91] INVALID FOR* More... Lumbar disc herniation [M51.26] INVALID FOR*01/15/2015 More... 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 Chronic hepatitis C without hepatic coma (HCC) *INVALID FOR* Prescriptions ordered this encounter Disp Refills Start End CLOTRIMAZOLE-BETAMETHASONE 1 %-0.05 * 30 g 0 01/26/2018 02/05/2018 Route: TOPICAL Sig: Apply 1 application to affected area twice daily for 10 days. Right foot. Medications Discontinued During This Encounter clotrimazole-betamethasone (LOTRISON* 30 g 0 12/27/2015 01/26/2018 Route: TOPICAL Sig: Apply 1 application to affected area twice daily for 10 days. Right foot. Disc: Reason for discontinue is not on file. Disposition: Return in about 6 months (around 07/29/2018). Follow-up and Disposition History Recorded Encounter Status:Closed by JUAN SR MD on 01/26/18 PULMONARY VISIT REPORT Observed: 01/14/2018 Status: F Source: [place] 12:17 PM [facility] REPOSITORY Pulmonary Medicine [address] [place] [address] OFFICE VISIT Date of Service: 01/14/18 MR#: [id number] Acct: [id number] Name: BRENDANLUCI Cassandra Rep #: [id number] : 1950 Provider: Moris Mcconnell MD Age/Sex: 67/M Location: [facility] [place] [facility] [place] Status: Signed Assessment AND Plan 1. Stage 2 moderate COPD by GOLD classification J44.9 Plan Patient's pulmonary function tests are consistent with COPD. Patient does have an element of restriction. Reviewed the signs and symptoms of exacerbation in detail. After review of the risks, benefits alternatives, patient has agreed to a trial of combination inhaler. Patient was personally trained on the use of the Respimat inhaler and first dose was administered during the office visit. Initiate Stiolto Medications New: tiotropium-olodaterol 2.5-2.5 mcg/actuation (2 puffs Inhalation Q24H shortness of breath Stiolto Respimat) administer at [facility] same time(s) each day 2. Obstructive sleep apnea syndrome G47.33 Plan Patient's compliance report shows that he wears it every night. Patient has had some difficulty with leak intermittently associated with trying to extend his mask. Reassured patient that he can get a mask at regular intervals I will allow him to stay well controlled. No indication for repeat titration at this time. Continue current therapy. 3. Alcohol abuse F10.10 Plan Appears per day has no intentions of decreasing intake. Stressed to the patient the importance of cessation. Did offer to obtain AA information if patient was interested and patient declined. Encourage cessation. 4. Tobacco dependency F17.200 Plan Discussed with patient for several minutes on the importance of smoking cessation. Patient understands that pulmonary function test confirmed a diagnosis of COPD, but patient has no intention of smoking cessation at this time. Patient remains pre-contemplative. Encourage smoking cessation Plan Detail Follow Up 6 Months ([facility]) HPI 3 M FU: Chief Complaint: Shortness of breath on exertion Details: Patient is a 67-year-old male, currently in the care of Dr. Sr, who presents for evaluation secondary to shortness of breath on exertion. Since last visit, patient denies any ER visits, hospitalizations or prednisone burst. Patient does report a recently was placed on antibiotics for sinusitis. Patient did not receive steroid therapy as part of this treatment plan. Patient feels that he is back to his baseline. Patient continues to cough on a daily basis. This is productive of clear sputum. No hemoptysis has been reported. There is been no associated chest pain. Patient believes his dyspnea on exertion is unchanged compared to previous. Patient is an avid golfer and continues to golf regularly. Patient continues to smoke and drink on a daily basis. Patient has no intentions of coming back on either at this time. Patient estimates that he drinks 6-12 beers per day. Patient denies any history of DTs, but states that he has never tried to stop alcohol before. Patient has been compliant with BiPAP therapy. Patient reports that he typically will wear it every night when he first goes to sleep. Occasionally patient will wake up in the middle of the evening and be unable to place the BiPAP back in position prior to going back to sleep. Patient feels that it is helpful and he can notice if he has decreased use for 2 or more days. Patient does report restful sleep when BiPAP is in place. Testing personally reviewed with the patient Compliance report (December 2017): Compliant 77% of days for an average of 5 hours 53 minutes on BiPAP of 9/5 cm of water with a residual AHI of 1.9. Complete PFT (November 17, 2017): Irreversible moderate mixed ventilatory defect with a symmetric reduction diffusing capacity (FVC 72%, FEV1 64%, TLC 83%, DLCO 50%) Intake Vital Signs01/14/18 Height 6 ft 01/14/18 Weight: 91.172 kg Intake Visit Reasons: 3 M FU Accompanied by: Self Allergies Penicillins Allergy (Verified 01/14/18 10:23) Hives sulindac [From Clinoril] Allergy (Verified 01/14/18 10:23) Unknown Medications Aspirin [Aspirin, Baby] 81 mg PO DAILY@0800 #30 tab.chew 10/04/14 [Rx Confirmed 10/23/14] Diltiazem CD [Cardizem CD] 180 mg PO DAILY #30 cap 10/04/14 [Rx Confirmed 10/23/14] Multivitamins,Ther W-Minerals [Multivitamin With Minerals] 1 tab PO DAILYCM #30 tab 10/04/14 [Rx Confirmed 10/20/14] Warfarin [Coumadin] 5 mg PO DAILY@1700 #30 tab 10/04/14 [Rx Confirmed 11/17/17] Metoprolol Tartrate [Lopressor (beta geo)] 100 mg PO BID #30 tab 10/16/14 [Rx Confirmed 10/23/14] Trazodone HCl [Desyrel] 50 mg PO QHS 10/16/14 [History Confirmed 10/20/14] Warfarin Sodium [Coumadin] 10 mg PO DAILY #10 tab 10/16/14 [Rx Confirmed 11/17/17] Cyclobenzaprine [Flexeril] 10 mg PO TID PRN PRN 10/23/14 [History Confirmed 10/23/14] Hydrocodone Bitart/Apap 5-325 [[place] 5MG-325MG] 1 tab PO Q6H PRN PRN 10/23/14 [History Confirmed 10/23/14] Thiamine HCl [Vitamin B-1] 1 tab PO DAILY 10/23/14 [History Confirmed 10/23/14] Clindamycin HCl [Cleocin] 300 mg PO Q6H #40 cap 01/07/16 [Rx] tiotropium 2.5 mcg-olodaterol 2.5 mcg/actuation mist for inhalation 2 puff INHALATION Q24H #4 g 01/14/18 [Rx Confirmed 01/14/18] PFSH Medical History H/O ETOH abuse (Resolved) Afib (Chronic) Syncope and collapse (Acute) Alcohol abuse (Acute) Atrial flutter (Chronic) Nonrheumatic mitral (valve) prolapse (Chronic) Paroxysmal atrial fibrillation (Chronic) Sleep apnea (Chronic) Hypertension (Chronic) Surgical History History of cholecystectomy (Resolved) History of herniorrhaphy (Resolved) Social History household members: spouse housing: house current occupational status: previously employed, retired pets and animals: Yes pets and animals: cat(s) Smoking Status: Current every day smoker tobacco type: cigarettes second hand exposure: Yes alcohol intake: current alcohol intake frequency: a few times a week Alcohol type: beer substance use type: does not use caffeine: No what type of physical activity do you participate in: none Review of Systems Const CONSTITUTIONAL: Negative anorexia, body ache, chills, daytime sleepiness, fever(s), night sweats, oral thrush, stops breathing during sleep, weight loss, sleeping in chair, fatigue, weight loss, weight gain, frequent colds, seasonal allergies, other, headache(s) or orthopnea EETM Ear Nose Throat Mouth: Positive hearing normal; negative hard of hearing, hoarseness, dry mouth in morning, change in vision, itchy eyes, eye pain, swallowing Difficulty, ear pain, nose bleed, headache(s), mouth pain, nasal congestion, nasal discharge, post nasal drip, sinus pain, sinus pressure, sore throat or other Cardio Cardiovascular: Negative chest pain, chest pain at rest, chest pain with activity, irregular heart rhythm, edema, shortness of breath when lying down, palpitations, murmur or other Resp Respiratory: Positive as per HPI; negative shortness of breath, pain with cough, wheezing, chest congestion, cough, chest tightness, pain on inspiration, inhalers, increase use of rescue inhalers, snoring, apnea or other Gastro Gastrointestional: Negative bloody stools, change in appetite, difficulty swallowing, reflux, hematemesis, melena stool, loose stool, constipation or other Genitourinary: Negative blood in urine, nocturia, pain with urination or other Musc Musculoskeletal: Negative body pain, back pain, neck pain or other Skin/Breast Skin/Breast: Negative dry skin, itching, rash, unusual bruising, breast lump or other Neuro Neurological: Negative restless legs, confusion, weakness or other Psych Psychocological: Negative abnormal sleep pattern, anxiety, thoughts of hurting self/others, hopelessness or other Lymph Lymphatic: Negative easy bleeding, easy bruising, swollen lymph nodes or other Exam Const Constitutional: Positive conversant, cooperative, in no acute respiratory distress, well developed, well nourished, good hygiene and appears older than stated age; negative wearing supplemental oxygen Head Head: Positive normocephalic and atraumatic; negative cyanosis of lips/distal nose, frontal sinus tenderness or maxillary sinus tenderness Eyes Eye: Negative nystagmus, scleral abnormality, cataract present or clear conjunctiva (Slight scleral injection noted) Ears Ear: Positive hearing normal and external ears normal; negative hard of hearing Nose Nose: Positive external nose normal, septum normal and no nasal discharge; negative epistaxis or nasal polyp Mouth Mouth: Positive oral mucosae normal, no lesions and posterior oropharynx is adequate; negative post nasal drip Mallampati Score: II: Mallampati Score Neck Neck: Positive normal visual inspection, full ROM and trachea midline; negative lymphadenopathy or JVD Chest Wall Chest: Positive normal inspection of the chest, symmetric chest movement and increased A/P diameter; negative crepitus or tenderness Resp lung sounds: Positive clear to auscultation, good air exchange, diminished diminished: Positive global, wheeze present on forced exhalation and prolonged expiratory time; negative wheezes, rhonchi, rales or use of accessory muscles Cardio Cardiac: Positive regular rate, regular rhythm, S1 normal and S2 normal; negative murmur, rub or gallop GI GI: Positive normal to inspection and normal bowel sounds; negative distended, ascites or epigastric tenderness Genitourinary: Positive deferred Musc Musculoskeletal: Positive steady gait; negative using an assistive device for ambulation, kyphosis or scoliosis Skin Pulmonary Skin Exam: Positive intact and lesion (Small lesions noted with granulation tissue of bilateral upper extremities); negative rash, dermal atrophy or petechiae No caput medusa appreciated. Pulses Pulse: Yes radial pulses present Extremities Extremities: Yes capillary refill normal, Yes clubbing, No cyanosis, No edema, No stasis dermatitis Neuro Neurologic: Yes conversant, Yes no focal neuro deficits, Yes cooperative, Yes normal cognition, Yes normal coordination, Yes normal concentration, Yes understands questions No asterixis appreciated. Lymph Lymphatic: No lymphadenopathy, No tenderness, No cervical adenopathy, No axillary adenopathy Psych Appearance: Positive grossly normal and eye contact Mental Status: Positive mental status grossly normal Mood: Positive anxious mood Affect: Positive anxious affect Office Procedures Inhaler Training Inhaler Training Procedure performed by: Moris Mcconnell Inhaler Training: Yes personally trained on inhaler use, sample provided, first dose given in the office, expresses understanding and continue to monitor Pulmonary Procedure Smoking Cessation Education: Yes education provided, 3-10 minutes, expresses understanding, needs reinforcement and continue to encourage smoking cessation Coding Level of Care Code Off vis,est,level 3 Diagnoses Stage 2 moderate COPD by GOLD classification J44.9 Obstructive sleep apnea syndrome G47.33 Sleep apnea type: obstructive Alcohol abuse F10.10 Tobacco dependency F17.200 01/14/18 1217 <Electronically signed by Moris Mcconnell MD> Date Moris Mcconnell MD Cosigner Signature: Date (if applicable) CC: Juan Sr MD PROTHROMBIN TIME W/INR Collected: 01/14/2018 Status: F Source: [place] 11:13 AM [facility] REPOSITORY TYPE CODE TESTS RESULT OUT OF RANGE REFERENCE UNITS LAB L300.4150 11.7-14.9 SECONDS High PROTIME 31.9 LAB L300.4200 Normal INR 3.1 Performed By: #### L300.3900 #### [facility] [address], [address] CNPTOUTREACH Observed: 01/12/2018 Status: COMPLETED Source: [place] 12:00 AM [facility] REPOSITORY Patient Outreach ([facility]) LUCI CARDONA ([id number]) 1950 M Date Time Provider Department 01/12/18 JUAN SR [facility] During your visit today, we recorded the following information about you: Allergies As of Date: 01/12/2018 Noted Allergy Reaction CLINORIL (SULINDAC) 08/28/2005 PENICILLINS 08/28/2005 Date Reviewed: 12/31/2017 Reviewed by: Emily Callahan 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 - Fully Assessed Visit Diagnosis:Medication management [Z79.899] Order(s):BASIC METABOLIC PNL [SQBMP] Order #: [id number] FUTURE Prescriptions as of 01/12/2018 Sig: CARVEDILOL 25 MG TABLET Take 1 tablet by mouth twice * HYDROCHLOROTHIAZIDE 25 MG TAB* Take 1 tablet by mouth once d* X CLOTRIMAZOLE-BETAMETHASONE 1 * Apply 1 application to affect* THIAMINE HCL (VITAMIN B1) 100* Take 1 tablet by mouth once d* LISINOPRIL 20 MG TABLET Take 20 mg by mouth twice jay* WARFARIN 5 MG TABLET Take 7.5 mg by mouth daily as* Problem List As Of Date 01/12/2018 Noted Resolved Diverticulosis of colon (without mention of hem* 01/15/2015 FAMILY HX GI MALIGNANCY [Z80.0] More... Benign neoplasm of colon [D12.6] INVALID FOR* More... Hepatitis B [B19.10] INVALID FOR*06/18/2011 More... Hepatitis C Antibody Test Positive [R76.8] INVALID FOR* HTN (Hypertension), Benign [I10] INVALID FOR* Tobacco use disorder [F17.200] INVALID FOR* More... Impaired Fasting Glucose [R73.01] INVALID FOR* Benign non-nodular prostatic hyperplasia withou*INVALID FOR* Personal history of colonic polyps [Z86.010] INVALID FOR*11/18/2011 Benign neoplasm of rectum and anal canal [D12.8*INVALID FOR*11/18/2011 Alcoholism, chronic (HCC) [F10.20] INVALID FOR* More... Erectile dysfunction [N52.9] INVALID FOR* More... A-fib (HCC) [I48.91] INVALID FOR* More... Lumbar disc herniation [M51.26] INVALID FOR*01/15/2015 More... AISHWARYA on CPAP [G47.33, Z99.89] INVALID FOR* Chronic midline low back pain without sciatica *INVALID FOR* Hoarseness of voice [R49.0] INVALID FOR* Encounter Status:Closed by SHERRY AUUSER on 08/27/18 PROGRESS Observed: 12/31/2017 Status: COMPLETED Source: [place] 2:28 PM [facility] REPOSITORY O ID: [id number] Author: Demetria Corbin) Older Service: (none) Author Type: Nurse Practitioner Type: Progress Notes Filed: 12/31/2017 2:58 PM Note Text: CC: Patient presents with: cough,postnasal drainage x 10 days HPI: Luci Cardona is a 67 year old male who presents to the office with complaint of sinus symptoms for 10 days. Symptoms were improving but got worse again after a couple days. Associated symptoms includes nasal congestion, rhinorrhea, post nasal drip, headache and cough. Denies fever. Treatments tried include OTC cold medicine with no relief of symptoms lately. History of asthma, frequent episodes of bronchitis, chronic bronchitis, bronchiectasis or COPD: Unsure Smoker: Yes Seasonal/environmental allergies: No The ROS is otherwise negative. The patient's pmh, medications, allergies, and past visits are reviewed. PHYSICAL EXAM: BP 100/80 Pulse 64 Temp 36.3 ?C (97.3 ?F) (Temporal Artery) Resp 18 Wt 89.4 kg (197 lb) SpO2 97% BMI 26.72 kg/m2 General appearance: tired/ill appearing, in no acute distress Head: Normocephalic Eyes: conjunctiva pink and moist, no icterus, sclera white, non-injected Ears: Right ear: Normal, TM - clear with good landmarks. Left ear: Normal, TM - clear with good landmarks Nose: mucosa erythematous and swollen, no sinus tenderness. Oropharynx:No erythema, exudates or tonsillar hypertrophy. Neck:supple and no adenopathy Heart: Negative. RRR without obvious murmur, gallop, or rubs. No ectopy. Lungs: clear to auscultation, without rales or wheeze, good air exchange ASSESSMENT/PLAN: 1. Acute non-recurrent sinusitis, unspecified location - ICD9: 461.9, ICD10: J01.90 - Will begin treatment with Doxycline - The patient should also be given Flonase and OTC cold medications - Supportive care with plenty of fluids, rest, and analgesia prn. - Follow up in 3-5 days if symptoms persist or worsen. 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 Potential red flag symptoms discussed with the patient. Reviewed appropriate action plan to take if red flag symptoms occur. Patient agreeable to treatment plan. PROTHROMBIN TIME W/INR Collected: 11/25/2017 Status: F Source: [place] 10:28 AM [facility] REPOSITORY TYPE CODE TESTS RESULT OUT OF RANGE REFERENCE UNITS LAB L300.4150 11.7-14.9 SECONDS High PROTIME 23.2 LAB L300.4200 Normal INR 2.2 Performed By: #### L300.3900 #### [facility] [address] [place], [address] PULMONARY FUNCTION Observed: 11/17/2017 Status: F Source: ISOM TEST 1:33 PM [facility] REPOSITORY [facility] Pulmonary Services/Neurology [address] [place] [address] MR#: [id number] Acct: [id number] Name: LUCI CARDONA Rep #: [id number] : 1950 67 From: Javan Fraga DO Referring Dr: Moris cMconnell MD Status: REG CLI Ordering Dr: Date: Location: PSN Sex: M C INTRODUCTION: The patient is a 67-year-old male currently under the care of Dr. Mcconnell that presents for pulmonary function testing secondary to a diagnosis of tobacco abuse. Respiratory therapy reports good patient effort and reports no other concerns. Bronchodilators were used during testing. INTERPRETATION: Forced expiration spirometry demonstrates the presence of a moderate large airways obstructive ventilatory defect. There was no significant response to aerosolized bronchodilators, based upon strict ATS criteria. Spirograms are of good quality and do not plateau indicating slow emptying of the lungs. Body plethysmography was performed and reveals a decreased TLC to 5.87 L, 83% of predicted, indicative of a mild restrictive ventilatory defect. Diffusing capacity by single breath CO is moderately reduced at 50% of predicted. IMPRESSION: These pulmonary function studies demonstrate the presence of an irreversible moderate mixed ventilatory defect with a symmetric reduction in diffusing capacity. 11/17/17 1333 <Electronically signed by Javan Fraga DO> Date Javan Fraga DO CC: Juan Sr MD Date Dictated: 11/17/171328 Date Transcribed: 11/17/171328 Mercerizing Range Feeder: ANIKET Signed PROTHROMBIN TIME W/INR Collected: 11/17/2017 Status: F Source: [place] 9:46 AM [facility] REPOSITORY TYPE CODE TESTS RESULT OUT OF RANGE REFERENCE UNITS LAB L300.4150 11.7-14.9 SECONDS High PROTIME 17.8 LAB L300.4200 Normal INR 1.5 Performed By: #### L300.3900 #### [facility] [address] [place], [address] ALLERGIES ALLERGIES DATE TYPE / CODE NAME / CODE REACTION SEVERITY SOURCE 10/25/2018 Drug Penicillins/[id number] Hives Unknown [facility] Allergy/416 0476(RXNORM) [facility] 723033(SNOM Repository ED CT) 10/25/2018 Drug sulindac/[id number] Unknown Unknown [facility] Allergy/416 6(RXNORM) Hospital 625939(SNOM Repository ED CT) 08/28/2005 Drug PENICILLINS [facility] Class/69759 System Repository 1003(SNOMED CT) 08/28/2005 DRUG SULINDAC [facility] INGREDI/419 System Repository 338052(SNOM ED CT) 08/28/2005 DRUG SULINDAC [facility] INGREDI/419 [address] [place] 356676(SNOM Repository ED CT) 08/28/2005 Drug PENICILLINS [facility] Class/01723 [facility] 1003(SNOMED Repository CT) ENCOUNTERS ENCOUNTERS ADMIT/DISCHARGE ACCOUNT NUMBER ADMITTING ENCOUNTER LOCATION SOURCE CLASS 11/02/2018 [id number] Ambulatory [facility] ding:CT Repository 11/01/2018/11/01/20 [id number] Unknown [facility]ulatory [facility] 18 [facility] Repository 10/25/2018/10/25/20 [id number] Ambulatory BMSBuilding: [place] 18 BMS.[facility] Repository 10/19/2018 [id number] Ambulatory BMSBuilding: [facility] Repository 10/19/2018 [id number] Ambulatory [facility] ding:PSN Repository 10/18/2018 [id number] Ambulatory [facility] ding:LAB Repository 10/18/2018 [id number] Ambulatory BMSBuilding: [facility] Repository 10/18/2018 [id number] Ambulatory [facility] ding:PSN Repository 09/10/2018/09/10/20 [id number] Ambulatory B[facility]: [place] 18 BMS.[facility] Repository 08/31/2018/08/31/20 [id number] Ambulatory [address] ding:LAB Repository 08/02/2018/08/02/20 [id number] Unknown Ambulatory [facility] 18 [facility] [facility] Repository 07/29/2018/07/30/20 [id number] Ambulatory [address] Repository 07/20/2018/07/20/20 [id number] Ambulatory BMSBuilding: [place] 18 BMS.[facility] Repository 07/14/2018/07/14/20 [id number] [address] [address] Repository 07/07/2018/07/07/20 [id number] Ambulatory [place] [address] [facility] [place] Repository 07/07/2018/07/07/20 [id number] Ambulatory [address] Main [place] Repository 06/30/2018/07/02/20 [id number] Ambulatory [address] [place] Repository 06/30/2018/06/30/20 [id number] Ambulatory [address] [place] Repository 06/30/2018/07/01/20 [id number] Ambulatory [address] Repository 06/30/2018 [id number] [facility] Rep[facility] 06/22/2018/06/23/20 [id number] Ambulatory [address] Repository 06/22/2018/07/16/20 [id number] Ambulatory [place] [address] [place] [address] ding:INT LAB Repository 06/02/2018/06/03/20 [id number] Ambulatory [address] Repository 05/03/2018/05/03/20 [id number] Unknown [facility] Repository 04/13/2018/04/15/20 [id number] [place]ulatory [place] [address] [place] [address] ding:INT LAB Repository 03/11/2018/03/11/20 [id number] Ambulatory BMSBuilding: [place] 18 [facility] Repository 03/11/2018/03/15/20 [id number] Ambulatory [place] 18 [facility] ding:INT LAB Repository 03/08/2018 [id number] Ambulatory BMSBuilding: [place] [facility] Repository 02/02/2018/02/03/20 [id number] Ambulatory [address] Repository 02/01/2018/02/14/20 [id number] Ambulatory [place] 18 [facility] ding:INT LAB Repository 02/01/2018/02/02/20 [id number] Ambulatory [address] Repository 01/26/2018/01/27/20 [id number] Ambulatory [address] [place] Repository 01/25/2018/01/26/20 [id number] Unknown [facility] 01/14/2018/01/15/20 [id number] Ambulatory BMSBuilding: [place] 18 [facility] [place] Repository 12/31/2017/12/31/19 [id number] Ambulatory [address] Main [place] Repository 11/25/2017/12/16/19 [id number] Ambulatory [address] ding:INT LAB Repository 11/17/2017 [id number] Ambulatory [facility] ding:PSN Repository 11/17/2017 [id number] Ambulatory BMSBuilding: [facility] Repository PAYERS PAYERS ENCOUNTER GUARANTOR PAYER SUBSCRIBER SOURCE 11/02/2018 FOSTER A [facility] [id number] Insurance:MEDICARE LEWISDOB: [facility] PART A [facility] [id number] Repository [address] [place] [address], Number: [place] [id number]: [id number] Date:2018-10-25 () 11/02/2018 Secondary NOT GIVENUNK [facility] Insurance:SELF PAY Hospital INSURANCEPolicy Repository Number: Effective Date:2018-10-25 11/01/2018 FOSTER Primary FOSTER LEWISDOB: [facility] LEWISDOB: Insurance:MEDICARE [id number] System Repository [id number] PART APolicy Number: [id number] [place] [address], Date:2016-03-[place] [address] [place] [address]Jzd: () 10/25/2018 FOSTER A Primary FOSTER A [place] [facility] [id number] Insurance:MEDICARE LEWISDOB: [facility] BOX PART A [facility] [id number] Repository [address] [place] [address], Number: [place] [id number]: [id number] Date:2018-07-20 () 10/25/2018 Secondary NOT GIVENUNK [facility] Insurance:SELF PAY [facility] INSURANCEPolicy Repository Number: Effective Date:2018-10-15 10/19/2018 FOSTER A Primary FOSTER A [facility] [id number] [address] MA[address] Insurance:MEDICARE LEWISDOB: Hospital [address] PART A olicy [id number] Repository [address] [place] [address], Number: [place] [id number]: [id number] Date:2018-07-20 () 10/19/2018 Secondary NOT GIVENUNK [facility] Insurance:SELF PAY [facility] INSURANCEPolicy Repository Number: Effective Date:2018-10-19 10/19/2018 FOSTER A Primary FOSTER A [facility] [id number] Insurance:MEDICARE LEWISDOB: Hospital [address] PART A olicy [id number] Repository [address] [place] [address], Number: [place] [id number]: [id number] Date:2018-07-20 () 10/19/2018 Secondary NOT GIVENUNK [facility] Insurance:SELF PAY [facility] INSURANCEPolicy Repository Number: Effective Date:2018-07-20 10/18/2018 FOSTER A Primary FOSTER A [place] [facility] [id number] Insurance:MEDICARE LEWISDOB: [facility] [address] [facility] [id number] Repository [address] [place] [address], Number: [place] [id number]: [id number] Date:2016-03-16 () 10/18/2018 Secondary NOT GIVENUNK [place] [facility] Insurance:SELF PAY [facility] INSURANCEPolicy Repository Number: Effective Date:2018-09-16 10/18/2018 FOSTER A Primary FOSTER A [place] [facility] [id number] [address] Insurance:MEDICARE LEWISDOB: Hospital [address] [facility] [id number] Repository [address] [place] [address], Number: [place] [id number]: [id number] Date:2018-07-20 () 10/18/2018 Secondary NOT GIVENUNK [place] [facility] Insurance:SELF PAY [facility] INSURANCEPolicy Repository Number: Effective Date:2018-10-18 10/18/2018 FOSTER A Primary FOSTER A [place] [facility] [id number] Insurance:MEDICARE LEWISDOB: Hospital [address] [facility] [id number] Repository [address] [place] [address], Number: [place] [id number]: [id number] Date:2018-07-20 () 10/18/2018 Secondary NOT GIVENUNK [facility] Insurance:SELF PAY [facility] INSURANCEPolicy Repository Number: Effective Date:2018-07-20 09/10/2018 FOSTER A Primary FOSTER A [facility] [id number] [address] Insurance:MEDICARE LEWISDOB: Hospital [address] PART A BPolicy [id number] Repository [address] [place] [address], Number: [place] [id number]: [id number] Date:2018-03-11 () 09/10/2018 Secondary NOT GIVENUNK [facility] Insurance:SELF PAY Hospital INSURANCEPolicy Repository Number: Effective Date:2018-09-10 08/31/2018 FOSTER A Primary FOSTER A [facility] [id number] Insurance:MEDICARE LEWISDOB: Hospital [address] PART A olicy [id number] Repository [address] [place] [address], Number: [place] [id number]: [id number] Date:2016-03-16 () 08/31/2018 Secondary NOT GIVENUNK [facility] Insurance:SELF PAY Hospital INSURANCEPolicy Repository Number: Effective Date:2018-07-17 08/02/2018 FOSTER Primary FOSTER LEWISDOB: [facility] LEWISDOB: Insurance:MEDICARE [id number] System Repository [id number] PART APolicy Number: [id number] [address] [place] [address], Date:2016-03-16 [place] [address] [place] [address]Hhm: () 07/20/2018 FOSTER A Primary FOSTER A [place] [facility] [id number] Insurance:MEDICARE LEWISDOB: Hospital STP O BOX PART A BPolicy [id number] Repository [address] [place] [address], Number: [place] [id number]: [id number] Date:2018-01-14 () 07/20/2018 Secondary NOT GIVENUNK [facility] Insurance:SELF PAY Hospital INSURANCEPolicy Repository Number: Effective Date:2018-07-16 06/30/2018 FOSTER A Primary FOSTER A [place] [facility] [id number] [address] Insurance:MEDICARE LEWISDOB: Hospital STP O BOX PART A BPolicy [id number] Repository [address] [place] [address], Number: [place] [id number]: [id number] Date:2018-06-30 () 06/30/2018 Secondary NOT GIVENUNK [facility] Insurance:SELF PAY Hospital INSURANCEPolicy Repository Number: Effective Date:2018-06-30 06/22/2018 FOSTER A Primary FOSTER A [facility] [id number] Insurance:MEDICARE LEWISDOB: Hospital STP O BOX PART A BPolicy [id number] Repository [address] [place] [address], Number: [place] [id number]: [id number] Date:2016-03-16 () 06/22/2018 Secondary NOT GIVENUNK [place] [facility] Insurance:SELF PAY [facility] INSURANCEPolicy Repository Number: Effective Date:2018-04-16 05/03/2018 FOSTER Primary FOSTER LEWISDOB: [facility] LEWISDOB: Insurance:MEDICARE [id number] System Repository [id number] PART APolicy Number: [id number] [address] [place] [address], Date:2016-03-16 [place] [address] [place] [address]Hfq: () 04/13/2018 FOSTER A Primary FOSTER A [facility] [id number] Insurance:MEDICARE LEWISDOB: Hospital STP O BOX PART A BPolicy [id number] Repository [address] [place] [address], Number: [place] [id number]: [id number] Date:2016-03-16 () 04/13/2018 Secondary NOT GIVENUNK [place] [facility] Insurance:SELF PAY [facility] INSURANCEPolicy Repository Number: Effective Date:2018-03-16 03/11/2018 FOSTER A Primary FOSTER A [facility] [id number] Insurance:MEDICARE LEWISDOB: Hospital STP O BOX PART A BPolicy [id number] Repository [address] [place] [address], Number: [place] [id number]: [id number] Date:2017-10-26 () 03/11/2018 Secondary NOT GIVENUNK [place] [facility] Insurance:SELF PAY [facility] INSURANCEPolicy Repository Number: Effective Date:2018-03-11 03/11/2018 FOSTER A Primary FOSTER A [facility] [id number] Insurance:MEDICARE LEWISDOB: Hospital STP O BOX PART A BPolicy [id number] Repository [address] [place] [address], Number: [place] [id number]: [id number] Date:2016-03-16 () 03/11/2018 Secondary NOT GIVENUNK [facility] Insurance:SELF PAY Hospital INSURANCEPolicy Repository Number: Effective Date:2018-02-14 03/08/2018 FOSTER A Primary FOSTER A [place] [facility] [id number] Insurance:MEDICARE LEWISDOB: Hospital STP O BOX PART A BPolicy [id number] Repository [address] [place] [address], Number: [place] [id number]: [id number] Date:2018-03-08 () 03/08/2018 Secondary NOT GIVENUNK [facility] Insurance:SELF PAY Hospital INSURANCEPolicy Repository Number: Effective Date:2018-03-08 02/01/2018 FOSTER A Primary FOSTER A [place] [facility] [id number] [address] Insurance:MEDICARE LEWISDOB: Hospital STP O BOX PART [facility] [id number] Repository [address] [place] [address], Number: [place] [id number]: [id number] Date:2016-03-16 () 02/01/2018 Secondary NOT GIVENUNK [facility] Insurance:SELF PAY Hospital INSURANCEPolicy Repository Number: Effective Date:2017-12-17 01/25/2018 FOSTER Primary FOSTER LEWISDOB: [facility] LEWISDOB: Insurance:MEDICARE [id number] System Repository [id number] PART APolicy Number: [id number] [address] [place] [address], Date:2016-03-16 [place] [address] [place] [address]Wcc: () 01/14/2018 FOSTER A Primary FOSTER A [facility] [id number] Insurance:MEDICARE LEWISDOB: Hospital STP O BOX PART A olicy [id number] Repository [address] [place] [address], Number: [place] [id number]: [id number] Date:2017-10-21 (HP) 01/14/2018 Secondary NOT GIVENUNK [place] [facility] Insurance:SELF PAY [facility] INSURANCEPolicy Repository Number: Effective Date:2017-10-21 11/25/2017 FOSTER A Primary FOSTER A [facility] [id number] [address] Insurance:MEDICARE LEWISDOB: Hospital STP O BOX [facility] [id number] Repository [address] [place] [address], Number: [place] [id number]: [id number] Date:2016-03-16 (HP) 11/25/2017 Secondary NOT GIVENUNK [place] [facility] Insurance:SELF PAY [facility] INSURANCEPolicy Repository Number: Effective Date:2017-11-16 11/17/2017 FOSTER A Primary FOSTER A [facility] [id number] [address] Insurance:MEDICARE LEWISDOB: Hospital STP O BOX [facility] [id number] Repository [address] [place] [address], Number: [place] [id number]: [id number] Date:2017-10-21 () 11/17/2017 Secondary NOT GIVENUNK [place] [facility] Insurance:SELF PAY Hospital INSURANCEPolicy Repository Number: Effective Date:2017-10-21 11/17/2017 FOSTER A Primary FOSTER A [facility] [id number] [address] Insurance:MEDICARE LEWISDOB: Hospital STP O BOX PART A [facility] [id number] Repository [address] [place] [address], Number: [place] [id number]: [id number] Date:2017-10-21 () 11/17/2017 Secondary NOT GIVENUNK [place] [facility] Insurance:SELF PAY Hospital INSURANCEPolicy Repository Number: Effective Date:2017-11-17
== END ==
PROVIDERS: Family Provider Internal Medicine; PCP Internal Medicine; Referring Provider Nurse Practitioner Acute Care; Visit Provider Nurse Practitioner Acute Care
DX: J44.9 Chronic obstructive pulmonary disease, unspecified (principal)
CPT/HCPCS: 94618

== ENCOUNTER 2018-10-18 09:23 | Outpatient (RCR) | payer MEDICARE, SELFPAY ==
[2018-10-18 10:54] LABS: International Normalized Ratio 2.2; Prothrombin Time (Protime)PT. 24.3 SECONDS (11.7-14.9)
--- OUTSIDE RECORDS SUMMARY | 2018-12-11 13:27 | XMS RPT_ITS ---
:1950 Author Organization OHIP Support Name Relationship Address Phone LEANNA CARDONA Unavailable [address] + [address] [place] [address] R Unavailable Unavailable Unavailable BRENDAN LEANNA Unavailable Unavailable Unavailable BRENDAN LEANNA Unavailable [address] + [address] [place] [address] R Unavailable Unavailable Unavailable BRENDAN LEANNA Unavailable [address] + [address] [place] [address] R Unavailable Unavailable Unavailable BRENDAN LEANNA Unavailable [address] + [address] [place] [address] R Unavailable Unavailable Unavailable BRENDAN LEANNA Unavailable [address] + [address] [place] [address] R Unavailable Unavailable Unavailable BRENDANJANICEIE Unavailable [address] + [address] [place] [address] R Unavailable Unavailable Unavailable JANICE CARDONAIE Unavailable [address] + [address] [place] [address] R Unavailable Unavailable Unavailable BRENDAN LEANNA Unavailable [address] + [address] [place] [address] R Unavailable Unavailable Unavailable BRENDAN LEANNA Unavailable [address] + [address] [place] [address] R Unavailable Unavailable Unavailable BRENDAN LEANNA Unavailable Unavailable Unavailable BRENDAN LEANNA Unavailable [address] + [address] [place] [address] R Unavailable Unavailable Unavailable BRENDAN LEANNA Unavailable [address] + [address] [place] [address] R Unavailable Unavailable Unavailable BRENDAN LEANNA Unavailable [address] + [address] [place] [address] R Unavailable Unavailable Unavailable BRENDAN, LEANNA Unavailable Unavailable Unavailable BRENDAN, LEANNA Unavailable [address] + [address] [place] [address] R Unavailable Unavailable Unavailable BRENDAN, LEANNA Unavailable . + [place] [address] R Unavailable Unavailable Unavailable BRENDAN, LEANNA Unavailable . + [place] [address] R Unavailable Unavailable Unavailable BRENDAN, LEANNA Unavailable . + [place] [address] R Unavailable Unavailable Unavailable BRENDAN, LEANNA Unavailable . + [place] [address] R Unavailable Unavailable Unavailable BRENDAN, LEANNA Unavailable Unavailable Unavailable BRENDAN, LEANNA Unavailable . + [place] [address] R Unavailable Unavailable Unavailable BRENDAN, LEANNA Unavailable Unavailable + [place] [address] R Unavailable Unavailable Unavailable BRENDAN, LEANNA Unavailable Unavailable + [place] [address] R Unavailable Unavailable Unavailable BRENDAN, LEANNA Unavailable Unavailable + [place] [address] R Unavailable Unavailable Unavailable Care Team Providers Name Role Phone DEMETRIA BERGMAN ([facility]) Attending Unavailable SR BETTY Attending Unavailable SR, BETTY Referring Unavailable SR, BETTY Referring Unavailable SR, BETTY Referring Unavailable PAT PASCAL ([facility]) Attending Unavailable SR, BETTY Referring Unavailable CARLTON CARDENAS ([facility]) Attending Unavailable OLDER, DEMETRIA ([facility]) Attending Unavailable OLDER, DEMETRIA ([facility]) Referring Unavailable TESTRAKE, ANNMARIE Attending Unavailable OLDER, DEMETRIA ([facility]) Referring Unavailable TESTRAKE, ANNMARIE Referring Unavailable TESTRAKE, [...] Attending Unavailable Sr, Juan Referring Unavailable Armando, [place] Attending Unavailable Sr, Juan Primary Care Unavailable Armando, [place] Referring Unavailable DeFinis, Oral Attending Unavailable Armando, Vahid Attending Unavailable Sr, Juan Referring Unavailable Sr, Juan Primary Care Unavailable Armando, [place] Attending Unavailable Armando, [place] Referring Unavailable Sr, Juan Primary Care Unavailable Armando, Vahid Attending Unavailable Armando, [place] Referring Unavailable Sr, Juan Primary Care Unavailable Armando, Vahid Attending Unavailable Armando, Vahid Referring Unavailable Sr, Juan Primary Care Unavailable Armando, Vahid Attending Unavailable Armando, [place] Referring Unavailable Sr, Juan Primary Care Unavailable Sellers, Janelle Attending Unavailable Sr, Juan Referring Unavailable Sr, Juan Primary Care Unavailable Wei Chung Attending Unavailable Sr, Juan Referring Unavailable Armando, Vahid Attending Unavailable Armando, Vahid Referring Unavailable Sr, Juan Primary Care Unavailable Sellers, Janelle Attending Unavailable Sellers, Janelle Referring Unavailable Rs, Juan Primary Care Unavailable Sellers, Janelle Attending Unavailable Sellers, Janelle Referring Unavailable Sr, Juan Primary Care Unavailable Sellers, Janelle Attending Unavailable Sr, Juan Referring Unavailable PROBLEMS PROBLEMS DATE TYPE CONDITION / CODE ATTENDING STATUS SOURCE 10/25/2018 Unknown J44.9 - Chronic Sellers, Active [facility] obstructive [facility] pulmonary disease, Hospital unspecified / Repository J44.9(ICD-10) 10/25/2018 Unknown F17.200 - Nicotine Sellers, Active [facility] dependence, [facility] unspecified, Hospital uncomplicated / Repository F17.200(ICD-10) 10/25/2018 Unknown G47.33 - Obstructive Sellers, Active [facility] sleep apnea (adult) [facility] (pediatric) / Hospital G47.33(ICD-10) Repository 09/16/2018 Unknown I48.92 - Unspecified ArmandoEleazar mayril Active [facility] atrial flutter / Community I48.92(ICD-10) Hospital Repository 09/16/2018 Unknown Z79.01 - alf ArmandoEleazarPiedmont Active [facility] (current) use of Community anticoagulants / Hospital Z79.01(ICD-10) Repository 07/07/2018 Active Localized swelling, NA Active [facility] mass and lump, right Clinic Main lower limb / [place] R22.41(ICD-10) Repository 07/07/2018 Active Ganglion, right NA Active [facility] ankle and foot / Clinic Main M67.471(ICD-10) [place] Repository 06/30/2018 Active Pain in right foot / NA Active [facility] M79.671(ICD-10) Clinic Main [place] Repository 07/17/2018 Unknown I48.0 - Paroxysmal ArmandoEleazar mayril Active [facility] atrial fibrillation Community / I48.0(ICD-10) Hospital Repository 03/11/2018 Unknown I48.91 - Unspecified Armando, [facility] Active [facility] atrial fibrillation Community / I48.91(ICD-10) Hospital Repository 03/11/2018 Unknown I10 - Essential ArmandoEleazarVahid Active [facility] (primary) Community hypertension / Hospital I10(ICD-10) Repository 03/11/2018 Unknown I43 - Cardiomyopathy ArmandoEleazar mayril Active [facility] in diseases Community classified elsewhere Hospital / I43(ICD-10) Repository 01/26/2018 Active Chronic viral NA Active [facility] hepatitis C / Clinic Main B18.2(ICD-10) [place] Repository 07/30/2010 Active Impaired fasting NA Active [facility] glucose / Clinic Main R73.01(ICD-10) [place] Repository 09/05/2009 Active Other specified NA Active [facility] abnormal [facility] Main immunological [place] findings in serum / Repository R76.8(ICD-10) 02/01/2018 Active Other tank terminal gauger NA Active [facility] (current) drug Clinic Main therapy / [place] Z79.899(ICD-10) Repository 02/01/2018 Active Unspecified atrial NA Active [facility] fibrillation / Clinic Main I48.91(ICD-10) [place] Repository 11/17/2017 Unknown Z72.0 - Tobacco use Moris Mcconnell Active [facility] / Z72.0(ICD-10) [facility] Repository PROCEDURES PROCEDURES DATE CODE DESCRIPTION STATUS SOURCE 11/01/2018 68603(C4) LARYNGOSCOPY, Completed [facility] FLEXIBLE FIBEROPTIC; System Repository DX 08/02/2018 09720(C4) LARYNGOSCOPY, Completed [facility] FLEXIBLE FIBEROPTIC; System Repository DX 05/03/2018 49983(C4) LARYNGOSCOPY, Completed [facility] FLEXIBLE FIBEROPTIC; System Repository DX 01/25/2018 60568(C4) LARYNGOSCOPY, Completed [facility] FLEXIBLE FIBEROPTIC; System Repository DX RESULTS RESULTS LOW DOSE CT LUNG Observed: 11/02/2018 Status: F Source: [place] SCREENING 7:55 AM [facility] Imaging Services [address] [place] [address] Lung Screening MR#: [id number] Acct: [id number] Name: LUCI CARDONA Rep #: [id number] : 1950 M 68 From: Sami Perez DO PCP: Juan Sr MD Status: REG CLI Study: Low Dose CT Lung Screening Date of Exam: 11/02/18 Exam# [id number] Ordering Dr: Janelle Sellers PHOTO CARTOGRAPHER-Julio STUDY: LOW DOSE CT LUNG CANCER SCREENING [...] Sami Perez DO at 17:05 EST Tel [phone], Service support , CC: Janelle Sellers; Juan Sr MD Show Card Writer: Signed PULMONARY VISIT REPORT Observed: 10/25/2018 Status: F Source: [place] 9:52 AM [facility] [place] [address] [place] [address] OFFICE VISIT Date of Service: 10/25/18 MR#: [id number] Acct: [id number] Name: LUCI CARDONA Rep #: [id number] : 1950 Provider: Janelle Sellers Age/Sex: 68/M [place] [facility] Status: Signed Assessment AND Plan 1. Stage [...] .COMPLEX #135 tab 03/11/18 [Rx Confirmed 10/25/18] [facility] History Cardiomyopathy in other diseases classified elsewhere (Chronic) Tobacco dependency (Chronic) Stage 2 moderate COPD by GOLD classification (Chronic) Dyspnea on effort (Chronic) alf (current) use of anticoagulants (Chronic) H/O ETOH [...] PULMONARY FUNCTION Observed: 10/19/2018 Status: F Source: [place] TEST 1:01 PM [facility] [place] [facility] Pulmonary Services/Neurology [address] [place] [address] MR#: [id number] Acct: [id number] Name: LUCI CARDONA Rep #: [id number] : 1950 68 From: Javan Fraga DO Referring Dr: Janelle Sellers NP Status: REG CLI Ordering Dr: Date: Location: [facility] Sex: M C INTRODUCTION: The [...] capacity. 10/19/18 1301 <Electronically signed by Javan Farga DO> Date Javan Fraga DO CC: Janelle Sellers; Juan Sr MD Date Dictated: 10/19/181257 Date Transcribed: 10/19/181257 Show Card Writer: ANIKET Signed 6 MINUTE WALK TEST Observed: 10/18/2018 Status: F Source: [place] 1:41 PM [facility] [place] [facility] Pulmonary Services/Neurology [facility] [place] [address] MR#: [id number] Acct: [id number] Name: LUCI CARDONA Rep #: [id number] : 1950 68 From: Javan Fraga DO Referring Dr: Janelle Sellers NP Date: Ordering Dr: Hang: Fiona Kim Location: PSN PSN 6 Minute Walk Test - 6 Minute Walk Test 6 Minute Walk Test: 6 Minute Walk Test PSN:6-Minute Walk Test Start: 10/18/18 09:29 Freq: Status: Active Protocol: RESP.6MINW Document 10/18/18 09:05 [facility] (Rec: 10/18/18 09:32 [facility] [id number]) 6 Minute Walk Test Date Performed 10/18/18 [...] CC: Date Dictated: 10/18/181339 Date Transcribed: 10/18/181339 Show Card Writer: Javan Fraga DO Signed PROTHROMBIN TIME W/INR Collected: 10/18/2018 Status: F Source: [place] 9:27 AM [facility] TYPE CODE TESTS RESULT OUT OF RANGE REFERENCE UNITS LAB L300.4150 11.7-14.9 SECONDS High PROTIME 24.3 LAB L300.4200 Normal INR 2.2 Performed By: #### L300.3900 #### [facility] [address] [place], [address] PROTHROMBIN TIME W/INR Collected: 08/31/2018 Status: F Source: [place] 12:54 PM [facility] [place] Order Comment: Comments: STANDING ORDER Comments: STANDING ORDER TYPE CODE TESTS RESULT OUT OF RANGE REFERENCE UNITS LAB L300.4150 11.7-14.9 SECONDS High PROTIME 22.8 LAB L300.4200 Normal INR 2.0 Performed By: #### L300.3900 #### [facility] [address] [place], [address] PROGRESS Observed: 07/29/2018 Status: COMPLETED Source: [place] 10:12 AM [facility] [place] REPOSITORY HNO ID: [id number] Author: Juan Sr Service: (none) Author Type: Physician Type: Progress Notes Filed: 07/29/2018 10:19 AM Note Text: This note was created using Xymogen. Subjective Luci Cardona is a 68 year old male here for follow up. His hypertension, atrial fibrillation, anticoagulation were stable. He saw podiatry for a cyst that resolved on its own. He had no recent hepatitis C follow up since he refused liver biopsy. 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 ACTIVE PROBLEM LIST Family History of Malignant Neoplasm of Gastrointestinal Tract Benign Neoplasm of Colon Hepatitis C Antibody Test Positive Htn (Hypertension), Benign Tobacco Use Disorder Impaired Fasting Glucose Benign Non-Nodular Prostatic Hyperplasia Without Lower Urinary Tract Symptoms Alcoholism, Chronic (Hcc) Erectile Dysfunction A-Fib (Hcc) Aishawrya On Cpap Chronic Midline Low Back Pain [...] ICD9: 427.31, ICD10: I48.91 Anticoagulated by his numberer and wirer. 3. AISHWARYA on CPAP - ICD9: 327.23, [...] MD CNOV Observed: 07/29/2018 Status: COMPLETED Source: [place] 8:20 AM [facility] REPOSITORY Office Visit (INTMWS) LUCI CARDONA ([id number]) 1950 M Date Time Provider Department 07/29/18 [...] [place] [id number]. The Shingrix medication is either administered at your Providers' office and they provide the vaccine, or your insurance covers it at the pharmacy and the pharmacist will administer. These questions should be clarified in order to utilize your maximum insurance benefits. To schedule an appointment for the injection, please call our main number, [facility] [phone] and ask to speak with a nurse. Juan Sr MD 07/29/2018 10:19 AM Signed This note was created using Appetizer Mobileter. Subjective Luci Cardona is a 68 year old male here for follow up. His hypertension, atrial fibrillation, anticoagulation were stable. He saw podiatry for a cyst that resolved on its own. He had no recent hepatitis C follow up since he refused liver biopsy. 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 ACTIVE PROBLEM [...] Latest Ref Rng AND Units 07/07/2018 Creatinine, [facility] 0.7 - 1.4 mg/dL 0.8 Assessment and Plan 1. HTN (hypertension), benign - ICD9: 401.1, ICD10: I10 (primary diagnosis) - good control - Continue current medication(s) 2. Atrial fibrillation, unspecified type (HCC) - ICD9: 427.31, ICD10: I48.91 Anticoagulated by his numberer and wirer. 3. AISHWARYA on CPAP - ICD9: 327.23, V46.8, ICD10: G47.33, Z99.89 Stable. 4. Chronic hepatitis C without hepatic coma (HCC) - ICD9: 070.54, ICD10: B18.2 Options discussed. He agreed to referral, as he may benefit from treatment before symptoms or liver failure. He may benefit from other testing aside from liver biopsy. - CONSULT TO HEPATOLOGY Juan Sr MD Referring Provider: JUAN SR [[id number]] Allergies As of Date: 07/29/2018 Noted Allergy Reaction CLINORIL (SULINDAC) 08/28/2005 PENICILLINS 08/28/2005 Date Reviewed: 07/29/2018 Reviewed by: Kristin Hobson LPN - Fully Assessed Reason for Visit: F/U 6 Month [444] Primary Visit Diagnosis:HTN (hypertension), benign [I10] Other Visit Diagnoses:Atrial fibrillation, unspecified type (HCC) [I48.91] AISHWARYA on CPAP [G47.33, Z99.89] Chronic hepatitis C without hepatic coma (HCC) [B18.2] Order(s):CONSULT TO HEPATOLOGY [[id number]] Order #: [id number]: 1 Prescriptions as of 07/29/2018 Sig: FEXOFENADINE [...] [place] [id number]. The Shingrix medication is either administered at your Providers' office and they provide the vaccine, or your insurance covers it at the pharmacy and the pharmacist will administer. These questions should be clarified in order to utilize your maximum insurance benefits. To schedule an appointment for the injection, please call our main number, [facility] [phone] and ask to speak with a nurse. [...] VISIT REPORT Observed: 07/20/2018 Status: F Source: [place] 10:45 AM [facility] [facility] [place] Pulmonary Medicine of [address] [place] [address] OFFICE VISIT Date of Service: 07/20/18 MR#: [id number] Acct: [id number] Name: LUCI CARDONA Cassandra Rep #: [id number] : 1950 Provider: Janelle Sellers Age/Sex: 68/M [place] [facility] Status: Signed Assessment AND Plan 1. Stage [...] and encourage cessation. You may call the [employer] hotline 5-879-TIXQ-NOW. 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, [facility] Current Outpatient Prescriptions: methylPREDNISolone (MEDROL DOSE-PACK) [...] SNARE 03/03/07 - COLONOSCOP W/ OR W/O [facility] SPEC 06/01/2008 Colonoscopy - COLONOSCOP W/ OR W/O [facility] SPEC 10/15/2011 Colonoscopy - COLONOSCOP W/ OR W/O [facility] SPEC 10/18/15 Colonoscopy - DIRECT LARYNGOSCOPY WITH [...] DPM PROGRESS Observed: 07/14/2018 Status: COMPLETED Source: [place] 8:35 AM [facility] REPOSITORY HNO ID: [id number] Author: Rico (Rn) AQUILES Dickerson Service: (none) [...] RN CNOV Observed: 07/14/2018 Status: COMPLETED Source: [place] 8:25 AM [facility] REPOSITORY Office Visit (PODIWS) LUCI CARDONA ([id number]) 1950 M Date Time Provider Department 07/14/18 [...] glottic cancer 01/26/2018 Dr. Liu Ford, ENT [facility]. 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, [facility] Current Outpatient Prescriptions: methylPREDNISolone (MEDROL DOSE-PACK) [...] SNARE 03/03/07 - COLONOSCOP W/ OR W/O [facility] SPEC 06/01/2008 Colonoscopy - COLONOSCOP W/ OR W/O [facility] SPEC 10/15/2011 Colonoscopy - COLONOSCOP W/ OR W/O [facility] SPEC 10/18/15 Colonoscopy - DIRECT LARYNGOSCOPY WITH [...] Annmarie Gonzalez DPM Referring Provider: ANNMARIE GONZALEZ [[id number]] Allergies As of Date: 07/14/2018 Noted Allergy [...] WO IVCON Observed: 07/07/2018 Status: F Source: [place] RT 3:14 PM [facility] REPOSITORY * * *Final Report* [...] second intermetatarsal space, probably a ganglion cyst. Show Card Writer: ELVIA Transcribe Date/Time: Jul 07 2018 3:45P Dictated by : MIKE MENDEZ MD This examination was interpreted and the report reviewed and electronically signed by: BUSHRA BARROW MD on Jul 07 2018 11:10PM EST [id number] PROGRESS Observed: 07/07/2018 Status: COMPLETED Source: [place] 3:06 PM [facility] REPOSITORY HNO ID: [id number] Author: Doreen Cruz (Rt) Service: (none) Author Type: Beef Lugger Type: Progress Notes Filed: 07/07/2018 3:06 PM [...] PAT[place] CREATININE Collected: 07/07/2018 Status: F Source: [place] 2:10 PM [facility] [place] REPOSITORY TYPE CODE TESTS RESULT OUT OF REFERENCE UNITS RANGE LAB WCRET 0.7-1.4 mg/dL [facility] Creatinine 0.8 PROGRESS Observed: 06/30/2018 Status: COMPLETED Source: [place] 2:06 PM [facility] REPOSITORY HNO ID: [id number] Author: Annmarie Gonzalez Service: (none) Author Type: Physician Type: Progress Notes Filed: 06/30/2018 2:35 PM Note Text: ? Annmarie Gonzalez DPM Department of Podiatry [address] [place] [address] Dept: [phone] Dept 06/30/[address] 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, [facility] Current Outpatient Prescriptions: methylPREDNISolone (MEDROL DOSE-PACK) [...] SNARE 03/03/07 - COLONOSCOP W/ OR W/O [facility] SPEC 06/01/2008 Colonoscopy - COLONOSCOP W/ OR W/O [facility] SPEC 10/15/2011 Colonoscopy - COLONOSCOP W/ OR W/O [facility] SPEC 10/18/15 Colonoscopy - DIRECT LARYNGOSCOPY WITH [...] DPM CNOV Observed: 06/30/2018 Status: COMPLETED Source: [place] 1:40 PM [facility] REPOSITORY Office Visit (PODIWS) LUCI CARDONA ([id number]) 1950 M Date Time Provider Department 06/30/18 1:40 PM ANNMARIE GONZALEZ PODNIGHATS During your visit today, we recorded the following information about you: Annmarie Gonzalez DPM 06/30/2018 2:35 PM Signed ? Annmarie Gonzalez DPM Department of Podiatry [address] [facility] [address] Dept: [phone] Dept 06/30/[address] 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, [facility] Current Outpatient Prescriptions: methylPREDNISolone (MEDROL DOSE-PACK) [...] Annmarie Gonzalez DPM Referring Provider: DEMETRIA BERGMAN ([facility]) [[id number]] Allergies As of Date: 06/30/2018 Noted Allergy Reaction CLINORIL (SULINDAC) 08/28/2005 PENICILLINS 08/28/2005 Date Reviewed: 06/30/2018 Reviewed by: Rosa Koenig RN - Fully Assessed Reason for Visit: New Patient [172] Primary Visit Diagnosis:Ganglion cyst of right foot [M67.471] Other Visit Diagnosis:Localized swelling, mass, or lump of right lower extremity [R22.41] Order(s):CREATININE BLD [SQCRET] Order #: [id number] FUTURE MRI FOOT/TOES WO/W IVCON RT [[id number]] Order #: [id number] FUTURE iv contrast (will be provided with [...] 06/30/18 PROGRESS Observed: 06/30/2018 Status: COMPLETED Source: [place] 11:03 AM [facility] REPOSITORY HNO ID: [id number] Author: Demetria (Cody) Older Service: (none) Author [...] - 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 Demetria Bergman APRN.ASSOCIATE MEDICAL DIRECTOR XR FOOT 3V AP/LAT/OBL Observed: 06/30/2018 Status: F Source: [facility] 10:58 AM [facility] REPOSITORY * * *Final Report* * * [...] Spaces are maintained. IMPRESSION: No acute process. Show Card Writer: ELVIA Transcribe Date/Time: Jun 30 2018 1:14P Dictated by : MARTA ALLEN MD This examination was interpreted and the report reviewed and electronically signed by: MARTA ALLEN MD on Jun 30 2018 1:17PM EST [id number] PROGRESS Observed: 06/30/2018 Status: COMPLETED Source: [place] 10:32 AM [facility] REPOSITORY HNO ID: [id number] Author: Cherelle Davis (Rt) Doreen Robin Service: (none) Author Type: Beef Lugger Type: Progress Notes Filed: 06/30/2018 10:55 AM [...] AM CNOV Observed: 06/30/2018 Status: COMPLETED Source: [place] 10:00 AM [facility] REPOSITORY Office Visit (INTMWS) LUCI CARDONA ([id number]) 1950 M Date Time Provider Department 06/30/18 10:00 AM DEMETRIA BERGMAN ([place]) INTMWS During your visit today, we recorded the following information about you: Temperature Pulse Respiration Blood pressure 97.5 degrees 50/minute 14/minute 90/60 Weight 87.5 kg Demetria Bergman SUPERINTENDENT DIVISIONROB 06/30/2018 11:07 AM Signed CC: Patient presents [...] Patient agreeable to treatment plan. Demetria Bergman APRN.ASSOCIATE MEDICAL DIRECTOR Referring Provider: SELF [200] Allergies As of Date: 06/30/2018 Noted Allergy Reaction CLINORIL (SULINDAC) 08/28/2005 PENICILLINS 08/28/2005 Date Reviewed: 06/30/2018 Reviewed by: Emily Callahan Territory Representative - Fully Assessed Reason for Visit: lump on right foot [Other] Cmt: after starting Medrol dose pack Reason For Visit History Recorded Primary Visit Diagnosis:Right foot pain [M79.671] Order(s):XR FOOT GENERAL 3V AP/LAT/OBL RT [[id number]] Order #: [id number] FUTURE CONSULT TO PODIATRY [9034] Order #: [id number]: 1 Prescriptions as of 06/30/2018 Sig: FEXOFENADINE [...] 06/30/2018 Status: F Source: [place] 8:49 AM [facility] Order Comment: Comments: Standing order Comments: Standing order TYPE CODE TESTS RESULT OUT OF RANGE REFERENCE UNITS LAB L300.4150 11.7-14.9 SECONDS High PROTIME 34.5 LAB L300.4200 Normal INR 3.4 Performed By: #### L300.3900 #### [facility] [address] [place], [address] PROGRESS Observed: 06/22/2018 Status: COMPLETED Source: [place] 8:11 AM [facility] REPOSITORY HNO ID: [id number] Author: Carlton (oCdyTom Cardenas Service: (none) Author Type: Nurse Practitioner Type: Progress Notes Filed: 06/22/2018 8:42 AM Note Text: CC: Patient presents with: Sinus Problem: Ongoing sinus pressure/pain. Seen by ENT and PHOTO CARTOGRAPHER, was on AIB with no relief HPI [...] PAST MEDICAL HISTORY Diagnosis Date - A-fib ([facility]) 10/07/2014 Dr. Nas Roberts. - Alcoholism, chronic ([facility]) 12/06/2012 - Benign neoplasm of colon - [...] Plan as above, see #1 Carlton Cardenas APRN.ASSOCIATE MEDICAL DIRECTOR Prescription instructions reviewed with patient as applicable. Potential red flag symptoms discussed with the patient. Reviewed appropriate action plan to take if red flag symptoms occur. Patient agreeable to treatment plan. CNOV Observed: 06/22/2018 Status: COMPLETED Source: [place] 8:00 AM [facility] REPOSITORY Office Visit (INTMWS) LUCI CARDONA ([id number]) 1950 M Date Time Provider Department 06/22/18 8:00 AM [facility] ([facility]) INTMWS During your visit today, we recorded the following information about you: Temperature Pulse Respiration Blood pressure 97.3 degrees 64/minute 16/minute 116/68 Weight 89.8 kg Carlton Cardenas APRN.CNP 06/22/2018 8:42 AM Signed CC: Patient presents with: Sinus Problem: Ongoing sinus pressure/pain. Seen by ENT and PHOTO CARTOGRAPHER, was on AIB with no relief HPI [...] 06/01/2008 Colonoscopy - COLONOSCOP W/ OR W/O [facility] SPEC 10/15/2011 Colonoscopy - COLONOSCOP W/ OR W/O [facility] SPEC 10/18/15 Colonoscopy - DIRECT LARYNGOSCOPY WITH [...] Plan as above, see #1 Carlton Cardenas APRN.ASSOCIATE MEDICAL DIRECTOR Prescription instructions reviewed with patient as applicable. [...] Ongoing sinus pressure/pain. Seen by ENT and PHOTO CARTOGRAPHER, was on AIB with no relief Primary [...] TIME W/INR Collected: 06/22/2018 Status: F Source: [place] 7:00 AM [facility] TYPE CODE TESTS RESULT OUT OF RANGE REFERENCE UNITS LAB L300.4150 11.7-14.9 SECONDS High PROTIME 34.4 LAB L300.4200 Normal INR 3.4 Performed By: #### L300.3900 #### [facility] [address] 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, [facility] PAST SURGICAL HISTORY Procedure Laterality Date [...] APRN.CODY RAMANOV Observed: 06/02/2018 Status: COMPLETED Source: [place] 1:40 PM [facility] REPOSITORY [facility] LUCI CARDONA ([id number]) 1950 M Date Time Provider Department 06/02/18 1:40 PM PAT PASCAL (ASSOCIATE MEDICAL DIRECTOR) GEOVANI During your visit today, we recorded [...] - 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 Referring Provider: JUAN SR [[id number]] Allergies As of Date: 06/02/2018 Noted Allergy Reaction CLINORIL (SULINDAC) 08/28/2005 PENICILLINS 08/28/2005 Date Reviewed: 06/02/2018 Reviewed by: Rico Valerio Territory Representative - Fully Assessed Reason for Visit: Recheck [...] Eustachian tube problems (The Basics) View in [place] Written by the doctors and editors at [facility] What is the eustachian tube?The eustachian tube [...] 04/13/2018 Status: F Source: [place] 7:20 AM [facility] TYPE CODE TESTS RESULT OUT OF RANGE REFERENCE UNITS LAB L300.4150 11.7-14.9 SECONDS High PROTIME 30.1 LAB L300.4200 Normal INR 2.9 Performed By: #### L300.3900 #### [facility] [address] [place], [address] CARDIOLOGY VISIT Observed: 03/11/2018 Status: F Source: [place] REPORT 10:30 AM [facility] [address] [place] [address] OFFICE VISIT Date of Service: 03/11/18 MR#: [id number] Acct: [id number] Name: LUCI CARDONA Rep #: [id number] : 1950 Provider: Vahid Roberts MD Age/Sex: 67/M Location[place] [facility] Status: Signed HPI HPI Chief Complaint: Follow [...] brachial Intake Visit Reasons: 6 M FU Home Health Attendant Required: No Accompanied by: None Is patient [...] to 59 (55% per echo 02/19/15 at [facility]) [facility] Medical History Cardiomyopathy in other diseases classified [...] EKG PERFORMED Observed: 03/11/2018 Status: F Source: [place] [facility] 9:44 AM [address] [place] [address] 12 Lead EKG performed by [facility] 03/11/18 0943 MR#: [id number] Acct: [id number] Name: LUCI CARDONA Rep #: [id number] : 1950 67 From: Vahid Roberts MD Attending Dr: Vahid Roberts MD Status: DEP AMB Ordering Dr: Vahid Roberts MD Date: 03/11/18 Location: [facility] Sex: M C Admitted: [facility]12 Lead EKG performed by [facility] ECG Report Interpretation Sinus Rhythm - occasional PAC # PACs = 1.-RSR(V1) -nondiagnostic. PROBABLY NORMALElectronically signed on 03/18/2018 at 17:06 by Vahid Roberts 03/18/18 1710 Date Vahid Roberts MD CC: Juan Sr MD Date Dictated: 03/11/18942 Date Transcribed: 03/11/18942 Show Card Writer: CO Signed PROTHROMBIN TIME W/INR Collected: 03/11/2018 Status: F Source: [place] 9:30 AM [facility] TYPE CODE TESTS RESULT OUT OF RANGE REFERENCE UNITS LAB L300.4150 11.7-14.9 SECONDS High PROTIME 28.7 LAB L300.4200 Normal INR 2.7 Performed By: #### L300.3900 #### [facility] [address] [place], [address] PROGRESS Observed: 02/02/2018 Status: COMPLETED Source: [place] 3:25 PM [facility] REPOSITORY HNO ID: [id number] Author: Faith Logan Service: (none) Author Type: [...] RIGHT UPPER Observed: 02/02/2018 Status: F Source: [facility] 9:07 AM [facility] REPOSITORY * * *Final Report* * * [...] visualized likely due to overlying bowel gas. Show Card Writer: [facility] Transcribe Date/Time: Feb 02 2018 11:17A Dictated by : MANSOOR LORENZO MD This examination was interpreted and the report reviewed and electronically signed by: MANSOOR LORENZO MD on Feb 02 2018 11:43AM EST [id number] PROTHROMBIN TIME W/INR Collected: 02/01/2018 Status: F Source: [place] 7:58 AM [facility] TYPE CODE TESTS RESULT OUT OF RANGE REFERENCE UNITS LAB L300.4150 11.7-14.9 SECONDS High PROTIME 29.6 LAB L300.4200 Normal INR 2.8 Performed By: #### L300.3900 #### [facility] [place], [address] CBC AND DIFFERENTIAL Collected: 02/01/2018 Status: F Source: [place] 7:49 AM [facility] [place] REPOSITORY TYPE CODE TESTS RESULT OUT OF [...] k/uL Abs Lymph 1.96 LAB AMONO % [place]% 7.6 LAB AAMONO <0.87 k/uL Abs [place] 0.46 LAB AEOS % Eosin% 2.6 LAB AAEOS <0.46 k/uL Abs Eosin 0.16 LAB ABASO % Baso% 1.0 LAB AABASO <0.11 k/uL Abs Baso 0.06 LAB AUNRBC 0 /100 WBC NRBCs 0.0 LAB ABNRBC <0.01 k/uL Absolute nRBC <0.01 LAB DTYP DTYPE Auto Diff Performed By: #### CBCDIF, CMP, HBA1C, AFP #### [facility] [address] [place], [place] [address] COMP METABOLIC PANEL Collected: 02/01/2018 Status: F Source: [place] 7:49 AM [facility] REPOSITORY TYPE CODE TESTS RESULT [...] mg/dL Glucose High 121 Result Comment: The [place] Diabetes Association (ADA) provides guidance for cutoff [...] Standards of Medical Care in Diabetes 2016, [place] Diabetes Association. Diabetes Care. 2016.39(Suppl 1). LAB [...] By: #### CBCDIF, CMP, HBA1C, AFP #### [facility] [address] [place] [id number] HEMOGLOBIN A1C Collected: 02/01/2018 Status: F Source: [place] 7:49 [facility] REPOSITORY TYPE CODE TESTS RESULT OUT OF REFERENCE UNITS RANGE LAB HGBA1C 4.3-5.6 % High Hemoglobin A1c 5.7 LAB HBA0 mg/dL Est. Average Glucose 117 Result Comment: eAG: (Estimated average glucose) is a calculated value from HgbA1c and is sales representative consultant of the average blood glucose level in the last 2-3 month period. Performed By: #### CBCDIF, CMP, HBA1C, AFP #### [facility] [address] [place] [id number] AFP Collected: 02/01/2018 Status: F Source: [place] 7:49 AM [facility] REPOSITORY TYPE CODE TESTS RESULT OUT OF RANGE REFERENCE UNITS LAB AFP <11 ng/mL AFP 8.3 Performed By: #### CBCDIF, CMP, HBA1C, AFP #### [facility] [address] [place], [place] [address] PROGRESS Observed: 01/26/2018 Status: COMPLETED Source: [place] 9:38 AM [facility] REPOSITORY HNO ID: [id number] Author: Juan Sr Service: (none) Author Type: Physician Type: Progress Notes Filed: 01/26/2018 10:04 AM Note Text: This note was created using SoundFitriter. Subjective Luci Cardona is a 67 year old male here here for follow up. He was seeing an ENT specialist at [facility] in [place]. 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, [facility] PAST SURGICAL HISTORY Procedure Laterality Date - COLONOS W/REM POLYP SNARE 03/03/07 - COLONOSCOP W/ OR W/O [facility] SPEC 06/01/2008 Colonoscopy - COLONOSCOP W/ OR W/O [facility] SPEC 10/15/2011 Colonoscopy - COLONOSCOP W/ OR W/O [facility] SPEC 10/18/15 Colonoscopy - DIRECT LARYNGOSCOPY WITH [...] MD CNOV Observed: 01/26/2018 Status: COMPLETED Source: [place] 8:40 AM [facility] REPOSITORY Office Visit (INTMWS) LUCI CARDONA ([id number]) 1950 M Date Time Provider Department 01/26/18 [...] - 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 Subjective Luci Cardona is a 67 year old male here here for follow up. He was seeing an ENT specialist at [facility] in [place]. 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 and inconsistency of wanting treatment for [...] Juan Sr MD Referring Provider: JUAN SR [[id number]] Allergies As of Date: 01/26/2018 Noted Allergy [...] 0 CBC + DIFF [SQCBCDIF] Order #: [id number] FUTURE COMP METABOLIC PANEL [SQCMP] Order #: [id number] FUTURE ALPHA FETOPROTEIN BL [SQAFP] Order #: [id number] FUTURE US ABD RT UPPER QUADRANT [[id number]] Order #: [id number] FUTURE HGB A1C [KKWGT7A] Order #: [id number] FUTURE Prescriptions as of 01/26/2018 Sig: CARVEDILOL [...] VISIT REPORT Observed: 01/14/2018 Status: F Source: [place] 12:17 PM [facility] Pulmonary Medicine [address] [place] [address] OFFICE VISIT Date of Service: 01/14/18 MR#: [id number] Acct: [id number] Name: BRENDANLUCI Cassandra Rep #: [id number] : 1950 Provider: Moris Mcconnell MD Age/Sex: 67/M [place] [facility] Status: Signed Assessment AND Plan 1. Stage [...] shortness of breath Stiolto Respimat) administer at [facility] same time(s) each day 2. Obstructive [...] cessation Plan Detail Follow Up 6 Months ([facility]) HPI 3 M FU: Chief Complaint: Shortness [...] 10/23/14 [History Confirmed 10/23/14] Hydrocodone Bitart/Apap 5-325 [[place] 5MG-325MG] 1 tab PO Q6H PRN PRN [...] 01/14/2018 Status: F Source: [place] 11:13 AM [facility] TYPE CODE TESTS RESULT OUT OF RANGE REFERENCE UNITS LAB L300.4150 11.7-14.9 SECONDS High PROTIME 31.9 LAB L300.4200 Normal INR 3.1 Performed By: #### L300.3900 #### [facility] [address] [place], [address] CNPTOUTREACH Observed: 01/12/2018 Status: COMPLETED Source: [place] 12:00 AM [facility] REPOSITORY Patient Outreach (INTMWH) LUCI CARDONA ([id number]) 1950 M Date Time Provider Department 01/12/18 JUAN SR [facility] During your visit today, we recorded the following information about you: Allergies As of Date: 01/12/2018 Noted Allergy Reaction CLINORIL (SULINDAC) 08/28/2005 PENICILLINS 08/28/2005 Date Reviewed: 12/31/2017 Reviewed by: Emily Callahan Territory Representative - Fully Assessed Visit Diagnosis:Medication management [Z79.899] Order(s):BASIC METABOLIC PNL [SQBMP] Order #: [id number] FUTURE Prescriptions as of 01/12/2018 Sig: CARVEDILOL [...] 08/27/18 PROGRESS Observed: 12/31/2017 Status: COMPLETED Source: [place] 2:28 PM [facility] REPOSITORY O ID: [id number] Author: Demetria Corbin) Older Service: (none) Author [...] if symptoms persist or worsen. Demetria Older, ASSOCIATE MEDICAL DIRECTOR Prescription instructions reviewed with patient as applicable. Potential red flag symptoms discussed with the patient. Reviewed appropriate action plan to take if red flag symptoms occur. Patient agreeable to treatment plan. PROTHROMBIN TIME W/INR Collected: 11/25/2017 Status: F Source: [place] 10:28 AM [facility] TYPE CODE TESTS RESULT OUT OF RANGE REFERENCE UNITS LAB L300.4150 11.7-14.9 SECONDS High PROTIME 23.2 LAB L300.4200 Normal INR 2.2 Performed By: #### L300.3900 #### [facility] [address] [facility] [place], [address] PULMONARY FUNCTION Observed: 11/17/2017 Status: F Source: [place] TEST 1:33 PM [facility] Pulmonary Services/Neurology [address] [place] [address] MR#: [id number] Acct: [id number] Name: LUCI CARDONA Rep #: [id number] : 1950 67 From: Javan Fraga DO Referring Dr: Moris Mcconnell MD Status: REG CLI Ordering Dr: Date: [...] MD Date Dictated: 11/17/171328 Date Transcribed: 11/17/171328 Show Card Writer: ANIKET Signed PROTHROMBIN TIME W/INR Collected: 11/17/2017 Status: F Source: [place] 9:46 AM [facility] TYPE CODE TESTS RESULT OUT OF RANGE REFERENCE UNITS LAB L300.4150 11.7-14.9 SECONDS High PROTIME 17.8 LAB L300.4200 Normal INR 1.5 Performed By: #### L300.3900 #### [facility] [place], [address] ALLERGIES ALLERGIES DATE TYPE / CODE NAME / CODE REACTION SEVERITY SOURCE 10/25/2018 Drug Penicillins/[id number] Hives Unknown [facility] Allergy/416 0476(RXNORM) [facility] 896568(SNOM Repository ED CT) 10/25/2018 Drug sulindac/[id number] Unknown Unknown [facility] Allergy/416 6(RXNORM) Hospital 938549(SNOM Repository ED CT) 08/28/2005 Drug PENICILLINS [facility] Class/26348 System Repository 1003(SNOMED CT) 08/28/2005 DRUG SULINDAC [facility] INGREDI/419 System Repository 775313(SNOM ED CT) 08/28/2005 DRUG SULINDAC [facility] INGREDI/419 Main [place] 508012(SNOM Repository ED CT) 08/28/2005 Drug PENICILLINS [facility] Class/77417 [facility] 1003(SNOMED Repository CT) ENCOUNTERS ENCOUNTERS ADMIT/DISCHARGE ACCOUNT NUMBER ADMITTING ENCOUNTER LOCATION SOURCE CLASS 11/02/2018 [id number] Ambulatory [facility] ding:CT Repository 11/01/2018/11/01/20 [id number] Unknown Ambulatory [facility] 18 [facility] Repository 10/25/2018/10/25/20 [id number] Ambulatory BMSBuilding: [facility] 18 BMS.[facility] Repository 10/19/2018 [id number] Ambulatory BMSBuilding: [facility] Repository 10/19/2018 [id number] Ambulatory [facility] ding:PSN Repository 10/18/2018 [id number] Ambulatory [facility] ding:LAB Repository 10/18/2018 [id number] Ambulatory BMSBuilding: [facility] Repository 10/18/2018 [id number] Ambulatory [facility] ding:PSN Repository 09/10/2018/09/10/20 [id number] Ambulatory BMSBuilding: [place] 18 BMS.[facility] Repository 08/31/2018/08/31/20 [id number] Ambulatory [address] ding:LAB Repository 08/02/2018/08/02/20 [id number] Unknown Ambulatory [facility] 18 uildin [employer] [facility] Repository 07/29/2018/07/30/20 [id number] Ambulatory [address] Repository 07/20/2018/07/20/20 [id number] Ambulatory BMSBuilding: [place] 18 BMS.[facility] Repository 07/14/2018/07/14/20 [id number] Ambulatory [address] Repository 07/07/2018/07/07/20 [id number] Ambulatory [place] [address] [facility] Main [place] Repository 07/07/2018/07/07/20 [id number] Ambulatory [address] Main [place] Repository 06/30/2018/07/02/20 [id number] Ambulatory [address] [place] Repository 06/30/2018/06/30/20 [id number] Ambulatory [address] [place] Repository 06/30/2018/07/01/20 [id number] Ambulatory [address] Repository 06/30/2018 [id number] [facility] ding:LAB Repository 06/22/2018/06/23/20 [id number] Ambulatory [address] Repository 06/22/2018/07/16/20 [id number] Ambulatory [place] [facility] [address] [place] [address] ding:INT LAB Repository 06/02/2018/06/03/20 [id number] Ambulatory [address] Repository 05/03/2018/05/03/20 [id number] Unknown [facility] [employer] Repository 04/13/2018/04/15/20 [id number] Ambulatory [facility] [address] [place] [address] ding:INT LAB Repository 03/11/2018/03/11/20 [id number] Ambulatory BMSBuilding: [facility] 18 BMS.[facility] Repository 03/11/2018/03/15/20 [id number] Ambulatory [place] [facility] 18 [facility] ding:INT LAB Repository 03/08/2018 [id number] Ambulatory BMSBuilding: [facility] BMS.[facility] Repository 02/02/2018/02/03/20 [id number] Ambulatory [address] Repository 02/01/2018/02/14/20 [id number] Ambulatory [place] [facility] 18 [facility] ding:INT LAB Repository 02/01/2018/02/02/20 [id number] Ambulatory [address] Repository 01/26/2018/01/27/20 [id number] Ambulatory [address] [place] Repository 01/25/2018/01/26/20 [id number] Unknown [facility] Repository 01/14/2018/01/15/20 [id number] Ambulatory BMSBuilding: [place] 18 [facility] Repository 12/31/2017/12/31/19 [id number] Ambulatory [address] Main [place] Repository 11/25/2017/12/16/19 [id number] Ambulatory [address] ding:INT LAB Repository 11/17/2017 [id number] Ambulatory [facility] ding:PSN Repository 11/17/2017 [id number] Ambulatory BMSBuilding: [facility] Repository PAYERS PAYERS ENCOUNTER GUARANTOR PAYER SUBSCRIBER SOURCE 11/02/2018 FOSTER A Primary [facility] [id number] Insurance:MEDICARE LEWISDOB: [facility] PART A [facility] [id number] Repository [address] [place] [address], Number: [place] [id number]: [id number] Date:2018-10-25 () 11/02/2018 Secondary NOT GIVENUNK [facility] Insurance:SELF PAY Hospital INSURANCEPolicy Repository Number: Effective Date:2018-10-25 11/01/2018 FOSTER Primary FOSTER LEWISDOB: [facility] LEWISDOB: Insurance:MEDICARE [id number] System Repository [id number] PART APolicy Number: [id number] [place] [address], Date:2016-03-[place] [id number] [place] [id number]: () 10/25/2018 FOSTER A Primary FOSTER A [facility] [id number] Insurance:MEDICARE LEWISDOB: [facility] BOX PART A [facility] [id number] Repository [address] [place] [address], Number: [place] [id number]: [id number] Date:2018-07-20 () 10/25/2018 Secondary NOT GIVENUNK [facility] Insurance:SELF PAY Hospital INSURANCEPolicy Repository Number: Effective Date:2018-10-15 10/19/2018 FOSTER A Primary FOSTER A [facility] [id number] Insurance:MEDICARE LEWISDOB: Hospital [address] PART A [place] [id number] Repository [address] [place] [address], Number: [place] [id number]: [id number] Date:2018-07-20 () 10/19/2018 Secondary NOT GIVENUNK [facility] Insurance:SELF PAY Hospital INSURANCEPolicy Repository Number: Effective Date:2018-10-19 10/19/2018 FOSTER A Primary FOSTER A [facility] [id number] Insurance:MEDICARE LEWISDOB: Hospital [address] PART A [place] [id number] Repository [address] [place] [address], Number: [place] [id number]: [id number] Date:2018-07-20 () 10/19/2018 Secondary NOT GIVENUNK [facility] Insurance:SELF PAY Hospital INSURANCEPolicy Repository Number: Effective Date:2018-07-20 10/18/2018 FOSTER A Primary FOSTER A [facility] [id number] Insurance:MEDICARE LEWISDOB: Hospital [address] PART [facility] [id number] Repository [address] [place] [address], Number: [place] [id number]: [id number] Date:2016-03-16 () 10/18/2018 Secondary NOT GIVENUNK [facility] Insurance:SELF PAY Hospital INSURANCEPolicy Repository Number: Effective Date:2018-09-16 10/18/2018 FOSTER A Primary FOSTER A [facility] [id number] Insurance:MEDICARE LEWISDOB: Hospital [address] PART A [facility] [id number] Repository [address] [place] [address], Number: [place] [id number]: [id number] Date:2018-07-20 () 10/18/2018 Secondary NOT GIVENUNK [facility] Insurance:SELF PAY Hospital INSURANCEPolicy Repository Number: Effective Date:2018-10-18 10/18/2018 FOSTER A Primary FOSTER A [facility] [id number] Insurance:MEDICARE LEWISDOB: Hospital [address] PART A [facility] [id number] Repository [address] [place] [address], Number: [place] [id number]: [id number] Date:2018-07-20 () 10/18/2018 Secondary NOT GIVENUNK [facility] Insurance:SELF PAY Hospital INSURANCEPolicy Repository Number: Effective Date:2018-07-20 09/10/2018 FOSTER A Primary FOSTER A [facility] [id number] Insurance:MEDICARE LEWISDOB: Hospital [address] PART A BPolicy [id number] Repository [address] [place] [address], Number: [place] [id number]: [id number] Date:2018-03-11 () 09/10/2018 Secondary NOT GIVENUNK [facility] Insurance:SELF PAY Hospital INSURANCEPolicy Repository Number: Effective Date:2018-09-10 08/31/2018 FOSTER A Primary FOSTER A [facility] [id number] Insurance:MEDICARE LEWISDOB: Hospital [address] PART A [place]y [id number] Repository [address] [place] [address], Number: [place] [id number]: [id number] Date:2016-03-16 () 08/31/2018 Secondary NOT GIVENUNK [facility] Insurance:SELF PAY Hospital INSURANCEPolicy Repository Number: Effective Date:2018-07-17 08/02/2018 FOSTER Primary FOSTER LEWISDOB: [facility] LEWISDOB: Insurance:MEDICARE [id number] System Repository [id number] PART APolicy Number: [id number] [place] [address], Date:2016-03-16 [place] [id number] [place] [id number]: () 07/20/2018 FOSTER A Primary FOSTER A [facility] [id number] [address] Insurance:MEDICARE LEWISDOB: Hospital STP O BOX PART A BPolicy [id number] Repository [address] [place] [address], Number: [place] [id number]: [id number] Date:2018-01-14 () 07/20/2018 Secondary NOT GIVENUNK [facility] Insurance:SELF PAY Hospital INSURANCEPolicy Repository Number: Effective Date:2018-07-16 06/30/2018 FOSTER A Primary FOSTER A [facility] [id number] [address] Insurance:MEDICARE LEWISDOB: Hospital STP O BOX PART A BPolicy [id number] Repository [address] [place] [address], Number: [place] [id number]: [id number] Date:2018-06-30 () 06/30/2018 Secondary NOT GIVENUNK [facility] Insurance:SELF PAY Hospital INSURANCEPolicy Repository Number: Effective Date:2018-06-30 06/22/2018 FOSTER A Primary FOSTER A [facility] [id number] Insurance:MEDICARE LEWISDOB: Hospital STP O BOX PART A BPolicy [id number] Repository [address] [place] [address], Number: [place] [id number]: [id number] Date:2016-03-16 () 06/22/2018 Secondary NOT GIVENUNK [facility] Insurance:SELF PAY Hospital INSURANCEPolicy Repository Number: Effective Date:2018-04-16 05/03/2018 FOSTER Primary FOSTER LEWISDOB: [facility] LEWISDOB: Insurance:MEDICARE [id number] System Repository [id number] PART APolicy Number: [id number] [address] [place] [address], Date:2016-03-16 [place] [address] [place] [id number]: () 04/13/2018 FOSTER A Primary FOSTER A [facility] [id number] [address] Insurance:MEDICARE LEWISDOB: Hospital STP O BOX PART A BPolicy [id number] Repository [address] [place] [address], Number: [place] [id number]: [id number] Date:2016-03-16 () 04/13/2018 Secondary NOT GIVENUNK [facility] Insurance:SELF PAY Hospital INSURANCEPolicy Repository Number: Effective Date:2018-03-16 03/11/2018 FOSTER A Primary FOSTER A [facility] [id number] Insurance:MEDICARE LEWISDOB: Hospital STP O BOX PART A BPolicy [id number] Repository [address] [place] [address], Number: [place] [id number]: [id number] Date:2017-10-26 () 03/11/2018 Secondary NOT GIVENUNK [facility] Insurance:SELF PAY Hospital INSURANCEPolicy Repository Number: Effective Date:2018-03-11 03/11/2018 FOSTER A Primary FOSTER A [facility] [id number] [address] Insurance:MEDICARE LEWISDOB: Hospital STP O BOX PART A BPolicy [id number] Repository [address] [place] [address], Number: [place] [id number]: [id number] Date:2016-03-16 () 03/11/2018 Secondary NOT GIVENUNK [facility] Insurance:SELF PAY Hospital INSURANCEPolicy Repository Number: Effective Date:2018-02-14 03/08/2018 FOSTER A Primary FOSTER A [facility] [id number] [address] Insurance:MEDICARE LEWISDOB: Hospital STP O BOX PART A BPolicy [id number] Repository [address] [place] [address], Number: [place] [id number]: [id number] Date:2018-03-08 () 03/08/2018 Secondary NOT GIVENUNK [facility] Insurance:SELF PAY Hospital INSURANCEPolicy Repository Number: Effective Date:2018-03-08 02/01/2018 FOSTER A Primary FOSTER A [facility] [id number] [address] Insurance:MEDICARE LEWISDOB: Hospital STP O BOX PART [facility] [id number] Repository [address] [place] [address], Number: [place] [id number]: [id number] Date:2016-03-16 () 02/01/2018 Secondary NOT GIVENUNK [facility] Insurance:SELF PAY Hospital INSURANCEPolicy Repository Number: Effective Date:2017-12-17 01/25/2018 FOSTER Primary FOSTER LEWISDOB: [facility] LEWISDOB: Insurance:MEDICARE [id number] System Repository [id number] PART APolicy Number: [address] [id number] [address] [place] [address], Date:2016-03-16 [place] [address] [place] [address]Nqb: () 01/14/2018 FOSTER A Primary FOSTER A [facility] [id number] [address] Insurance:MEDICARE LEWISDOB: Hospital STP O BOX PART A olicy [id number] Repository [address] [place] [address], Number: [place] [id number]: [id number] Date:2017-10-21 (HP) 01/14/2018 Secondary NOT GIVENUNK [facility] Insurance:SELF PAY Hospital INSURANCEPolicy Repository Number: Effective Date:2017-10-21 11/25/2017 FOSTER A Primary FOSTER A [facility] [id number] [address] Insurance:MEDICARE LEWISDOB: Hospital STP O BOX PART A [facility] [id number] Repository [address] [place] [address], Number: [place] [id number]: [id number] Date:2016-03-16 (HP) 11/25/2017 Secondary NOT GIVENUNK [facility] Insurance:SELF PAY Hospital INSURANCEPolicy Repository Number: Effective Date:2017-11-16 11/17/2017 FOSTER A Primary FOSTER A [facility] [id number] [address] Insurance:MEDICARE LEWISDOB: Hospital STP O BOX PART A [facility] [id number] Repository [address] [place] [address], Number: [place] [id number]: [id number] Date:2017-10-21 () 11/17/2017 Secondary NOT GIVENUNK [facility] Insurance:SELF PAY Hospital INSURANCEPolicy Repository Number: Effective Date:2017-10-21 11/17/2017 FOSTER A Primary FOSTER A [facility] [id number] [address] Insurance:MEDICARE LEWISDOB: Hospital STP O BOX PART A [facility] [id number] Repository [address] [place] [address], Number: [place] [id number]: [id number] Date:2017-10-21 () 11/17/2017 Secondary NOT GIVENUNK [facility] Insurance:SELF PAY Hospital INSURANCEPolicy Repository Number: Effective Date:2017-11-17
== END 2018-10-18 10:00 | disposition home or self-care (01) ==
LOC: LAB 09:23
PROVIDERS: Family Provider Internal Medicine; PCP Internal Medicine; Referring Provider Internal Medicine Cardiovascular Disease; Visit Provider Internal Medicine Cardiovascular Disease
DX: I48.92 Unspecified atrial flutter (principal); Z79.01 Long term (current) use of anticoagulants; J44.9 Chronic obstructive pulmonary disease, unspecified
CPT/HCPCS: 36415; 85610; 94618

== ENCOUNTER → 2018-10-19 08:46 | Outpatient (CLI) | payer MEDICARE, SELFPAY ==
--- NOTE | 2018-10-19 12:58 | PFT ---
INTRODUCTION: The patient is a 68-year-old male that presents for pulmonary function testing secondary to a diagnosis of COPD. Respiratory therapy reports good patient effort. Bronchodilators were used during testing. INTERPRETATION: Forced expiration spirometry demonstrates the presence of a moderate large airways obstructive ventilatory defect. There was no significant response to aerosolized bronchodilators. Spirograms are of good quality and do not plateau indicating slow emptying of the lungs. Body plethysmography was performed and reveals a decreased TLC to 5.48 L, 78% of predicted, indicative of a mild restrictive ventilatory impairment. Diffusing capacity by single breath CO is mildly reduced at 62% of predicted. IMPRESSION: These pulmonary function studies demonstrate the presence of an irreversible moderate mixed ventilatory defect with symmetric reduction in diffusing capacity.
== END ==
PROVIDERS: Family Provider Internal Medicine; PCP Internal Medicine; Referring Provider Nurse Practitioner Acute Care; Visit Provider Nurse Practitioner Acute Care
DX: J44.9 Chronic obstructive pulmonary disease, unspecified (principal)
CPT/HCPCS: 94060; 94726; 94729

== ENCOUNTER → 2018-11-02 07:53 | Outpatient (CLI) | payer MEDICARE, SELFPAY ==
[2018-10-25 08:57] VITALS: BMI 27.3
--- NOTE | 2018-11-02 07:55 | CT_ITS ---
STUDY: LOW DOSE CT LUNG CANCER SCREENING REASON FOR EXAM: Male, 68 years old. 50 pack-year history. History of throat cancer and COPD. RADIATION DOSAGE (If Supplied By Facility): CTDIvol = ( 3.02 ) mGy, DLP = ( 105.71 ) mGycm TECHNIQUE: No contrast was administered. Low dose technique was utilized (average mAS-38 and kVp 120). 1.25 mm axial source images with a slice interval of 1.25-mm were reconstructed in lung windows. 2.5 mm axial source images with a slice interval of 2.5-mm were reconstructed in lung windows. 5.0 mm axial source images with a slice interval of 5.0-mm were reconstructed in soft tissue windows. Nodule measured using lung windows on PACS and/or independent workstation with automated measurement of minimum and maximum diameter. Nodule measurement reported as average diameter rounded to the nearest whole number. Growth is defined as an increase ins size of greater than 1.5 mm. COMPARISON: Chest, October 16, 2014. NODULES: Nodule #: 1 Density: Solid Lung location: Right upper lobe: 2.5 cm from pleura Location in series: Series Number: 2 Image: 135 Size - D1 x D2 mm: 6 x 6 mm: 6 mm average diameter Margin: Smooth Shape: Triangular Calcification: No Fat: No Temporal comparison: None Nodule #: 2 Density: Solid Lung location: Right middle lobe: 2.2 cm from pleura Location in series: Series Number: 2 Image: 151 Size - D1 x D2 mm: 3 x 3 mm: 3 mm average diameter Margin: Smooth Shape: Round Calcification: Yes Fat: No Temporal comparison: None Total lung nodules (excluding granulomas): 1 Emphysema: There are minimal emphysematous changes with biapical pleural scarring and linear scarring in the left lower lobe. Endobronchial lesion: None Aorta: There is atherosclerotic tortuosity without aneurysm. Coronary arteries: There are coronary artery calcifications. Heart: The heart is normal in size. Pulmonary artery: Normal Mediastinal nodes: There is nonspecific subcentimeter mediastinal lymphadenopathy. Other chest and abdominal findings: There are degenerative changes of the thoracic spine. CT/Low Dose CT Lung Screening IMPRESSION: 1. Triangular soft tissue nodule in the right upper lobe. 2. Minimal emphysematous changes. Lung-RADS category 2 - Continue annual screening with LDCT in 12 months. IMPORTANT NOTES FOR USE: ACR Lung-RADS Version 1.0 Assessment Categories Release Date: March 13, 2014 Category: Coded 0-4 bases on nodule(s) with highest degree of suspicion. Negative screen is defined as categories 1 and 2; a positive screen is defined as categories 3 and 4. Category 3 and 4A nodules that are unchanged on interval CT should be coded as category 2, and individuals returned to screening in 12 months. Category 4X: Category 3 or 4 nodules with additional imaging findings that increase the suspicion of lung cancer, such as spiculation, GGN that doubles in size in 1 year, enlarged lymph notes, etc. Category Modifiers: S (significant finding unrelated to lung cancer) and C (prior history of treated lung cancer) may be added to the 0-4 Lung-RADS Electronically Signed: Sami Perez DO at 17:05 EST Tel [phone], Service support ,
--- OUTSIDE RECORDS SUMMARY | 2019-02-03 12:44 | XMS RPT_ITS ---
:1950 Author Organization OHIP Support Name Relationship Address Phone LEANNA CARDONA Unavailable [address] + [address] [place] [address] R Unavailable Unavailable Unavailable BRENDAN LEANNA Unavailable [address] + [address] [place] [address] R Unavailable Unavailable Unavailable BRENDAN LEANNA Unavailable Unavailable Unavailable BRENDAN LEANNA Unavailable [address] + [address] [place] [address] R Unavailable Unavailable Unavailable BRENDAN LEANNA Unavailable [address] + [address] [place] [address] R Unavailable Unavailable Unavailable BRENDAN LEANNA Unavailable [address] + [address] [place] [address] R Unavailable Unavailable Unavailable BRENDAN LEANNA Unavailable [address] + [address] [place] [address] R Unavailable Unavailable Unavailable LEANNA CARDONA Unavailable [address] + [address] [place] [address] R Unavailable Unavailable Unavailable BRENDAN LEANNA Unavailable [address] + [address] [place] [address] R Unavailable Unavailable Unavailable BRENDAN LEANNA Unavailable [address] + [address] [place] [address] R Unavailable Unavailable Unavailable BRENDAN LEANNA Unavailable [address] + [address] [place] [address] R Unavailable Unavailable Unavailable BRENDAN LEANNA Unavailable Unavailable Unavailable BRENDAN LEANNA Unavailable [address] + [address] [place] [address] R Unavailable Unavailable Unavailable BERNDAN LEANNA Unavailable [address] + [address] [place] [address] R Unavailable Unavailable Unavailable BRENDAN, LEANNA Unavailable [address] + [address] [place] [address] R Unavailable Unavailable Unavailable BRENDAN, LEANNA Unavailable Unavailable Unavailable BRENDAN, LEANNA Unavailable [address] + [address] [place] [address] R Unavailable Unavailable Unavailable BRENDAN, LEANNA Unavailable . + [place] [address] R Unavailable Unavailable Unavailable BRENDAN, LEANNA Unavailable . + [place] [address] R Unavailable Unavailable Unavailable BRENDAN, LEANNA Unavailable . + [place] [address] R Unavailable Unavailable Unavailable BRENDAN, LEANNA Unavailable . + [place] [address] R Unavailable Unavailable Unavailable BRENDAN, LEANNA Unavailable Unavailable Unavailable BRENDAN, LEANNA Unavailable . + [place] [address] R Unavailable Unavailable Unavailable Care Team Providers Name Role Phone DEMETRIA BERGMAN ([facility]) Attending Unavailable SR, BETTY Attending Unavailable SR, BETTY Referring Unavailable SR, BETTY Referring Unavailable SR, BETTY Referring Unavailable PAT PASCAL ([facility]) Attending Unavailable SR, BETTY Referring Unavailable CARLTON CARDENAS ([facility]) Attending Unavailable OLDERDEMETRIA ([facility]) Attending Unavailable OLDERDEMETRIA ([facility]) Referring Unavailable TESTRAKEANNMARIE Attending Unavailable OLDERDEMETRIA ([facility]) Referring Unavailable TESTRAKEANNMARIE Referring Unavailable TESTRAKE, ANNMARIE Referring Unavailable TESTRAKEANNMARIE Attending Unavailable TESTRAKEANNMARIE Referring Unavailable SR, BETTY Attending Unavailable RS, BETTY Referring Unavailable PROVIDER, UNKNOWN Admitting Unavailable PROVIDER, UNKNOWN Attending Unavailable PATIENT, SELF Referring Unavailable PROVIDER, UNKNOWN Admitting Unavailable PROVIDER, UNKNOWN Attending Unavailable PATIENT, SELF Referring Unavailable PROVIDER, UNKNOWN Admitting Unavailable PROVIDER, UNKNOWN Attending Unavailable PATIENT, SELF Referring Unavailable PROVIDER, UNKNOWN Admitting Unavailable PROVIDER, UNKNOWN Attending Unavailable PATIENT, SELF Referring Unavailable Janelle Sellers Attending Unavailable Janelle Sellers Referring Unavailable Juan Sr Primary Care Unavailable Javan Fraga D.O. Attending Unavailable Janelle Sellers Referring Unavailable Javan Fraga D.O. Attending Unavailable Janelle Sellers Referring Unavailable Armando, Davis Attending Unavailable Armando, Davis Referring Unavailable Sr, Juan Primary Care Unavailable Armando, Davis Attending Unavailable Sr, Juan Primary Care Unavailable Moris Mcconnell Attending Unavailable Sr, Juan Referring Unavailable Armando, Vahid Attending Unavailable Sr, Juan Primary Care Unavailable Armando, Davis Referring Unavailable Oral Ramos Attending Unavailable Armando, Davis Attending Unavailable Sr, Juan Referring Unavailable Sr, Juan Primary Care Unavailable Armando, Davis Attending Unavailable Armando, Davis Referring Unavailable Sr, Juan Primary Care Unavailable Armando, Davis Attending Unavailable Armando, Davis Referring Unavailable Sr, Juan Primary Care Unavailable Armando, Vahid Attending Unavailable Armando, Vahid Referring Unavailable Sr, Juan Primary Care Unavailable Armando, Vahid Attending Unavailable Armando, Vahid Referring Unavailable Sr, Juan Primary Care Unavailable Marlo, Janelle Attending Unavailable Sr, Juan Referring Unavailable Sr, Juan Primary Care Unavailable Wei Chung Attending Unavailable Sr, Juan Referring Unavailable Armando, Davis Attending Unavailable Armando, Vahid Referring Unavailable Sr, Juan Primary Care Unavailable Sellers, Janelle Attending Unavailable Sellers, Janelle Referring Unavailable Sr, Juan Primary Care Unavailable Sellers, Janelle Attending Unavailable Sellers, Janelle Referring Unavailable Sr, Juan Primary Care Unavailable Sellers, Janelle Attending Unavailable Sr, Juan Referring Unavailable PROBLEMS PROBLEMS DATE TYPE CONDITION / CODE ATTENDING STATUS SOURCE 10/25/2018 Unknown F17.200 - Nicotine Sellers, Active [facility] dependence, [facility] unspecified, Hospital uncomplicated / Repository F17.200(ICD-10) 10/25/2018 Unknown G47.33 - Obstructive Sellers, Active Patricia sleep apnea (adult) [facility] (pediatric) / Hospital G47.33(ICD-10) Repository 11/25/2018 Unknown J44.9 - Chronic Sellers, Active Patricia obstructive [facility] pulmonary disease, Hospital unspecified / Repository J44.9(ICD-10) 11/15/2018 Unknown I48.92 - Unspecified Armando, Vahid Active [facility] atrial flutter / Community I48.92(ICD-10) Hospital Repository 11/15/2018 Unknown Z79.01 - [facility] Armando, Davis Active [facility] (current) use of Community anticoagulants / Hospital Z79.01(ICD-10) Repository 07/07/2018 Active Localized swelling, NA Active [facility] mass and lump, right Clinic Main lower limb / [place] R22.41(ICD-10) Repository 07/07/2018 Active Ganglion, right NA Active [facility] ankle and foot / Clinic Main M67.471(ICD-10) [place] Repository 06/30/2018 Active Pain in right foot / NA Active [facility] M79.671(ICD-10) Clinic Main [place] Repository 07/17/2018 Unknown I48.0 - Paroxysmal Armando, Vahid Active [facility] atrial fibrillation Community / I48.0(ICD-10) Hospital Repository 03/11/2018 Unknown I48.91 - Unspecified Armando, Davis Active [facility] atrial fibrillation Community / I48.91(ICD-10) Hospital Repository 03/11/2018 Unknown I10 - Essential Armando, Davis Active [facility] (primary) Community hypertension / Hospital I10(ICD-10) Repository 03/11/2018 Unknown I43 - Cardiomyopathy Armando, Davis Active [facility] in diseases Community classified elsewhere Hospital / I43(ICD-10) Repository 01/26/2018 Active Chronic viral NA Active [facility] hepatitis C / Clinic Main B18.2(ICD-10) [place] Repository 07/30/2010 Active Impaired fasting NA Active [facility] glucose / [facility] Main R73.01(ICD-10) [place] Repository 09/05/2009 Active Other specified NA Active [facility] abnormal [facility] Main immunological [place] findings in serum / Repository R76.8(ICD-10) 02/01/2018 Active Other emt intermediate NA Active [facility] (current) drug [facility] Main therapy / [place] Z79.899(ICD-10) Repository 02/01/2018 Active Unspecified atrial NA Active [facility] fibrillation / [facility] Main I48.91(ICD-10) [place] Repository PROCEDURES PROCEDURES DATE CODE DESCRIPTION STATUS SOURCE 11/01/2018 52535(C4) LARYNGOSCOPY, Completed [facility] FLEXIBLE FIBEROPTIC; System Repository DX 08/02/2018 45903(C4) LARYNGOSCOPY, Completed [facility] FLEXIBLE FIBEROPTIC; System Repository DX 05/03/2018 45665(C4) LARYNGOSCOPY, Completed [facility] FLEXIBLE FIBEROPTIC; System Repository DX 01/25/2018 55179(C4) LARYNGOSCOPY, Completed [facility] FLEXIBLE FIBEROPTIC; System Repository DX RESULTS RESULTS LOW DOSE CT LUNG Observed: 11/02/2018 Status: F Source: [place] SCREENING 7:55 AM [facility] REPOSITORY [facility] Imaging Services [address] [place] [address] Lung Screening MR#: [id number] Acct: [id number] Name: LUCI CARDONA Rep #: [id number] : 1950 M 68 From: Sami Perez DO PCP: Juan Sr MD Status: REG CLI Study: Low Dose CT Lung Screening Date of Exam: 11/02/18 Exam# [id number] Ordering Dr: Janelle Sellers BIN TRIPPER OPERATORTyler STUDY: LOW DOSE CT LUNG CANCER SCREENING [...] Sami Perez DO at 17:05 EST Tel [phone], Service support , CC: Janelle Sellers; Juan Sr MD Facility Maintenance Manager: Signed PULMONARY VISIT REPORT Observed: 10/25/2018 Status: F Source: [place] 9:52 AM [facility] REPOSITORY [facility] Pulmonary Medicine of [address] [place] [address] OFFICE VISIT Date of Service: 10/25/18 MR#: [id number] Acct: [id number] Name: LUCI CARDONA Rep #: [id number] : 1950 Provider: Janelle Sellers Age/Sex: 68/M Location: [facility].PMW Status: Signed Assessment AND Plan 1. 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) H/O ETOH [...] to inspection; negative distended Genitourinary: Positive deferred [facility] [place] [place] Musculoskeletal: Positive steady gait and ROM normal; [...] obstructive 10/25/18 0952 <Electronically signed by Janelle Sellers NP-C> Date Janelle Sellers NP-C Cosigner Signature: Date (if applicable) CC: Juan Sr MD PULMONARY FUNCTION Observed: 10/19/2018 Status: F Source: [place] TEST 1:01 PM [facility] REPOSITORY [facility] Pulmonary Services/Neurology [facility] [place] [address] [place] [address] MR#: [id number] Acct: [id number] Name: LUCI CARDONA Rep #: [id number] : 1950 68 From: Javan Fraga DO Referring Dr: Janelle Sellers NP Status: REG CLI Ordering Dr: Date: Location: [facility] Sex: M C INTRODUCTION: The patient is [...] MD Date Dictated: 10/19/181257 Date Transcribed: 10/19/181257 Facility Maintenance Manager: ANIKET Signed 6 MINUTE WALK TEST Observed: 10/18/2018 Status: F Source: [place] 1:41 PM [facility] REPOSITORY [facility] Pulmonary Services/Neurology [address] [place] [address] MR#: [id number] Acct: [id number] Name: LUCI CARDONA Rep #: [id number] : 1950 68 From: Javan Fraga DO Referring Dr: Janelle Sellers NP Date: Ordering Dr: Hang: Fiona Kim Location: PSN PSN 6 Minute Walk Test - 6 Minute Walk Test 6 Minute Walk Test: 6 Minute Walk Test PSN:6-Minute Walk Test Start: 10/18/18 09:29 Freq: Status: Active Protocol: RESP.6MINW Document 10/18/18 09:05 [facility] (Rec: 10/18/18 09:32 [facility] [id number]) 6 Minute Walk Test Date Performed 10/18/18 [...] use of supplemental oxygen at this time. 10/18/18 1341 <Electronically signed by Javan Fraga DO> Date Javan Fraga DO CC: Date Dictated: 10/18/181339 Date Transcribed: 10/18/181339 Facility Maintenance Manager: Javan Fraga DO Signed PROTHROMBIN TIME W/INR Collected: 10/18/2018 Status: F Source: [place] 9:27 AM [facility] REPOSITORY TYPE CODE TESTS RESULT OUT OF RANGE REFERENCE UNITS LAB L300.4150 11.7-14.9 SECONDS High PROTIME 24.3 LAB L300.4200 Normal INR 2.2 Performed By: #### L300.3900 #### [facility] [address] [place], [place], [address] PROTHROMBIN TIME W/INR Collected: 08/31/2018 Status: F Source: [place] 12:54 PM [facility] REPOSITORY Order Comment: Comments: STANDING ORDER Comments: STANDING ORDER TYPE CODE TESTS RESULT OUT OF RANGE REFERENCE UNITS LAB L300.4150 11.7-14.9 SECONDS High PROTIME 22.8 LAB L300.4200 Normal INR 2.0 Performed By: #### L300.3900 #### [facility] Laboratory [address] [place], [address] PROGRESS Observed: 07/29/2018 Status: COMPLETED Source: [place] 10:12 AM [facility] [place] REPOSITORY HNO ID: [id number] Author: Juan Sr Service: (none) Author Type: Physician Type: Progress Notes Filed: 07/29/2018 10:19 AM Note Text: This note was created using [employer]. Subjective Luci Cardona is a 68 year old male here for follow up. His hypertension, atrial fibrillation, anticoagulation were stable. He saw podiatry for a cyst that resolved on its own. He had no recent hepatitis C follow up since he refused liver biopsy. 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 [...] ICD9: 427.31, ICD10: I48.91 Anticoagulated by his esthetician. 3. AISHWARYA on CPAP - ICD9: 327.23, [...] MD CNOV Observed: 07/29/2018 Status: COMPLETED Source: [place] 8:20 AM [facility] REPOSITORY Office Visit (INTMWS) LUCI CARDONA ([id number]) 1950 M Date Time Provider Department 07/29/18 8:20 AM JUAN SR INTFionaWS During your visit today, we recorded the [...] [place] [id number]. The Shingrix medication is either administered at your Providers' office and they provide the vaccine, or your insurance covers it at the pharmacy and the pharmacist will administer. These questions should be clarified in order to utilize your maximum insurance benefits. To schedule an appointment for the injection, please call our main number, [facility] [phone] and ask to speak with a nurse. Juan Sr MD 07/29/2018 10:19 AM Signed This note was created using [employer]. Subjective Luci Cardona is a 68 year old male here for follow up. His hypertension, atrial fibrillation, anticoagulation were stable. He saw podiatry for a cyst that resolved on its own. He had no recent hepatitis C follow up since he refused liver biopsy. 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 [...] Latest Ref Rng AND Units 07/07/2018 Creatinine, [place] 0.7 - 1.4 mg/dL 0.8 Assessment and Plan 1. HTN (hypertension), benign - ICD9: 401.1, ICD10: I10 (primary diagnosis) - good control - Continue current medication(s) 2. Atrial fibrillation, unspecified type (HCC) - ICD9: 427.31, ICD10: I48.91 Anticoagulated by his esthetician. 3. AISHWARYA on CPAP - ICD9: 327.23, V46.8, ICD10: G47.33, Z99.89 Stable. 4. Chronic hepatitis C without hepatic coma (HCC) - ICD9: 070.54, ICD10: B18.2 Options discussed. He agreed to referral, as he may benefit from treatment before symptoms or liver failure. He may benefit from other testing aside from liver biopsy. - CONSULT TO HEPATOLOGY Juan Sr MD Referring Provider: JUAN SR [[id number]] Allergies As of Date: 07/29/2018 Noted Allergy Reaction CLINORIL (SULINDAC) 08/28/2005 PENICILLINS 08/28/2005 Date Reviewed: 07/29/2018 Reviewed by: Kristin Hobson LPN - Fully Assessed Reason for Visit: F/U 6 Month [444] Primary Visit Diagnosis:HTN (hypertension), benign [I10] Other Visit Diagnoses:Atrial fibrillation, unspecified type (HCC) [I48.91] AISHWARYA on CPAP [G47.33, Z99.89] Chronic hepatitis C without hepatic coma (HCC) [B18.2] Order(s):CONSULT TO HEPATOLOGY [[id number]] Order #: [id number]: 1 Prescriptions as of 07/29/2018 Sig: FEXOFENADINE [...] [place] [phone]. The Shingrix medication is either administered at your Providers' office and they provide the vaccine, or your insurance covers it at the pharmacy and the pharmacist will administer. These questions should be clarified in order to utilize your maximum insurance benefits. To schedule an appointment for the injection, please call our main number, [facility] [phone] and ask to speak with a nurse. [...] VISIT REPORT Observed: 07/20/2018 Status: F Source: [place] 10:45 AM [facility] REPOSITORY Pulmonary Medicine of [address] [place] [address] OFFICE VISIT Date of Service: 07/20/18 MR#: [id number] Acct: [id number] Name: LUCI CARDONA Cassandra Rep #: [id number] : 1950 Provider: Janelle Sellers Age/Sex: 68/M Location: [facility].PM[facility] Status: Signed Assessment AND Plan 1. Stage [...] and encourage cessation. You may call the free hotline 8-233-HTVLNOW. People who use this line are THREE [...] lb Intake Visit Reasons: 6 M FU New Accounts Clerk Required: No DME Vendor: [employer] Accompanied by: Self Is patient in pain?: [...] Codes Time Spent - 3-10 minutes: Yes (09091) 07/20/18 1045 <Electronically signed by Janelle ARCHER> Date Janelle ARCHER Cosigner Signature: Date (if applicable) CC: Juan Sr MD PROGRESS Observed: 07/14/2018 Status: COMPLETED Source: [place] 8:46 [facility] REPOSITORY HNO ID: [id number] Author: Annmarie Gonzalez Service: (none) Author Type: [...] cord nodule 03/2017 squamous papilloma, [facility] Current Outpatient Prescriptions: methylPREDNISolone (MEDROL DOSE-PACK) [...] DPM PROGRESS Observed: 07/14/2018 Status: COMPLETED Source: [place] 8:35 AM [facility] REPOSITORY HNO ID: [id number] Author: Rico (Rn) SUN Dickerson Service: (none) Author Type: Registered Nurse [...] RN CNOV Observed: 07/14/2018 Status: COMPLETED Source: [place] 8:25 AM [facility] REPOSITORY Office Visit (PODIWS) LUCI CARDONA ([id number]) 1950 M Date Time Provider Department 07/14/18 8:25 AM ANNMARIE GONZALEZ PODIWS During your visit today, we recorded the following information about you: Rico Dickerson RN, RN 07/14/2018 8:50 AM Signed AMB ROOMING INTAKE FLOWSHEET DATA Risk Screening Do you have concerns about personal safety or safety in the home?: No Pain Pain Score: 0/10 Patient presents with: Established Patient: discuss options, POC, receive MRI results-07/07/18 patient denies pain, he is here to discuss MRI of right foot completed on 07/07/18. Rico Dickerson RN Annmarie Gonzalez DPM 07/14/2018 8:50 AM Signed Follow up [...] glottic cancer 01/26/2018 Dr. Liu Ford, ENT [facility]. 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, [facility] Current Outpatient Prescriptions: methylPREDNISolone (MEDROL DOSE-PACK) [...] SNARE 03/03/07 - COLONOSCOP W/ OR W/O BRS SPEC 06/01/2008 Colonoscopy - COLONOSCOP W/ OR W/O BRS SPEC 10/15/2011 Colonoscopy - COLONOSCOP W/ OR W/O [facility] SPEC 10/18/15 Colonoscopy - DIRECT LARYNGOSCOPY WITH [...] Annmarie Gonzalez DPM Referring Provider: ANNMARIE GONZALEZ [[id number]] Allergies As of Date: 07/14/2018 Noted Allergy Reaction CLINORIL (SULINDAC) 08/28/2005 PENICILLINS 08/28/2005 Date Reviewed: 07/14/2018 Reviewed by: Rico (Rn) SUN Dickerson - Fully Assessed Reason for Visit: [...] WO IVCON Observed: 07/07/2018 Status: F Source: [place] RT 3:14 PM [facility] REPOSITORY * * *Final Report* * * [...] second intermetatarsal space, probably a ganglion cyst. Facility Maintenance Manager: PSCB Transcribe Date/Time: Jul 07 2018 3:45P Dictated by : MIKE MENDEZ MD This examination was interpreted and the report reviewed and electronically signed by: BUSHRA BARROW MD on Jul 07 2018 11:10PM EST [id number] PROGRESS Observed: 07/07/2018 Status: COMPLETED Source: [place] 3:06 PM [facility] REPOSITORY HNO ID: [id number] Author: Doreen Cruz (Rt) Service: (none) Author Type: Machining And Assembly Supervisor Type: Progress Notes Filed: 07/07/2018 3:06 PM [...] PATRICIA CREATININE Collected: 07/07/2018 Status: F Source: [place] 2:10 PM [facility] REPOSITORY TYPE CODE TESTS RESULT OUT OF REFERENCE UNITS RANGE LAB [place] 0.7-1.4 mg/dL [place] Creatinine 0.8 PROGRESS Observed: 06/30/2018 Status: COMPLETED Source: [place] 2:06 PM [facility] REPOSITORY HNO ID: [id number] Author: Annmarie Gonzalez Service: (none) Author Type: Physician Type: Progress Notes Filed: 06/30/2018 2:35 PM Note Text: ? Annmarie Gonzalez DPM Department of Podiatry [address] [facility] [address] Dept: [phone] Dept 06/30/[address] Bergman [...] glottic cancer 01/26/2018 Dr. Liu Ford, ENT [facility]. 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Patricia ENT Current Outpatient Prescriptions: methylPREDNISolone (MEDROL DOSE-PACK) [...] 10/15/2011 Colonoscopy - COLONOSCOP W/ OR W/O BRS SPEC 10/18/15 Colonoscopy - DIRECT LARYNGOSCOPY WITH [...] DPM CNOV Observed: 06/30/2018 Status: COMPLETED Source: [place] 1:40 PM [facility] REPOSITORY Office Visit (PODIWS) LUCI CARDONA ([id number]) 1950 M Date Time Provider Department 06/30/18 1:40 PM ANNMARIE GONZALEZ PODINES During your visit today, we recorded the following information about you: Annmarie Gonzalez DPM 06/30/2018 2:35 PM Signed ? Annmarie Gonzalez DPM Department of Podiatry [address] [place] [address] Dept: [phone] Dept 06/30/[address] 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, [place] [facility] Current Outpatient Prescriptions: methylPREDNISolone (MEDROL DOSE-PACK) [...] 10/15/2011 Colonoscopy - COLONOSCOP W/ OR W/O [facility] SPEC 10/18/15 Colonoscopy - DIRECT LARYNGOSCOPY WITH [...] Annmarie Gonzalez DPM Referring Provider: DEMETRIA BERGMAN ([facility]) [[id number]] Allergies As of Date: 06/30/2018 Noted Allergy Reaction CLINORIL (SULINDAC) 08/28/2005 PENICILLINS 08/28/2005 Date Reviewed: 06/30/2018 Reviewed by: Rosa Whitmyer RN - Fully Assessed Reason for Visit: New Patient [172] Primary Visit Diagnosis:Ganglion cyst of right foot [M67.471] Other Visit Diagnosis:Localized swelling, mass, or lump of right lower extremity [R22.41] Order(s):CREATININE BLD [SQCRET] Order #: [id number] FUTURE MRI FOOT/TOES WO/W IVCON RT [[id number]] Order #: [id number] FUTURE iv contrast (will be provided with [...] 06/30/18 PROGRESS Observed: 06/30/2018 Status: COMPLETED Source: [place] 11:03 AM [facility] REPOSITORY O ID: [id number] Author: Demetria (Cody) Older Service: (none) Author [...] Patient agreeable to treatment plan. Demetria Bergman APRN.BOATHOUSE KEEPER XR FOOT 3V AP/LAT/OBL Observed: 06/30/2018 Status: F Source: [place] RT 10:58 AM [facility] REPOSITORY * * *Final Report* [...] Spaces are maintained. IMPRESSION: No acute process. Facility Maintenance Manager: PSCB Transcribe Date/Time: Jun 30 2018 1:14P Dictated by : MARTA ALLEN MD This examination was interpreted and the report reviewed and electronically signed by: MARTA ALLEN MD on Jun 30 2018 1:17PM EST [id number] PROGRESS Observed: 06/30/2018 Status: COMPLETED Source: [place] 10:32 AM [facility] REPOSITORY HNO ID: [id number] Author: Cherelle Davis (Rt) Doreen Robin Service: (none) Author Type: Machining And Assembly Supervisor Type: Progress Notes Filed: 06/30/2018 10:55 AM [...] AM CNOV Observed: 06/30/2018 Status: COMPLETED Source: [place] 10:00 AM [facility] REPOSITORY Office Visit (INTMWS) LUCI CARDONA ([id number]) 1950 M Date Time Provider Department 06/30/18 10:00 AM DEMETRIA BERGMAN (BOATHOUSE KEEPER) INTMWS During your visit today, we recorded the following information about you: Temperature Pulse Respiration Blood pressure 97.5 degrees 50/minute 14/minute 90/60 Weight 87.5 kg Demetria Bergman, BANKING PIN ADJUSTER.CODY 06/30/2018 11:07 AM Signed CC: Patient presents [...] - 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 Demetria Bergman APRN.BOATHOUSE KEEPER Referring Provider: SELF [[id number]] Allergies As of Date: 06/30/2018 Noted Allergy Reaction CLINORIL (SULINDAC) 08/28/2005 PENICILLINS 08/28/2005 Date Reviewed: 06/30/2018 Reviewed by: Emily Callahan Loadmaster - Fully Assessed Reason for Visit: lump on right foot [Other] Cmt: after starting Medrol dose pack Reason For Visit History Recorded Primary Visit Diagnosis:Right foot pain [M79.671] Order(s):XR FOOT GENERAL 3V AP/LAT/OBL RT [6021676] Order #: [id number] FUTURE CONSULT TO PODIATRY [9034] Order #: [id number]: 1 Prescriptions as of 06/30/2018 Sig: FEXOFENADINE [...] 06/30/2018 Status: F Source: [place] 8:49 AM [facility] REPOSITORY Order Comment: Comments: Standing order Comments: Standing order TYPE CODE TESTS RESULT OUT OF RANGE REFERENCE UNITS LAB L300.4150 11.7-14.9 SECONDS High PROTIME 34.5 LAB L300.4200 Normal INR 3.4 Performed By: #### L300.3900 #### [facility] [address] [place] [address]. [place], [address] PROGRESS Observed: 06/22/2018 Status: COMPLETED Source: [place] 8:11 AM [facility] [place] REPOSITORY HNO ID: [id number] Author: Carlton (Cody) Hayden Service: (none) Author Type: Nurse Practitioner Type: Progress Notes Filed: 06/22/2018 8:42 AM Note Text: CC: Patient presents with: Sinus Problem: Ongoing sinus pressure/pain. 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 Potential red flag symptoms discussed with the patient. Reviewed appropriate action plan to take if red flag symptoms occur. Patient agreeable to treatment plan. CNOV Observed: 06/22/2018 Status: COMPLETED Source: [place] 8:00 AM [facility] REPOSITORY Office Visit (INTMWS) LUCI CARDONA ([id number]) 1950 M Date Time Provider Department 06/22/18 8:00 AM CARLTON CARDENAS (CODY) INTMWS During your visit today, we recorded the following information about you: Temperature Pulse Respiration Blood pressure 97.3 degrees 64/minute 16/minute 116/68 Weight 89.8 kg Carlton Cardenas APRN.CNP 06/22/2018 8:42 AM Signed CC: Patient presents with: Sinus Problem: Ongoing sinus pressure/pain. 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 [...] Ongoing sinus pressure/pain. Seen by ENT and BIN TRIPPER OPERATOR, was on AIB with no relief Primary [...] TIME W/INR Collected: 06/22/2018 Status: F Source: [place] 7:00 AM [facility] REPOSITORY TYPE CODE TESTS RESULT OUT OF RANGE REFERENCE UNITS LAB L300.4150 11.7-14.9 SECONDS High PROTIME 34.4 LAB L300.4200 Normal INR 3.4 Performed By: #### L300.3900 #### [facility] [address] [place], [address] PROGRESS Observed: 06/02/2018 Status: COMPLETED Source: [place] 1:55 PM [facility] [place] REPOSITORY HNO ID: [id number] Author: Pat Pascal Service: (none) Author Type: Nurse Practitioner Type: [...] SNARE 03/03/07 - COLONOSCOP W/ OR W/O [facility] SPEC 06/01/2008 Colonoscopy - COLONOSCOP W/ OR W/O BRS SPEC 10/15/2011 Colonoscopy - COLONOSCOP W/ OR W/O BRS SPEC 10/18/15 Colonoscopy - DIRECT LARYNGOSCOPY WITH [...] as needed for worsening/no improvement. Pat Pascal APRN.CNP CNOV Observed: 06/02/2018 Status: COMPLETED Source: [place] 1:40 PM [facility] REPOSITORY Office Visit (FAMPWS) LUCI CARDONA ([id number]) 1950 M Date Time Provider Department 06/02/18 1:40 PM PAT PASCAL (CODY) FAMPWS During your visit today, we recorded the [...] 10/15/2011 Colonoscopy - COLONOSCOP W/ OR W/O [facility] SPEC 10/18/15 Colonoscopy - DIRECT LARYNGOSCOPY WITH [...] needed for worsening/no improvement. Pat Pascal APRN.CODY Pascal APRN.CODY 06/02/2018 2:25 PM Addendum Get INR checked [...] Eustachian tube problems (The Basics) View in Citizen Of [place] Written by the doctors and editors at [facility] What is the eustachian tube?The eustachian tube [...] eustachian tube problems. Referring Provider: JUAN SR [[id number]] Allergies As of Date: 06/02/2018 Noted Allergy Reaction CLINORIL (SULINDAC) 08/28/2005 PENICILLINS 08/28/2005 Date Reviewed: 06/02/2018 Reviewed by: Rico Valerio Loadmaster - Fully Assessed Reason for Visit: Recheck [...] Eustachian tube problems (The Basics) View in [place] Written by the doctors and editors at [facility] What is the eustachian tube?The eustachian tube [...] 04/13/2018 Status: F Source: [place] 7:20 AM [facility] REPOSITORY TYPE CODE TESTS RESULT OUT OF RANGE REFERENCE UNITS LAB L300.4150 11.7-14.9 SECONDS High PROTIME 30.1 LAB L300.4200 Normal INR 2.9 Performed By: #### L300.3900 #### [facility] [address] [place], [address] CARDIOLOGY VISIT Observed: 03/11/2018 Status: F Source: [place] REPORT 10:30 AM [facility] REPOSITORY [facility] [address] [place] [address] OFFICE VISIT Date of Service: 03/11/18 MR#: [id number] Acct: [id number] Name: LUCI CARDONA Rep #: [id number] : 1950 Provider: Vahid Roberts MD Age/Sex: 67/M Location: [facility] Status: Signed HPI HPI Chief Complaint: Follow [...] Lt brachial Intake Visit Reasons: 6 M New Accounts Clerk Required: No Accompanied by: None Is patient in pain?: No Allergies Penicillins Allergy (Verified 03/11/18 10:02) Hives sulindac [From Clinoril] Allergy (Verified 03/11/18 10:02) Unknown Medications Aspirin [Aspirin, Baby] 81 mg PO DAILY@0800 #30 tab.chew 10/04/14 [Rx Confirmed 03/11/18] Warfarin Sodium [Coumadin] 10 [...] to 59 (55% per echo 02/19/15 at [facility]) [facility] Medical History Cardiomyopathy in other diseases classified [...] Other Orders Orders: Follow Up 6 Months (r) Coding Level of Care Code Off vis,est,level [...] EKG PERFORMED Observed: 03/11/2018 Status: F Source: [place] [facility] 9:44 AM [facility] [address] [place] [address] 12 Lead EKG performed by [facility] 03/11/18 0943 MR#: [id number] Acct: [id number] Name: LUCI CARDONA Rep #: [id number] : 1950 67 From: Vahid Roberts MD Attending Dr: Vahid Roberts MD Status: DEP AMB Ordering Dr: Vahid Roberts MD Date: 03/11/18 [place] [facility] Sex: M C Admitted: [facility]/12 Lead EKG performed by [facility] ECG Report Interpretation Sinus Rhythm - occasional PAC # PACs = 1.-RSR(V1) -nondiagnostic. PROBABLY NORMALElectronically signed on 03/18/2018 at 17:06 by Vahid Roberts 03/18/18 1710 Date Vahid Roberts MD CC: Juan Sr MD Date Dictated: 03/11/1843 Date Transcribed: 03/11/18942 Facility Maintenance Manager: [place] Signed PROTHROMBIN TIME W/INR Collected: 03/11/2018 Status: F Source: [place] 9:30 AM [facility] REPOSITORY TYPE CODE TESTS RESULT OUT OF RANGE REFERENCE UNITS LAB L300.4150 11.7-14.9 SECONDS High PROTIME 28.7 LAB L300.4200 Normal INR 2.7 Performed By: #### L300.3900 #### [facility] [address] [place], [address] PROGRESS Observed: 02/02/2018 Status: COMPLETED Source: [place] 3:25 PM [facility] REPOSITORY HNO ID: [id number] Author: Faith Logan Service: (none) Author Type: [...] RIGHT UPPER Observed: 02/02/2018 Status: F Source: [facility] 9:07 AM [facility] REPOSITORY * * *Final Report* * * [...] visualized likely due to overlying bowel gas. Facility Maintenance Manager: ELVIA Transcribe Date/Time: Feb 02 2018 11:17A Dictated by : MANSOOR LORENZO MD This examination was interpreted and the report reviewed and electronically signed by: MANSOOR LORENZO MD on Feb 02 2018 11:43AM EST [id number] PROTHROMBIN TIME W/INR Collected: 02/01/2018 Status: F Source: [place] 7:58 AM [facility] REPOSITORY TYPE CODE TESTS RESULT OUT OF RANGE REFERENCE UNITS LAB L300.4150 11.7-14.9 SECONDS High PROTIME 29.6 LAB L300.4200 Normal INR 2.8 Performed By: #### L300.3900 #### [facility] [place], [address] CBC AND DIFFERENTIAL Collected: 02/01/2018 Status: F Source: [place] 7:49 AM [facility] REPOSITORY TYPE CODE TESTS RESULT OUT OF [...] k/uL Abs Lymph 1.96 LAB AMONO % Mcduffie% 7.6 LAB AAMONO <0.87 k/uL Abs Mcduffie 0.46 LAB AEOS % Eosin% 2.6 LAB AAEOS <0.46 k/uL Abs Eosin 0.16 LAB ABASO % Baso% 1.0 LAB AABASO <0.11 k/uL Abs Baso 0.06 LAB AUNRBC 0 /100 WBC NRBCs 0.0 LAB ABNRBC <0.01 k/uL Absolute nRBC <0.01 LAB DTYP DTYPE Auto Diff Performed By: #### CBCDIF, CMP, HBA1C, AFP #### [facility] [address] [place], [place] [address] COMP METABOLIC PANEL Collected: 02/01/2018 Status: F Source: [place] 7:49 AM [facility] REPOSITORY TYPE CODE TESTS RESULT OUT OF REFERENCE UNITS RANGE LAB TP 6.3-8.0 g/dL Protein, Total 7.0 LAB ALB 3.9-4.9 g/dL Low Albumin 3.7 LAB CA 8.5-10.2 mg/dL Calcium, Total 8.8 LAB TBIL 0.2-1.3 mg/dL Bilirubin, Total 0.8 LAB ALKP 36-108 U/L Alkaline Phosphatase 64 LAB AST 14-40 U/L AST High 63 LAB GLU 74-99 mg/dL Glucose High 121 Result Comment: The [place] Diabetes Association (ADA) provides guidance for cutoff [...] Standards of Medical Care in Diabetes 2016, [place] Diabetes Association. Diabetes Care. 2016.39(Suppl 1). LAB [...] By: #### CBCDIF, CMP, HBA1C, AFP #### [facility] [place] [id number] HEMOGLOBIN A1C Collected: 02/01/2018 Status: F Source: [place] 7:49 AM [facility] REPOSITORY TYPE CODE TESTS RESULT OUT OF REFERENCE UNITS RANGE LAB HGBA1C 4.3-5.6 % High Hemoglobin A1c 5.7 LAB HBA0 mg/dL Est. Average Glucose 117 Result Comment: eAG: (Estimated average glucose) is a calculated value from HgbA1c and is sales training representative of the average blood glucose level in the last 2-3 month period. Performed By: #### CBCDIF, CMP, HBA1C, AFP #### [facility] [place], [place] [address] AFP Collected: 02/01/2018 Status: F Source: [place] 7:49 AM [facility] REPOSITORY TYPE CODE TESTS RESULT OUT OF RANGE REFERENCE UNITS LAB AFP <11 ng/mL AFP 8.3 Performed By: #### CBCDIF, CMP, HBA1C, AFP #### [facility] [address] [place], [place] [address] PROGRESS Observed: 01/26/2018 Status: COMPLETED Source: [place] 9:38 AM [facility] REPOSITORY HNO ID: [id number] Author: Juan Sr Service: (none) Author Type: Physician Type: Progress Notes Filed: 01/26/2018 10:04 AM Note Text: This note was created using Stratio Technologyriter. Subjective Luci Cardona is a 67 year old male here here for follow up. He was seeing an ENT specialist at [facility] in [place]. 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 - REPAIR ING HERNIA,5+Y/O,REDUCIBL 1969 Hernia repair, inguinal - SIGMOIDOSCOPY FLEX DIAG [...] acuity: OD: 20/70 OS: 20/ 40 OU: without glasses. ASSESSMENT/PLAN: 67 year old male The following prevention plan was discussed during the office visit and provided to the patient: - Smoking cessation - Weight Loss - Alcohol in moderation. 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 Subjective Luci Cardona is a 67 year old male here here for follow up. He was seeing an ENT specialist at [facility] in [place]. 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 Discussed emt intermediate risks and inconsistency of wanting treatment for [...] Juan Sr MD Referring Provider: JUAN SR [[id number]] Allergies As of Date: 01/26/2018 Noted Allergy [...] 0 CBC + DIFF [SQCBCDIF] Order #: [id number] FUTURE COMP METABOLIC PANEL [SQCMP] Order #: [id number] FUTURE ALPHA FETOPROTEIN BL [SQAFP] Order #: [id number] FUTURE US ABD RT UPPER QUADRANT [5332045] Order #: [id number] FUTURE HGB A1C [JIRRH1D] Order #: [id number] FUTURE Prescriptions as of 01/26/2018 Sig: CARVEDILOL [...] VISIT REPORT Observed: 01/14/2018 Status: F Source: [place] 12:17 PM [facility] REPOSITORY [facility] [address] [place] [address] OFFICE VISIT Date of Service: 01/14/18 MR#: [id number] Acct: [id number] Name: LUCI CARDONA Rep #: [id number] : 1950 Provider: Moris Mcconnell MD Age/Sex: 67/M Location: [facility] Status: Signed Assessment AND Plan 1. Stage [...] shortness of breath Stiolto Respimat) administer at approximat yulisa same time(s) each day 2. Obstructive [...] cessation Plan Detail Follow Up 6 Months ([facility]) HPI 3 M FU: Chief Complaint: [...] 10/23/14 [History Confirmed 10/23/14] Hydrocodone Bitart/Apap 5-325 [[place] 5MG-325MG] 1 tab PO Q6H PRN PRN 10/23/14 [History Confirmed 10/23/14] Thiamine HCl [Vitamin B-1] 1 tab PO DAILY 10/23/14 [History Confirmed 10/23/14] Clindamycin HCl [Cleocin] 300 mg PO Q6H #40 cap 01/07/16 [Rx] tiotropium 2.5 mcg-olodaterol 2.5 mcg/actuation mist for inhalation 2 puff INHALATION Q24H #4 g 01/14/18 [Rx Confirmed 01/14/18] [facility] Medical History H/O ETOH abuse (Resolved) Afib [...] 01/14/2018 Status: F Source: [place] 11:13 AM [facility] REPOSITORY TYPE CODE TESTS RESULT OUT OF RANGE REFERENCE UNITS LAB L300.4150 11.7-14.9 SECONDS High PROTIME 31.9 LAB L300.4200 Normal INR 3.1 Performed By: #### L300.3900 #### [facility] [address] [place], [address] CNPTOUTREACH Observed: 01/12/2018 Status: COMPLETED Source: [place] 12:00 AM [facility] REPOSITORY Patient Outreach (INTMWH) BRENDANLUCI ([id number]) 1950 M Date Time Provider Department 01/12/18 JUAN SR [facility] During your visit today, we recorded the following information about you: Allergies As of Date: 01/12/2018 Noted Allergy Reaction CLINORIL (SULINDAC) 08/28/2005 PENICILLINS 08/28/2005 Date Reviewed: 12/31/2017 Reviewed by: Emily Callahan Loadmaster - Fully Assessed Visit Diagnosis:Medication management [Z79.899] Order(s):BASIC METABOLIC PNL [SQBMP] Order #: [id number] FUTURE Prescriptions as of 01/12/2018 Sig: CARVEDILOL [...] voice [R49.0] INVALID FOR* Encounter Status:Closed by EPIC, PRODUSER on 08/27/18 PROGRESS Observed: 12/31/2017 Status: COMPLETED Source: [place] 2:28 PM [facility] REPOSITORY HNO ID: [id number] Author: Demetria (Cody) Older Service: (none) Author [...] if symptoms persist or worsen. Demetria Older, BOATHOUSE KEEPER Prescription instructions reviewed with patient as applicable. Potential red flag symptoms discussed with the patient. Reviewed appropriate action plan to take if red flag symptoms occur. Patient agreeable to treatment plan. ALLERGIES ALLERGIES DATE TYPE / CODE NAME / CODE REACTION SEVERITY SOURCE 10/25/2018 Drug Penicillins/Z20238 Hives Unknown [facility] Allergy/416 0476(RXNORM) [facility] 166618(SNOM Repository ED CT) 10/25/2018 Drug sulindac/[id number] Unknown Unknown [facility] Allergy/416 6(RXNORM) [facility] 289075(SNOM Repository ED CT) 08/28/2005 Drug PENICILLINS [facility] Class/20511 System Repository 1003(SNOMED CT) 08/28/2005 DRUG SULINDAC [facility] INGREDI/419 System Repository 831413(SNOM ED CT) 08/28/2005 DRUG SULINDAC [facility] INGREDI/[address] [place] 714506(SNOM Repository ED CT) 08/28/2005 Drug PENICILLINS [facility] Class/56359 [facility] [place] 1003(SNOMED Repository CT) ENCOUNTERS ENCOUNTERS ADMIT/DISCHARGE ACCOUNT NUMBER ADMITTING ENCOUNTER LOCATION SOURCE CLASS 11/16/2018 [id number] Ambulatory [facility] ding:LAB Repository 11/02/2018 [id number] Ambulatory [facility] ding:CT Repository 11/01/2018/11/01/20 [id number] Unknown [facility] Repository 10/25/2018/10/25/20 [id number] Ambulatory BMSBuilding: 18 [facility] Repository 10/19/2018 [id number] Ambulatory BMSBuilding: [place] [facility] Repository 10/19/2018 [id number] [facility] [place] [facility] ding:[facility] Repository 10/18/2018/10/18/20 [id number] Ambulatory [place] [facility] ding:LAB Repository 10/18/2018 [id number] Ambulatory BMSBuilding: [place] [facility] Repository 10/18/2018 [id number] [facility] ding:[facility] Repository 09/10/2018/09/10/20 [id number] Ambulatory BMSBuilding: [place] 18 [facility] Repository 08/31/2018/08/31/20 [id number] [place] ding:LAB Repository 08/02/2018/08/02/20 [id number] Unknown [facility]ulatory [facility] Repository 07/29/2018/07/30/20 [id number] Ambulatory [address] Repository 07/20/2018/07/20/20 [id number] Ambulatory BMSBuilding: [facility] 18 [facility] Repository 07/14/2018/07/14/20 [id number] Ambulatory [address] Repository 07/07/2018/07/07/20 [id number] Ambulatory [address] [place] Repository 07/07/2018/07/07/20 [id number] Ambulatory [address] Repository 06/30/2018/07/02/20 [id number] Ambulatory [address] Repository 06/30/2018/06/30/20 [id number] Ambulatory [address] Repository 06/30/2018/07/01/20 [id number] Ambulatory [address] Repository 06/30/2018 [id number] Ambulatory [place] [facility] ding:LAB Repository 06/22/2018/06/23/20 [id number] Ambulatory [address] Repository 06/22/2018/07/16/20 [id number] Ambulatory [place] [facility] ding:INT LAB Repository 06/02/2018/06/03/20 [id number] Ambulatory [address] Repository 05/03/2018/05/03/20 [id number] Unknown [facility]ulatory [facility] Repository 04/13/2018/04/15/20 [id number] [place] ding:INT LAB Repository 03/11/2018/03/11/20 [id number] Ambulatory BMSBuilding: [place] 18 [facility] Repository 03/11/2018/03/15/20 [id number] [place] ding:INT LAB Repository 03/08/2018 [id number] Ambulatory BMSBuilding: [place] BMS[facility] Repository 02/02/2018/02/03/20 [id number] Ambulatory [address] Repository 02/01/2018/02/14/20 [id number] Ambulatory Patricia Patricia [address] [place] [address] ding:INT LAB Repository 02/01/2018/02/02/20 [id number] Ambulatory [address] Repository 01/26/2018/01/27/20 [id number] Ambulatory [address] Repository 01/25/2018/01/26/20 [id number] Unknown [facility]ulatory [facility] Repository 01/14/2018/01/15/20 [id number] Ambulatory BMSBuilding: [place] 18 [facility] Repository 12/31/2017/12/31/19 [id number] Ambulatory [address] Repository PAYERS PAYERS ENCOUNTER GUARANTOR PAYER SUBSCRIBER SOURCE 11/16/2018 FOSTER A Primary FOSTER A [facility] [id number] Insurance:MEDICARE LEWISDOB: [facility] PART A BPolic [id number] Repository [address] [place] [address], Number: [place] [id number]: [id number] Date:2016-03-16 () 11/16/2018 Secondary NOT GIVENUNK [facility] Insurance:SELF PAY Hospital INSURANCEPolicy Repository Number: Effective Date:2018-11-15 11/02/2018 FOSTER A Primary FOSTER A [facility] [id number] Insurance:MEDICARE LEWISDOB: Hospital [address] PART A BPolicy [id number] Repository [address] [place] [address], Number: [place] [id number]: [id number] Date:2018-10-25 () 11/02/2018 Secondary NOT GIVENUNK [facility] Insurance:SELF PAY Hospital INSURANCEPolicy Repository Number: Effective Date:2018-10-25 11/01/2018 FOSTER Primary FOSTER LEWISDOB: [facility] LEWISDOB: Insurance:MEDICARE [id number] System Repository [id number] PART APolicy Number: [id number] [address] [place] [address], Date:2016-03-[place] [id number] [place] [phone]: () 10/25/2018 FOSTER A Primary FOSTER A [place] [facility] [id number] Insurance:MEDICARE LEWISDOB: Hospital ST [address] PART A olicy [id number] Repository [address] [place] [address], Number: [place] [id number]: [id number] Date:2018-07-20 () 10/25/2018 Secondary NOT GIVENUNK [facility] Insurance:SELF PAY Hospital INSURANCEPolicy Repository Number: Effective Date:2018-10-15 10/19/2018 FOSTER A Primary FOSTER A [facility] [id number] Insurance:MEDICARE LEWISDOB: Hospital ST [address] PART A BPolicy [id number] Repository [address] [place] [address], Number: [place] [id number]: [id number] Date:2018-07-20 () 10/19/2018 Secondary NOT GIVENUNK [facility] Insurance:SELF PAY Hospital INSURANCEPolicy Repository Number: Effective Date:2018-10-19 10/19/2018 FOSTER A Primary FOSTER A [facility] [id number] Insurance:MEDICARE LEWISDOB: Hospital ST [address] PART A olicy [id number] Repository [address] [place] [address], Number: [place] [id number]: [id number] Date:2018-07-20 () 10/19/2018 Secondary NOT GIVENUNK [facility] Insurance:SELF PAY Hospital INSURANCEPolicy Repository Number: Effective Date:2018-07-20 10/18/2018 FOSTER A Primary FOSTER A [facility] [id number] Insurance:MEDICARE LEWISDOB: Hospital [address] PART A olicy [id number] Repository [address] [place] [address], Number: [place] [id number]: [id number] Date:2016-03-16 () 10/18/2018 Secondary NOT GIVENUNK [place] [facility] Insurance:SELF PAY Hospital INSURANCEPolicy Repository Number: Effective Date:2018-09-16 10/18/2018 FOSTER A Primary FOSTER A [facility] [id number] Insurance:MEDICARE LEWISDOB: Hospital [address] PART A [facility] [id number] Repository [address] [place] [address], Number: [place] [id number]: [id number] Date:2018-07-20 () 10/18/2018 Secondary NOT GIVENUNK [facility] Insurance:SELF PAY Hospital INSURANCEPolicy Repository Number: Effective Date:2018-10-18 10/18/2018 FOSTER A Primary FOSTER A [facility] [id number] Insurance:MEDICARE LEWISDOB: Hospital [address] PART A olicy [id number] Repository [address] [place] [address], Number: [place] [id number]: [id number] Date:2018-07-20 () 10/18/2018 Secondary NOT GIVENUNK [facility] Insurance:SELF PAY Hospital INSURANCEPolicy Repository Number: Effective Date:2018-07-20 09/10/2018 FOSTER A Primary FOSTER A [facility] [id number] Insurance:MEDICARE LEWISDOB: Hospital [address] A olicy [id number] Repository [address] [place] [address], Number: [place] [id number]: [id number] Date:2018-03-11 () 09/10/2018 Secondary NOT GIVENUNK [facility] Insurance:SELF PAY [facility] INSURANCEPolicy Repository Number: Effective Date:2018-09-10 08/31/2018 FOSTER A Primary FOSTER A [facility] [id number] Insurance:MEDICARE LEWISDOB: Hospital [address] PART A BPolicy [id number] Repository [address] [place] [address], Number: [place] [id number]: [id number] Date:2016-03-16 () 08/31/2018 Secondary NOT GIVENUNK [facility] Insurance:SELF PAY [facility] INSURANCEPolicy Repository Number: Effective Date:2018-07-17 08/02/2018 FOSTER Primary FOSTER LEWISDOB: [facility] LEWISDOB: Insurance:MEDICARE [id number] System Repository [id number] PART APolicy Number: [id number] [place] [address], Date:2016-03-16 [place] [id number] [place] [id number]: () 07/20/2018 FOSTER A Primary FOSTER A [facility] [id number] Insurance:MEDICARE LEWISDOB: Hospital STP O BOX PART A BPolicy [id number] Repository [address] [place] [address], Number: [place] [id number]: [id number] Date:2018-01-14 () 07/20/2018 Secondary NOT GIVENUNK [facility] Insurance:SELF PAY Hospital INSURANCEPolicy Repository Number: Effective Date:2018-07-16 06/30/2018 FOSTER A Primary FOSTER A [facility] [id number] Insurance:MEDICARE LEWISDOB: Hospital STP O BOX PART A BPolicy [id number] Repository [address] [place] [address], Number: [place] [id number]: [id number] Date:2018-06-30 () 06/30/2018 Secondary NOT GIVENUNK [facility] Insurance:SELF PAY Hospital INSURANCEPolicy Repository Number: Effective Date:2018-06-30 06/22/2018 FOSTER A Primary FOSTER A [facility] [id number] Insurance:MEDICARE LEWISDOB: Hospital STP O BOX PART A BPolicy [id number] Repository [address] [place] [address], Number: [place] [id number]: [id number] Date:2016-03-16 () 06/22/2018 Secondary NOT GIVENUNK [facility] Insurance:SELF PAY Hospital INSURANCEPolicy Repository Number: Effective Date:2018-04-16 05/03/2018 FOSTER Primary FOSTER LEWISDOB: [facility] LEWISDOB: Insurance:MEDICARE [id number] System Repository [id number] PART APolicy Number: [id number] [address] [place] [address], [address] [place] [address], Date:2016-03-[place] [id number] [place] [id number]: () 04/13/2018 FOSTER A Primary FOSTER A [facility] [id number] Insurance:MEDICARE LEWISDOB: Hospital STP O BOX PART A BPolicy [id number] Repository [address] [place] [address], Number: [place] [id number]: [id number] Date:2016-03-16 () 04/13/2018 Secondary NOT GIVENUNK [facility] Insurance:SELF PAY [facility] INSURANCEPolicy Repository Number: Effective Date:2018-03-16 03/11/2018 FOSTER A Primary FOSTER A [facility] [id number] Insurance:MEDICARE LEWISDOB: Hospital STP O BOX PART A BPolicy [id number] Repository [address] [place] [address], Number: [place] [id number]: [id number] Date:2017-10-26 () 03/11/2018 Secondary NOT GIVENUNK [facility] Insurance:SELF PAY [facility] INSURANCEPolicy Repository Number: Effective Date:2018-03-11 03/11/2018 FOSTER A Primary FOSTER A [facility] [id number] Insurance:MEDICARE LEWISDOB: Hospital STP O BOX PART A BPolicy [id number] Repository [address] [place] [address], Number: [place] [id number]: [id number] Date:2016-03-16 () 03/11/2018 Secondary NOT GIVENUNK [facility] Insurance:SELF PAY Hospital INSURANCEPolicy Repository Number: Effective Date:2018-02-14 03/08/2018 FOSTER A Primary FOSTER A [facility] [id number] Insurance:MEDICARE LEWISDOB: Hospital STP O [address]OX PART A BPolicy [id number] Repository [address] [place] [address], Number: [place] [id number]: [id number] Date:2018-03-08 (HP) 03/08/2018 Secondary NOT GIVENUNK [facility] Insurance:SELF PAY Hospital INSURANCEPolicy Repository Number: Effective Date:2018-03-08 02/01/2018 FOSTER A Primary FOSTER A [facility] [id number] Insurance:MEDICARE LEWISDOB: Hospital STP O [address]OX PART A BPolicy [id number] Repository [address] [place] [address], Number: [place] [id number]: [id number] Date:2016-03-16 () 02/01/2018 Secondary NOT GIVENUNK [facility] Insurance:SELF PAY Hospital INSURANCEPolicy Repository Number: Effective Date:2017-12-17 01/25/2018 FOSTER Primary FOSTER LEWISDOB: [facility] LEWISDOB: Insurance:MEDICARE [id number] System Repository [id number] PART APolicy Number: [id number] [address] [place] [address], Date:2016-03-16 [place] [id number] [place] [id number]: () 01/14/2018 FOSTER A Primary FOSTER A [facility] [id number] Insurance:MEDICARE LEWISDOB: Hospital STP O [address]OX PART A BPolicy [id number] Repository [address] [place] [address], Number: [place] [id number]: [id number] Date:2017-10-21 () 01/14/2018 Secondary NOT GIVENUNK [facility] Insurance:SELF PAY Hospital INSURANCEPolicy Repository Number: Effective Date:2017-10-21
== END ==
PROVIDERS: Family Provider Internal Medicine; PCP Internal Medicine; Referring Provider Nurse Practitioner Acute Care; Visit Provider Nurse Practitioner Acute Care
DX: Z12.2 Encounter for screening for malignant neoplasm of respiratory organs (principal); Z87.891 Personal history of nicotine dependence
CPT/HCPCS: G0297

== ENCOUNTER 2018-12-20 10:46 | Outpatient (RCR) | payer MEDICARE, SELFPAY ==
[2018-10-25 08:57] VITALS: BMI 27.3
[2018-12-20 11:19] LABS: International Normalized Ratio 2.5; Prothrombin Time (Protime)PT. 27.4 SECONDS (11.7-14.9)
== END 2019-01-13 14:03 | disposition home or self-care (01) ==
LOC: LAB 10:46
PROVIDERS: Family Provider Internal Medicine; PCP Internal Medicine; Referring Provider Internal Medicine Cardiovascular Disease; Visit Provider Internal Medicine Cardiovascular Disease
DX: I48.92 Unspecified atrial flutter (principal); Z79.01 Long term (current) use of anticoagulants; J44.9 Chronic obstructive pulmonary disease, unspecified
CPT/HCPCS: 36415; 85610

== ENCOUNTER → 2019-03-02 14:46 | Outpatient (CLI) | payer MEDICARE, SELFPAY ==
[2019-01-26 08:35] VITALS: BMI 27.3
[2019-03-02 17:52] LABS: AST(SGOT) 72 U/L (15-37); Alanine Aminotransfer ALT/SGPT 78 U/L (16-61); Albumin, Serum 3.6 g/dL (3.2-5.0); Alkaline Phosphatase 81 U/L (45-117); Globulin 4.4 g/dL (2.2-4.2)
[2019-03-02 17:55] LABS: International Normalized Ratio 2.4; Prothrombin Time (Protime)PT. 25.8 SECONDS (11.7-14.9)
[2019-03-02 17:56] LABS: Partial Thromboplast Time 45.5 Seconds (24.1-36.2)
[2019-03-06 20:06] LABS: Comment 3 (.); HCV Quant. RNA PCR 446000 IU/mL (.)
[2019-03-07 11:10] LABS: AFP, Tumor Marker 9.5 ng/mL (0.0-8.3); HCV log 10 5.649 (.)
[2019-03-15 17:23] LABS: Hepatitis C Genotype 3
== END ==
PROVIDERS: Family Provider Internal Medicine; PCP Internal Medicine; Referring Provider Internal Medicine Gastroenterology; Visit Provider Internal Medicine Gastroenterology
DX: B19.20 Unspecified viral hepatitis C without hepatic coma (principal)
CPT/HCPCS: 36415; 80076; 82105; 85610; 85730; 87522; 87902

== ENCOUNTER 2019-04-01 10:45 | Outpatient (RCR) | payer MEDICARE, SELFPAY ==
[2018-10-25 08:57] VITALS: BMI 27.3
[2019-04-01 09:27] VITALS: BMI 27.8
[2019-04-01 12:19] LABS: Prothrombin Time (Protime)PT. 22.9 SECONDS (11.7-14.9)
== END 2019-04-01 12:00 | disposition home or self-care (01) ==
LOC: LAB 10:45
PROVIDERS: Family Provider Internal Medicine; PCP Internal Medicine; Referring Provider Internal Medicine Cardiovascular Disease; Visit Provider Internal Medicine Cardiovascular Disease
DX: I48.92 Unspecified atrial flutter (principal); Z79.01 Long term (current) use of anticoagulants
CPT/HCPCS: 36415; 85610

== ENCOUNTER 2019-10-10 07:36 | Outpatient (RCR) | payer MEDICARE, SELFPAY ==
[2019-08-03 10:25] VITALS: BMI 27.8
[2019-10-10 09:13] LABS: International Normalized Ratio 1.3; Prothrombin Time (Protime)PT. 16.4 SECONDS (11.7-14.9)
== END 2019-10-10 18:00 | disposition home or self-care (01) ==
LOC: LAB 07:36
PROVIDERS: Family Provider Internal Medicine; PCP Internal Medicine; Referring Provider Internal Medicine Cardiovascular Disease; Visit Provider Internal Medicine Cardiovascular Disease
DX: I48.20 Chronic atrial fibrillation, unspecified (principal); Z79.01 Long term (current) use of anticoagulants
CPT/HCPCS: 36415; 85610

== ENCOUNTER → 2019-11-03 08:54 | Outpatient (CLI) | payer MEDICARE, SELFPAY ==
[2019-08-03 10:25] VITALS: BMI 27.8
[2019-10-10 07:48] VITALS: BMI 27.2
[2019-11-03 09:44] VITALS: PULSE 64; PULSE 66; PULSE 83; PULSE 91; PULSE 93; PULSE 94; PULSE 96; O2SAT 92; O2SAT 93; O2SAT 94; O2SAT 95; O2SAT 96; O2SAT 97
--- NOTE | 2019-11-07 07:52 | WT_ITS ---
PSN 6 Minute Walk Test - 6 Minute Walk Test 6 Minute Walk Test: 6 Minute Walk Test PSN:6-Minute Walk Test Start: 11/03/19 09:44 Freq: Status: Active Protocol: RESP.6MINW Document 11/03/19 09:44 [facility] (Rec: 11/03/19 09:47 [facility] [id number]) 6 Minute Walk Test Date Performed 11/03/19 Time Performed 09:00 Height 6 ft Weight: 200 lb Weight in Pounds 200.[address]: Janelle Sellers Assistive device used: None Pre-test Oxygen Delivery Method Room Air Pulse Ox (%) 96 Pulse Rate (60-100 beats/min) 66 Dyspnea Alejandro Scale (0-10) 0 1st minute Oxygen Delivery Method Room Air Pulse Ox (%) 94 Pulse Rate (60-100 beats/min) 83 Dyspnea Alejandro Scale (0-10) 0 Number of Rests Taken 0 2nd minute Oxygen Delivery Method Room Air Pulse Ox (%) 94 Pulse Rate (60-100 beats/min) 96 Dyspnea Alejandro Scale (0-10) 0 Number of Rests Taken 0 3rd minute Oxygen Delivery Method Room Air Pulse Ox (%) 92 Pulse Rate (60-100 beats/min) 94 Dyspnea Alejandro Scale (0-10) 1 Number of Rests Taken 0 4th minute Oxygen Delivery Method Room Air Pulse Ox (%) 94 Pulse Rate (60-100 beats/min) 93 Dyspnea Alejandro Scale (0-10) 1 Number of Rests Taken 0 5th minute Oxygen Delivery Method Room Air Pulse Ox (%) 93 Pulse Rate (60-100 beats/min) 93 Dyspnea Alejandro Scale (0-10) 1 Number of Rests Taken 0 6th minute Oxygen Delivery Method Room Air Pulse Ox (%) 95 Pulse Rate (60-100 beats/min) 91 Dyspnea Alejandro Scale (0-10) 1 Number of Rests Taken 0 Post-test Oxygen Delivery Method Room Air Pulse Ox (%) 97 Pulse Rate (60-100 beats/min) 64 Dyspnea Alejandro Scale (0-10) 0 Full Laps Walked 17 Partial Lap, Number of Tiles Walked 32 Total Distance Walked (ft) 1035 - Interpretation Interpretation: The patient ambulated 1035 feet over the course of 6 minutes beginning on room air without assistive devices or breaks. Pretesting oxygen saturation was noted to be 96% on room air. With ambulation, the tianna oxygen saturation was 92%. This represents a significant exertional oxygen desaturation. - Recommendations Recommendations: There is no indication for the use of supplemental oxygen at this time.
== END ==
PROVIDERS: Family Provider Internal Medicine; PCP Internal Medicine; Referring Provider Nurse Practitioner Acute Care; Visit Provider Nurse Practitioner Acute Care
DX: J44.9 Chronic obstructive pulmonary disease, unspecified (principal)
CPT/HCPCS: 94618

== ENCOUNTER → 2019-11-03 09:26 | Outpatient (CLI) | payer MEDICARE, SELFPAY ==
[2019-10-10 07:48] VITALS: BMI 27.2
== END ==
PROVIDERS: Family Provider Internal Medicine; PCP Internal Medicine; Referring Provider Nurse Practitioner Acute Care; Visit Provider Nurse Practitioner Acute Care
DX: J44.9 Chronic obstructive pulmonary disease, unspecified (principal)

== ENCOUNTER 2019-11-07 08:46 | Outpatient (RCR) | payer MEDICARE, SELFPAY ==
[2019-10-10 07:48] VITALS: BMI 27.2
[2019-10-24 11:25] LABS: International Normalized Ratio 1.5; Prothrombin Time (Protime)PT. 18.2 SECONDS (11.7-14.9)
[2019-10-31 08:40] LABS: International Normalized Ratio 1.7; Prothrombin Time (Protime)PT. 19.7 SECONDS (11.7-14.9)
[2019-11-07 09:49] LABS: International Normalized Ratio 2.1; Prothrombin Time (Protime)PT. 23.7 SECONDS (11.7-14.9)
== END 2019-11-07 18:00 | disposition home or self-care (01) ==
LOC: LAB 08:46
PROVIDERS: Family Provider Internal Medicine; PCP Internal Medicine; Referring Provider Internal Medicine Cardiovascular Disease; Visit Provider Internal Medicine Cardiovascular Disease
DX: I48.20 Chronic atrial fibrillation, unspecified (principal); Z79.01 Long term (current) use of anticoagulants
CPT/HCPCS: 36415; 85610

== ENCOUNTER 2019-12-13 08:57 | Outpatient (RCR) | payer MEDICARE, SELFPAY ==
[2019-11-14 07:21] VITALS: BMI 27.2
[2019-11-21 13:58] LABS: International Normalized Ratio 1.8
[2019-12-05 11:13] LABS: International Normalized Ratio 3.1; Prothrombin Time (Protime)PT. 32.3 SECONDS (11.7-14.9)
[2019-12-13 09:25] LABS: Prothrombin Time (Protime)PT. 22.3 SECONDS (11.7-14.9)
== END 2019-12-13 18:00 | disposition home or self-care (01) ==
LOC: LAB 08:57
PROVIDERS: Family Provider Internal Medicine; PCP Internal Medicine; Referring Provider Internal Medicine Cardiovascular Disease; Visit Provider Internal Medicine Cardiovascular Disease
DX: I48.20 Chronic atrial fibrillation, unspecified (principal); Z79.01 Long term (current) use of anticoagulants
CPT/HCPCS: 36415; 85610

== ENCOUNTER → 2019-12-26 11:29 | Outpatient (CLI) | payer MEDICARE, SELFPAY ==
[2019-12-23 08:24] VITALS: BMI 27.2
[2019-12-26 13:27] LABS: International Normalized Ratio 2.2
== END ==
PROVIDERS: PCP Internal Medicine; Referring Provider Internal Medicine Cardiovascular Disease; Visit Provider Internal Medicine Cardiovascular Disease
DX: I48.91 Unspecified atrial fibrillation (principal); Z79.01 Long term (current) use of anticoagulants
CPT/HCPCS: 36415; 85610; 93225; 93226

== ENCOUNTER → 2020-05-23 07:45 | Outpatient (CLI) | payer MEDICARE, SELFPAY ==
[2020-05-15 07:32] VITALS: BMI 27.2
--- NOTE | 2020-05-23 07:45 | CT_ITS ---
STUDY: LOW DOSE CT LUNG CANCER SCREENING REASON FOR EXAM: Male, 70 years old. TOBACCO USE, 1 PPD X 50 YRS RADIATION DOSAGE (If Supplied By Facility): CTDIvol = ( 3.02 ) mGy, DLP = ( 99.68 ) mGycm TECHNIQUE: No contrast was administered. Low dose technique was utilized (average mAS-38 and kVp 120). 1.25 mm axial source images with a slice interval of 1.25-mm were reconstructed in lung windows. 2.5 mm axial source images with a slice interval of 2.5-mm were reconstructed in lung windows. 5.0 mm axial source images with a slice interval of 5.0-mm were reconstructed in soft tissue windows. Nodule measured using lung windows on PACS and/or independent workstation with automated measurement of minimum and maximum diameter. Nodule measurement reported as average diameter rounded to the nearest whole number. Growth is defined as an increase ins size of greater than 1.5 mm. COMPARISON: Comparison is made with prior examination dated November 02, 2018. NODULES: 3.3 mm noncalcified nodule in the medial aspect of the right middle lobe anteriorly. Stable 6 mm x 6 mm well-defined nodule in the right upper lobe abutting the minor fissure. This is seen on axial image #142. Calcified granuloma in the anterior aspect of the right upper lobe. This is unchanged. This is seen on axial image #158. Emphysema: Emphysematous changes with bullous formation in the upper lobes. This is unchanged. Endobronchial lesion: None Aorta: Atherosclerotic tortuosity. Coronary arteries: Coronary artery calcification. Mediastinal nodes: Small benign-appearing mediastinal lymph nodes. Other chest and abdominal findings: Degenerative changes of the thoracic spine. CT/Low Dose CT Lung Screening IMPRESSION: Lung-RADS category 2 - Continue annual screening with LDCT in 12 months. IMPORTANT NOTES FOR USE: ACR Lung-RADS Version 1.0 Assessment Categories Release Date: March 13, 2014 Category: Coded 0-4 bases on nodule(s) with highest degree of suspicion. Negative screen is defined as categories 1 and 2; a positive screen is defined as categories 3 and 4. Category 3 and 4A nodules that are unchanged on interval CT should be coded as category 2, and individuals returned to screening in 12 months. Category 4X: Category 3 or 4 nodules with additional imaging findings that increase the suspicion of lung cancer, such as spiculation, GGN that doubles in size in 1 year, enlarged lymph notes, etc. Category Modifiers: S (significant finding unrelated to lung cancer) and C (prior history of treated lung cancer) may be added to the 0-4 Lung-RADS Electronically Signed: Orville Phillip, at 9:58 EDT , Service support ,
== END ==
PROVIDERS: PCP Internal Medicine; Referring Provider Nurse Practitioner Acute Care; Visit Provider Nurse Practitioner Acute Care
DX: F17.210 Nicotine dependence, cigarettes, uncomplicated (principal)
CPT/HCPCS: G0297

== ENCOUNTER 2020-07-03 09:43 | Outpatient (RCR) | payer MEDICARE, SELFPAY ==
[2019-11-14 07:21] VITALS: BMI 27.2
[2020-07-03 09:12] VITALS: BMI 27.6
[2020-07-03 10:53] LABS: International Normalized Ratio 1.7; Prothrombin Time (Protime)PT. 19.8 SECONDS (11.7-14.9)
== END 2020-07-16 18:00 | disposition home or self-care (01) ==
LOC: LAB 09:43
PROVIDERS: Family Provider Internal Medicine; PCP Internal Medicine; Referring Provider Internal Medicine Cardiovascular Disease; Visit Provider Internal Medicine Cardiovascular Disease
DX: I48.20 Chronic atrial fibrillation, unspecified (principal); Z79.01 Long term (current) use of anticoagulants
CPT/HCPCS: 36415; 85610

== ENCOUNTER 2020-07-19 08:57 | Outpatient (RCR) | payer MEDICARE, SELFPAY ==
[2020-07-19 09:36] LABS: International Normalized Ratio 2.3; Prothrombin Time (Protime)PT. 24.5 SECONDS (11.7-14.9)
== END 2020-07-19 18:00 | disposition home or self-care (01) ==
LOC: LAB 08:57
PROVIDERS: Family Provider Internal Medicine; PCP Internal Medicine; Referring Provider Internal Medicine Cardiovascular Disease; Visit Provider Internal Medicine Cardiovascular Disease
DX: I48.20 Chronic atrial fibrillation, unspecified (principal); Z79.01 Long term (current) use of anticoagulants
CPT/HCPCS: 36415; 85610

== ENCOUNTER 2021-04-15 11:19 | Emergency (ER) | payer MEDICARE, SELFPAY ==
[2020-11-01 09:08] VITALS: BMI 27.8
[2021-04-15 11:21] VITALS: BP 101/57; PULSE 84; RESP 18; TEMP 36.6; O2SAT 99; BMI 32.8
--- NOTE | 2021-04-15 11:57 | EKG12_ITS ---
Test Reason : SYNCOPE Blood Pressure : / mmHG Vent. Rate : 078 BPM Atrial Rate : 078 BPM P-R Int : 138 ms QRS Dur : 100 ms QT Int : 396 ms P-R-T Axes : 053 015 044 degrees QTc Int : 451 ms Sinus rhythm with Premature atrial complexes Nonspecific ST abnormality Abnormal ECG Confirmed by YENNY LARA, KIKE ([id number]), editor book MIKEL OKEEFE ([id number]) on 04/17/2021 12:54:09 PM Referred By: VICTORINA Confirmed By:KIKE RAMON MD
--- NOTE | 2021-04-15 11:57 | RAD_ITS ---
STUDY: X-RAY CHEST REASON FOR EXAM: Male, 71 years old. Near syncope. TECHNIQUE: Single frontal view of the chest. COMPARISON: 10/16/2014. FINDINGS: Stable mild hyperexpansion with scattered healed granulomatous calcifications. There is no demonstrated pleural abnormality. Normal size heart. Normal mediastinum and essence. Normal visualized pulmonary arteries. Normal visualized aortic arch and descending thoracic aorta. Normal visualized thoracic spine. Normal visualized ribs, clavicles, and shoulders. There is no demonstrated abnormality of the visualized soft tissue structures of the upper abdomen. RAD/Chest 1 View (Portable) IMPRESSION: Stable chest with no acute or active cardiopulmonary disease. Electronically Signed: Kevin Rivera MD at 13:31 EDT , Service support ,
--- NOTE | 2021-04-15 11:58 | CT_ITS ---
EXAM: CT ABDOMEN AND PELVIS WITH INTRAVENOUS CONTRAST CLINICAL INDICATION: LLQ pain, diarrhea blood in stool. Eval diverticulitis TECHNIQUE: Helically acquired images were obtained of the abdomen and pelvis with intravenous contrast. This CT exam was performed using one or more of the following dose reduction techniques: automated exposure control, adjustment of the mA and/or kV according to patient size, and/or use of iterative reconstruction technique. This report was created using [employer] report generation technology. CONTRAST: IV 100mL Isovue-370 COMPARISON: None. FINDINGS: LOWER THORAX: Unremarkable. Lung bases are clear. No cardiomegaly. No significant pericardial effusion. ABDOMEN: LIVER: Unremarkable. Homogeneous. No focal mass. GALLBLADDER AND BILE DUCTS: No visible gallbladder and is presumably from laparoscopic cholecystectomy. No intra- or extrahepatic biliary ductal dilation. PANCREAS: Unremarkable. No focal cystic or solid mass. SPLEEN: Unremarkable. Normal size without focal cystic or solid mass. ADRENALS: Unremarkable. No nodules. KIDNEYS AND URETERS: Nonenhancing 1.7 cm simple cyst in the right posterior renal parenchyma. No stones or hydronephrosis in both kidneys. Normal renal size and position. STOMACH AND BOWEL: Small diverticula along the sigmoid colon with intramural thickening and haziness of the pericolic fat. They are consistent with mild acute diverticulitis. No diverticular abscess or phlegmon. No stomach or bowel distention. PELVIS: APPENDIX: Normal. BLADDER: Unremarkable. REPRODUCTIVE: Unremarkable as visualized. No mass. ABDOMEN and PELVIS: INTRAPERITONEAL SPACE: Unremarkable. No ascites or other fluid collection. No free air. BONES/JOINTS: Unremarkable. No suspicious lytic or blastic abnormality. SOFT TISSUES: Unremarkable. No discrete abdominal or pelvic wall hernia. VASCULATURE: Calcified plaques along the abdominal aorta and iliac arteries. Abdominal aorta is non-dilated. LYMPH NODES: Unremarkable. No enlarged lymph nodes. CT/Abdomen/Pelvis W IV Cont ONLY IMPRESSION: 1. Sigmoid diverticulosis with mild acute diverticulitis. 2. 1.7 cm nonenhancing simple cyst of the right posterior renal parenchyma. Electronically Signed: Abhijit Doan MD at 13:27 EDT , Service support ,
[2021-04-15 12:10] VITALS: BP 122/69; PULSE 78; RESP 16; O2SAT 98
[2021-04-15 12:13] LABS: Absolute Neutrophil Count 11.1 X10^3/uL (2.0-7.7); Basophil# 0.04 X10^3/uL; Basophil% 0.3 % (0-1); Eosinophil# 0.09 X10^3/uL; Eosinophils% 0.7 % (0-5); Hematocrit 43.5 % (40-54); Hemoglobin 14.6 g/dL (13.0-16.5); Lymphocyte % 11.9 % (19-41); Mean Corp Hgb Conc 33.6 g/dL (32-36); Mean Corpuscular Hgb 31.3 pg (27.0-32.0); Mean Corpuscular Volume 93.1 fL (80-94); Mean Platelet Vol. 11.3 fl (6.2-12.0); Monocyte% 4.5 % (0-10); NRBC Flagged by Analyzer 0 % (0-5); Neutrophil # 11.08 X10^3/uL (2.7-7.7); Neutrophil % 82.3 % (47-70); Platelet Count 208 K/mm3 (150-450); RBC Distribution Width CV 13.5 % (11.6-14.6); Red Blood Count 4.67 M/mm3 (4.6-6.2); White Blood Count 13.5 K/mm3 (4.4-11.0)
[2021-04-15 12:29] LABS: ALB/GLOB Ratio 0.8 RATIO (0.9-2.4); AST(SGOT) 18 U/L (15-37); Alanine Aminotransfer ALT/SGPT 18 U/L (16-61); Albumin, Serum 3.6 g/dL (3.2-5.0); Alkaline Phosphatase 99 U/L (45-117); Anion Gap 4 (5-15); BUN 18 mg/dL (7-18); BUN/Creat Ratio 15.9 RATIO (10-20); Calcium,Total 8.7 mg/dL (8.5-10.1); Chloride 102 mmol/L (98-107); Creatinine, Serum 1.13 mg/dL (0.70-1.30); EST Glomerular Filtration Rate 68 mL/min (>60); Est Glom Filt Rate - Afr Amer 83 mL/min (>60); Estimated Creatinine Clearance 64.79 ml/min; Globulin 4.3 g/dL (2.2-4.2); Glucose 140 mg/dL (74-106); Potassium 3.5 mmol/L (3.5-5.1); Protein, Total 7.9 g/dL (6.4-8.2); Sodium Level 136 mmol/L (136-145)
--- NOTE | 2021-04-15 12:31 | EDS_ITS ---
HPI History of Present Illness Chief Complaint: Syncope Informant: patient Narrative Narrative: Patient is a 71-year-old male with a past medical history of A. fib who is anticoagulated with Coumadin who presents to the emergency department for a near syncopal episode today. He states that he was up making some breakfast. All of a sudden he felt lightheaded. He felt very pale and got diaphoretic. He went to lie down and after 2 to 3 minutes he felt better and was able to get up and finish making his breakfast. He denies having this happen before in the past. He denies having any chest pain, shortness of breath or heart palpitations through any of this. Of note he was having left lower quadrant abdominal pain yesterday. He relates this to his history of diverticulitis. He has had some loose stools as well as some bright red blood per rectum when wiping. No bloody bowel movement today. He denies any melanotic stools. No nausea or vomiting. No fevers, chills. At rest he denies any significant abdominal pain. This is exacerbated by pressing on it. No previous abdominal surgeries. He denies any leg swelling or calf pain. [facility] Medical History (Updated 04/15/21 @ 15:[address] Sai Coleman, DO) Atrial flutter Cardiomyopathy in other diseases classified elsewhere Chronic atrial fibrillation Dyspnea on effort Essential (primary) hypertension Fatigue H/O ETOH abuse Hepatitis C Multiple subsolid lung nodules less than 6 mm in diameter Nicotine dependence Nonrheumatic mitral (valve) prolapse Obstructive sleep apnea AISHWARYA (obstructive sleep apnea) Paroxysmal atrial fibrillation Shoulder pain Smoking greater than 40 pack years SOB (shortness of breath) Stage 2 moderate COPD by GOLD classification Syncope and collapse Home Medications multivitamin 1 tab PO DAILY 07/03/20 [History Last Taken Unknown] carvedilol 25 mg tablet 25 mg PO BID #180 tab 01/18/21 [Rx Last Taken Unknown] hydrochlorothiazide 25 mg tablet 25 mg PO QAM #90 tab 01/18/21 [Rx Last Taken Unknown] lisinopril 20 mg tablet 20 mg PO BID #180 tab 01/18/21 [Rx Last Taken Unknown] metronidazole [Flagyl] 500 mg PO BID 7 Days #14 tab 04/15/21 [Rx Last Taken Unknown] sulfamethoxazole-trimethoprim [Bactrim DS] 1 tab PO BID 7 Days #14 tab 04/15/21 [Rx Last Taken Unknown] warfarin 5 mg PO HANNAH 04/15/21 [History Last Taken Unknown] warfarin 7.5 mg PO MOTUWETHFRSA 04/15/21 [History Last Taken Unknown] Allergy/AdvReac Type Severity Reaction Status Date / Time ampicillin Allergy Unknown Verified 04/15/21 11:24 Penicillins Allergy Hives Verified 04/15/21 11:24 sulindac [From Clinoril] Allergy Unknown Verified 04/15/21 11:24 Family History Mother Breast cancer Father Cancer Surgical History History of cholecystectomy History of herniorrhaphy vocal cord surgery Social History household members: spouse housing: house current occupational status: previously employed and retired pets and animals: Yes pets and animals: cat(s) Smoking Status: Current every day smoker tobacco type: cigarettes Tobacco: How many years used: 60 second hand exposure: Yes alcohol intake: current alcohol intake frequency: a few times a week Alcohol type: beer substance use type: does not use caffeine: No what type of physical activity do you participate in: none ROS ROS ED Constitutional Constitutional ED: Denies chills or fever(s) Eyes Eyes: Denies change in vision ENT ENT ED: Denies epistaxis or rhinorrhea Cardiovascular Cardiovascular: Denies chest pain or palpitations Respiratory/Chest Respiratory/Chest: Denies cough, dyspnea or dyspnea on exertion Gastrointestinal Gastrointestinal: Reports abdominal pain and diarrhea; Denies melena, nausea or vomiting Genitourinary Genitourinary ED: Reports urinary frequency; Denies dysuria or hematuria Musculoskeletal Musculoskeletal: Denies back pain or neck pain Integumentary Denies rash Neurologic Neurologic: Denies dizziness, headache(s) or weakness EXAM Physical Exam Const Vital Signs: 04/15/21 11:21 04/15/21 12:10 04/15/21 12:14 Temperature 97.9 F Temperature Source Temporal Pulse Rate 84 78 Pulse Rate [Lying] Pulse Rate [Sitting] Pulse Rate [Standing] Respiratory Rate 18 16 Respiratory Effort Normal Respiratory Pattern Normal Blood Pressure 101/57 L 122/69 H Blood Pressure [Lying] Blood Pressure [Sitting] Blood Pressure [Standing] Blood Pressure Mean 71 86 Blood Pressure Mean [Lying] Blood Pressure Mean [Sitting] Blood Pressure Mean [Standing] Pulse Ox 99 98 Oxygen Delivery Method Room Air Room Air 04/15/21 13:20 04/15/21 14:36 04/15/21 15:13 Temperature Temperature Source Pulse Rate 84 83 Pulse Rate [Lying] 76 Pulse Rate [Sitting] 81 Pulse Rate [Standing] 79 Respiratory Rate 16 14 Respiratory Effort Respiratory Pattern Blood Pressure 111/74 115/78 Blood Pressure [Lying] 122/79 H Blood Pressure [Sitting] 115/75 Blood Pressure [Standing] 105/66 Blood Pressure Mean Blood Pressure Mean [Lying] 93 Blood Pressure Mean [Sitting] 88 Blood Pressure Mean [Standing] 79 Pulse Ox 98 99 Oxygen Delivery Method Positive well nourished and well developed General Appearance ED: well developed Eyes PERRL and EOMs intact bilaterally Resp normal respiratory effort and clear to auscultation bilaterally Effort and Inspection: pain with movement Cardio regular rate and regular rhythm Rate: other GI normal to inspection, nondistended, normoactive bowel sounds; Negative for non- distended Palpation: tender LLQ (Mild to deep palpation); Negative for guarding or rebound tenderness present Back/Spine no CVA tenderness Extremity normal to inspection General Extremety ED: Negative for edema or tenderness General Extremity: Negative for edema Neuro oriented x3 Sensorium / Orientation: alert Skin no rashes or lesions noted MDM MDM MDM Narrative Medical decision making narrative: Patient presents to the emergency department for near syncope episode today. He is asymptomatic at this time. He is also complained left lower quadrant pain. He feels like he is have an episode of diverticulitis because had some diarrhea and red blood in the stool. On arrival to the emergency room vital signs within normal limits. He is in no acute distress. He is relatively asymptomatic at this time. Will check basic lab work along with CT scan of the abdomen/pelvis. Patient CT scan was suspicious for diverticulitis. He is also nitrite positive on urinalysis. Patient is anxious on getting out of the emergency department and going home. I have been working on trying to figure out the best antibiotic choice form. Did call and discussed the case with the pharmacist. He is allergic to penicillin so Augmentin is not the best choice. Cipro and Flagyl both interact with his warfarin. We will trial Bactrim and Flagyl. He understands he needs to have close follow-up with his PCP for INR monitoring. I did attempt to call the PCP but never got a return call. Patient understands return precautions. He is discharged home in stable condition. All questions were answered. Lab Data Labs: Laboratory Results - last 24 hr 04/15/21 04/15/21 04/15/21 11:33 11:35 11:35 WBC 13.5 H RBC 4.67 Hgb 14.6 Hct 43.5 MCV 93.1 MCH 31.3 MCHC 33.6 RDW Std Deviation 46.0 H RDW Coeff of Josiah 13.5 Plt Count 208 MPV 11.3 Immature Gran % (Auto) 0.300 Neut % (Auto) 82.3 H Lymph % (Auto) 11.9 L Roosevelt % (Auto) 4.5 Eos % (Auto) 0.7 Baso % (Auto) 0.3 Absolute Neuts (auto) 11.1 H Absolute Lymphs (auto) 1.60 Nucleated RBC % 0 PT 33.4 H INR 3.4 Sodium 136 Potassium 3.5 Chloride 102 Carbon Dioxide 30.0 Anion Gap 4 L BUN 18 Creatinine 1.13 Estim Creat Clear Calc 64.79 Est GFR (MDRD) Af Amer 83 Est GFR (MDRD) Non-Af 68 BUN/Creatinine Ratio 15.9 Glucose 140 H Calcium 8.7 Total Bilirubin 1.20 H AST 18 ALT 18 Alkaline Phosphatase 99 Troponin I < 0.015 Total Protein 7.9 Albumin 3.6 Globulin 4.3 H Albumin/Globulin Ratio 0.8 L Urine Color Urine Clarity Urine pH Ur Specific Roberts Urine Protein Urine Glucose (UA) Urine Ketones Urine Occult Blood Urine Nitrite Urine Bilirubin Urine Urobilinogen Ur Leukocyte Esterase Urine RBC Urine WBC Ur Squamous Epith Cells Urine Bacteria Hyaline Casts Urine Mucus 04/15/21 12:44 WBC RBC Hgb Hct MCV MCH MCHC RDW Std Deviation RDW Coeff of Josiah Plt Count MPV Immature Gran % (Auto) Neut % (Auto) Lymph % (Auto) Roosevelt % (Auto) Eos % (Auto) Baso % (Auto) Absolute Neuts (auto) Absolute Lymphs (auto) Nucleated RBC % PT INR Sodium Potassium Chloride Carbon Dioxide Anion Gap BUN Creatinine Estim Creat Clear Calc Est GFR (MDRD) Af Amer Est GFR (MDRD) Non-Af BUN/Creatinine Ratio Glucose Calcium Total Bilirubin AST ALT Alkaline Phosphatase Troponin I Total Protein Albumin Globulin Albumin/Globulin Ratio Urine Color Deb Urine Clarity Clear Urine pH 6.0 Ur Specific Roberts 1.015 Urine Protein 30 H Urine Glucose (UA) Normal Urine Ketones 5 H Urine Occult Blood 25 H Urine Nitrite Positive H Urine Bilirubin 3 H Urine Urobilinogen 8 H Ur Leukocyte Esterase 25 H Urine RBC 0-5 SEEN Urine WBC 0-5 SEEN Ur Squamous Epith Cells 0 SEEN Urine Bacteria 0 SEEN Hyaline Casts 0-5 SEEN Urine Mucus RARE Radiography Diagnostic Testing: Radiology Impression Chest X-Ray 04/15/21 11:57 IMPRESSION: Stable chest with no acute or active cardiopulmonary disease. Electronically Signed: Kevin Rivera MD at 13:31 EDT , Service support , Abdomen/Pelvis CT 04/15/21 11:58 IMPRESSION: 1. Sigmoid diverticulosis with mild acute diverticulitis. 2. 1.7 cm nonenhancing simple cyst of the right posterior renal parenchyma. Electronically Signed: Abhijit Doan MD at 13:27 EDT , Service support , EKG Initial EKG: Attestation: I personally reviewed and interpreted this EKG as follows: (Rate of 78 bpm and normal sinus rhythm. No significant ST elevations or depressions. No T wave abnormalities.) Discharge Plan Triage Chief Complaint: Syncope ED Provider: Sai Coleman Dx/Rx/DC Orders Clinical Impression: Diverticulitis, Acute UTI, Near syncope Instructions: ED Diverticulitis, ED Near-Fainting, Uncertain Cause, ED Urinary Tract Infections in Men Prescriptions: New metronidazole [Flagyl] 500 mg tablet 500 mg PO BID 7 Days Qty: 14 RF: 0 sulfamethoxazole-trimethoprim [Bactrim DS] 800-160 mg tablet 1 tab PO BID 7 Days Qty: 14 RF: 0 No Action multivitamin Tablet 1 tab PO DAILY RF: 0 warfarin 7.5 mg Tablet 7.5 mg PO MOTUWETHFRSA RF: 0 warfarin 5 mg tablet 5 mg PO HANNAH RF: 0 carvedilol [Coreg] 25 mg tablet 25 mg PO BID Qty: 180 RF: 3 hydrochlorothiazide 25 mg tablet 25 mg PO QAM Qty: 90 RF: 3 lisinopril 20 mg tablet 20 mg PO BID Qty: 180 RF: 3 Primary Care Provider: Juan Heredia Referrals: Juan Heredia MD [Primary Care Provider] - 3-5 Days Disposition Disposition: Home, self care Discharge Date/Time: 04/15/21 15:14
[2021-04-15 12:46] LABS: International Normalized Ratio 3.4; Prothrombin Time (Protime)PT. 33.4 SECONDS (11.7-14.9)
[2021-04-15 12:49] LABS: Bacteria 0 SEEN /hpf (None Seen); Squamous Epithelial Cells - UA 0 SEEN /hpf (0-5)
[2021-04-15 13:04] LABS: Color, Urine Amber (Yellow); Glucose, Dipstick Normal (Normal); Ketone-Dipstick 5 mg/dl (Negative); Leukocyte Esterase-Dipstick 25 /ul (Negative); Nitrite-Dipstick Positive (Negative); Occult Blood-Urine 25 /ul (Negative); Protein-Dipstick 30 mg/dl (Negative); Specific Gravity, Urine 1.015 (1.002-1.030); Urine Bilirubin Dipstick 3 mg/dL (Negative); Urine Clarity Clear (Clear); Urine Urobilinogen 8 mg/dl (Normal)
[2021-04-15 13:10] LABS: Hyaline Cast 0-5 SEEN /lpf (0-5); Mucous, Urine RARE /hpf (<or=2+); Red Blood Cells-Urine 0-5 SEEN /hpf (0-5); White Blood Cells 0-5 SEEN /hpf (0-5)
[2021-04-15 13:20] VITALS: BP 105/66; BP 115/75; BP 122/79; PULSE 76; PULSE 79; PULSE 81
--- NOTE | 2021-04-15 13:24 | ED.RN ---
Reports no dizziness, nausea or lightheadedness.
[2021-04-15 14:36] VITALS: BP 111/74; PULSE 84; RESP 16; O2SAT 98
[2021-04-15 15:13] VITALS: BP 115/78; PULSE 83; RESP 14; O2SAT 99
== END 2021-04-15 15:14 | disposition home or self-care (01) ==
PROVIDERS: Emergency Provider Emergency Medicine; PCP Internal Medicine
DX: K57.92 Diverticulitis of intestine, part unspecified, without perforation or abscess without bleeding (principal); N39.0 Urinary tract infection, site not specified; R55 Syncope and collapse; F17.210 Nicotine dependence, cigarettes, uncomplicated; I48.92 Unspecified atrial flutter; I48.0 Paroxysmal atrial fibrillation; I42.9 Cardiomyopathy, unspecified; I10 Essential (primary) hypertension; Z79.01 Long term (current) use of anticoagulants; Z79.899 Other long term (current) drug therapy
CPT/HCPCS: 71045; 74177; 80053; 81001; 84484; 85025; 85610; 93005; 99285; Q9967; A4216

== ENCOUNTER 2021-05-06 09:43 | Outpatient (RCR) | payer MEDICARE, SELFPAY ==
[2021-04-18 10:02] LABS: International Normalized Ratio 1.5; Prothrombin Time (Protime)PT. 17.8 SECONDS (11.7-14.9)
[2021-04-22 08:47] LABS: International Normalized Ratio 1.5; Prothrombin Time (Protime)PT. 17.6 SECONDS (11.7-14.9)
[2021-05-06 12:08] LABS: International Normalized Ratio 1.5; Prothrombin Time (Protime)PT. 17.2 SECONDS (11.7-14.9)
== END 2021-05-06 18:00 | disposition home or self-care (01) ==
LOC: LAB 09:43
PROVIDERS: Family Provider Internal Medicine; PCP Internal Medicine; Referring Provider Internal Medicine Cardiovascular Disease; Visit Provider Internal Medicine Cardiovascular Disease
DX: I48.20 Chronic atrial fibrillation, unspecified (principal); Z79.01 Long term (current) use of anticoagulants
CPT/HCPCS: 36415; 85610

== ENCOUNTER → 2021-05-29 07:37 | Outpatient (CLI) | payer MEDICARE, SELFPAY ==
[2021-05-09 08:06] VITALS: BMI 27.8
--- NOTE | 2021-05-29 07:39 | CT_ITS ---
STUDY: LOW DOSE CT LUNG CANCER SCREENING REASON FOR EXAM: Male, 71 years old. Smoking and amp;gt; 40 pack years RADIATION DOSAGE (If Supplied By Facility): CTDIvol = ( 4.02 ) mGy, DLP = ( 137.43 ) mGycm TECHNIQUE: No contrast was administered. Low dose technique was utilized (average mAS-38 and kVp 120). 1.25 mm axial source images with a slice interval of 1.25-mm were reconstructed in lung windows. 2.5 mm axial source images with a slice interval of 2.5-mm were reconstructed in lung windows. 5.0 mm axial source images with a slice interval of 5.0-mm were reconstructed in soft tissue windows. Nodule measured using lung windows on PACS and/or independent workstation with automated measurement of minimum and maximum diameter. Nodule measurement reported as average diameter rounded to the nearest whole number. Growth is defined as an increase ins size of greater than 1.5 mm. COMPARISON: Comparison is made with prior study dated 05/23/2020. NODULES: Stable 6 mm ill-defined nodule in the right upper lobe posteriorly abutting the minor fissure. This is best seen on axial image #134 and coronal image #79. Stable 3 mm noncalcified nodule in the medial aspect of the right middle lobe anteriorly. Emphysema: Stable mild degree of emphysematous changes. Endobronchial lesion: None Aorta: Atherosclerotic calcific plaques of the aortic arch. Coronary arteries: Coronary artery calcification. Mediastinal nodes: Small benign-appearing mediastinal lymph nodes. Other chest and abdominal findings: Degenerative changes of the thoracic spine. CT/Low Dose CT Lung Screening IMPRESSION: Lung-RADS category 2 - Continue annual screening with LDCT in 12 months. IMPORTANT NOTES FOR USE: ACR Lung-RADS Version 1.1 Assessment Categories Release Date: 2018 Category: Coded 0-4 bases on nodule(s) with highest degree of suspicion. Negative screen is defined as categories 1 and 2; a positive screen is defined as categories 3 and 4. Category 3 and 4A nodules that are unchanged on interval CT should be coded as category 2, and individuals returned to screening in 12 months. Category 4X: Category 3 or 4 nodules with additional imaging findings that increase the suspicion of lung cancer, such as spiculation, GGN that doubles in size in 1 year, enlarged lymph notes, etc. Category Modifiers: S (significant finding unrelated to lung cancer) Electronically Signed: Orville Phillip MD at 11:08 EDT , Service support ,
== END ==
PROVIDERS: PCP Internal Medicine; Referring Provider Nurse Practitioner Acute Care; Visit Provider Nurse Practitioner Acute Care
DX: F17.210 Nicotine dependence, cigarettes, uncomplicated (principal); R91.8 Other nonspecific abnormal finding of lung field
CPT/HCPCS: 71271

== ENCOUNTER 2021-06-04 10:10 | Outpatient (RCR) | payer MEDICARE, SELFPAY ==
[2021-05-09 08:06] VITALS: BMI 27.8
[2021-05-20 10:24] LABS: International Normalized Ratio 1.7; Prothrombin Time (Protime)PT. 19.5 SECONDS (11.7-14.9)
[2021-06-04 10:40] LABS: Prothrombin Time (Protime)PT. 21.5 SECONDS (11.7-14.9)
== END 2021-06-04 18:00 | disposition home or self-care (01) ==
LOC: LAB 10:10
PROVIDERS: Family Provider Internal Medicine; PCP Internal Medicine; Referring Provider Internal Medicine Cardiovascular Disease; Visit Provider Internal Medicine Cardiovascular Disease
DX: I48.0 Paroxysmal atrial fibrillation (principal); Z79.01 Long term (current) use of anticoagulants
CPT/HCPCS: 36415; 85610

== ENCOUNTER 2021-06-19 06:23 | Day surgery (SDC) | payer MEDICARE, SELFPAY ==
[2021-05-09 08:06] VITALS: BMI 27.8
--- NOTE | 2021-06-16 16:37 | HP.PCM_ITS ---
History and Physical Date of Admission: 06/19/21 HISTORY AND PHYSICAL Kirit Martinez 1950 REFERRING PHYSICIAN: Juan Heredia MD CHIEF COMPLAINT: Consult (screening colonoscopy) HPI: The patient is a 71 year old male referred for endoscopy. Kirit notes no colon complaints. Patient denies any change in bowel habits, weight changes, blood in stools, black tarry stools or abdominal pain. Family history significant for father-diagnosed with colon cancer in his 70s. The patient notes no upper GI complaints. Kirit has undergone prior endoscopy. Last colonoscopy 10/18/[address] Collier with removal of a small adenomatous polyp in the descending colon. Patient's past medical history is significant for atrial fibrillation, BPH, alcoholism, COPD. He follows with Dr. Heredia in primary care for his chronic medical conditions, Dr. Mcconnell in pulmonology and Dr. Roberts in cardiology. PAST MEDICAL HISTORY PAST MEDICAL HISTORY Diagnosis Date ? A-fib (HCC) 10/07/2014 Dr. Nas Roberts. ? Alcoholism, chronic (HCC) 12/06/2012 ? Benign neoplasm of colon ? BPH w/o urinary obs/LUTS 06/18/2011 ? Calculus of kidney 2001 Calcium oxalate ? CHOLECYSTITIS NOS,resolved 08/29/2005 ? Closed fracture of rib(s), unspecified 09/16/2005 ? COPD (chronic obstructive pulmonary disease) (HCC) 02/06/2020 Dr. Mcconnell ? Degeneration of cervical intervertebral disc ? Diverticulosis of colon (without mention of hemorrhage) ? Hepatitis B 09/05/2009 [facility] ? Hepatitis C antibody test positive 09/05/2009 ? 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 Liu Ford, [facility] ? Hoarseness of voice 03/31/2017 ? HTN (hypertension), benign 10/31/2009 ? Impaired fasting glucose 07/30/2010 ? Lipoma Posterior trunk ? Lumbar disc herniation 10/28/2014 [facility] ? Lung nodule < 6cm on CT 01/28/[address] yearly per Dr. Mcconnell ? AISHWARYA on CPAP 01/15/2015 ? Other specified diseases of the salivary glands Pleomorphic adenoma, left, excised ? Tobacco use disorder 07/17/2010 ? 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 COLONOS W/REM POLYP SNARE 03/03/07 ? COLONOSCOP W/ OR W/O BRSH SPEC 06/01/2008 Colonoscopy ? COLONOSCOP W/ OR W/O BRSH SPEC 10/15/2011 Colonoscopy ? COLONOSCOP W/ OR W/O BRS SPEC 10/18/15 Colonoscopy ? DIRECT LARYNGOSCOPY WITH BIOPSY 04/2017 [facility] ? DIRECT LARYNGOSCOPY WITH BIOPSY 10/2017 KTP laser SC carcinoma of glottis, [facility] ? LAPAROSCOPIC CHOLEYCYSTECTOMY 08/19/05 Cholecystectomy, lap ? PAST SURGICAL HISTORY OF 2004 Left parotid pleomorphic adenoma ? PAST SURGICAL HISTORY OF 10/2009 Cyst removed from back. ? REPAIR ING HERNIA,5+Y/O,REDUCIBL 1970 Hernia repair, inguinal ? SIGMOIDOSCOPY FLEX DIAG 05/17/2007 Sigmoidoscopy CURRENT MEDICATIONS Current Outpatient Medications Medication Sig ? MULTIVITAMIN ORAL Take by mouth. ? carvedilol (COREG) 25 mg tablet Take 1 tablet by mouth twice daily with meals. ? hydrochlorothiazide (HYDRODIURIL, ESIDRIX) 25 mg tablet Take 1 tablet by mouth once daily. ? thiamine (VITAMIN B1) 100 mg tablet Take 1 tablet by mouth once daily. ? lisinopril (ZESTRIL, PRINIVIL) 20 mg tablet Take 20 mg by mouth twice daily. ? warfarin (COUMADIN) 5 mg tablet Take 7.5 mg by mouth daily as directed. No current facility-administered medications for this visit. ALLERGIES: Clinoril [Sulindac] and Penicillins PERSONAL HISTORY: SOCIAL HISTORY Social History Tobacco Use ? Smoking status: Current Every Day Smoker Packs/day: 1.00 Years: 51.00 Pack years: 51.00 Types: Cigarettes ? Smokeless tobacco: Never Used Vaping Use ? Vaping Use: Never used Substance Use Topics ? Alcohol use: Yes Alcohol/week: 30.0 standard drinks Types: 12 Cans of Beer (12oz) per week Comment: weekends ? Drug use: No FAMILY HISTORY: FAMILY HISTORY FAMILY HISTORY Problem Relation Age of Onset ? Colon Cancer Father age 70s ? Breast Cancer Mother age 45 ? None Sister REVIEW OF SYMPTOMS: The review of systems data was entered by the nurse and reviewed by nh Nursing Notes: Ana Sahu RN 05/08/2021 10:04 AM Signed REVIEW OF SYSTEMS: General: The patient denies fatigue, denies weight loss, denies weight gain, denies feeling hot, and denies feelings of cold. Eyes: The patient denies glaucoma, denies eye injury/surgery, does not wear glasses or contacts. Ear/Nose/Throat: The patient notes allergies, notes hayfever, denies ear infections, and denies bloody noses. Cardiovascular: The patient denies chest pain, denies heart disease, notes high blood pressure,denies cardiac stent, denies prior heart attack, notes irregular heart beat, denies high cholesterol, denies poor circulation, denies heart failure, other cardiac issues, denies claudication, denies cold feet, denies peripheral arterial stent. Respiratory: The patient denies tuberculosis, denies pneumonia, notes frequent cough, denies pulmonary embolism, denies shortness of breath, and denies coughing up blood. Gastrointestinal: The patient denies difficulty swallowing, denies acid reflux, denies ulcers, denies vomiting, denies jaundice/hepatitis, denies gallbladder problems, denies black or tarry stools, denies hemorrhoids, denies bleeding from rectum, notes diverticulitis, denies constipation, notes diarrhea, denies loss of stool control, and notes hernias. Kidney/Bladder: The patient notes kidney stones, notes urine infections, a nd denies bloody urine. Skin: The patient denies a history of skin cancer, denies bleeding/changing moles, and denies a history of skin rash. Neurologic: The patient denies a history of epilepsy/convulsions, denies headaches, denies head/spinal injuries, and denies stroke/TIA. Psychiatric: The patient denies psychiatric medications, denies depression, and denies voices, denies substance abuse. Endocrine: The patient denies thyroid disorders, denies diabetes, and denies hormonal problems. Hematologic: The patient notes a history of bruising, notes bleeding, and denies anemia, denies blood clots. Infections: The patient notes a history of measles and mumps, denies rheumatic fever, and denies sexually transmitted diseases. Musculoskeletal: The patient denies back pain/injury, notes back problems, notes sciatica, denies knee/foot trouble, denies arthritis, or denies gout. When was patient's last Mammogram screening? N/A Last Colonoscopy: Ana Sahu RN PHYSICAL EXAMINATION: General: The patient is 71 year old male, well nourished, well hydrated in no acute distress. The patient is oriented to time, place, and person. VITALS: Blood pressure 136/60, pulse 60, temperature 36.1 ?C (97 ?F), height 180.3 cm (5' 11), weight 93.6 kg (206 lb 6.4 oz), SpO2 99 %. Body mass index is 28.79 kg/m?. HEENT: Normal cephalic, ataumatic, pupils are equally round, sclera are anicteric, mucous membranes are moist, oropharynx is clear. Neck has no masses, asymmetry or lymphadenopathy. Respiratory: Clear to auscultation and percussion. Normal respiratory excursion and pattern. Cardiac: Examination is regular rate and rhythm. Normal S1/S2 Abdominal exam: Soft, nontender, with no palpable masses. No hepatosplenomegaly. No palpable hernias. Extremities: no clubbing, cyanosis or edema. No adenopathy. LABORATORY VALUES: As Noted RADIOLOGIC STUDIES: As Noted Assessment IMPRESSION: encounter for screening colonoscopy. Recent diverticulitis episode PLAN: I have reviewed my findings with the surgeon. Will plan for lower endoscopy. We discussed the risks and benefits of the planned endoscopy. I have informed the patient that complications can occur including failure to complete the endoscopy and perforation. The patient had the opportunity to ask questions concerning the planned endoscopy. My staff has also explained the procedure to the patient in understandable terms and has given the patient printed material concerning the procedure. The patient freely consents to surgery. The patient was offered a surgery/procedure I have counseled the patient regarding the risk of exposure to and/or potential harm posed by the COVID-19 virus with having a surgery/procedure at this time versus the risk of delaying the surgery/procedure. It is not possible to know either the risk of delaying the surgery or procedure or chance of getting an infection with perfect accuracy, but a joint decision was made between the patient and myself to proceed at this time with endoscopy. I plan to use Miralax bowel preparation We will plan for Monitored Anesthetic Care. Request for cardiac clearance and permission to hold anticoagulation faxed to [facility] Diagnoses: (Z12.11) Screening for colon cancer SOPHY RamirezC
[2021-06-19] VITALS (7 sets, daily range): BP systolic 95–137; BP diastolic 64–84; PULSE 52–69; RESP 16–21; TEMP 36.1–36.4; O2SAT 96–98; BMI 26.4
[2021-06-19] MEDS: Lactated Ringers 1,000 ML 75 ML IV (07:00)
[2021-06-19 07:08] LABS: International Normalized Ratio 1.9; Prothrombin Time (Protime)PT. 21.1 SECONDS (11.7-14.9)
--- NOTE | 2021-06-19 07:30 | COLBX_PTH ---
PATIENT: LUCI CARDONA LOC: EN U#:[id number] AGE/SX: 71/M ROOM: RE06/19/[address]: Dr. Carli De La Garza MD : 1950 BED: DIS: 06/19/2021 SPEC #: [id number] RECD: 06/19/21 12:17 STATUS: ANKITA REGermania #: [id number] LUCINA: 06/19/21 07:[address]: Carli De La Garza DEPT: SURGICAL PATHOLOGY RECD BY: Louisa Morrison ENTERED: 06/19/21 13:09 SP TYPE: COLON BX OTHR DR: Dr. Juan Heredia MD Tissues: Left colon Procedures: Surgery Specimen Level IV HEADER OPERATION: Colonoscopy (MAC) PRE-OP DIAGNOSIS: Screening, recent diverticulitis episode TISSUE SUBMITTED: Biopsy of left colon polyp MICROSCOPIC DIAGNOSIS Left colon polyp, biopsy: Tubular adenoma. ELIZABETH:annika 06/20/2021 MICROSCOPIC DESCRIPTION Slides are reviewed. GROSS DESCRIPTION Received in fixative is one container labeled with the patient's name and designated biopsy of left colon polyp. The specimen consists of one irregular fragment of light osei soft tissue that measures 0.2 x 0.1 x 0.1 cm. The specimen is totally submitted in one cassette. / SJ:annika 06/19/21 TC:1 CPT: 16883
--- NOTE | 2021-06-19 08:02 | OP.COLON_ITS ---
Patient Name: Kirit Martinez Procedure Date: 06/19/2021 7:26 AM Date of : 1950 Age: 71 Procedure: Colonoscopy Indications: High risk colon cancer surveillance: Personal history of colonic polyps Providers: Carli De La Garza MD Referring MD: Juan Heredia Medicines: See the Anesthesia note for documentation of the administered medications Patient Profile: Refer to note in patient chart for documentation of history and physical. Last Colonoscopy: 2014. Complications: No immediate complications. Procedure: Pre-Anesthesia Assessment: - see anesthesia note After I obtained informed consent, the scope was passed under direct vision. Throughout the procedure, the patient's blood pressure, pulse, and oxygen saturations were monitored continuously. The Colonoscope was introduced through the anus and advanced to the cecum, identified by the appendiceal orifice, ileocecal valve and palpation. The colonoscopy was performed without difficulty. The patient tolerated the procedure well. The quality of the bowel preparation was adequate to identify polyps 6 mm and larger in size. Scope In: 7:35:17 AM Scope Withdrawal Time 0 hours 19 minutes 8 seconds Scope Out: 7:57:18 AM Total Procedure Duration Time 0 hours 22 minutes 1 second Findings: The perianal and digital rectal examinations were normal. Multiple small-mouthed diverticula were found in the sigmoid colon. Non-bleeding internal hemorrhoids were found. A 3 to 6 mm polyp was found in the descending colon. The polyp was sessile. The polyp was removed with a cold biopsy forceps. Resection and retrieval were complete. Verification of patient identification for the specimen was done by the nurse. Estimated blood loss was minimal. Impression: - Diverticulosis in the sigmoid colon. - Non-bleeding internal hemorrhoids. - One 3 to 6 mm polyp in the descending colon, removed with a cold biopsy forceps. Resected and retrieved. Recommendation: - Repeat colonoscopy date to be determined after pending pathology results are reviewed for surveillance based on pathology results. - Follow up visit via telemedicine with Kristy Matias PA-C to discuss results. Call to set this up, thank you - Continue present medications. Procedure Code(s): --- Professional --- 46735, Colonoscopy, flexible; with biopsy, single or multiple Diagnosis Code(s): --- Professional --- Z86.010, Personal history of colonic polyps K64.8, Other hemorrhoids D12.4, Benign neoplasm of descending colon K57.30, Diverticulosis of large intestine without perforation or abscess without bleeding CPT copyright 2017 [employer]. All rights reserved. The codes documented in this report are preliminary and upon baking assistant review may be revised to meet current compliance requirements. MD Carli Waller MD 06/19/2021 8:01:44 AM This report has been signed electronically. Number of Addenda: 0 Note Initiated On: 06/19/2021 7:26 AM
--- NOTE | 2021-06-19 08:03 | OP.CCLET_ITS ---
06/19/2021 Juan Heredia [address] [place] [address] Re : Colonoscopy procedure for Kirit Martinez Dear Dr. Heredia This procedure was performed on Saturday, June 19, 2021. My impressions and recommendations are as follows: Impressions : - Diverticulosis in the sigmoid colon. - Non-bleeding internal hemorrhoids. - One 3 to 6 mm polyp in the descending colon, removed with a cold biopsy forceps. Resected and retrieved. Recommendations : - Repeat colonoscopy date to be determined after pending pathology results are reviewed for surveillance based on pathology results. - Follow up visit via telemedicine with Kristy Matias PA-C to discuss results. Call to set this up, thank you - Continue present medications. My findings are described in the full procedure note, which is enclosed. If I can be of further assistance, please feel free to contact me at Doctor phone number(s): , Work: . Sincerely, MD Carli Waller MD 06/19/2021 8:01:44 AM This report has been signed electronically.
[2021-06-19 08:55] LABS: Prothrombin Time Fingerstick 22.6 SEC (11.9-14.4)
--- NOTE | 2021-06-19 09:05 | SUR.PHASEII ---
restart coumadin today- info placed on d/c paperwork
== END 2021-06-19 09:05 | disposition home or self-care (01) ==
LOC: EN 06:23 → AC 06:24
PROVIDERS: PCP Internal Medicine; Referring Provider Internal Medicine; Visit Provider Surgery
PROC: 0DJD8ZZ Inspection of Lower Intestinal Tract, Via Natural or Artificial Opening Endoscopic (ICD-10-PCS; CPT 45378; principal; 2021-06-19 07:25)
DX: Z12.11 Encounter for screening for malignant neoplasm of colon (principal); D12.4 Benign neoplasm of descending colon; K57.30 Diverticulosis of large intestine without perforation or abscess without bleeding; K64.8 Other hemorrhoids; F17.210 Nicotine dependence, cigarettes, uncomplicated; I10 Essential (primary) hypertension; F10.20 Alcohol dependence, uncomplicated; G47.33 Obstructive sleep apnea (adult) (pediatric); I48.91 Unspecified atrial fibrillation; Z80.0 Family history of malignant neoplasm of digestive organs; Z79.899 Other long term (current) drug therapy; Z79.01 Long term (current) use of anticoagulants; Z87.442 Personal history of urinary calculi; Z90.49 Acquired absence of other specified parts of digestive tract
CPT/HCPCS: 45380; 36416; 85610; 87426; 88305; J7120; J2405

== ENCOUNTER 2021-12-17 11:36 | Inpatient (IN) | payer MEDICARE, SELFPAY ==
[2021-12-17] VITALS (20 sets, daily range): BP systolic 98–126; BP diastolic 56–91; PULSE 57–128; RESP 14–22; TEMP 35.5–36.8; O2SAT 94–98; BMI 27.8; BMI 27.9
--- NOTE | 2021-12-17 12:24 | EKG12_ITS ---
Test Reason : SOB Blood Pressure : / mmHG Vent. Rate : 140 BPM Atrial Rate : 127 BPM P-R Int : 000 ms QRS Dur : 086 ms QT Int : 276 ms P-R-T Axes : 000 003 035 degrees QTc Int : 421 ms Atrial fibrillation with premature ventricular or aberrantly conducted complexes Abnormal ECG Confirmed by ERASMO LARA, INÉS ([id number]), electronic news gathering editor MIKEL OKEEFE ([id number]) on 12/19/2021 10:53:33 AM Referred By: NORBRETO Confirmed By:RAVI ZIMMERMAN MD
--- NOTE | 2021-12-17 12:26 | EDS_ITS ---
HPI History of Present Illness Chief Complaint: Chest Pain Informant: patient and spouse/S.O. Narrative Narrative: 71-year-old male presenting to the emergency department the chief complaint of not feeling well. This is been going on for about 1 week. He notes an increase of cough with occasional sputum production. No fevers. No shortness of breath he denies any diarrhea or urinary symptoms. He does note a slight sinus headache. He takes Coumadin and carvedilol for paroxysmal A. fib. He does not know when he is in A. fib or not. He does not see a quality coordinator. He does not regularly get his Coumadin level checked stating that he can generally get an idea of how high or low his INR is based upon the cat scratches and its bleeding. [facility] Medical History Alcohol use Atrial flutter Cancer Cardiology follow-up encounter Cardiomyopathy in other diseases classified elsewhere Chronic atrial fibrillation COPD (chronic obstructive pulmonary disease) Dyspnea on effort Essential (primary) hypertension Excessive bleeding Fatigue H/O ETOH abuse Hepatitis Hepatitis C History of atrial fibrillation History of echocardiogram Hoarseness Hypertension Multiple subsolid lung nodules less than 6 mm in diameter Nicotine dependence Nonrheumatic mitral (valve) prolapse Obstructive sleep apnea AISHWARYA (obstructive sleep apnea) Paroxysmal atrial fibrillation Shortness of breath on exertion Shoulder pain Sleep apnea Smoker Smoking greater than 40 pack years SOB (shortness of breath) Stage 2 moderate COPD by GOLD classification Syncope and collapse Wears partial dentures Home Medications multivitamin 1 tab PO DAILY 07/03/20 [History Last Taken Unknown] carvedilol 25 mg tablet 25 mg PO BID #180 tab 01/18/21 [Rx Last Taken 06/19/21] hydrochlorothiazide 25 mg tablet 25 mg PO QAM #90 tab 01/18/21 [Rx Last Taken Unknown] lisinopril 20 mg tablet 20 mg PO BID #180 tab 01/18/21 [Rx Last Taken 06/19/21] warfarin 7.5 mg PO SUMOWETHFRSA 04/15/21 [History Last Taken 06/16/21] warfarin 10 mg PO TU 04/15/21 [History Last Taken 06/16/21] Allergy/AdvReac Type Severity Reaction Status Date / Time ampicillin Allergy Unknown Verified 12/17/21 11:39 Penicillins Allergy Hives Verified 12/17/21 11:39 sulindac [From [place]] Allergy Unknown Verified 12/17/21 11:39 Family History Mother Breast cancer Father Cancer Surgical History History of cardiac catheterization History of cholecystectomy History of herniorrhaphy vocal cord surgery Social History household members: spouse housing: house current occupational status: previously employed and retired pets and animals: Yes pets and animals: cat(s) Smoking Status: Current every day smoker tobacco type: cigarettes Tobacco: How many years used: 60 second hand exposure: Yes alcohol intake: current alcohol intake frequency: a few times a week Alcohol type: beer substance use type: does not use caffeine: No what type of physical activity do you participate in: none ROS ROS ED ROS Narrative fatigue Constitutional Constitutional ED: Denies chills, fever(s) or weight loss Eyes Eyes: Denies change in vision or diplopia ENT ENT ED: Denies ear pain, rhinorrhea or sore throat Cardiovascular Cardiovascular: Denies chest pain, orthopnea, palpitations or racing heartbeat Respiratory/Chest Respiratory/Chest: Reports cough, dyspnea and sputum; Denies orthopnea Gastrointestinal Gastrointestinal: Denies abdominal pain, diarrhea, nausea or vomiting Genitourinary Genitourinary ED: Denies dysuria, hematuria or urinary frequency Musculoskeletal Musculoskeletal: Denies arthralgias or myalgias Integumentary Denies abscess or rash Neurologic Neurologic: Reports headache(s); Denies weakness Psychiatric Psychiatric: Denies anxiety, depression, suicidal ideation or suicidal thoughts Endocrine Endocrinology: Denies polydipsia, polyphagia or polyuria Allergic/Immunologic Allergic/Immunologic ED: Denies mouth swelling, tongue swelling or urticaria EXAM Physical Exam Const Vital Signs: 12/17/21 11:37 12/17/21 11:57 12/17/21 12:49 Temperature 96 F L 96 F L 98.1 F Temperature Source Temporal Temporal Oral Pulse Rate 120 H 120 H 119 H Respiratory Rate 20 H 20 H 22 H Respiratory Effort Normal Non-Labored Blood Pressure 108/72 108/72 106/82 H Blood Pressure Mean 84 84 90 Blood Pressure Source Blood Pressure Position Blood Pressure Location Pulse Ox 97 97 97 Oxygen Delivery Method Room Air Room Air 12/17/21 13:05 12/17/21 13:08 12/17/21 13:48 Temperature 98.1 F 98.2 F Temperature Source Oral Oral Pulse Rate 107 H 117 H 128 H Respiratory Rate 19 H 19 H 18 Respiratory Effort Blood Pressure 99/66 108/82 H 110/80 Blood Pressure Mean 77 90 90 Blood Pressure Source Monitor Blood Pressure Position Sitting Blood Pressure Location Right Arm Pulse Ox 95 96 96 Oxygen Delivery Method Room Air Room Air Room Air Positive well nourished and well developed General Appearance ED: well developed HEENT Reports normocephalic, head/scalp atraumatic, TM's clear and moist mucous membranes Negative for trauma Tympanic Membrane ED: Yes TM's clear Eyes PERRL and EOMs intact bilaterally Neck no lymphadenopathy, supple and no JVD Resp normal respiratory effort and clear to auscultation bilaterally Cardio no murmurs Rate: tachycardic Rhythm: abnormal rhythm irregularly irregular GI normal to inspection, nondistended, normoactive bowel sounds and non-tender Palpation: soft Back/Spine no CVA tenderness and normal ROM Extremity normal to inspection General Extremety ED: Negative for edema General Extremity: Negative for edema Neuro oriented x3 and CN's II-XII intact bilaterally Sensorium / Orientation: alert Motor Exam: strength 5/5 throughout Psych mental status grossly normal Mood & Affect: Negative for depressed or tearful Skin no rashes or lesions noted and no wounds MDM MDM MDM Narrative Medical decision making narrative: My interpretation of the chest x-ray is atelectasis versus infiltrate in the left lung base. Patient tells me that he injured the lower left ribs on a week ago. This coincides with his increasing cough. However is not had fever his white count is 10 and I think given that he is splinting and holding that side that it is most likely atelectasis. His INR is 2.5. His troponin is normal he was placed on a Cardizem drip which slowed him down to around 100-110. I spoke with his quality coordinator Dr. Roberts who does not recommend cardioversion at this time. I also spoke with our hospitalist and the plan is admission. Lab Data Labs: Laboratory Results - last 24 hr 12/17/21 12/17/21 12/17/21 12:21 12:21 12:21 WBC 10.0 RBC 5.53 Hgb 18.0 H* Hct 52.0 MCV 94.0 MCH 32.5 H MCHC 34.6 RDW Std Deviation 47.7 H RDW Coeff of Josiah 13.8 Plt Count 211 MPV 11.3 Immature Gran % (Auto) 0.300 Neut % (Auto) 77.3 H Lymph % (Auto) 16.8 L [place] % (Auto) 4.4 Eos % (Auto) 0.8 Baso % (Auto) 0.4 Absolute Neuts (auto) 7.7 Absolute Lymphs (auto) 1.68 Nucleated RBC % 0 Diff Path Review May foll PT 26.6 H INR 2.5 Sodium 137 Potassium 3.9 Chloride 105 Carbon Dioxide 27.0 Anion Gap 5 BUN 18 Creatinine 1.10 Estim Creat Clear Calc 68.59 Est GFR (MDRD) Af Amer 85 Est GFR (MDRD) Non-Af 70 BUN/Creatinine Ratio 16.4 Glucose 162 H Calcium 8.5 Total Bilirubin 0.80 AST 17 ALT 21 Alkaline Phosphatase 112 Troponin I High Sens 22 Total Protein 7.3 Albumin 3.4 Globulin 3.9 Albumin/Globulin Ratio 0.9 Urine Color Urine Clarity Urine pH Ur Specific Moss Urine Protein Urine Glucose (UA) Urine Ketones Urine Occult Blood Urine Nitrite Urine Bilirubin Urine Urobilinogen Ur Leukocyte Esterase Urine RBC Urine WBC Ur Squamous Epith Cells Urine Bacteria Urine Mucus 12/17/21 13:45 WBC RBC Hgb Hct MCV MCH MCHC RDW Std Deviation RDW Coeff of Josiah Plt Count MPV Immature Gran % (Auto) Neut % (Auto) Lymph % (Auto) [place] % (Auto) Eos % (Auto) Baso % (Auto) Absolute Neuts (auto) Absolute Lymphs (auto) Nucleated RBC % Diff Path Review PT INR Sodium Potassium Chloride Carbon Dioxide Anion Gap BUN Creatinine Estim Creat Clear Calc Est GFR (MDRD) Af Amer Est GFR (MDRD) Non-Af BUN/Creatinine Ratio Glucose Calcium Total Bilirubin AST ALT Alkaline Phosphatase Troponin I High Sens Total Protein Albumin Globulin Albumin/Globulin Ratio Urine Color Yellow Urine Clarity Sl. Cloudy Urine pH 5.0 Ur Specific Moss 1.025 Urine Protein Negative Urine Glucose (UA) Normal Urine Ketones 5 H Urine Occult Blood 10 H Urine Nitrite Negative Urine Bilirubin Negative Urine Urobilinogen 1 H Ur Leukocyte Esterase Negative Urine RBC 0-5 SEEN Urine WBC 0-5 SEEN Ur Squamous Epith Cells 0-5 SEEN Urine Bacteria 1+ Urine Mucus RARE Radiography Diagnostic Testing: Clinical Impression(s) from Imaging Studies Chest X-Ray 12/17/21 12:43 IMPRESSION: Blunting of the left costophrenic angle with mild increased markings at the left lung base suggestive of left basilar atelectasis and/or infiltrate. Electronically Signed: Orville Phillip MD at 13:17 EST , EKG Initial EKG: Attestation: I personally reviewed and interpreted this EKG as follows: Comments: Atrial fibrillation with rapid ventricular response of 140 bpm. PVC noted Discharge Plan Triage Chief Complaint: Chest Pain ED Provider: Jose Elias Spain Dx/Rx/DC Orders Clinical Impression: FPC (current) use of anticoagulants, Atrial fibrillation with rapid ventricular response Prescriptions: No Action multivitamin Tablet 1 tab PO DAILY RF: 0 warfarin 7.5 mg Tablet 7.5 mg PO SUMOWETHFRSA RF: 0 warfarin 5 mg tablet 10 mg PO TU RF: 0 carvedilol [Coreg] 25 mg tablet 25 mg PO BID Qty: 180 RF: 3 hydrochlorothiazide 25 mg tablet 25 mg PO QAM Qty: 90 RF: 3 lisinopril 20 mg tablet 20 mg PO BID Qty: 180 RF: 3 Primary Care Provider: Juan Heredia Referrals: Juan Heredia MD [Primary Care Provider] -
[2021-12-17] MEDS: dilTIAZem 25 MG/5 ML Vial 10 MG IV BOLUS (12:32)
[2021-12-17 12:38] LABS: Absolute Lymphocyte Count 1.68 X10^3/uL (0.83-4.51); Absolute Neutrophil Count 7.7 X10^3/uL (2.0-7.7); Basophil# 0.04 X10^3/uL; Basophil% 0.4 % (0-1); Eosinophil# 0.08 X10^3/uL; Eosinophils% 0.8 % (0-5); Lymphocyte # 1.68 X10^3/ul (0.83-4.51); Lymphocyte % 16.8 % (19-41); Mean Corp Hgb Conc 34.6 g/dL (32-36); Mean Corpuscular Hgb 32.5 pg (27.0-32.0); Mean Platelet Vol. 11.3 fl (6.2-12.0); Monocyte# 0.44 X10^3/uL; Monocyte% 4.4 % (0-10); NRBC Flagged by Analyzer 0 % (0-5); Neutrophil # 7.73 X10^3/uL (2.7-7.7); Neutrophil % 77.3 % (47-70); Platelet Count 211 K/mm3 (150-450); RBC Distribution Width CV 13.8 % (11.6-14.6); RBC Distribution Width SD 47.7 fl (35.1-43.9); Red Blood Count 5.53 M/mm3 (4.6-6.2)
--- NOTE | 2021-12-17 12:43 | RAD_ITS ---
STUDY: X-RAY CHEST REASON FOR EXAM: Male, 71 years old. Cough TECHNIQUE: Single AP portable view of the chest. COMPARISON: Comparison is made with prior study dated 04/15/2021. FINDINGS: EKG electrodes are seen. There is blunting of the left costophrenic angle. Mild increased markings at the left lung base. Early left lower lobe infiltrate should be ruled out. There is no demonstrated pleural abnormality. Normal size heart. Normal mediastinum and essence. Normal visualized pulmonary arteries. There is atherosclerotic calcification of the aortic arch with tortuosity. There are diffuse degenerative changes of the visualized thoracic spine. Normal visualized ribs, clavicles, and shoulders. There is no demonstrated abnormality of the visualized soft tissue structures of the upper abdomen. RAD/Chest 1 View (Portable) IMPRESSION: Blunting of the left costophrenic angle with mild increased markings at the left lung base suggestive of left basilar atelectasis and/or infiltrate. Electronically Signed: Orville Phillip MD at 13:17 EST ,
[2021-12-17 12:47] LABS: International Normalized Ratio 2.5; Prothrombin Time (Protime)PT. 26.6 SECONDS (11.7-14.9)
[2021-12-17 12:58] LABS: ALB/GLOB Ratio 0.9 RATIO (0.9-2.4); AST(SGOT) 17 U/L (15-37); Alanine Aminotransfer ALT/SGPT 21 U/L (16-61); Albumin, Serum 3.4 g/dL (3.2-5.0); Alkaline Phosphatase 112 U/L (45-117); Anion Gap 5 (5-15); BUN 18 mg/dL (7-18); BUN/Creat Ratio 16.4 RATIO (10-20); Calcium,Total 8.5 mg/dL (8.5-10.1); Chloride 105 mmol/L (98-107); EST Glomerular Filtration Rate 70 mL/min (>60); Est Glom Filt Rate - Afr Amer 85 mL/min (>60); Estimated Creatinine Clearance 68.59 ml/min; Globulin 3.9 g/dL (2.2-4.2); Glucose 162 mg/dL (74-106); Potassium 3.9 mmol/L (3.5-5.1); Protein, Total 7.3 g/dL (6.4-8.2); Sodium Level 137 mmol/L (136-145); Troponin-I HS 22 pg/mL (3.0-78.0)
[2021-12-17 14:00] LABS: Color, Urine Yellow (Yellow); Glucose, Dipstick Normal (Normal); Ketone-Dipstick 5 mg/dl (Negative); Leukocyte Esterase-Dipstick Negative /ul (Negative); Nitrite-Dipstick Negative (Negative); Occult Blood-Urine 10 /ul (Negative); Protein-Dipstick Negative (Negative); Specific Gravity, Urine 1.025 (1.002-1.030); Urine Bilirubin Dipstick Negative (Negative); Urine Clarity Sl. Cloudy (Clear); Urine Urobilinogen 1 mg/dl (Normal)
[2021-12-17 14:06] LABS: Bacteria 1+ /hpf (None Seen); Mucous, Urine RARE /hpf (<or=2+); Red Blood Cells-Urine 0-5 SEEN /hpf (0-5); Squamous Epithelial Cells - UA 0-5 SEEN /hpf (0-5); White Blood Cells 0-5 SEEN /hpf (0-5)
--- NOTE | 2021-12-17 14:52 | NURSING ---
HOSPITALIST FOR DR THORNTON
--- NOTE | 2021-12-17 15:30 | CASEMGMT ---
SUN CM to room to meet with patient for initial transition planning/care coordination assessment. SUN CESAR introduced self and role at [facility]. Patient voices understanding and consents to assessment at this time. Patient's Leanna present at bedside. Patient is alert and oriented and answers all questions appropriately, sitting on side of ER cart in no apparent distress. Care providers, pharmacy, and demographics verified/updated at this time. Admitting Dx: Atrial fibrillation with RVR PCP: Juan Heredia Specialists: [facility]- cardiology Preferred Pharmacy: [facility] Insurance: Medicare A & B Prescription Benefit: yes Living Will/HPOA: Patient denies having a living will or HPOA. LNOK: Leanna Martinez Living Arrangements: Patient lives with in two story house with 2 steps and a ramp to enter the home. Patient states independent with ADLs prior to hospitalization. Smoking/ETOH: Current smoker 1 ppd, ETOH use 3x/week beer Transportation: Patient drives self and denies transportation concerns. DME/HHC/SNF: Patient has a CPAP at home (no oxygen bleed in). Denies other DME in home and denies need for any DME at this time. Patient denies previous HHC or SNF stays. Patient currently takes Coumadin for history of paroxysmal atrial fibrillation. Patient has no concerns with going home at time of discharge. CM to follow for any discharge planning/needs. Patient voices no concerns/needs at this time. Advised patient to ask for CM if any questions/concerns/needs arise. Voices understanding. Plan: home
--- NOTE | 2021-12-17 15:41 | HP.PCM.HOS_ITS ---
Documented by User: Nuria Walter NP, [employer]-C 12/17/21 15:59 HPI - General General Date of Admission: 12/17/21 Date of Service: 12/17/21 Chief Complaint: Chest pain, weakness. HPI Narrative LUCI CARDONA, is a 71 M who presents to the emergency room due to left-sided chest pain and general malaise. He states over the past week he has generally not been feeling well with fatigue. He denies fever, chills. Denies shortness of breath. He states he fell recently injuring his left rib area and has had pain in that area since that time. He denies palpitations. Denies other specific sick symptoms. He is not vaccinated for Covid. Denies exposure to sick contacts. Patient has a history of atrial fibrillation however states he has not had any recent episodes of A. fib. He is on Coumadin and states he does not frequently get his INR checked. He states he is able to tell how thin his blood is based on bleeding from cat scratch. Patient does admit to heavy alcohol use and states he drank 8-10 beers last night. He states he does not drink daily however frequently will drink up to a 12 pack of beer/day. Denies history of withdrawal symptoms. His other past medical history includes hypertension, AISHWARYA on CPAP. [facility] Medical History (Updated 12/17/21 @ 15:20 by Deidre Palma) Alcohol abuse Alcohol use Atrial fibrillation Atrial flutter BiPAP (biphasic positive airway pressure) dependence Cancer Cardiology follow-up encounter Cardiomyopathy in other diseases classified elsewhere Chest pain Chronic atrial fibrillation COPD (chronic obstructive pulmonary disease) Dyspnea on effort Essential (primary) hypertension Excessive bleeding Fatigue H/O ETOH abuse Hepatitis Hepatitis C History of atrial fibrillation History of echocardiogram Hoarseness Hypertension Multiple subsolid lung nodules less than 6 mm in diameter Nicotine dependence Nonrheumatic mitral (valve) prolapse Obstructive sleep apnea AISHWARYA (obstructive sleep apnea) Paroxysmal atrial fibrillation Shortness of breath on exertion Shoulder pain Sleep apnea Smoker Smoking greater than 40 pack years SOB (shortness of breath) Stage 2 moderate COPD by GOLD classification Substance abuse Syncope and collapse Wears partial dentures Home Medications multivitamin 1 tab PO DAILY 07/03/20 [History Last Taken 12/17/21] warfarin 7.5 mg PO DAILY 04/15/21 [History Last Taken 12/17/21] carvedilol [Coreg] 25 mg PO BID 12/17/21 [History Last Taken 12/17/21] hydrochlorothiazide 25 mg PO QAM 12/17/21 [History Last Taken 12/17/21] lisinopril 20 mg PO BID 12/17/21 [History Last Taken 12/17/21] Allergy/AdvReac Type Severity Reaction Status Date / Time ampicillin Allergy Unknown Verified 12/17/21 11:39 Penicillins Allergy Hives Verified 12/17/21 11:39 sulindac [From Clinoril] Allergy Unknown Verified 12/17/21 11:39 Family History Mother Breast cancer Father Cancer Surgical History History of cardiac catheterization History of cholecystectomy History of herniorrhaphy vocal cord surgery Social History household members: spouse housing: house current occupational status: previously employed and retired pets and animals: Yes pets and animals: cat(s) Smoking Status: Current every day smoker tobacco type: cigarettes Tobacco: How many years used: 60 second hand exposure: Yes alcohol intake: current alcohol intake frequency: a few times a week Alcohol type: beer substance use type: does not use caffeine: No what type of physical activity do you participate in: none ROS Constitutional Constitutional: Reports fatigue, malaise and weakness; Denies change in weight, chills or fever(s) Cardiovascular Cardiovascular: Denies chest pain, edema, lightheadedness, palpitations or syncope Respiratory/Chest Respiratory/Chest: Denies cough, dyspnea, productive cough, shortness of breath at rest, shortness of breath with exertion or wheezing Gastrointestinal Gastrointestinal: Denies abdominal pain, constipation, diarrhea, nausea or vomiting Genitourinary Genitourinary: Denies burning urination, difficulty urinating, dysuria, hematuria, urinary frequency, urinary incontinence or urinary urgency Musculoskeletal Musculoskeletal: Reports other Details: Left-sided rib pain ; Denies back pain, joint pain or muscle weakness Integumentary Integumentary: Denies erythema, lesions, rash or wounds Neurologic Neurologic: Denies abnormal speech, confusion, dizziness, focal weakness, numbness, paresthesias, seizure-like activity or syncope Psychiatric Psychiatric: Denies anxiety or depression Hematologic/Lymphatic Hematologic/Lymphatic: Denies anemia, easy bleeding or easy bruising Allergic/Immunologic Allergic/Immunologic: Denies hives or asthma Vital Signs Vital Signs Vital Signs: 12/17/21 11:37 12/17/21 11:57 12/17/21 12:49 Temperature 96 F L 96 F L 98.1 F Temperature Source Temporal Temporal Oral Pulse Rate 120 H 120 H 119 H Respiratory Rate 20 H 20 H 22 H Respiratory Effort Normal Non-Labored Blood Pressure 108/72 108/72 106/82 H Blood Pressure Mean 84 84 90 Blood Pressure Source Blood Pressure Position Blood Pressure Location Pulse Ox 97 97 97 Oxygen Delivery Method Room Air Room Air 12/17/21 13:05 12/17/21 13:08 12/17/21 13:48 Temperature 98.1 F 98.2 F Temperature Source Oral Oral Pulse Rate 107 H 117 H 128 H Respiratory Rate 19 H 19 H 18 Respiratory Effort Blood Pressure 99/66 108/82 H 110/80 Blood Pressure Mean 77 90 90 Blood Pressure Source Monitor Blood Pressure Position Sitting Blood Pressure Location Right Arm Pulse Ox 95 96 96 Oxygen Delivery Method Room Air Room Air Room Air 12/17/21 14:00 12/17/21 14:15 12/17/21 14:30 Temperature Temperature Source Pulse Rate 118 H 115 H 119 H Respiratory Rate Respiratory Effort Blood Pressure 107/78 102/63 117/82 H Blood Pressure Mean 87 76 93 Blood Pressure Source Blood Pressure Position Blood Pressure Location Pulse Ox 96 Oxygen Delivery Method Room Air 12/17/21 14:45 12/17/21 15:00 12/17/21 15:30 Temperature 98.2 F Temperature Source Oral Pulse Rate 119 H 121 H 121 H Respiratory Rate 18 Respiratory Effort Blood Pressure 100/67 114/80 114/80 Blood Pressure Mean 78 91 91 Blood Pressure Source Blood Pressure Position Blood Pressure Location Pulse Ox 96 Oxygen Delivery Method Room Air Weight Weight: 205 lb Body Mass Index (BMI) 27.8 Physical Exam Const alert, oriented x3 and no apparent distress Orientation / Consciousness: awake, oriented to person, oriented to place and o riented to time HEENT normocephalic and moist oral mucous membranes Eyes PERRL, EOMs intact bilaterally and conjunctivae normal Neck no lymphadenopathy Resp normal respiratory effort and clear to auscultation bilaterally Cardio Cardio Narrative: Atrial fibrillation with RVR Peripheral Pulses: pulses 2+ throughout GI normal to inspection, nondistended, normoactive bowel sounds, non-tender and non-distended Extremity normal to inspection Skin no rashes or lesions noted Lesions: no lesions Rashes: no rashes Trauma: no lacerations or abrasions Neuro CN's II-XII intact bilaterally, no focal motor deficits, no sensory deficits no danielle and deep tendon reflexes 2+ bilaterally Psych mental status grossly normal and affect normal Results Lab / Micro Data Result Diagrams: 12/17/21 12:21 12/17/21 12:21 Labs: Laboratory Results - last 24 hr 12/17/21 12:21: WBC 10.0, RBC 5.53, Hgb 18.0 H*, Hct 52.0, MCV 94.0, MCH 32.5 H, MCHC 34.6, RDW Std Deviation 47.7 H, RDW Coeff of Josiah 13.8, Plt Count 211, MPV 11.3, Immature Gran % (Auto) 0.300, Neut % (Auto) 77.3 H, Lymph % (Auto) 16.8 L, Cherry % (Auto) 4.4, Eos % (Auto) 0.8, Baso % (Auto) 0.4, Absolute Neuts (auto) 7.7, Absolute Lymphs (auto) 1.68, Nucleated RBC % 0, Diff Path Review March12/17/21 12:21: PT 26.6 H, INR 2.5 12/17/21 12:21: Sodium 137, Potassium 3.9, Chloride 105, Carbon Dioxide 27.0, Anion Gap 5, BUN 18, Creatinine 1.10, Estim Creat Clear Calc 68.59, Est GFR (MDRD) Af Amer 85, Est GFR (MDRD) Non-Af 70, BUN/Creatinine Ratio 16.4, Glucose 162 H, Calcium 8.5, Total Bilirubin 0.80, AST 17, ALT 21, Alkaline Phosphatase 112, Troponin I High Sens 22, Total Protein 7.3, Albumin 3.4, Globulin 3.9, Albumin/Globulin Ratio 0.9 12/17/21 13:45: Urine Color Yellow, Urine Clarity Sl. Cloudy, Urine pH 5.0, Ur Specific Sunman 1.025, Urine Protein Negative, Urine Glucose (UA) Normal, Urine Ketones 5 H, Urine Occult Blood 10 H, Urine Nitrite Negative, Urine Bilirubin Negative, Urine Urobilinogen 1 H, Ur Leukocyte Esterase Negative, Urine RBC 0-5 SEEN, Urine WBC 0-5 SEEN, Ur Squamous Epith Cells 0-5 SEEN, Urine Bacteria 1+, Urine Mucus RARE Micro: Microbiology 12/17/21 12:36 Nasal Secretion SARS-CoV-2 Antigen (Rapid) - Final Radiology Impression Chest X-Ray 12/17/21 12:43 IMPRESSION: Blunting of the left costophrenic angle with mild increased markings at the left lung base suggestive of left basilar atelectasis and/or infiltrate. Electronically Signed: Orville Phillip MD at 13:17 EST , Assessment & Plan Assessment/Plan (1) Atrial fibrillation with rapid ventricular response: PLAN: 1. Atrial fibrillation with RVR-history of paroxysmal atrial fibrillation with history of cardioversion. On anticoagulation with Coumadin. INR therapeutic. On Cardizem drip. Continue Coumadin, trend INR. Trend enzymes. Check TSH, mag. Obtain echo. Check BNP. 2. Heavy alcohol use- encouraged cessation. Last drink last night and reports 8- 10 beers. CIWA protocol. 3. Tobacco dependence- encouraged cessation. PRN nicotine gum. 4. Hypertension- stable, continue home regimen. 5. Elevated glucose-check hemoglobin A1c. 6. Polycythemia-appears chronic. Likely due to smoking history. 7. Unvaccinated for covid- encouraged vaccination. DVT prophylaxis- Coumadin This patient was seen by SUZI Bass under the supervision of Dr. Glasgow. Time spent examining patient, reviewing data and subsequent management of care: 17 Minutes Documented by User: Dr. Kat Glasgow MD 12/17/21 16:30 HPI - General General Date of Admission: 12/17/21 [facility] Medical History (Updated 12/17/21 @ 15:20 by Deidre Palma) Alcohol abuse Alcohol use Atrial fibrillation Atrial flutter BiPAP (biphasic positive airway pressure) dependence Cancer Cardiology follow-up encounter Cardiomyopathy in other diseases classified elsewhere Chest pain Chronic atrial fibrillation COPD (chronic obstructive pulmonary disease) Dyspnea on effort Essential (primary) hypertension Excessive bleeding Fatigue H/O ETOH abuse Hepatitis Hepatitis C History of atrial fibrillation History of echocardiogram Hoarseness Hypertension Multiple subsolid lung nodules less than 6 mm in diameter Nicotine dependence Nonrheumatic mitral (valve) prolapse Obstructive sleep apnea AISHWARYA (obstructive sleep apnea) Paroxysmal atrial fibrillation Shortness of breath on exertion Shoulder pain Sleep apnea Smoker Smoking greater than 40 pack years SOB (shortness of breath) Stage 2 moderate COPD by GOLD classification Substance abuse Syncope and collapse Wears partial dentures Home Medications multivitamin 1 tab PO DAILY 07/03/20 [History Last Taken 12/17/21] warfarin 7.5 mg PO DAILY 04/15/21 [History Last Taken 12/17/21] carvedilol [Coreg] 25 mg PO BID 12/17/21 [History Last Taken 12/17/21] hydrochlorothiazide 25 mg PO QAM 12/17/21 [History Last Taken 12/17/21] lisinopril 20 mg PO BID 12/17/21 [History Last Taken 12/17/21] Allergy/AdvReac Type Severity Reaction Status Date / Time ampicillin Allergy Unknown Verified 12/17/21 11:39 Penicillins Allergy Hives Verified 12/17/21 11:39 sulindac [From Clinoril] Allergy Unknown Verified 12/17/21 11:39 Family History Mother Breast cancer Father Cancer Surgical History History of cardiac catheterization History of cholecystectomy History of herniorrhaphy vocal cord surgery Social History household members: spouse housing: house current occupational status: previously employed and retired pets and animals: Yes pets and animals: cat(s) Smoking Status: Current every day smoker tobacco type: cigarettes Tobacco: How many years used: 60 second hand exposure: Yes alcohol intake: current alcohol intake frequency: a few times a week Alcohol type: beer substance use type: does not use caffeine: No what type of physical activity do you participate in: none Results Lab / Micro Data Result Diagrams: 12/17/21 12:21 12/17/21 12:21 Charges/Coding Addendum Addendum: This patient was seen in conjunction with Nuria Walter NP. I have independently interviewed and examined the patient and reviewed pertinent historical, laboratory, and other data. I have reviewed her note and concur with her documentation 71-year-old male with past medical history of paroxysmal atrial fibrillation on Coumadin who comes in with complaints of feeling unwell for 10 days. Patient denies any chest pain or dizziness or palpitation. He just felt fatigued. He denies fever or chills. He had nasal congestion and cough and that has been ongoing for days. Patient was found to have A. fib with RVR. His heart rate was elevated more than 130. He was given Cardizem bolus and drip. Physical Exam: Gen: Comfortable, not pale, not jaundiced, appears fatigued CVS:HS I +II, regular, no murmurs RESP: Diminished at lung bases, fine crackles on the left lung base GI: BS present and normal, soft, nontender, no palpable organs EXT:No edema Labs: Hemoglobin is 18.0, WBC count is 10, platelet count is 211, CMP is unremarkable, glucose is 162 Admitting chest x-ray showed blunting the left costophrenic angle with increased markings in the left lung base as above left basilar atelectasis and or infiltrate ASSESSMENT: 1. A. fib with RVR 2. Polycythemia, likely secondary 3. Hypertension 4. AISHWARYA on CPAP 5. Nicotine dependence 6. Alcohol dependence Plan: Admit to PCU, monitor on telemetry 2D echo, continue Coumadin, repeat INR in am Trend troponins Continue on Cardizem drip Continue on carvedilol, lisinopril, hydrochlorothiazide Nicotine replacement Consider cardiology consult if patient is still in A. fib Time spent taking patient's history, physical examination, coordinating patient's care, discussing with nursin minutes Visit Charges Inpatient E&M: 81614 Init Hosp L3 Procedures Hospitalists Procedures: 20134 Advncd Care Plan 30 Min
--- NOTE | 2021-12-17 15:58 | ECHOCS_ITS ---
Reason For Study: Afib, Aflutter Procedure This was a 2D Doppler, Color Flow transthoracic echocardiogram. Contrast injection was performed. Exam performed portable in patient room. Left Ventricle Normal LV size. Left ventricular systolic function is normal. The estimated ejection fraction is 55 %. Stage 2 diastolic dysfunction. No regional wall motion abnormalities noted. Right Ventricle Normal RV size. Normal systolic function. Atria Normal left atrium. Normal right atrium. Mitral Valve Normal mitral valve. Tricuspid Valve Normal tricuspid valve. Aortic Valve Trisinus/trileaflet aortic valve. Pulmonic Valve The pulmonic valve is not well visualized. Great Vessels Normal aortic root. The pulmonary artery is normal size. Normal inferior vena cava. Pericardium/Pleural No pericardial effusion. Medication Diluted definity 3ml given slow IV push to enhance endocardial definition. MMode/2D Measurements & Calculations LVIDd: 5.5 cm IVSd: 1.2 cm Ao root diam: 3.4 cm LVIDs: 3.4 cm LVPWd: 0.93 cm RVDd: 4.0 cm FS: 39.3 % LAV(MOD-bp): 63.6 ml LVAd ap4: 34.3 cm2 SV(MOD-sp4): 71.1 ml LAV(MOD-bp) Indexed: 29.5 ml/m2 LVLd ap4: 8.1 cm LAV(MOD-sp2): 60.1 ml EDV(MOD-sp4): 119.7 ml LAV(MOD-sp4): 67.6 ml EDV(sp4-el): 123.0 ml LVAs ap4: 20.3 cm2 LVLs ap4: 7.0 cm ESV(MOD-sp4): 48.6 ml ESV(sp4-el): 50.4 ml EF(MOD-sp4): 59.4 % EF(sp4-el): 59.1 % SV(sp4-el): 72.6 ml LA A4 area: 22.6 cm2 LA dimension(2D): 4.2 cm RA A4 area: 19.3 cm2 Doppler Measurements & Calculations MV E max reece: 71.2 cm/sec Lat Peak E' Reece: 9.7 cm/sec Med Peak E' Reece: 9.3 cm/sec MV A max reece: 49.1 cm/sec E/E' lat: 7.3 E/E' med: 7.6 MV E/A: 1.5 Ao V2 max: 134.1 cm/sec LV V1 max: 112.7 cm/sec PA V2 max: 75.2 cm/sec Ao max P.2 mmHg LV V1 max P.1 mmHg Ao V2 mean: 89.1 cm/sec Ao mean P.6 mmHg Ao V2 VTI: 26.4 cm ECHO/Echo Complete W/ Contrast Interpretation Summary Normal LV size. Left ventricular systolic function is normal. The estimated ejection fraction is 55 %. Stage 2 diastolic dysfunction. Contrast injection was performed. Ordering Physician: Nuria Walter Referring Physician: Juan Heredia Performed By: Sharon Chung, ARTIE, RVT
[2021-12-17 16:53] LABS: Magnesium 1.8 mg/dL (1.6-2.6)
[2021-12-17 16:56] LABS: BNP,B-Type NATRIURETIC PEPTIDE 196.4 pg/mL (0-100)
[2021-12-17 17:03] LABS: Troponin-I HS 38 pg/mL (3.0-78.0)
[2021-12-17 17:04] LABS: Hemoglobin A1c 5.3 % (3.8-5.6)
--- NOTE | 2021-12-17 17:24 | EKG12_ITS ---
Test Reason : POSS CONVERTED NSR Blood Pressure : / mmHG Vent. Rate : 058 BPM Atrial Rate : 058 BPM P-R Int : 138 ms QRS Dur : 094 ms QT Int : 430 ms P-R-T Axes : 000 033 031 degrees QTc Int : 422 ms Sinus bradycardia with marked sinus arrhythmia Otherwise normal ECG When compared with ECG of 17-DEC-2021 12:09, MANUAL COMPARISON REQUIRED, DATA IS UNCONFIRMED Confirmed by ERASMO LARA, INÉS ([id number]), newspaper editor MIKEL OKEEFE ([id number]) on 12/19/2021 11:22:34 AM Referred By: NITHYA Confirmed By:RAVI ZIMMERMAN MD
--- NOTE | 2021-12-17 17:36 | CPS ---
Pt refused PCR Covid swab, says he doesn't have symptoms and the one done in ER was enough. Explained that this test is more sensitive but he still declined. R.Sonal. informed SUN Linares (charge) and Shirlene GARSIA.
[2021-12-17] MEDS: Nicotine Polacrilex 2 MG GUM PO (17:54)
[2021-12-17] MEDS: Carvedilol 25 MG Tablet PO (17:54)
[2021-12-17] MEDS: traMADol 50 MG Tablet PO (18:02)
[2021-12-17] MEDS: 0.9% Saline Lock 10 ML Syringe IV (18:02)
--- NOTE | 2021-12-17 18:21 | NURSING ---
patient had deena and converted at 1717 called for ekg
[2021-12-17 19:30] LABS: Troponin-I HS 52 pg/mL (3.0-78.0)
[2021-12-18 03:00] VITALS: BP 113/72; PULSE 72; RESP 16; TEMP 36.6; O2SAT 95
[2021-12-18 04:00] VITALS: PULSE 56
[2021-12-18 04:51] LABS: Absolute Neutrophil Count 4.2 X10^3/uL (2.0-7.7); Basophil# 0.06 X10^3/uL; Basophil% 0.8 % (0-1); Eosinophils% 2.7 % (0-5); Hemoglobin 15.8 g/dL (13.0-16.5); Lymphocyte % 33.3 % (19-41); Mean Corp Hgb Conc 33.6 g/dL (32-36); Mean Corpuscular Hgb 31.4 pg (27.0-32.0); Mean Corpuscular Volume 93.4 fL (80-94); Mean Platelet Vol. 11.4 fl (6.2-12.0); Monocyte# 0.54 X10^3/uL; Monocyte% 7.2 % (0-10); NRBC Flagged by Analyzer 0 % (0-5); Neutrophil # 4.19 X10^3/uL (2.7-7.7); Neutrophil % 55.9 % (47-70); Platelet Count 165 K/mm3 (150-450); RBC Distribution Width CV 14.1 % (11.6-14.6); RBC Distribution Width SD 48.4 fl (35.1-43.9); Red Blood Count 5.03 M/mm3 (4.6-6.2); White Blood Count 7.5 K/mm3 (4.4-11.0)
[2021-12-18 05:10] LABS: ALB/GLOB Ratio 0.8 RATIO (0.9-2.4); AST(SGOT) 15 U/L (15-37); Alanine Aminotransfer ALT/SGPT 19 U/L (16-61); Alkaline Phosphatase 107 U/L (45-117); Anion Gap 5 (5-15); BUN 23 mg/dL (7-18); BUN/Creat Ratio 28.9 RATIO (10-20); Calcium,Total 8.1 mg/dL (8.5-10.1); Chloride 106 mmol/L (98-107); EST Glomerular Filtration Rate 102 mL/min (>60); Est Glom Filt Rate - Afr Amer 124 mL/min (>60); Estimated Creatinine Clearance 94.31 ml/min; Globulin 3.9 g/dL (2.2-4.2); Glucose 110 mg/dL (74-106); Potassium 3.3 mmol/L (3.5-5.1); Protein, Total 6.9 g/dL (6.4-8.2); Sodium Level 137 mmol/L (136-145)
[2021-12-18 07:00] VITALS: PULSE 69
--- NOTE | 2021-12-18 08:15 | PCS.PANDOC ---
PANDEMIC DOCUMENTATION INITIATED: Date: 07/01/2021 Time: 190
[2021-12-18 09:00] VITALS: BP 152/100; PULSE 66; RESP 18; TEMP 36.4; O2SAT 96
[2021-12-18] MEDS: Multivitamins,Therapeutic Tablet 1 TABLET PO (09:35)
[2021-12-18] MEDS: Carvedilol 25 MG Tablet PO (09:35)
[2021-12-18] MEDS: Lisinopril 20 MG Tablet PO (09:35)
[2021-12-18] MEDS: hydroCHLOROthiazide 25 MG Tablet PO (09:35)
[2021-12-18] MEDS: Potassium Chloride Oral Tablet 20 MEQ 40 MEQ PO (09:39)
[2021-12-18 10:28] LABS: Pathologist Review Reviewed
--- NOTE | 2021-12-18 11:11 | DCINST_ITS ---
Discharge Instructions Diet Discharge Diet: Low fat / Low cholesterol Activity Discharge Activity: Return to Normal Activity Additional Activity Instructions:: Avoid alcohol/tobacco Dressing / Incision Call your doctor if you observe: Shortness of breath, Dizziness, Chest pain and Increased palpitations (irregular heartbeat) Follow Up Care Test Results: Test results from this visit will be discussed in further detail at your follow-up appointment, if applicable. Discharge Plan Admission Admit Date/Time: 12/17/21 14:54 Primary Reason for Your Visit: Atrial fibrillation Attending Provider: Liu Winkler Primary Care Provider: Juan Heredia Discharge Orders/Prescriptions Prescriptions: New diltiazem HCl [Cardizem CD] 120 mg capsule,extended release 24hr 120 mg PO DAILY Qty: 30 RF: 0 Continued multivitamin Tablet 1 tab PO DAILY RF: 0 warfarin 7.5 mg Tablet 7.5 mg PO DAILY RF: 0 carvedilol [Coreg] 25 mg tablet 25 mg PO BID RF: 0 lisinopril 20 mg tablet 20 mg PO BID RF: 0 hydrochlorothiazide 25 mg tablet 25 mg PO QAM RF: 0 Referrals / Follow Up: Vahid Roberts MD [STAFF PHYSICIAN] - Within 2 Weeks (May see [employer] ELECTRICAL ENGINEER/PA) Juan Heredia MD [Primary Care Provider] - In 1 Week Disposition Disposition (needs filled in before D/C Order can be placed): Home, Self Care
--- NOTE | 2021-12-18 11:17 | PCM.DC.SUM ---
Documented by User: Nuria Walter NP, RAILROAD SIGNAL OPERATOR-C 12/18/21 11:25 Providers Date of Admission: 12/17/21 Date of Discharge: 12/18/21 Primary Care Physician: Dr. Juan Heredia MD Reason For Visit: CHEST PAIN/AFIB WITH RVR Diagnosis Discharge Diagnosis (1) Atrial fibrillation with rapid ventricular response: Status: Acute Code(s): I48.91 - Unspecified atrial fibrillation Medications at Discharge Home Medications multivitamin 1 tab PO DAILY 07/03/20 warfarin 7.5 mg PO DAILY 04/15/21 carvedilol [Coreg] 25 mg PO BID 12/17/21 hydrochlorothiazide 25 mg PO QAM 12/17/21 lisinopril 20 mg PO BID 12/17/21 diltiazem HCl [Cardizem CD] 120 mg PO DAILY #30 cap 12/18/21 Hospital Course Operations None Procedures 2-D Echocardiogram Summary of Care Provided Hospital Course: Patient is a 71-year-old male admitted 12/17/21 due to weakness. 1. Atrial fibrillation with RVR-history of paroxysmal atrial fibrillation with history of cardioversion. On anticoagulation with Coumadin. INR therapeutic. Initially placed on Cardizem drip and patient converted to sinus rhythm. Continue Coumadin, trend INR. Troponin, TSH, mag unremarkable. Begin Cardizem CD 120 mg daily. Patient has remained in sinus rhythm. Instructed to avoid alcohol/tobacco products. Follow-up with PCP in 1 week. Follow-up with cardiology in 2 weeks. Echocardiogram completed, report pending and will be reviewed prior to discharge. 2. Heavy alcohol use- encouraged cessation. 3. Tobacco dependence- encouraged cessation. 4. Hypertension- stable, continue home regimen. 5. Elevated glucose-suspect reactive. Hemoglobin A1c 5.3%. 6. Polycythemia-appears chronic. Likely due to smoking history. 7. Unvaccinated for covid- encouraged vaccination. Physical Exam Const alert, oriented x3 and no apparent distress Orientation / Consciousness: awake, oriented to person, oriented to place and oriented to time HEENT normocephalic and moist oral mucous membranes Eyes PERRL, EOMs intact bilaterally and conjunctivae normal Neck no lymphadenopathy Resp normal respiratory effort and clear to auscultation bilaterally Cardio Cardio Narrative: Regular rate, regular rhythm Peripheral Pulses: pulses 2+ throughout GI normal to inspection, nondistended, normoactive bowel sounds, non-tender and non-distended Extremity normal to inspection Skin no rashes or lesions noted Lesions: no lesions Rashes: no rashes Trauma: no lacerations or abrasions Neuro CN's II-XII intact bilaterally, no focal motor deficits, no sensory deficits noted and deep tendon reflexes 2+ bilaterally Psych mental status grossly normal and affect normal Patient seen and examined prior to discharge. Physical assessment as noted above. Patient is stable for discharge with follow up recommendations as noted above. This patient was seen by SUZI Bass under the supervision of Dr. Winkler. Time spent examining patient, reviewing data and subsequent management of care: 16 Minutes Weight / BMI Weight Weight: 205 lb 14.588 oz Body Mass Index (BMI) 27.9 ABG / Lab / Microbiology Data Result Diagrams: 12/18/21 04:03 12/18/21 04:03 Laboratory: Laboratory Results - last 24 hr 12/17/21 12:21: WBC 10.0, RBC 5.53, Hgb 18.0 H*, Hct 52.0, MCV 94.0, MCH 32.5 H, MCHC 34.6, RDW Std Deviation 47.7 H, RDW Coeff of Josiah 13.8, Plt Count 211, MPV 11.3, Immature Gran % (Auto) 0.300, Neut % (Auto) 77.3 H, Lymph % (Auto) 16.8 L, [place] % (Auto) 4.4, Eos % (Auto) 0.8, Baso % (Auto) 0.4, Absolute Neuts (auto) 7.7, Absolute Lymphs (auto) 1.68, Nucleated RBC % 0, Diff Path Review Reviewed 12/17/21 12:21: PT 26.6 H, INR 2.5 12/17/21 12:21: Sodium 137, Potassium 3.9, Chloride 105, Carbon Dioxide 27.0, Anion Gap 5, BUN 18, Creatinine 1.10, Estim Creat Clear Calc 68.59, Est GFR (MDRD) Af Amer 85, Est GFR (MDRD) Non-Af 70, BUN/Creatinine Ratio 16.4, Glucose 162 H, Calcium 8.5, Total Bilirubin 0.80, AST 17, ALT 21, Alkaline Phosphatase 112, Troponin I High Sens 22, Total Protein 7.3, Albumin 3.4, Globulin 3.9, Albumin/Globulin Ratio 0.9 12/17/21 12:21: TSH 1.20 12/17/21 12:21: B-Natriuretic Peptide 196.4 H 12/17/21 12:21: Magnesium 1.8 12/17/21 13:45: Urine Color Yellow, Urine Clarity Sl. Cloudy, Urine pH 5.0, Ur Specific [place] 1.025, Urine Protein Negative, Urine Glucose (UA) Normal, Urine Ketones 5 H, Urine Occult Blood 10 H, Urine Nitrite Negative, Urine Bilirubin Negative, Urine Urobilinogen 1 H, Ur Leukocyte Esterase Negative, Urine RBC 0-5 SEEN, Urine WBC 0-5 SEEN, Ur Squamous Epith Cells 0-5 SEEN, Urine Bacteria 1+, Urine Mucus RARE 12/17/21 16:15: Troponin I High Sens 38 12/17/21 16:15: Hemoglobin A1c 5.3 12/17/21 18:25: Troponin I High Sens 52 12/18/21 04:03: WBC 7.5, RBC 5.03, Hgb 15.8, Hct 47.0, MCV 93.4, MCH 31.4, MCHC 33.6, RDW Std Deviation 48.4 H, RDW Coeff of Jos[place] 14.1, Plt Count 165, MPV 11.4, Immature Gran % (Auto) 0.100, Neut % (Auto) 55.9, Lymph % (Auto) 33.3, [place] % (Auto) 7.2, Eos % (Auto) 2.7, Baso % (Auto) 0.8, Absolute Neuts (auto) 4.2, Absolute Lymphs (auto) 2.50, Nucleated RBC % 0 12/18/21 04:03: Sodium 137, Potassium 3.3 L, Chloride 106, Carbon Dioxide 26.0, Anion Gap 5, BUN 23 H, Creatinine 0.80, Estim Creat Clear Calc 94.31, Est GFR (MDRD) Af Amer 124, Est GFR (MDRD) Non-Af 102, BUN/Creatinine Ratio 28.9 H, Glucose 110 H, Calcium 8.1 L, Total Bilirubin 0.80, AST 15, ALT 19, Alkaline Phosphatase 107, Total Protein 6.9, Albumin 3.0 L, Globulin 3.9, Albumin/Globulin Ratio 0.8 L Microbiology: Microbiology 12/17/21 12:36 Nasal Secretion SARS-CoV-2 Antigen (Rapid) - Final Radiography Diagnostic Testing: Radiology Impression Chest X-Ray 12/17/21 12:43 IMPRESSION: Blunting of the left costophrenic angle with mild increased markings at the left lung base suggestive of left basilar atelectasis and/or infiltrate. Electronically Signed: Orville Phillip MD at 13:17 EST , D/C Instructions Discharge Diet: Low fat / Low cholesterol Additional Activity Instructions: Avoid alcohol/tobacco Call your doctor if you observe: Shortness of breath, Dizziness, Chest pain and Increased palpitations (irregular heartbeat) Meaningful Use Info Meaningful Use Diagnoses (Choose all that apply): None applicable Discharge Plan Admission Admit Date/Time: 12/17/21 14:54 Primary Reason for Your Visit: Atrial fibrillation Attending Provider: Liu Winkler Primary Care Provider: Juan Heredia Discharge Orders/Prescriptions Prescriptions: New diltiazem HCl [Cardizem CD] 120 mg capsule,extended release 24hr 120 mg PO DAILY Qty: 30 RF: 0 Continued multivitamin Tablet 1 tab PO DAILY RF: 0 warfarin 7.5 mg Tablet 7.5 mg PO DAILY RF: 0 carvedilol [Coreg] 25 mg tablet 25 mg PO BID RF: 0 lisinopril 20 mg tablet 20 mg PO BID RF: 0 hydrochlorothiazide 25 mg tablet 25 mg PO QAM RF: 0 Referrals / Follow Up: Vahid Roberts MD [STAFF PHYSICIAN] - Within 2 Weeks (May see RAILROAD SIGNAL OPERATOR/PA) Juan Heredia MD [Primary Care Provider] - In 1 Week Disposition Disposition (needs filled in before D/C Order can be placed): Home, Self Care Documented by User: Dr. Liu Winkler DO 12/18/21 17:57 Providers Date of Admission: 12/17/21 Reason For Visit: CHEST PAIN/AFIB WITH RVR Medications at Discharge Home Medications multivitamin 1 tab PO DAILY 07/03/20 warfarin 7.5 mg PO DAILY 04/15/21 carvedilol [Coreg] 25 mg PO BID 12/17/21 hydrochlorothiazide 25 mg PO QAM 12/17/21 lisinopril 20 mg PO BID 12/17/21 diltiazem HCl [Cardizem CD] 120 mg PO DAILY #30 cap 12/18/21 ABG / Lab / Microbiology Data Result Diagrams: 12/18/21 04:03 12/18/21 04:03 Discharge Plan Admission Admit Date/Time: 12/17/21 14:54 Primary Reason for Your Visit: Atrial fibrillation Attending Provider: Liu Winkler Primary Care Provider: Juan Heredia Discharge Orders/Prescriptions Prescriptions: New diltiazem HCl [Cardizem CD] 120 mg capsule,extended release 24hr 120 mg PO DAILY Qty: 30 RF: 0 Continued multivitamin Tablet 1 tab PO DAILY RF: 0 warfarin 7.5 mg Tablet 7.5 mg PO DAILY RF: 0 carvedilol [Coreg] 25 mg tablet 25 mg PO BID RF: 0 lisinopril 20 mg tablet 20 mg PO BID RF: 0 hydrochlorothiazide 25 mg tablet 25 mg PO QAM RF: 0 Referrals / Follow Up: Vahid Roberts MD [STAFF PHYSICIAN] - Within 2 Weeks (May see RAILROAD SIGNAL OPERATOR/PA) Juan Heredia MD [Primary Care Provider] - In 1 Week Disposition Disposition (needs filled in before D/C Order can be placed): Home, Self Care Charges/Coding Addendum Addendum: Patient was seen and examined independently of Nuria Walter today, he remains in sinus rhythm at this time. He appears stable for discharge home. On examination he appeared in good health and spirits. Vital signs as documented. Skin warm and dry and without overt rashes. Neck without JVD, neck was supple, trachea midline, thyroid was normal. Lungs clear bilaterally, normal air movement was noted. Heart exam notable for regular rhythm, normal sounds and absence of murmurs, rubs or gallops. Abdomen unremarkable and without evidence of organomegaly, masses, or abdominal aortic enlargement. Bowel sounds are present, abdomen is not distended. Extremities nonedematous, no cyanosis was noted, no clubbing was noted. Neuro: Cranial nerves II through XII are grossly intact, no focal motor deficits were noted, sensation to light touch and pinprick intact, motor exam 5/5 throughout. Psych: Patient is alert and oriented x3, he does not appear anxious or depressed, he does not appear agitated. Impression: #1 paroxysmal atrial fibrillation with rapid ventricular response-patient now in sinus rhythm, patient will be placed on Cardizem as an additional outpatient medication for rate control. He is to remain on anticoagulation. #2 reactive polycythemia-no treatment necessary #3 essential hypertension-patient will remain on his current medications #4 obstructive sleep apnea-patient uses CPAP at night #5 hypokalemia-patient was given potassium supplementation today Patient had a normal echocardiogram today. Patient improved quicker than expected with medical treatment. He appears stable for discharge today. I have reviewed Nuria Walter's discharge summary including her medical assessment and plan of care and endorse it with the above additions. Total clinical time spent by myself addressing the patient's medical issues, reviewing his medical data, and collaboration with the patient's care team: 18 minutes Visit Charges Inpatient E&M: [id number] Disch Hosp
[2021-12-18 13:35] VITALS: BP 140/72; PULSE 73; RESP 18; TEMP 36.2; O2SAT 97
== END 2021-12-18 14:25 | disposition home or self-care (01) | DRG 309 ==
LOC: ED 12:41 → PCU 16:06
PROVIDERS: Nurse Practitioner Family; Admitting Provider Internal Medicine; Emergency Provider Emergency Medicine; PCP Internal Medicine; Visit Provider Internal Medicine
DX: I48.0 Paroxysmal atrial fibrillation (principal); D68.69 Other thrombophilia; I42.9 Cardiomyopathy, unspecified; J44.9 Chronic obstructive pulmonary disease, unspecified; F10.20 Alcohol dependence, uncomplicated; F17.210 Nicotine dependence, cigarettes, uncomplicated; D75.1 Secondary polycythemia; G47.33 Obstructive sleep apnea (adult) (pediatric); I10 Essential (primary) hypertension; E87.6 Hypokalemia; R73.9 Hyperglycemia, unspecified; Z79.01 Long term (current) use of anticoagulants; Z79.899 Other long term (current) drug therapy
CPT/HCPCS: 36415; 71045; 80053; 81001; 83036; 83735; 83880; 84443; 84484; 85025; 85610; 87426; 93005; 93306; 97802; 99285; 99406; Q9957; A4216; C8929

== ENCOUNTER 2022-01-03 12:14 | Outpatient (RCR) | payer MEDICARE, SELFPAY ==
[2021-05-09 08:06] VITALS: BMI 27.8
[2022-01-03 12:56] LABS: International Normalized Ratio 1.7; Prothrombin Time (Protime)PT. 19.5 SECONDS (11.7-14.9)
== END 2022-01-03 23:59 | disposition home or self-care (01) ==
LOC: LAB 12:14
PROVIDERS: Physician Assistant Medical; Family Provider Internal Medicine; PCP Internal Medicine; Referring Provider Internal Medicine Cardiovascular Disease; Visit Provider Internal Medicine Cardiovascular Disease
DX: I48.0 Paroxysmal atrial fibrillation (principal); Z79.01 Long term (current) use of anticoagulants
CPT/HCPCS: 36415; 85610

== ENCOUNTER 2022-01-20 12:52 | Outpatient (RCR) | payer MEDICARE, SELFPAY ==
[2022-01-14 09:43] VITALS: BMI 27.8
[2022-01-20 13:42] LABS: International Normalized Ratio 2.6; Prothrombin Time (Protime)PT. 26.8 SECONDS (11.7-14.9)
== END 2022-02-13 18:00 | disposition home or self-care (01) ==
LOC: LAB 12:52
PROVIDERS: Family Provider Internal Medicine; PCP Internal Medicine; Referring Provider Internal Medicine Cardiovascular Disease; Visit Provider Internal Medicine Cardiovascular Disease
DX: I48.0 Paroxysmal atrial fibrillation (principal); Z79.01 Long term (current) use of anticoagulants
CPT/HCPCS: 36415; 85610

== ENCOUNTER 2022-07-25 08:17 | Outpatient (RCR) | payer MEDICARE, SELFPAY ==
[2022-02-14 02:29] VITALS: BMI 27.8
[2022-07-25 09:00] LABS: International Normalized Ratio 2.5; Prothrombin Time (Protime)PT. 26.6 SECONDS (11.7-14.9)
== END 2022-07-25 18:00 | disposition home or self-care (01) ==
LOC: LAB 08:17
PROVIDERS: Family Provider Internal Medicine; PCP Internal Medicine; Referring Provider Internal Medicine Cardiovascular Disease; Visit Provider Internal Medicine Cardiovascular Disease
DX: I48.0 Paroxysmal atrial fibrillation (principal); Z79.01 Long term (current) use of anticoagulants
CPT/HCPCS: 36415; 85610

== ENCOUNTER 2022-10-23 12:32 | Outpatient (RCR) | payer MEDICARE, SELFPAY ==
[2022-08-15 21:37] VITALS: BMI 27.8
[2022-10-23 13:01] LABS: International Normalized Ratio 2.6; Prothrombin Time (Protime)PT. 27.3 SECONDS (11.7-14.9)
== END 2022-10-23 18:00 | disposition home or self-care (01) ==
LOC: LAB 12:32
PROVIDERS: Family Provider Internal Medicine; PCP Internal Medicine; Referring Provider Internal Medicine Cardiovascular Disease; Visit Provider Internal Medicine Cardiovascular Disease
DX: I48.0 Paroxysmal atrial fibrillation (principal); Z79.01 Long term (current) use of anticoagulants
CPT/HCPCS: 36415; 85610

== ENCOUNTER 2022-10-23 12:45 | Outpatient (CLI) | payer MEDICARE, SELFPAY ==
--- NOTE | 2022-10-23 12:49 | CT_ITS ---
STUDY: LOW DOSE CT LUNG CANCER SCREENING REASON FOR EXAM: Male, 72 years old. SCreening. Patient smoked 1 pack per day for 50 years. Current smoker. RADIATION DOSAGE (If Supplied By Facility): CTDIvol = ( 4.02 ) mGy, DLP = ( 128.38 ) mGycm TECHNIQUE: No contrast was administered. Low dose technique was utilized (average mAS-38 and kVp 120). 1.25 mm axial source images with a slice interval of 1.25-mm were reconstructed in lung windows. 2.5 mm axial source images with a slice interval of 2.5-mm were reconstructed in lung windows. 5.0 mm axial source images with a slice interval of 5.0-mm were reconstructed in soft tissue windows. COMPARISON: Comparison is made with prior study dated 05/29/2021. NODULES: Stable 6 mm nodule in the posterior aspect of the right upper lobe abutting the minor fissure. This is unchanged. There is a 1.4 cm x 1 cm pleural based linear density in the posterior lateral aspect of the left lower lobe as seen on axial image #187. This most likely represents an area of scarring persists essentially unchanged. Emphysema: Hyperinflation. Emphysematous changes. Stable scarring at the left lung apex. Endobronchial lesion: Aorta: Atherosclerotic plaque formation of the aortic arch. CORONARY ARTERIES: Coronary artery calcification is seen. Heart: Unremarkable Pulmonary artery: Unremarkable Mediastinal nodes: Small mediastinal lymph nodes. Other chest and abdominal findings: CT/Low Dose CT Lung Screening IMPRESSION: Lung-RADS category 2 - Continue annual screening with LDCT in 12 months. IMPORTANT NOTES FOR USE: ACR Lung-RADS Version 1.1 Assessment Categories Release Date: 2018 Category: Coded 0-4 bases on nodule(s) with highest degree of suspicion. Negative screen is defined as categories 1 and 2; a positive screen is defined as categories 3 and 4. Category 3 and 4A nodules that are unchanged on interval CT should be coded as category 2, and individuals returned to screening in 12 months. Category 4X: Category 3 or 4 nodules with additional imaging findings that increase the suspicion of lung cancer, such as spiculation, GGN that doubles in size in 1 year, enlarged lymph notes, etc. Category Modifiers: S (significant finding unrelated to lung cancer) Electronically Signed: Orville Phillip MD at 14:43 EST ,
== END 2022-10-23 23:59 | disposition home or self-care (01) ==
LOC: CT 12:49
PROVIDERS: PCP Internal Medicine; Referring Provider Internal Medicine Critical Care Medicine; Visit Provider Internal Medicine Critical Care Medicine
DX: F17.210 Nicotine dependence, cigarettes, uncomplicated (principal); I48.0 Paroxysmal atrial fibrillation; Z79.01 Long term (current) use of anticoagulants
CPT/HCPCS: 36415; 71271; 85610

== ENCOUNTER 2022-12-03 09:44 | Outpatient (RCR) | payer MEDICARE, SELFPAY ==
[2022-11-16 03:56] VITALS: BMI 27.8
[2022-12-03 10:50] LABS: International Normalized Ratio 3.1; Prothrombin Time (Protime)PT. 31.8 SECONDS (11.7-14.9)
== END 2022-12-03 11:00 | disposition home or self-care (01) ==
LOC: LAB 09:44
PROVIDERS: Family Provider Internal Medicine; PCP Internal Medicine; Referring Provider Internal Medicine Cardiovascular Disease; Visit Provider Internal Medicine Cardiovascular Disease
DX: I48.0 Paroxysmal atrial fibrillation (principal); Z79.01 Long term (current) use of anticoagulants
CPT/HCPCS: 36415; 85610

== ENCOUNTER 2022-12-17 08:44 | Emergency (ER) | payer MEDICARE, SELFPAY ==
[2022-12-17 08:44] VITALS: BP 142/78; PULSE 78; RESP 16; TEMP 36.6; O2SAT 94; BMI 27.8
--- NOTE | 2022-12-17 08:57 | EDS_ITS ---
HPI HPI - Fall History of Present Illness Chief Complaint: Fall Informant: patient and spouse/S.O. Narrative Narrative: Patient complains of right rib pain. Patient states he was drinking on Thursday. He tripped and fell on the driveway. He states he landed on his right arm. H his arm hit into his chest. He states his arm does not hurt. He did hit his elbow but it does not hurt to move. He also scraped his knee but it does not hurt. He states he never went all the way down or hit his head. There is no loss of consciousness. He states he has an area in the right anterior chest that he can feel clicking and he knows there is a rib broken. He feels an area in the right posterior chest wall that also hurts. He states he has had broken ribs about 10 times. He states he is really not short of breath. It does hurt to breathe at times but he is not short of breath. He is a lifelong smoker but just quit on Thursday after his fall. He does have a history of COPD and has a inhaler at home but states he really does not ever use it. He has seen Dr. Mcconnell for his lungs. He also states that he had a spot in his lungs a little over a year ago. They did a repeat scan a few months ago but he has not heard back about that. He is not sure what his last INR was. [facility] Medical History Alcohol abuse Alcohol use Atrial fibrillation with rapid ventricular response (12/17/21) BiPAP (biphasic positive airway pressure) dependence Cancer Cardiomyopathy in other diseases classified elsewhere COPD (chronic obstructive pulmonary disease) Diverticulitis Dyspnea on effort Essential (primary) hypertension Excessive bleeding Fatigue Hepatitis Hepatitis C Hoarseness Hyperlipidemia residential (current) use of anticoagulants Multiple subsolid lung nodules less than 6 mm in diameter Near syncope Nicotine dependence AISHWARYA (obstructive sleep apnea) Paroxysmal atrial fibrillation Shoulder pain Smoking greater than 40 pack years SOB (shortness of breath) Stage 2 moderate COPD by GOLD classification Substance abuse Syncope and collapse Wears partial dentures Home Medications multivitamin 1 tab PO DAILY supplement 07/03/20 [History Last Taken 12/17/21] atorvastatin 10 mg tablet 10 mg PO QHS #90 tabs 10/16/22 [Rx Last Taken Unknown] carvedilol 25 mg tablet (Coreg) 25 mg PO BID blood pressure #180 tabs 10/16/22 [Rx Last Taken Unknown] diltiazem HCl 120 mg capsule,extended release 24 hr (Cardizem CD) 120 mg PO DAILY #90 caps 10/16/22 [Rx Last Taken Unknown] hydrochlorothiazide 25 mg tablet 25 mg PO QAM diuretic #90 tabs 10/16/22 [Rx Last Taken Unknown] lisinopril 20 mg tablet 20 mg PO BID blood pressure #180 tabs 10/16/22 [Rx Last Taken Unknown] warfarin 5 mg tablet 5 mg PO .COMPLEX #30 tabs 10/16/22 [Rx Last Taken Unknown] warfarin 7.5 mg tablet 7.5 mg PO .COMPLEX #90 tabs 10/16/22 [Rx Last Taken Unknown] hydrocodone-acetaminophen 5-325mg 5mg-325mg 1 tab PO Q6H PRN PRN Pain 3 days #12 TABLETS 12/17/22 [Rx Last Taken Unknown] Allergy/AdvReac Type Severity Reaction Status Date / Time ampicillin Allergy Unknown Verified 12/17/22 08:44 Penicillins Allergy Hives Verified 12/17/22 08:44 sulindac [From Clinoril] Allergy Unknown Verified 12/17/22 08:44 Family History Mother Breast cancer Father Cancer Surgical History History of cardiac catheterization History of cholecystectomy History of herniorrhaphy vocal cord surgery Social History household members: spouse housing: house current occupational status: previously employed and retired pets and animals: Yes pets and animals: cat(s) Smoking Status: Current every day smoker tobacco type: cigarettes Tobacco: How many years used: 60 second hand exposure: Yes alcohol intake: current alcohol intake frequency: a few times a week Alcohol type: beer substance use type: does not use caffeine: No what type of physical activity do you participate in: none ROS ROS ED Constitutional Constitutional ED: Denies chills or fever(s) Eyes Eyes: Denies change in vision ENT ENT ED: Denies rhinorrhea or sore throat Cardiovascular Cardiovascular: Reports chest pain; Denies palpitations or racing heartbeat Respiratory/Chest Respiratory/Chest: Reports cough and other Details: Patient has a chronic cough. This is not really different but it does hurt more now. No sputum. ; Denies dyspnea Gastrointestinal Gastrointestinal: Denies abdominal pain, melena, nausea or vomiting Genitourinary Genitourinary ED: Denies hematuria Musculoskeletal Musculoskeletal: Reports other Details: See history of present illness. ; Denies back pain or neck pain Integumentary Reports Abrasions and other Details: Slight abrasion right knee Neurologic Neurologic: Denies headache(s) Hematologic/Lymphatic Hematologic/Lymphatic: Reports easy bleeding and easy bruising Allergic/Immunologic Allergic/Immunologic ED: Denies urticaria EXAM Physical Exam Narrative Exam Narrative: Patient is awake alert. He walked back from triage by his own power. He looks comfortable. He did not get dyspneic. HEENT: No sign of head or facial trauma. No bruising abrasions or tenderness. Neck shows no tenderness or pain with range of motion Lungs he has a few coarse breath sounds bilaterally but they clear with a cough. No wheezing is heard. He does have some chest wall tenderness a little bit posteriorly and some anterior tenderness actually up a relatively high at likely the fifth rib or so. There is no subcutaneous air. I do not feel clicking of his ribs when he breathes but he states sometimes he is able to feel this. I do not note any swelling or contusions at this point. Abdomen is soft and nontender. Back shows no cervical thoracic or lumbar spinal tenderness. No CVA tenderness. Extremities: Free range of motion of all extremities. Even the elbow on the right that he did hit does not have swelling or abrasion. There is a very small abrasion over the proximal lateral right lower leg. But no effusion. He is able to walk normally. No bony tenderness. Neurologically he is awake alert and appropriate. He is not sleepy or lethargic. He is not discoordinated. He has normal sensation and strength. Const Vital Signs: 12/17/22 08:44 12/17/22 09:04 Temperature 97.8 F Temperature Source Temporal Pulse Rate 78 Respiratory Rate 16 Respiratory Effort Normal Blood Pressure 142/78 H Blood Pressure Mean 99 Pulse Ox 94 Oxygen Delivery Method Room Air Room Air MDM MDM MDM Narrative Medical decision making narrative: My independent interpretation the patient's 5 view x-ray of the right ribs and chest are suspicious for an acute fracture on the right. I see multiple old ones also. I do not see a pneumothorax. Official reading does show nondisplaced fracture of the anterior lateral aspect of the right sixth rib. This is consistent with his area of pain. His INR is therapeutic at 2.9. I discussed findings with the patient. I do not see signs of effusion or hemothorax. I will get him on meds for pain. We will get him on incentive spirometer. We discussed reasons to return including coughing, dyspnea, fevers or other concerns. I did access the state supported prescribing reference. He has 1 prescription for prior narcotics. Lab Data Attestation: I reviewed the patient's lab results. Labs: Laboratory Results - last 24 hr 12/17/22 09:12 PT 30.1 H INR 2.9 Radiography Diagnostic Testing: Clinical Impression(s) from Imaging Studies Ribs w/Chest X-Ray 12/17/22 09:25 IMPRESSION: RIBS: Nondisplaced fracture of the anterior lateral aspect of the right sixth rib with overlying pleural thickening. Healed left rib fractures. CHEST: Stable pleural parenchymal changes at the left lung base. Electronically Signed: Orville Phillip MD at 9:46 EST , Discharge Plan Triage Chief Complaint: Fall ED Provider: Jose Chavez Dx/Rx/DC Orders Clinical Impression: Right rib fracture, Fall at home, Warfarin-induced coagulopathy Instructions: ED Rib Fracture Prescriptions: New hydrocodone-acetaminophen [hydrocodone-acetaminophen] 5-325 mg tablet 1 tab PO Q6H PRN PRN (Reason: Pain) 3 Days Qty: 12 0RF No Action multivitamin Tablet 1 tab PO DAILY atorvastatin 10 mg tablet 10 mg PO QHS Qty: 90 3RF carvedilol [Coreg] 25 mg tablet 25 mg PO BID Qty: 180 3RF Rx Instructions: give with food (meal/snack) diltiazem HCl [Cardizem CD] 120 mg capsule,extended release 24hr 120 mg PO DAILY Qty: 90 3RF hydrochlorothiazide 25 mg tablet 25 mg PO QAM Qty: 90 3RF lisinopril 20 mg tablet 20 mg PO BID Qty: 180 3RF warfarin 7.5 mg tablet 7.5 mg PO .COMPLEX Qty: 90 3RF Protocol: Dose Management Condition: Thursday Dose/Route: 7.5 mg Instruction: 1 x 7.5 mg tablet Condition: Thursday Dose/Route: 7.5 mg Instruction: 1 x 7.5 mg tablet Condition: Thursday Dose/Route: 7.5 mg Instruction: 1 x 7.5 mg tablet Condition: Thursday Dose/Route: 7.5 mg Instruction: 1 x 7.5 mg tablet Condition: Dose/Route: 7.5 mg Instruction: 1 x 7.5 mg tablet Condition: Thursday Dose/Route: 7.5 mg Instruction: 1 x 7.5 mg tablet Condition: Thursday Dose/Route: 7.5 mg Instruction: 1 x 7.5 mg tablet Protocol Text: Adjustment Start Date: Thursday12/03/22 INR Value: 3.1 INR Date: 12/03/22 Recheck Date: 12/24/22 Rx Instructions: 7.5 mg orally every day except takes 10 mg (two 5 mg tablets) on Fridays; or as directed warfarin 5 mg tablet 5 mg PO .COMPLEX Qty: 30 3RF Protocol: Dose Management Condition: Thursday Dose/Route: 7.5 mg Instruction: 1 x 7.5 mg tablet Condition: Thursday Dose/Route: 7.5 mg Instruction: 1 x 7.5 mg tablet Condition: Thursday Dose/Route: 7.5 mg Instruction: 1 x 7.5 mg tablet Condition: Thursday Dose/Route: 7.5 mg Instruction: 1 x 7.5 mg tablet Condition: Dose/Route: 7.5 mg Instruction: 1 x 7.5 mg tablet Condition: Thursday Dose/Route: 7.5 mg Instruction: 1 x 7.5 mg tablet Condition: Thursday Dose/Route: 7.5 mg Instruction: 1 x 7.5 mg tablet Protocol Text: Adjustment Start Date: Thursday12/03/22 INR Value: 3.1 INR Date: 12/03/22 Recheck Date: 12/24/22 Rx Instructions: 5 mg orally 2 tablets to = 10 mg every Thursday (takes a 7.5 mg tablet all other days of the week); Primary Care Provider: Juan Heredia Referrals: Juan Heredia MD [Primary Care Provider] - 1 Week if not improving Disposition Disposition: Home, Self Care
--- NOTE | 2022-12-17 09:25 | RAD_ITS ---
STUDY: X-RAY - UNILATERAL RIBS ( RIGHT ) WITH CHEST REASON FOR EXAM: Male, 72 years old. Anterior right-sided rib pain following a fall. TECHNIQUE - RIBS: 4 view(s) of the ribs. TECHNIQUE - CHEST: Single PA view of the chest. COMPARISON: Comparison is made with prior chest radiograph dated 12/17/2021. FINDINGS - RIBS: Nondisplaced fracture of the anterior right sixth rib. Focal overlying pleural thickening. FINDINGS - CHEST: Hyperinflation. Stable mild pleural parenchymal changes at the left lung base suggestive of scarring. Healed left rib fractures. Normal size heart. Normal mediastinum and essence. Normal visualized pulmonary arteries. There is atherosclerotic calcification of the aortic arch with tortuosity. Normal visualized thoracic spine. Healed left rib fractures. There is no demonstrated abnormality of the visualized soft tissue structures of the upper abdomen. RAD/Ribs Uni Min 3V w/PA Chest IMPRESSION: RIBS: Nondisplaced fracture of the anterior lateral aspect of the right sixth rib with overlying pleural thickening. Healed left rib fractures. CHEST: Stable pleural parenchymal changes at the left lung base. Electronically Signed: Orville Phillip MD at 9:46 EST ,
[2022-12-17 09:40] LABS: International Normalized Ratio 2.9; Prothrombin Time (Protime)PT. 30.1 SECONDS (11.7-14.9)
[2022-12-17] MEDS: oxyCODONE 5 MG Tablet PO (10:31)
== END 2022-12-17 10:35 | disposition home or self-care (01) ==
PROVIDERS: Emergency Provider Emergency Medicine; PCP Internal Medicine; Visit Provider Emergency Medicine
DX: S22.31XA Fracture of one rib, right side, initial encounter for closed fracture (principal); J44.9 Chronic obstructive pulmonary disease, unspecified; I42.9 Cardiomyopathy, unspecified; I48.0 Paroxysmal atrial fibrillation; F17.210 Nicotine dependence, cigarettes, uncomplicated; E78.5 Hyperlipidemia, unspecified; I10 Essential (primary) hypertension; W01.0XXA Fall on same level from slipping, tripping and stumbling without subsequent striking against object, initial encounter; Y92.008 Other place in unspecified non-institutional (private) residence as the place of occurrence of the external cause; Z79.01 Long term (current) use of anticoagulants; Z79.899 Other long term (current) drug therapy
CPT/HCPCS: 71101; 85610; 99284; A4216

== ENCOUNTER 2023-02-02 14:59 | Outpatient (RCR) | payer MEDICARE, SELFPAY ==
[2022-12-17 08:19] VITALS: BMI 27.8
[2023-01-19 15:51] LABS: International Normalized Ratio 3.3
[2023-02-02 15:59] LABS: Prothrombin Time (Protime)PT. 31.2 SECONDS (11.7-14.9)
== END 2023-02-13 23:00 | disposition home or self-care (01) ==
LOC: LAB 14:59
PROVIDERS: Family Provider Internal Medicine; PCP Internal Medicine; Referring Provider Internal Medicine Cardiovascular Disease; Visit Provider Internal Medicine Cardiovascular Disease
DX: I48.0 Paroxysmal atrial fibrillation (principal); Z79.01 Long term (current) use of anticoagulants
CPT/HCPCS: 36415; 85610

== ENCOUNTER 2023-05-26 13:01 | Outpatient (RCR) | payer MEDICARE, SELFPAY ==
[2023-02-14 00:32] VITALS: BMI 27.8
[2023-05-26 13:38] LABS: International Normalized Ratio 2.1; Prothrombin Time (Protime)PT. 23.4 SECONDS (11.7-14.9)
== END 2023-06-15 18:00 | disposition home or self-care (01) ==
LOC: LAB 13:01
PROVIDERS: Family Provider Internal Medicine; PCP Internal Medicine; Referring Provider Internal Medicine Cardiovascular Disease; Visit Provider Internal Medicine Cardiovascular Disease
DX: I48.0 Paroxysmal atrial fibrillation (principal); Z79.01 Long term (current) use of anticoagulants
CPT/HCPCS: 36415; 85610

== ENCOUNTER 2023-06-22 15:15 | Outpatient (RCR) | payer MEDICARE, SELFPAY ==
[2023-06-16 00:43] VITALS: BMI 27.8
[2023-06-22 15:53] LABS: International Normalized Ratio 2.4; Prothrombin Time (Protime)PT. 26.6 SECONDS (11.7-14.9)
== END 2023-06-22 18:00 | disposition home or self-care (01) ==
LOC: LAB 15:15
PROVIDERS: Family Provider Internal Medicine; PCP Internal Medicine; Referring Provider Internal Medicine Cardiovascular Disease; Visit Provider Internal Medicine Cardiovascular Disease
DX: I48.0 Paroxysmal atrial fibrillation (principal); Z79.01 Long term (current) use of anticoagulants
CPT/HCPCS: 36415; 85610

== ENCOUNTER 2023-10-22 08:59 | Outpatient (RCR) | payer MEDICARE, SELFPAY ==
[2023-07-16 22:56] VITALS: BMI 27.8
[2023-10-22 09:29] LABS: International Normalized Ratio 2.4; Prothrombin Time (Protime)PT. 26.1 SECONDS (11.7-14.9)
== END 2023-11-15 18:00 | disposition home or self-care (01) ==
LOC: LAB 08:59
PROVIDERS: Family Provider Internal Medicine; PCP Internal Medicine; Referring Provider Internal Medicine Cardiovascular Disease; Visit Provider Internal Medicine Cardiovascular Disease
DX: Z79.01 Long term (current) use of anticoagulants; I48.19 Other persistent atrial fibrillation
CPT/HCPCS: 36415; 85610

== ENCOUNTER → 2023-10-29 | Outpatient (CLI) | payer MEDICARE, SELFPAY ==
--- NOTE | 2023-10-29 07:58 | CT_ITS ---
STUDY: LOW DOSE CT LUNG CANCER SCREENING REASON FOR EXAM: Male, 73 years old. Patient smokes less than 1 pack per day for 50 years. History of emphysema. RADIATION DOSAGE (If Supplied By Facility): CTDIvol = ( 3.18 ) mGy, DLP = ( 104.03 ) mGycm TECHNIQUE: No contrast was administered. Low dose technique was utilized (average mAS-38 and kVp 120). 1.25 mm axial source images with a slice interval of 1.25-mm were reconstructed in lung windows. 2.5 mm axial source images with a slice interval of 2.5-mm were reconstructed in lung windows. 5.0 mm axial source images with a slice interval of 5.0-mm were reconstructed in soft tissue windows. COMPARISON: Comparison is made with prior study dated October 23, 2022. NODULES: Stable 6 mm nodule in the posterior aspect of the right upper lobe abutting the minor fissure. Emphysema: Emphysematous changes. Stable scarring at the lung apices. Stable linear scarring in the posterior lateral aspect of the left lower lobe. Endobronchial lesion: None Aorta: Atherosclerotic plaque formation. CORONARY ARTERIES: Coronary artery calcification is seen. Heart: Unremarkable Pulmonary artery: Unremarkable Mediastinal nodes: Small mediastinal lymph nodes. Other chest and abdominal findings: CT/Low Dose CT Lung Screening IMPRESSION: Lung-RADS category 2 - Continue annual screening with LDCT in 12 months. IMPORTANT NOTES FOR USE: ACR Lung-RADS Version 1.1 Assessment Categories Release Date: 2018 Category: Coded 0-4 bases on nodule(s) with highest degree of suspicion. Negative screen is defined as categories 1 and 2; a positive screen is defined as categories 3 and 4. Category 3 and 4A nodules that are unchanged on interval CT should be coded as category 2, and individuals returned to screening in 12 months. Category 4X: Category 3 or 4 nodules with additional imaging findings that increase the suspicion of lung cancer, such as spiculation, GGN that doubles in size in 1 year, enlarged lymph notes, etc. Category Modifiers: S (significant finding unrelated to lung cancer) Electronically Signed: Orville Phillip MD at 10:04 EST ,
== END | disposition home or self-care (01) ==
PROVIDERS: PCP Internal Medicine; Referring Provider Internal Medicine Critical Care Medicine; Visit Provider Internal Medicine Critical Care Medicine
DX: Z12.2 Encounter for screening for malignant neoplasm of respiratory organs (principal); F17.210 Nicotine dependence, cigarettes, uncomplicated
CPT/HCPCS: 71271

== ENCOUNTER 2023-11-23 13:51 | Outpatient (RCR) | payer MEDICARE, SELFPAY ==
[2023-11-15 20:52] VITALS: BMI 27.8
[2023-11-23 15:30] LABS: International Normalized Ratio 2.2; Prothrombin Time (Protime)PT. 24.3 SECONDS (11.7-14.9)
== END 2023-11-23 18:00 | disposition home or self-care (01) ==
LOC: LAB 13:51
PROVIDERS: Family Provider Internal Medicine; PCP Internal Medicine; Referring Provider Internal Medicine Cardiovascular Disease; Visit Provider Internal Medicine Cardiovascular Disease
DX: I48.19 Other persistent atrial fibrillation (principal); Z79.01 Long term (current) use of anticoagulants
CPT/HCPCS: 36415; 85610

== ENCOUNTER 2024-01-07 14:00 | Outpatient (RCR) | payer MEDICARE, SELFPAY ==
[2023-12-16 22:40] VITALS: BMI 27.8
[2024-01-07 15:38] LABS: International Normalized Ratio 3.1; Prothrombin Time (Protime)PT. 32.4 SECONDS (11.7-14.9)
== END 2024-01-14 18:00 | disposition home or self-care (01) ==
LOC: LAB 14:00
PROVIDERS: Family Provider Internal Medicine; PCP Internal Medicine; Referring Provider Internal Medicine Cardiovascular Disease; Visit Provider Internal Medicine Cardiovascular Disease
DX: I48.19 Other persistent atrial fibrillation (principal); Z79.01 Long term (current) use of anticoagulants
CPT/HCPCS: 36415; 85610

== ENCOUNTER 2024-01-25 14:58 | Outpatient (RCR) | payer MEDICARE, SELFPAY ==
[2024-01-14 23:08] VITALS: BMI 27.8
[2024-01-25 16:18] LABS: International Normalized Ratio 2.3; Prothrombin Time (Protime)PT. 25.2 SECONDS (11.7-14.9)
== END 2024-02-13 18:00 | disposition home or self-care (01) ==
LOC: LAB 14:58
PROVIDERS: Family Provider Internal Medicine; PCP Internal Medicine; Referring Provider Internal Medicine Cardiovascular Disease; Visit Provider Internal Medicine Cardiovascular Disease
DX: Z79.01 Long term (current) use of anticoagulants; I48.0 Paroxysmal atrial fibrillation
CPT/HCPCS: 36415; 85610

== ENCOUNTER 2024-05-30 14:43 | Outpatient (RCR) | payer MEDICARE, SELFPAY ==
[2024-02-13 22:36] VITALS: BMI 27.8
[2024-05-30 16:24] LABS: International Normalized Ratio 2.3; Prothrombin Time (Protime)PT. 25.2 SECONDS (11.7-14.9)
== END 2024-06-15 18:00 | disposition home or self-care (01) ==
LOC: LAB 14:43
PROVIDERS: Family Provider Internal Medicine; PCP Internal Medicine; Referring Provider Internal Medicine Cardiovascular Disease; Visit Provider Internal Medicine Cardiovascular Disease
DX: I48.19 Other persistent atrial fibrillation (principal); Z79.01 Long term (current) use of anticoagulants
CPT/HCPCS: 36415; 85610

== ENCOUNTER → 2024-08-08 | Outpatient (CLI) | payer MEDICARE, SELFPAY | END | disposition home or self-care (01) | PROVIDERS: PCP Internal Medicine; Referring Provider Internal Medicine Critical Care Medicine; Visit Provider Internal Medicine Critical Care Medicine | DX: J44.9 Chronic obstructive pulmonary disease, unspecified (principal) | CPT/HCPCS: 94060; 94726; 94729 ==

== ENCOUNTER 2024-09-14 08:38 | Outpatient (RCR) | payer MEDICARE, SELFPAY ==
[2024-06-15 21:46] VITALS: BMI 27.8
[2024-09-14 10:44] LABS: International Normalized Ratio 2.4; Prothrombin Time (Protime)PT. 25.6 SECONDS (11.7-14.9)
== END 2024-09-14 18:00 | disposition home or self-care (01) ==
LOC: LAB 08:38
PROVIDERS: Family Provider Internal Medicine; PCP Internal Medicine; Referring Provider Internal Medicine Cardiovascular Disease; Visit Provider Internal Medicine Cardiovascular Disease
DX: Z79.01 Long term (current) use of anticoagulants
CPT/HCPCS: 36415; 85610

== ENCOUNTER 2024-10-25 10:28 | Outpatient (RCR) | payer MEDICARE, SELFPAY ==
[2024-09-15 20:50] VITALS: BMI 27.8
[2024-10-25 11:08] LABS: International Normalized Ratio 2.9; Prothrombin Time (Protime)PT. 29.9 SECONDS (11.7-14.9)
== END 2024-10-25 18:00 | disposition home or self-care (01) ==
LOC: LAB 10:28
PROVIDERS: Physician Assistant Medical; Family Provider Internal Medicine; PCP Internal Medicine; Referring Provider Internal Medicine Cardiovascular Disease; Visit Provider Internal Medicine Cardiovascular Disease
DX: I48.19 Other persistent atrial fibrillation (principal); Z79.01 Long term (current) use of anticoagulants

== ENCOUNTER → 2024-10-31 | Outpatient (CLI) | payer MEDICARE, SELFPAY ==
--- NOTE | 2024-10-31 07:48 | CT_ITS ---
STUDY: LOW DOSE CT LUNG CANCER SCREENING REASON FOR EXAM: Male, 74 years old. Smoker-current, 55 yrs x 1/2 ppd, copd RADIATION DOSAGE (If Supplied By Facility): CTDIvol = ( 4.02 ) mGy, DLP = ( 130.39 ) mGycm TECHNIQUE: No contrast was administered. Low dose technique was utilized (average mAS-38 and kVp 120). 1.25 mm axial source images with a slice interval of 1.25-mm were reconstructed in lung windows. 2.5 mm axial source images with a slice interval of 2.5-mm were reconstructed in lung windows. 5.0 mm axial source images with a slice interval of 5.0-mm were reconstructed in soft tissue windows. COMPARISON: Comparison is made with prior study dated October 29, 2023. NODULES: Stable 6 mm noncalcified nodule in the posterior aspect of the right upper lobe abutting the right minor fissure. Emphysema: Emphysematous changes. Stable scarring at the lung apices. Stable linear scarring in the posterolateral aspect of the left lower lobe. Endobronchial lesion: None Aorta: Atherosclerotic plaque formation of the aortic arch. CORONARY ARTERIES: Coronary artery calcification is seen. Heart: Unremarkable. Pulmonary artery: Unremarkable Mediastinal nodes: Small mediastinal lymph nodes. Other chest and abdominal findings: CT/Low Dose CT Lung Screening IMPRESSION: Lung-RADS category 2 - Continue annual screening with LDCT in 12 months. IMPORTANT NOTES FOR USE: ACR Lung-RADS Version 1.1 Assessment Categories Release Date: 2018 Category: Coded 0-4 bases on nodule(s) with highest degree of suspicion. Negative screen is defined as categories 1 and 2; a positive screen is defined as categories 3 and 4. Category 3 and 4A nodules that are unchanged on interval CT should be coded as category 2, and individuals returned to screening in 12 months. Category 4X: Category 3 or 4 nodules with additional imaging findings that increase the suspicion of lung cancer, such as spiculation, GGN that doubles in size in 1 year, enlarged lymph notes, etc. Category Modifiers: S (significant finding unrelated to lung cancer) Electronically Signed: Orville Phillip MD at 15:18 EST ,
== END | disposition home or self-care (01) ==
LOC: CT 07:48
PROVIDERS: PCP Internal Medicine; Referring Provider Nurse Practitioner Acute Care; Visit Provider Nurse Practitioner Acute Care
DX: Z12.2 Encounter for screening for malignant neoplasm of respiratory organs (principal); F17.210 Nicotine dependence, cigarettes, uncomplicated
CPT/HCPCS: 71271

== ENCOUNTER → 2024-12-07 | Outpatient (CLI) | payer MEDICARE, SELFPAY ==
[2024-12-07] MEDS: Zolpidem Tartrate 5 MG Tablet PO (21:30)
== END | disposition home or self-care (01) ==
LOC: SL 20:02
PROVIDERS: PCP Internal Medicine; Referring Provider Nurse Practitioner Family; Visit Provider Nurse Practitioner Family
DX: G47.33 Obstructive sleep apnea (adult) (pediatric) (principal)
CPT/HCPCS: 95810

== ENCOUNTER 2025-02-13 15:09 | Outpatient (RCR) | payer MEDICARE, SELFPAY ==
[2024-11-16 04:24] VITALS: BMI 27.8
[2025-02-13 16:39] LABS: International Normalized Ratio 3.8; Prothrombin Time (Protime)PT. 38.6 SECONDS (11.7-14.9)
== END 2025-02-13 18:00 | disposition home or self-care (01) ==
LOC: LAB 15:09
PROVIDERS: Family Provider Internal Medicine; PCP Internal Medicine; Referring Provider Internal Medicine Cardiovascular Disease; Visit Provider Internal Medicine Cardiovascular Disease
DX: Z79.01 Long term (current) use of anticoagulants
CPT/HCPCS: 36415; 85610

== ENCOUNTER 2025-03-13 10:35 | Outpatient (RCR) | payer MEDICARE, SELFPAY ==
[2025-02-13 22:14] VITALS: BMI 27.8
[2025-02-20 15:53] LABS: International Normalized Ratio 2.7; Prothrombin Time (Protime)PT. 29.7 SECONDS (11.7-14.9)
[2025-03-13 11:40] LABS: International Normalized Ratio 2.9; Prothrombin Time (Protime)PT. 31.2 SECONDS (11.7-14.9)
== END 2025-03-15 18:00 | disposition home or self-care (01) ==
LOC: LAB 10:35
PROVIDERS: Family Provider Internal Medicine; PCP Internal Medicine; Referring Provider Internal Medicine Cardiovascular Disease; Visit Provider Internal Medicine Cardiovascular Disease
DX: Z79.01 Long term (current) use of anticoagulants
CPT/HCPCS: 36415; 85610

== ENCOUNTER → 2025-04-03 | Outpatient (CLI) | payer MEDICARE, SELFPAY | END | disposition home or self-care (01) | LOC: SL 12:46 | PROVIDERS: PCP Internal Medicine; Visit Provider Nurse Practitioner Family | DX: Z00.00 Encounter for general adult medical examination without abnormal findings (principal) ==

== ENCOUNTER 2025-04-28 13:50 | Outpatient (RCR) | payer MEDICARE, SELFPAY ==
[2025-03-15 21:33] VITALS: BMI 27.8
[2025-04-28 14:16] LABS: International Normalized Ratio 2.4; Prothrombin Time (Protime)PT. 27.1 SECONDS (11.7-14.9)
== END 2025-04-28 18:00 | disposition home or self-care (01) ==
LOC: LAB 13:50
PROVIDERS: Family Provider Internal Medicine; PCP Internal Medicine; Referring Provider Internal Medicine Cardiovascular Disease; Visit Provider Internal Medicine Cardiovascular Disease
DX: Z79.01 Long term (current) use of anticoagulants
CPT/HCPCS: 36415; 85610

== ENCOUNTER 2025-06-19 15:33 | Outpatient (RCR) | payer MEDICARE, SELFPAY ==
[2025-06-19 16:55] LABS: Prothrombin Time (Protime)PT. 29.6 SECONDS (11.7-14.9)
== END 2025-06-19 18:00 | disposition home or self-care (01) ==
LOC: LAB 15:33
PROVIDERS: Family Provider Internal Medicine; PCP Internal Medicine; Referring Provider Internal Medicine Cardiovascular Disease; Visit Provider Internal Medicine Cardiovascular Disease
DX: I48.19 Other persistent atrial fibrillation (principal); Z79.01 Long term (current) use of anticoagulants
CPT/HCPCS: 36415; 85610

== ENCOUNTER 2025-10-16 15:28 | Outpatient (RCR) | payer MEDICARE, SELFPAY ==
[2025-10-16 16:07] LABS: Prothrombin Time (Protime)PT. 27.8 SECONDS (11.7-14.9)
== END 2025-10-16 18:00 | disposition home or self-care (01) ==
LOC: LAB 15:28
PROVIDERS: Family Provider Internal Medicine; PCP Internal Medicine; Referring Provider Internal Medicine Cardiovascular Disease; Visit Provider Internal Medicine Cardiovascular Disease
DX: I48.19 Other persistent atrial fibrillation (principal); Z79.01 Long term (current) use of anticoagulants
CPT/HCPCS: 36415; 85610

== ENCOUNTER → 2025-11-01 | Outpatient (CLI) | payer MEDICARE, SELFPAY ==
--- NOTE | 2025-11-01 13:05 | CT_ITS ---
PROCEDURE: LOW DOSE CT LUNG SCREENING 11/01/2025 REASON FOR EXAM: SMOKER GREATER THAN 40 PACK YEARS TECHNIQUE: Procedure Code: [id number] Modality: CT Procedure: LOW DOSE CT LUNG SCREENING Coronal and Sagittal reconstruction series were generated. One or more dose reduction techniques were used (e.g., Automated exposure control, adjustment of the mA and/or kV according to patient size, use of iterative reconstruction technique). RADIATION DOSE SUMMARY: CTDlvol: 3.18 mGy DLP: 105.23 mGycm COMPARISON: 10/31/2024 FINDINGS: Note that evaluation of the vasculature, essence, and soft tissues is limited in the absence of IV contrast. Heart/pericardium:Advanced three-vessel coronary atherosclerosis and/or stents. Trace aortic annular calcification. Aorta: Trace to mild calcific atherosclerosis.. Pulmonary arteries: Unremarkable. Lymph nodes: Unremarkable. Lungs/pleura: Increased airspace disease within the lingula appears vaguely linear favorable for atelectasis/scarring. Associated slight architectural distortion and overlying rib abnormalities suggesting that this may reflect rounded atelectasis. Additional areas of minimal atelectasis/scarring grossly similar. Granuloma on the RIGHT. Similar intrapulmonary lymph nodes along the minor fissure (series 2, image 132 and 146). Similar 6 x 8 mm subpleural nodule in the LEFT lower lobe, posterolateral costophrenic sulcus, possible nodular appearance of atelectasis/scarring definite (image 183). Airways: Mild central bronchial wall thickening. Chest wall: Unremarkable. Upper abdomen: Suboptimally evaluated due to low-dose technique and photon starvation. Atherosclerosis.. Musculoskeletal: Mild degenerative findings. Mild thoracic dextroscoliosis. Old LEFT rib fractures.. CT/Low Dose CT Lung Screening IMPRESSION: 1. Lung-RADS category: 2S (benign appearance or behavior, <1% chance of maligna ncy); continue annual screening with LDCT. 2. Findings related to the airways may be smoking-related or reflect mild bronc hitis. 3. Additional description as above. Recommendations per [employer]. Lung CT Screening Reporting and Data System (Lung-RADS) v. 202 Reading Location: [id number]
== END | disposition home or self-care (01) ==
LOC: CT 12:28
PROVIDERS: PCP Internal Medicine; Referring Provider Nurse Practitioner Family; Visit Provider Nurse Practitioner Family
DX: Z12.2 Encounter for screening for malignant neoplasm of respiratory organs (principal); F17.210 Nicotine dependence, cigarettes, uncomplicated
CPT/HCPCS: 71271